=== PATIENT | male | born 1935 | race Caucasian/White ===

== ENCOUNTER → 2018-12-16 08:21 | Outpatient (CLI) | payer OTHER, SELFPAY | PROVIDERS: PCP Family Medicine; Visit Provider Urology | DX: N20.0 Calculus of kidney (principal) | CPT/HCPCS: 36415; 99001 ==

== ENCOUNTER → 2018-12-27 08:19 | Outpatient (CLI) | payer OTHER, SELFPAY ==
[2018-12-27 10:03] LABS: Prostate Specific Antigen < 0.064 ng/mL (0.10-4.00)
== END ==
PROVIDERS: PCP Family Medicine; Visit Provider Urology
DX: Z85.46 Personal history of malignant neoplasm of prostate (principal)
CPT/HCPCS: 36415; 84153

== ENCOUNTER 2019-04-26 21:40 | Observation (INO) | payer OTHER, SELFPAY ==
[2019-04-26 21:40] VITALS: BP 160/71; PULSE 63; RESP 20; TEMP 37.1; O2SAT 96; BMI 33.9
--- NOTE | 2019-04-26 21:43 | ED_ITS ---
HPI - General Adult General Chief complaint: Allergic Reaction Stated complaint: Allergic Reaction Time Seen by Provider: 04/26/19 21:42 Source: patient and EMS Mode of arrival: EMS Limitations: no limitations History of Present Illness HPI narrative: Patient is an 83-year-old male brought in by EMS for concerns of allergic reaction. Patient states that approximately 1 hour prior to arrival here in the emergency department he was eating clam chowder. He states that he has had this dish in the past. Afterwards started on the problems breathing and swallowing felt like his tongue was swelling. He called 911. EMS gave the patient 50 mg of Benadryl and epinephrine. Upon arrival patient states the symptoms were somewhat improving. 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 20 mg PO DAILY 04/26/19 04/26/19 (omeprazole)] Allergies Allergy/AdvReac Type Severity Reaction Status Date / Time INGREDIENT: NKA - NO KNOWN Allergy Unknown Uncoded 01/29/18 12:07 ALLERGIES Review of Systems Constitutional Denies fever(s) and Denies headache(s) ENT Ears, Nose, Mouth, and Throat: Denies headache(s), Reports lip swelling, Denies neck pain, Reports sore throat, Reports throat swelling and Reports tongue swelling Cardiovascular Denies chest pain and Denies dyspnea Respiratory Denies cough, Denies dyspnea and Reports wheezing Gastrointestinal Gastrointestinal: Denies abdominal pain, Denies nausea and Denies vomiting Genitourinary Denies dysuria Musculoskeletal Denies myalgias, Denies arthralgias and Denies neck pain Integumentary/Breasts Denies lesions, Denies new lesions and Denies rash Neurologic Denies behavioral changes and Denies headache(s) Psychiatric Denies behavioral changes Hematologic/Lymphatic Denies easy bleeding and Denies easy bruising Allergic/Immunologic Denies urticaria, Reports lip swelling, Reports throat swelling, Reports tongue swelling and Reports wheezing [facility] Medical History Gastroesophageal reflux disease (Acute) Social History household members: spouse Smoking Status: Current every day smoker alcohol intake: current Social History household members: spouse Smoking Status: Current every day smoker alcohol intake: current Exam Initial Vital Signs Initial Vital Signs: Vital Signs Temperature 98.7 F 04/26/19 21:40 Pulse Rate 63 04/26/19 21:40 Respiratory Rate 20 04/26/19 21:40 Blood Pressure 160/71 H 04/26/19 21:40 Pulse Oximetry 96 04/26/19 21:40 Const General: cooperative, comfortable, well developed, well groomed and No acute distress Orientation: alert, awake and oriented x3 HENMT Head: normal to inspection and normocephalic Ears: hearing grossly normal bilaterally Nose: external nose normal Mouth: No lip normal (Left lower lip swelling), tongue normal, No oropharynx normal (Swelling of the uvula and posterior oropharynx), moist mucous membranes, No muffled voice and No abnormal TMJ Throat: uvula midline and uvular edema Resp Effort & Inspection: normal respiratory effort Auscultation: clear to auscultation bilaterally Cardio Rate: regular rate Rhythm: regular rhythm Pulses: radial pulses present GI Inspection: non-distended Palpation: soft, No firm and No tender Skin Lesions: no lesions Rashes: no rashes Neuro General: alert, awake and oriented x3 Cognition: normal cognition Speech: speech normal Motor: muscle tone normal throughout Sensory Exam: no sensory deficits noted Extrem General: normal to inspection and capillary refill normal Psych Appearance: grossly normal and well kempt Scores GCS Amaury coma scale eye opening: Spontaneous Pierson coma scale verbal response: Orientated Amaury coma scale motor response: Obey commands Pierson coma scale total score: 15 Course Orders Ordered: ED Orders 04/26/19 21:20 Basic Metabolic Panel Stat Complete Blood Count AUTO DIFF Stat 04/26/19 22:39 Consult to Physician Routine Sodium Chloride (Normal Saline 0.9%) 1,000 mls @ 150 mls/hr IV CONT SB Last Admin: 04/27/19 00:46 Dose: 150 mls/hr Infusion: 04/27/19 00:35 Dose: 150 mls/hr Admin: 04/26/19 21:46 Dose: 150 mls/hr Methylprednisolone (Solu-Medrol 125 Mg Vial) 125 mg IV NOW ONE Stop: 04/27/19 05:01 Ondansetron HCl (Zofran) 4 mg IV Q4HR PRN PRN Reason: Nausea And Vomiting Discontinued Medications Famotidine (Pepcid) 20 mg in 50 mls @ 200 mls/hr IV NOW ONE Stop: 04/26/19 21:57 Last Infusion: 04/26/19 22:02 Dose: 0 mls/hr Admin: 04/26/19 21:47 Dose: 200 mls/hr Influenza Virus Vaccine (Flu Vaccine) 0.5 ml IM .ONCE ONE Stop: 04/27/19 00:53 Methylprednisolone (Solu-Medrol 125 Mg Vial) 125 mg IV NOW ONE Stop: 04/26/19 21:44 Last Admin: 04/26/19 21:47 Dose: 125 mg Vital Signs - 8 hr 04/26/19 21:40 04/26/19 21:47 04/26/19 22:30 Temperature 98.7 F Pulse Rate 63 70 72 Respiratory Rate 20 Blood Pressure 160/71 H Blood Pressure [Right Arm] 160/71 H 151/63 H Pulse Oximetry 96 97 96 04/26/19 23:31 04/27/19 00:30 Temperature 98.0 F Pulse Rate 67 65 Respiratory Rate 15 19 Blood Pressure 147/77 H Blood Pressure [Right Arm] 136/55 L Pulse Oximetry 95 98 Medical Decision Making Lab Data Lab results reviewed: Yes I reviewed the patient's lab results. Result diagrams: 04/26/19 21:20 04/26/19 21:20 Lab Results 04/26/19 04/26/19 Range/Units 21:20 21:20 WBC 9.9 (4.5-11.0) X10^3/uL RBC 4.78 (4.5-5.9) X10^6/uL Hgb 14.3 (13.5-17.5) g/dL Hct 42.5 (41-53) % MCV 88.9 (80-100) fL MCH 29.8 (26-34) PG MCHC 33.6 (30-36) % RDW 13.8 (11.6-14.8) % Plt Count 206 (150-400) X10^3/uL Neut % (Auto) Not Reportable Lymph % (Auto) Not Reportable [place] % (Auto) Not Reportable Eos % (Auto) Not Reportable Baso % (Auto) Not Reportable Lymph # (Auto) Not Reportable [place] # (Auto) Not Reportable Baso # (Auto) Not Reportable Total Counted 100 Seg Neutrophils % 57.0 (38-70) % Lymphocytes % (Manual) 28.0 (25-45) % Atypical Lymphs % 6.0 H ( - 0) % Monocytes % (Manual) 4.0 (2-11) % Eosinophils % (Manual) 4.0 (2-4) % Basophils % (Manual) 1.0 (0-1) % Neutrophils # (Manual) 5643 (1093-9924) /uL RBC Morphology Normal morphology Sodium 142 (137-145) mmol/L Potassium 3.7 (3.4-5.1) mmol/L Chloride 107 (98-107) mmol/L Carbon Dioxide 27 (22-32) mmol/L BUN 36 H (9-20) mg/dL Creatinine 1.30 H (0.66-1.25) mg/dL Estimated GFR 53.0 L (>60) mL/min BUN/Creatinine Ratio 27.7 H (6-22) Glucose 123 H (80-110) mg/dL Calcium 8.8 (8.4-10.2) mg/dL MDM Narrative Medical decision making narrative: Patient received Benadryl and epinephrine prior to arrival here in the emergency department. I gave him Pepcid and Solu- Medrol. During his stay here in the emergency department patient states that his symptoms were improving however he was not back to normal. He did have swelling of the edema posterior oropharynx however was maintaining his airway any secretions. Never had any symptoms like this in the past. No rashes. No vomiting. After observing here in the emergency department for a period of time his symptoms seem to not be improving all that much however again were not worsening. I discussed the case with Dr. Mccord who is on-call for the patient's primary provider who agreed to admit the patient for airway watch and continued evaluation. A repeat dose of Solu-Medrol was ordered. I discussed the admission with the patient who expressed understanding and agreement. Discharge Plan Departure Patient Disposition: Admitted as Observation Clinical Impression: Anaphylaxis Qualifiers: Encounter type: initial encounter Qualified Code(s): T78.2XXA - Anaphylactic shock, unspecified, initial encounter Discharge Date/Time: 04/27/19 00:30 Interventions: ED Discharge Assessment Last Done: 04/27/19 00:35 Admit Date/Time: 04/26/19 22:57 Admit Provider: Samm Mccord
[2019-04-26] MEDS: SODIUM CHLORIDE 0.9% 1,000 ML 150 ML IV (21:46)
[2019-04-26 21:47] VITALS: BP 160/71; PULSE 70; O2SAT 97
[2019-04-26] MEDS: methylPREDNISolone 125 MG/2 ML VIAL IV (21:47)
[2019-04-26] MEDS: FAMOTIDINE 20 MG/50 ML PIGGYBACK 200 MG IV (21:47)
[2019-04-26 21:53] LABS: Hematocrit 42.5 % (41-53); Hemoglobin 14.3 g/dL (13.5-17.5); Mean Corpuscular HGB Conc 33.6 % (30-36); Mean Corpuscular Hemoglobin 29.8 PG (26-34); Mean Corpuscular Volume 88.9 fL (80-100); Platelet Count 206 X10^3/uL (150-400); Red Blood Cell Count 4.78 X10^6/uL (4.5-5.9); Red Cell Distribution Width 13.8 % (11.6-14.8); White Blood Cell Count 9.9 X10^3/uL (4.5-11.0)
[2019-04-26 21:54] LABS: Add Manual Diff / Slide Review YES
[2019-04-26 22:00] LABS: BUN Creatinine Ratio 27.7 (6-22); Blood Urea Nitrogen 36 mg/dL (9-20); Calcium 8.8 mg/dL (8.4-10.2); Carbon Dioxide 27 mmol/L (22-32); Chloride 107 mmol/L (98-107); Glucose 123 mg/dL (80-110); HEMOLYSIS < 15 (0-50); Potassium 3.7 mmol/L (3.4-5.1); Sodium 142 mmol/L (137-145)
[2019-04-26 22:30] VITALS: BP 151/63; PULSE 72; O2SAT 96
[2019-04-26 23:17] VITALS: BMI 33.9
[2019-04-26 23:29] LABS: Neutrophils Absolute Manual 5643 /uL (3000-5900); Total Cells Counted 100
[2019-04-26 23:30] LABS: RBC Morphology Normal Morphology
[2019-04-26 23:31] VITALS: BP 136/55; PULSE 67; RESP 15; O2SAT 95
--- NOTE | 2019-04-26 23:38 | PC.NURSE ---
I attempted to call report, I was told that the nurse isn't available.
[2019-04-27 00:30] VITALS: BP 147/77; PULSE 65; RESP 19; TEMP 36.7; O2SAT 98
[2019-04-27] MEDS: SODIUM CHLORIDE 0.9% 1,000 ML 150 ML IV ×2 (00:46→06:32)
[2019-04-27 05:18] VITALS: BP 149/71; PULSE 68; RESP 19; TEMP 36.5; O2SAT 96
[2019-04-27] MEDS: methylPREDNISolone 125 MG/2 ML VIAL IV (06:28)
--- NOTE | 2019-04-27 06:40 | PC.NURSE ---
Pt admitted for suspected allergic reaction. His left facial cheek looks slightly swollen. Tongue is not swollen. States it does feel a little weird. Independent in the room. Vitals stable, continuous pulse ox on throughout the night with no issues. Clear Liquid diet. Tele NSR No complaints of pain
[2019-04-27 07:30] VITALS: BP 148/81; PULSE 75; RESP 16; TEMP 36.4; O2SAT 99
--- NOTE | 2019-04-27 09:12 | PC.NURSE ---
Day shift: Per Dr Mccord Pt to d/c. not able to put orders in until approx [address] Pt on regular diet for lunch.
--- NOTE | 2019-04-27 09:33 | PC.NURSE ---
Day shift: Pt did not get flu shot. Flu season shots over on the 19 of April. Pt ok with that and said he will get one this coming season.
--- NOTE | 2019-04-27 10:07 | PC.NURSE ---
Day shift: Per VTO ok for Pt to have regular diet for lunch.
[2019-04-27 10:15] VITALS: O2SAT 98
[2019-04-27 11:25] VITALS: BP 148/72; PULSE 68; RESP 16; TEMP 36.6; O2SAT 98
--- NOTE | 2019-04-27 12:59 | PM.HP.1 ---
History of Present Illness Date Patient Seen: 04/27/19 Time Patient Seen: 08:21 Chief complaint: Allergic Reaction Narrative: Patient is 83-year-old gentleman who was admitted during the night with acute allergic reaction josue that is almost like angioedema. Patient had eaten shellfish Rubi couple of hours before his presentation then developed a sense of swelling on the left side of his face and throat with some tingling and a sense of difficulty swallowing. No wheezing fevers chills rash chest pain palpitations dizziness or edema. Was seen in the emergency room and felt to have mostly cleared following some Benadryl and a dose of IV steroids. However there was enough concern persistence of symptoms they felt that it would be best to watch him through the night make sure he did not progressively redevelop difficulty swallowing or breathing or increased facial swelling. Patient's social history is that he lives with his in the community is active recent vacations without complication Head patient's habits no smoking occasional alcohol but not in excess Patient History Medical History Gastroesophageal reflux disease (Acute) Social History household members: spouse Smoking Status: Current every day smoker alcohol intake: current Family & Social History Social History: household members spouse Prior Living Arrangements House Safety & Behavioral: Feels Safe in Current Yes Environment Been Physically Hurt or No Threatened By a Person Suicidal Ideation Description None Suicide Plan Description No Plan Tobacco & Substance use: Tobacco type cigars Smoking Status Current every day smoker alcohol intake current alcohol intake frequency a few times a month Substance Use Type does not use Meds Home Medications Medication Instructions Recorded Confirmed Type losartan 10 mg PO DAILY 04/26/19 04/26/19 History omeprazole magnesium [Acid Photograph Tinter 20 mg PO DAILY 04/26/19 04/26/19 History (omeprazole)] Allergies Allergy/AdvReac Type Severity Reaction Status Date / Time INGREDIENT: NKA - NO KNOWN Allergy Unknown Uncoded 01/29/18 12:07 ALLERGIES Review of Systems Review of Systems Patient alert oriented speaking clearly No problems with vision No significant swelling in neck or her face although sense of some fullness and dullness in the left side of his mouth and throat with some tingling No shortness of breath cough wheezing No palpitations or racing pulse is art is bases dizziness or chest pain Abdomen without any changes no nausea vomiting diarrhea No skin rashes hives or itching No urinary changes or colon changes Neuro intact and symmetrical except for slight sense of numbness tingling in left face and bit of a sense of having to really focus to be able to swallow. Exam Vital Signs (past 8 hours): - 04/27/19 05:18 04/27/19 07:30 04/27/19 11:25 Temperature 97.7 F 97.6 F 98 F Pulse Rate 68 75 68 Respiratory Rate 19 16 16 Blood Pressure 149/71 H 148/81 H 148/72 H Pulse Oximetry 96 99 98 Oxygen Delivery Method Room Air Oxygen Flow Rate 0 Narrative Exam Narrative: PERRLA EOMs intact Patient alert speaking very clearly no difficulty breathing no palpitations no concerns of persistence of his symptoms. Lungs clear to auscultation percussion Cardiovascular shows regular rate and rhythm without murmur S3 no significant edema Abdomen nontender no hepatosplenomegaly mass rebound or guarding Skin without any rashes no urticaria redness itching or edema Neuro intact symmetrical to fine touch motor cognitive speech are clear Objective Labs Result Diagrams: 04/26/19 21:20 04/26/19 21:20 Labs: Laboratory Results - last 24 hr 04/26/19 04/26/19 21:20 21:20 WBC 9.9 RBC 4.78 Hgb 14.3 Hct 42.5 MCV 88.9 MCH 29.8 MCHC 33.6 RDW 13.8 Plt Count 206 Neut % (Auto) Not Reportable Lymph % (Auto) Not Reportable [place] % (Auto) Not Reportable Eos % (Auto) Not Reportable Baso % (Auto) Not Reportable Lymph # (Auto) Not Reportable [place] # (Auto) Not Reportable Baso # (Auto) Not Reportable Total Counted 100 Seg Neutrophils % 57.0 Lymphocytes % (Manual) 28.0 Atypical Lymphs % 6.0 H Monocytes % (Manual) 4.0 Eosinophils % (Manual) 4.0 Basophils % (Manual) 1.0 Neutrophils # (Manual) 5643 RBC Morphology Normal morphology Sodium 142 Potassium 3.7 Chloride 107 Carbon Dioxide 27 BUN 36 H Creatinine 1.30 H Estimated GFR 53.0 L BUN/Creatinine Ratio 27.7 H Glucose 123 H Calcium 8.8 Assessment & Plan Assessment & Plan narrative: Assessment 1. Patient has history of what sounds like an acute allergic reaction almost angioedema like response. He had eaten and shellfish based foods just before that but has eaten nose often in the past also over the last few days had had a fairly regular dose over 2-3 days of indomethacin secondary to 1 of his very rare gout flares. It is not impossible that that might have been a triggering factor. Was not aware of any significant reflux issues. Have encouraged him to avoid the seafood stool that he had and also to avoid indomethacin. Could try different anti-inflammatory if he felt an impending gout. Assessment 2. Esophageal reflux. Patient did not seem to have an aggravation of that during this admission or symptoms of that significantly prior to this admission. Will have him continue to use his regular omeprazole and I have reviewed the reflux measures to try to help with that. His assessment 3. Gout. Speculating about what might have triggered this patient's allergic reaction to things that he was doing that are extremely routine just before this started was using the indomethacin and also seafood chowder that they were eating. Suggested he voided both of those lots of fluid and hydration. Have reviewed and will want to continue to review with his regular physician the triggers for gout IA protein dehydration certain dietary issues. Stressed the importance of hydration particularly in warmer weather on. Will have patient follow up with regular provider which I think will be Dr. dewayne Domingo to review both his swelling as above as well as managing his long-term but very occasional episodes of gout. This is affectively his discharge summary as well as his admission history and physical was observed over night and has had resolution of his symptoms and this will serve as both his admission note and his discharge now.
--- NOTE | 2019-04-27 13:18 | PC.NURSE ---
Day shift: Pt left unit with this functional tester typewriters at approx 1310. He ambulated to his spouses car. Paperwork signed and he has all personal belongings. He has no new MD meds. All questions answered.
--- NOTE | 2019-04-27 13:28 | CM.DANOTE ---
Discharge Planning/Care Management DCP: assessment: Case received this morning and discussed in Team Rounds. EMR reviewed. Pt is an 83 year old male who admitted late last night to care of [facility]. Dr. Mccord was set to see pt today. PCP: Dr. Dheeraj Flor/ shai retired from the clinic: pt is expected to see the new partner Dr. Domingo at his next visit. Payer: [facility] Pt was admitted for concerns over a shellfish allergic reaction and kept overnight to make sure his symptoms did not worsen. Dr. Mccord came over during clinic lunch time and did ok pt for a d/c to home. Went now to room to check in with pt. RN reports that he had just left for home with his driving him and no concerns re his d/c home today were noted. Advanced directive, confirm from FAMILY Start: 04/27/19 00:53 Freq: Q24H Status: Discharge Protocol: Document 04/27/19 08:08 YAD (Rec: 04/27/19 08:11 YAD [id number]) Advance Directive, confirm on record Time 08:08 Person contacted patient. Stated on file in [facility] Copy received No CM Discharge Assessment Start: 04/27/19 13:27 Freq: Status: Active Protocol: Document 04/27/19 13:27 ITV (Rec: 04/27/19 13:27 [email or web address] [id number]) Discharge Planning Assessment Advance Directives? Yes History Provided By Patient Medical Record Prior Living Arrangements House Household Members spouse Is patient alert and oriented? Yes Review Status In Process
== END 2019-04-27 13:19 | disposition home or self-care (01) ==
LOC: ED 21:42 → AC 22:58
PROVIDERS: Admitting Provider Family Medicine; Emergency Provider Emergency Medicine; PCP Family Medicine; Visit Provider Family Medicine
DX: T78.1XXA Other adverse food reactions, not elsewhere classified, initial encounter (principal); F17.210 Nicotine dependence, cigarettes, uncomplicated; K21.9 Gastro-esophageal reflux disease without esophagitis; M10.9 Gout, unspecified
CPT/HCPCS: 36591; 80048; 85025; 94762; 96361; 96374; 96375; 96376; 99283; 99284; G0378; J2930

== ENCOUNTER 2020-01-22 06:43 | Inpatient (IN) | payer OTHER, SELFPAY ==
[2020-01-22] VITALS (7 sets, daily range): BP systolic 127–150; BP diastolic 69–82; PULSE 73–92; RESP 15–21; TEMP 36.7–37.4; O2SAT 93–98; BMI 30.8; BMI 30.4
--- NOTE | 2020-01-22 06:46 | DI.RAD.S_ITS ---
PROCEDURE: XR CHEST 1V INDICATIONS: pneumonia TECHNIQUE: One view of the chest was acquired. COMPARISON: None. FINDINGS: Surgical changes and devices: None. Lungs and pleura: Subtle, focal opacities noted in the midlungs bilaterally and patchy opacities noted in the left lung base. No pleural effusions or pneumothorax. Mediastinum: Mediastinal contours appear normal. Heart size is normal. Bones and chest wall: No suspicious bony lesions. Overlying soft tissues appear unremarkable. IMPRESSION: Subtle bilateral midlung focal opacities and patchy opacity left lung base concerning for multilobar pneumonia. Dictated by: Criselda Chow MD, PhD on 01/22/2020 at 8:50 Approved by: Criselda Chow MD, PhD on 01/22/2020 at 8:52
--- NOTE | 2020-01-22 06:52 | ED.SOB ---
HPI - SOB/Dyspnea <Hans Castano DO - Last Filed: 01/22/20 23:30> General Chief Complaint: Shortness of Breath/Dyspnea Stated Complaint: SOB/COUGH Time Seen by Provider: 01/22/20 06:44 Source: patient and EMS Mode of arrival: EMS Limitations: no limitations History of Present Illness HPI Narrative: 84-year-old male former smoker with noncontributory medical history and known positive COVID-19 swab presents with worsening shortness of breath over the past day or 2. He has had upper respiratory illness for approximately 2 weeks but has become profoundly short of breath with subjective fever, sore throat, diarrhea and the occasionally productive cough over the past few days. He denies any recent travel or exposure to persons known to be positive for COVID-19 but after having concerning symptoms he was seen and evaluated in the outpatient clinic and had a swab which has come back positive. On arrival EMS found him to be in the 80s, he rapidly improved with oxygen by [place]. PCP is Dr. Jose L BENNETT Complaint: shortness of breath and cough Onset (ago): day(s) Severity: moderate Consistency/Duration: constant Relieving factors: nothing Exacerbating factors: exertion Treatment prior to arrival: oxygen Related Data Home oxygen amount: none Home Medications Medication Instructions Recorded Confirmed omeprazole magnesium [[employer]id [employer] 20 mg PO DAILY 04/26/19 01/22/20 (omeprazole)] atorvastatin 20 mg PO BEDTIME 01/22/20 01/22/20 losartan-hydrochlorothiazide 1 tab PO DAILY 01/22/20 01/22/20 Allergies Allergy/AdvReac Type Severity Reaction Status Date / Time No Known Allergies Allergy Verified 01/22/20 07:08 Review of Systems <Hans Castano DO - Last Filed: 01/22/20 23:30> Constitutional Constitutional: Reports body ache(s), Reports chills, Reports fatigue, Reports fever(s), Denies frequent falls, Denies lethargy and Denies weakness Eyes Eyes: Denies change in vision, Denies eye discharge, Denies irritation and Denies loss of vision ENT Ears, Nose, Mouth, and Throat: Denies change in voice, Denies dizziness, Denies neck pain, Denies sore throat and Denies throat swelling Cardiovascular Cardiovascular: Denies chest pain, Denies irregular heart rhythm, Denies lightheadedness, Denies palpitations, Reports dyspnea, Reports dyspnea on exertion and Denies orthopnea Respiratory Respiratory: Reports cough, Reports dyspnea, Reports dyspnea on exertion and Reports wheezing Gastrointestinal Gastrointestinal: Denies abdominal pain, Denies change in bowel habits, Reports diarrhea, Denies nausea and Denies vomiting Genitourinary Genitourinary: Denies hematuria, Denies flank pain, Denies urinary incontinence and Denies urinary urgency Musculoskeletal Musculoskeletal: Denies back pain, Denies muscle weakness, Denies neck pain, Denies numbness and Denies tingling Integumentary/Breasts Skin/Breast: Denies pruritus, Denies erythema, Denies rash and Denies wounds Neurologic Neurologic: Denies behavioral changes, Denies confusion, Denies dizziness, Denies frequent falls, Denies loss of vision, Denies numbness, Denies tingling and Denies weakness Psychiatric Psychiatric: Denies anxiety, Denies behavioral changes, Denies confusion, Denies depression, Denies homicidal ideation and Denies suicidal ideation Endocrine Endocrine: Reports fatigue, Denies flushing and Denies palpitations Hematologic/Lymphatic Hematologic/Lymphatic: Denies easy bruising Allergic/Immunologic Allergic/Immunologic: Denies urticaria, Denies throat swelling and Reports wheezing Patient History <Hans Castano DO - Last Filed: 01/22/20 23:30> Medical History (Updated 01/22/20 @ 11:57 by William Hu MD) Gastroesophageal reflux disease (Acute) Hyperlipidemia (Acute) Hypertension (Acute) Social History household members: spouse Smoking Status: Current every day smoker alcohol intake: current Smoking Status: Current every day smoker alcohol intake frequency: a few times a month Substance Use Type: does not use Exam <Hans Castano DO - Last Filed: 01/22/20 23:30> Narrative Exam Narrative: GENERAL: [84] year old patient appears stated age. Well-nourished, well-developed patient, obviously ill, increased work of breathing and tachypnea HEAD: Atraumatic. Normocephalic. EYES: Pupils equal round and reactive. Extraocular motions intact. No scleral icterus. No injection or drainage. ENT: Dry mucous membranes Nose without bleeding, purulent drainage. Throat without erythema, tonsillar hypertrophy or exudate. Airway patent. NECK: Trachea midline. Non tender CARDIOVASCULAR: Regular rate and rhythm without murmurs, gallops, or rubs. RESPIRATORY: Decreased breath sounds bilaterally with crackles in both bases GASTROINTESTINAL: Abdomen soft, non-tender, nondistended. EXTREMITIES: No edema or joint tenderness. BACK: Nontender without deformity or crepitance. No flank tenderness. NEURO: AOx3. SKIN: No rash or erythema of visible areas Initial Vital Signs Initial Vital Signs: Vital Signs Temperature 98.9 F 01/22/20 06:35 Pulse Rate 92 H 01/22/20 06:35 Respiratory Rate 15 01/22/20 06:35 Blood Pressure 127/71 01/22/20 06:35 Pulse Oximetry 98 01/22/20 06:35 <Samm Luis DO - Last Filed: 01/22/20 09:00> Initial Vital Signs Initial Vital Signs: Vital Signs Temperature 98.9 F 01/22/20 06:35 Pulse Rate 92 H 01/22/20 06:35 Respiratory Rate 15 01/22/20 06:35 Blood Pressure 127/71 01/22/20 06:35 Pulse Oximetry 98 01/22/20 06:35 Course <Hans Castano, DO - Last Filed: 01/22/20 23:30> Orders Ordered: Acetaminophen (Tylenol) 650 mg PO Q6HR PRN PRN Reason: Fever/Mild Pain (1-3) Al Hydrox/Mg Hydrox/Simethicone (Maalox Plus) 30 ml PO Q6HR PRN PRN Reason: Dyspepsia Atorvastatin Calcium (Lipitor) 20 mg PO BEDTIME [facility] Last Admin: 01/22/20 20:54 Dose: 20 mg Documented by: EVA Enoxaparin Sodium (Lovenox) 40 mg SUBCUT DAILY [facility] Hydrochlorothiazide (Hydrochlorothiazide) 25 mg PO DAILY [facility] Hydroxychloroquine Sulfate (Plaquenil) 400 mg PO BIDWM [facility] Stop: 01/23/20 08:01 Last Admin: 01/22/20 17:13 Dose: 400 mg Documented by: EVA Hydroxychloroquine Sulfate (Plaquenil) 200 mg PO BIDWM [facility] Stop: 01/27/20 08:01 Sodium Chloride (Normal Saline 0.9%) 1,000 mls @ 80 mls/hr IV CONT [facility] Last Infusion: 01/22/20 10:32 Dose: 80 mls/hr Documented by: Infusion: 01/22/20 10:08 Dose: 0 mls/hr Documented by: Admin: 01/22/20 07:11 Dose: 80 mls/hr Documented by: MAEVEFARSharif Losartan Potassium (Cozaar) 100 mg PO DAILY SB Magnesium Hydroxide (Milk Of Magnesia) 30 ml PO DAILY PRN PRN Reason: Constipation Discontinued Medications Enoxaparin Sodium (Lovenox) 30 mg SUBCUT DAILY [facility] Vital Signs Vital signs: Vital Signs - 8 hr 01/22/20 06:35 01/22/20 08:54 Temperature 98.9 F Pulse Rate 92 H 79 Respiratory Rate 15 21 Blood Pressure 127/71 Blood Pressure [Left Arm] 150/74 H Pulse Oximetry 98 97 <Samm Luis DO - Last Filed: 01/22/20 09:00> Orders Ordered: Acetaminophen (Tylenol) 650 mg PO Q6HR PRN PRN Reason: Fever/Mild Pain (1-3) Al Hydrox/Mg Hydrox/Simethicone (Maalox Plus) 30 ml PO Q6HR PRN PRN Reason: Dyspepsia Atorvastatin Calcium (Lipitor) 20 mg PO BEDTIME [facility] Last Admin: 01/22/20 20:54 Dose: 20 mg Documented by: EVA Enoxaparin Sodium (Lovenox) 40 mg SUBCUT DAILY [facility] Hydrochlorothiazide (Hydrochlorothiazide) 25 mg PO DAILY [facility] Hydroxychloroquine Sulfate (Plaquenil) 400 mg PO BIDWM [facility] Stop: 01/23/20 08:01 Last Admin: 01/22/20 17:13 Dose: 400 mg Documented by: EVA Hydroxychloroquine Sulfate (Plaquenil) 200 mg PO BIDWM [facility] Stop: 01/27/20 08:01 Sodium Chloride (Normal Saline 0.9%) 1,000 mls @ 80 mls/hr IV CONT [facility] Last Infusion: 01/22/20 10:32 Dose: 80 mls/hr Documented by: Infusion: 01/22/20 10:08 Dose: 0 mls/hr Documented by: Admin: 01/22/20 07:11 Dose: 80 mls/hr Documented by: MAEVEFARL Losartan Potassium (Cozaar) 100 mg PO DAILY SB Magnesium Hydroxide (Milk Of Magnesia) 30 ml PO DAILY PRN PRN Reason: Constipation Discontinued Medications Enoxaparin Sodium (Lovenox) 30 mg SUBCUT DAILY SB Vital Signs Vital signs: Vital Signs - 8 hr 01/22/20 06:35 01/22/20 08:54 Temperature 98.9 F Pulse Rate 92 H 79 Respiratory Rate 15 21 Blood Pressure 127/71 Blood Pressure [Left Arm] 150/74 H Pulse Oximetry 98 97 MDM - SOB/Dyspnea <Hans Castano DO - Last Filed: 01/22/20 23:30> Lab Data Result diagrams: 01/22/20 06:40 01/22/20 06:40 Labs: Lab Results 01/22/20 01/22/20 01/22/20 Range/Units 06:40 06:40 06:40 WBC 7.2 (4.5-11.0) X10^3/uL RBC 4.87 (4.5-5.9) X10^6/uL Hgb 14.1 (13.5-17.5) g/dL Hct 41.8 (41-53) % MCV 85.8 (80-100) fL MCH 29.0 (26-34) PG MCHC 33.8 (30-36) % RDW 14.0 (11.6-14.8) % Plt Count 265 (150-400) X10^3/uL Neut % (Auto) 63.8 (50-75) % Lymph % (Auto) 32.0 (25-40) % Glasscock % (Auto) 3.9 (3-14) % Eos % (Auto) 0.1 L (2-4) % Baso % (Auto) 0.2 (0-2) % Neut # (Auto) 4600 (3428-0699) /uL Lymph # (Auto) 2300 (7553-3921) /uL Glasscock # (Auto) 300 (0-900) /uL Eos # (Auto) 0 (0-450) /uL Baso # (Auto) 0 (0-100) /uL Sodium 136 L (137-145) mmol/L Potassium 3.9 (3.4-5.1) mmol/L Chloride 99 (98-107) mmol/L Carbon Dioxide 27 (22-32) mmol/L BUN 40 H (9-20) mg/dL Creatinine 1.49 H (0.66-1.25) mg/dL Estimated GFR 45.2 L (>60) mL/min BUN/Creatinine Ratio 26.8 H (6-22) Glucose 135 H (80-110) mg/dL Lactate (0.7-2.1) mmol/L Calcium 8.7 (8.4-10.2) mg/dL Ferritin 573 H (18-464) ng/mL Total Bilirubin 1.5 H (0.2-1.3) mg/dL AST 50 (17-59) IU/L ALT 42 (<50) IU/L Alkaline Phosphatase 75 (38-126) U/L Lactate Dehydrogenase (313-618) U/L Troponin I (0.01-0.034) ng/mL C-Reactive Protein (<1.0) mg/dL NT-Pro-B Natriuret Pep 190 (<450) pg/mL Total Protein 7.5 (6.3-8.2) g/dL Albumin 4.0 (3.5-5.0) g/dL Globulin 3.5 (1.7-4.1) g/dL Albumin/Globulin Ratio 1.1 (1.0-2.8) Procalcitonin 0.06 (<0.5) ng/mL 01/22/20 01/22/20 01/22/20 Range/Units 06:40 06:40 06:40 WBC (4.5-11.0) X10^3/uL RBC (4.5-5.9) X10^6/uL Hgb (13.5-17.5) g/dL Hct (41-53) % MCV (80-100) fL MCH (26-34) PG MCHC (30-36) % RDW (11.6-14.8) % Plt Count (150-400) X10^3/uL Neut % (Auto) (50-75) % Lymph % (Auto) (25-40) % Glasscock % (Auto) (3-14) % Eos % (Auto) (2-4) % Baso % (Auto) (0-2) % Neut # (Auto) (8358-1464) /uL Lymph # (Auto) (2233-0203) /uL Glasscock # (Auto) (0-900) /uL Eos # (Auto) (0-450) /uL Baso # (Auto) (0-100) /uL Sodium (137-145) mmol/L Potassium (3.4-5.1) mmol/L Chloride (98-107) mmol/L Carbon Dioxide (22-32) mmol/L BUN (9-20) mg/dL Creatinine (0.66-1.25) mg/dL Estimated GFR (>60) mL/min BUN/Creatinine Ratio (6-22) Glucose (80-110) mg/dL Lactate 1.4 (0.7-2.1) mmol/L Calcium (8.4-10.2) mg/dL Ferritin (18-464) ng/mL Total Bilirubin (0.2-1.3) mg/dL AST (17-59) IU/L ALT (<50) IU/L Alkaline Phosphatase (38-126) U/L Lactate Dehydrogenase 1203 H (313-618) U/L Troponin I (0.01-0.034) ng/mL C-Reactive Protein 8.8 H (<1.0) mg/dL NT-Pro-B Natriuret Pep (<450) pg/mL Total Protein (6.3-8.2) g/dL Albumin (3.5-5.0) g/dL Globulin (1.7-4.1) g/dL Albumin/Globulin Ratio (1.0-2.8) Procalcitonin (<0.5) ng/mL 01/22/20 Range/Units 06:40 WBC (4.5-11.0) X10^3/uL RBC (4.5-5.9) X10^6/uL Hgb (13.5-17.5) g/dL Hct (41-53) % MCV (80-100) fL MCH (26-34) PG MCHC (30-36) % RDW (11.6-14.8) % Plt Count (150-400) X10^3/uL Neut % (Auto) (50-75) % Lymph % (Auto) (25-40) % Glasscock % (Auto) (3-14) % Eos % (Auto) (2-4) % Baso % (Auto) (0-2) % Neut # (Auto) (3863-4756) /uL Lymph # (Auto) (1801-2238) /uL Glasscock # (Auto) (0-900) /uL Eos # (Auto) (0-450) /uL Baso # (Auto) (0-100) /uL Sodium (137-145) mmol/L Potassium (3.4-5.1) mmol/L Chloride (98-107) mmol/L Carbon Dioxide (22-32) mmol/L BUN (9-20) mg/dL Creatinine (0.66-1.25) mg/dL Estimated GFR (>60) mL/min BUN/Creatinine Ratio (6-22) Glucose (80-110) mg/dL Lactate (0.7-2.1) mmol/L Calcium (8.4-10.2) mg/dL Ferritin (18-464) ng/mL Total Bilirubin (0.2-1.3) mg/dL AST (17-59) IU/L ALT (<50) IU/L Alkaline Phosphatase (38-126) U/L Lactate Dehydrogenase (313-618) U/L Troponin I < 0.012 (0.01-0.034) ng/mL C-Reactive Protein (<1.0) mg/dL NT-Pro-B Natriuret Pep (<450) pg/mL Total Protein (6.3-8.2) g/dL Albumin (3.5-5.0) g/dL Globulin (1.7-4.1) g/dL Albumin/Globulin Ratio (1.0-2.8) Procalcitonin (<0.5) ng/mL <Samm Luis DO - Last Filed: 01/22/20 09:00> Lab Data Labs: Lab Results 01/22/20 01/22/20 01/22/20 Range/Units 06:40 06:40 06:40 WBC 7.2 (4.5-11.0) X10^3/uL RBC 4.87 (4.5-5.9) X10^6/uL Hgb 14.1 (13.5-17.5) g/dL Hct 41.8 (41-53) % MCV 85.8 (80-100) fL MCH 29.0 (26-34) PG MCHC 33.8 (30-36) % RDW 14.0 (11.6-14.8) % Plt Count 265 (150-400) X10^3/uL Neut % (Auto) 63.8 (50-75) % Lymph % (Auto) 32.0 (25-40) % Glasscock % (Auto) 3.9 (3-14) % Eos % (Auto) 0.1 L (2-4) % Baso % (Auto) 0.2 (0-2) % Neut # (Auto) 4600 (0359-3189) /uL Lymph # (Auto) 2300 (7712-5537) /uL Glasscock # (Auto) 300 (0-900) /uL Eos # (Auto) 0 (0-450) /uL Baso # (Auto) 0 (0-100) /uL Sodium 136 L (137-145) mmol/L Potassium 3.9 (3.4-5.1) mmol/L Chloride 99 (98-107) mmol/L Carbon Dioxide 27 (22-32) mmol/L BUN 40 H (9-20) mg/dL Creatinine 1.49 H (0.66-1.25) mg/dL Estimated GFR 45.2 L (>60) mL/min BUN/Creatinine Ratio 26.8 H (6-22) Glucose 135 H (80-110) mg/dL Lactate (0.7-2.1) mmol/L Calcium 8.7 (8.4-10.2) mg/dL Ferritin 573 H (18-464) ng/mL Total Bilirubin 1.5 H (0.2-1.3) mg/dL AST 50 (17-59) IU/L ALT 42 (<50) IU/L Alkaline Phosphatase 75 (38-126) U/L Lactate Dehydrogenase (313-618) U/L Troponin I (0.01-0.034) ng/mL C-Reactive Protein (<1.0) mg/dL NT-Pro-B Natriuret Pep 190 (<450) pg/mL Total Protein 7.5 (6.3-8.2) g/dL Albumin 4.0 (3.5-5.0) g/dL Globulin 3.5 (1.7-4.1) g/dL Albumin/Globulin Ratio 1.1 (1.0-2.8) Procalcitonin 0.06 (<0.5) ng/mL 04/01/0701/22/20 01/22/20 Range/Units 06:40 06:40 06:40 WBC (4.5-11.0) X10^3/uL RBC (4.5-5.9) X10^6/uL Hgb (13.5-17.5) g/dL Hct (41-53) % MCV (80-100) fL MCH (26-34) PG MCHC (30-36) % RDW (11.6-14.8) % Plt Count (150-400) X10^3/uL Neut % (Auto) (50-75) % Lymph % (Auto) (25-40) % Glasscock % (Auto) (3-14) % Eos % (Auto) (2-4) % Baso % (Auto) (0-2) % Neut # (Auto) (3612-5838) /uL Lymph # (Auto) (2925-5462) /uL Glasscock # (Auto) (0-900) /uL Eos # (Auto) (0-450) /uL Baso # (Auto) (0-100) /uL Sodium (137-145) mmol/L Potassium (3.4-5.1) mmol/L Chloride (98-107) mmol/L Carbon Dioxide (22-32) mmol/L BUN (9-20) mg/dL Creatinine (0.66-1.25) mg/dL Estimated GFR (>60) mL/min BUN/Creatinine Ratio (6-22) Glucose (80-110) mg/dL Lactate 1.4 (0.7-2.1) mmol/L Calcium (8.4-10.2) mg/dL Ferritin (18-464) ng/mL Total Bilirubin (0.2-1.3) mg/dL AST (17-59) IU/L ALT (<50) IU/L Alkaline Phosphatase (38-126) U/L Lactate Dehydrogenase 1203 H (313-618) U/L Troponin I (0.01-0.034) ng/mL C-Reactive Protein 8.8 H (<1.0) mg/dL NT-Pro-B Natriuret Pep (<450) pg/mL Total Protein (6.3-8.2) g/dL Albumin (3.5-5.0) g/dL Globulin (1.7-4.1) g/dL Albumin/Globulin Ratio (1.0-2.8) Procalcitonin (<0.5) ng/mL 01/22/20 Range/Units 06:40 WBC (4.5-11.0) X10^3/uL RBC (4.5-5.9) X10^6/uL Hgb (13.5-17.5) g/dL Hct (41-53) % MCV (80-100) fL MCH (26-34) PG MCHC (30-36) % RDW (11.6-14.8) % Plt Count (150-400) X10^3/uL Neut % (Auto) (50-75) % Lymph % (Auto) (25-40) % Glasscock % (Auto) (3-14) % Eos % (Auto) (2-4) % Baso % (Auto) (0-2) % Neut # (Auto) (1234-8217) /uL Lymph # (Auto) (1875-5809) /uL Glasscock # (Auto) (0-900) /uL Eos # (Auto) (0-450) /uL Baso # (Auto) (0-100) /uL Sodium (137-145) mmol/L Potassium (3.4-5.1) mmol/L Chloride (98-107) mmol/L Carbon Dioxide (22-32) mmol/L BUN (9-20) mg/dL Creatinine (0.66-1.25) mg/dL Estimated GFR (>60) mL/min BUN/Creatinine Ratio (6-22) Glucose (80-110) mg/dL Lactate (0.7-2.1) mmol/L Calcium (8.4-10.2) mg/dL Ferritin (18-464) ng/mL Total Bilirubin (0.2-1.3) mg/dL AST (17-59) IU/L ALT (<50) IU/L Alkaline Phosphatase (38-126) U/L Lactate Dehydrogenase (313-618) U/L Troponin I < 0.012 (0.01-0.034) ng/mL C-Reactive Protein (<1.0) mg/dL NT-Pro-B Natriuret Pep (<450) pg/mL Total Protein (6.3-8.2) g/dL Albumin (3.5-5.0) g/dL Globulin (1.7-4.1) g/dL Albumin/Globulin Ratio (1.0-2.8) Procalcitonin (<0.5) ng/mL Imaging Data CT scan - chest: Radiologist's Impression: [address] [address] [address] Scan Report Signed Patient: Willem Alfred#: [id number] : [id number]:[id number] Age/Sex: 84 / MDate of Service: 01/22/20 Loc: ED Accession Number: [id number] Procedure: CT chest wo con Ordering Provider: Hans Castano D.O. PROCEDURE: CT CHEST WO CON INDICATIONS: SOB< hypoxia, fever, cough TECHNIQUE: Noncontrast 5 mm thick sections acquired from the pulmonary apices to the posterior costophrenic angles. 1 mm lung window, 5 mm thick coronal and sagittal and 7 mm axial MIP reformats were then acquired. For radiation dose reduction, the following was used: automated exposure control, adjustment of mA and/or kV according to patient size. COMPARISON: None. FINDINGS: Image quality: Excellent. Lungs and pleura: Extensive groundglass opacities are seen scattered in lateral and posterior periphery of bilateral lung robertson involving both upper and lower lobes suggestive of atypical pneumonia. No pleural effusions or pneumothorax. Central and peripheral airways are patent and normal in caliber. Mediastinum: Heart size is enlarged. No pericardial effusion. Mildly enlarged mediastinal and bilateral hilar lymph nodes are seen measures up to 1.1 cm in short axis diameter in the precarinal space and subcarinal space. Atherosclerotic calcifications are seen. Thoracic aorta and central pulmonary arteries are normal in size. Esophagus is normal in caliber. There is a small hiatal hernia. Bones and chest wall: No suspicious bony lesions. No vertebral body compression fractures. No axillary or supraclavicular adenopathy by size criteria. Thyroid gland show no gross abnormality.. Abdomen: Visualized upper abdominal solid organs and bowel loops appear normal in the absence of contrast. Tiny calcified stone in dependent portion of gallbladder lumen near the fundus is seen. No gallbladder wall thickening or pericholecystic fluid. IMPRESSION: 1. Extensive groundglass opacities scattered in lateral and posterior aspects of bilateral upper and lower lobes suggestive of extensive bilateral infiltrates possibly from atypical pneumonia. No pleural effusion or pneumothorax. Airway is patent. 2. Mildly enlarged mediastinal or hilar lymph nodes. Mild cardiomegaly. 3. Cholelithiasis, no CT evidence of acute cholecystitis. Dictated by: Zach Carney M.D. on 01/22/2020 at 8:30 Approved by: Zach Carney M.D. on 01/22/2020 at 8:39 Chest x-ray: Radiologist's Impression: [address] [address] XRay Report Signed Patient: Willem Alfred DMR#: [id number] : [id number]:[id number] Age/Sex: 84 / MDate of Service: 01/22/20 Loc: ED Accession Number: [id number] Procedure: XR chest 1V Ordering Provider: Hans Castano D.O. PROCEDURE: XR CHEST 1V INDICATIONS: pneumonia TECHNIQUE: One view of the chest was acquired. COMPARISON: None. FINDINGS: Surgical changes and devices: None. Lungs and pleura: Subtle, focal opacities noted in the midlungs bilaterally and patchy opacities noted in the left lung base. No pleural effusions or pneumothorax. Mediastinum: Mediastinal contours appear normal. Heart size is normal. Bones and chest wall: No suspicious bony lesions. Overlying soft tissues appear unremarkable. IMPRESSION: Subtle bilateral midlung focal opacities and patchy opacity left lung base concerning for multilobar pneumonia. Dictated by: Criselda Chow MD, PhD on 01/22/2020 at 8:50 Approved by: Criselda Chow MD, PhD on 01/22/2020 at 8:52 [facility] Narrative Medical decision making narrative: Dr luis: Received turned over from Dr Castano who initially evaluated the patient and ordered labs and CT scans. Patient requiring oxygen by nasal cannula in order to maintain oxygen saturations. Patient most likely has COVID. He is not christopher intubation. Discussed the case with Dr. Hu will admit for respiratory support. Discharge Plan Departure Patient Disposition: Admitted As Inpatient Clinical Impression: Pneumonia, viral, COVID-19 virus infection Respiratory failure, acute Qualifiers: Respiratory failure complication: hypoxia Qualified Code(s): J96.01 - Acute respiratory failure with hypoxia Discharge Date/Time: 01/22/20 10:10 Referrals: Maureen Domingo MD [Primary Care Provider] - Admit Date/Time: 01/22/20 08:59 Admit Provider: William Hu
[2020-01-22 06:56] LABS: Add Manual Diff / Slide Review NO; Basophils Absolute Auto 0 /uL (0-100); Basophils Percent Auto 0.2 % (0-2); Eosinophils Absolute Auto 0 /uL (0-450); Eosinophils Percent Auto 0.1 % (2-4); Hematocrit 41.8 % (41-53); Hemoglobin 14.1 g/dL (13.5-17.5); Lymphocytes Absolute Auto 2300 /uL (1100-4500); Mean Corpuscular HGB Conc 33.8 % (30-36); Mean Corpuscular Volume 85.8 fL (80-100); Monocytes Absolute Auto 300 /uL (0-900); Monocytes Percent Auto 3.9 % (3-14); Neutrophils Absolute Auto 4600 /uL (1500-7000); Neutrophils Percent Auto 63.8 % (50-75); Platelet Count 265 X10^3/uL (150-400); Red Blood Cell Count 4.87 X10^6/uL (4.5-5.9); White Blood Cell Count 7.2 X10^3/uL (4.5-11.0)
[2020-01-22 07:07] LABS: Alanine Aminotransferase 42 IU/L (<50); Albumin Globulin Ratio 1.1 (1.0-2.8); Alkaline Phosphatase 75 U/L (38-126); Aspartate Aminotransferase 50 IU/L (17-59); BUN Creatinine Ratio 26.8 (6-22); Bilirubin Total 1.5 mg/dL (0.2-1.3); Blood Urea Nitrogen 40 mg/dL (9-20); Calcium 8.7 mg/dL (8.4-10.2); Carbon Dioxide 27 mmol/L (22-32); Chloride 99 mmol/L (98-107); Estimated Glomerular Filt Rate 45.2 mL/min (>60); Globulin 3.5 g/dL (1.7-4.1); Glucose 135 mg/dL (80-110); HEMOLYSIS < 15 (0-50); Potassium 3.9 mmol/L (3.4-5.1); Sodium 136 mmol/L (137-145); Total Protein 7.5 g/dL (6.3-8.2)
[2020-01-22 07:08] LABS: Lactate (Lactic Acid) 1.4 mmol/L (0.7-2.1)
[2020-01-22] MEDS: SODIUM CHLORIDE 0.9% 1,000 ML 80 ML IV (07:11)
[2020-01-22 07:17] LABS: NT-proBNP (BNP-Adult 18+) 190 pg/mL (<450)
[2020-01-22 07:23] LABS: Procalcitonin 0.06 ng/mL (<0.5)
[2020-01-22 07:39] LABS: Lactate Dehydrogenase 1203 U/L (313-618)
[2020-01-22 07:42] LABS: Ferritin 573 ng/mL (18-464)
--- NOTE | 2020-01-22 08:20 | DI.CT.S_ITS ---
PROCEDURE: CT CHEST WO CON INDICATIONS: SOB< hypoxia, fever, cough TECHNIQUE: Noncontrast 5 mm thick sections acquired from the pulmonary apices to the posterior costophrenic angles. 1 mm lung window, 5 mm thick coronal and sagittal and 7 mm axial MIP reformats were then acquired. For radiation dose reduction, the following was used: automated exposure control, adjustment of mA and/or kV according to patient size. COMPARISON: None. FINDINGS: Image quality: Excellent. Lungs and pleura: Extensive groundglass opacities are seen scattered in lateral and posterior periphery of bilateral lung robertson involving both upper and lower lobes suggestive of atypical pneumonia. No pleural effusions or pneumothorax. Central and peripheral airways are patent and normal in caliber. Mediastinum: Heart size is enlarged. No pericardial effusion. Mildly enlarged mediastinal and bilateral hilar lymph nodes are seen measures up to 1.1 cm in short axis diameter in the precarinal space and subcarinal space. Atherosclerotic calcifications are seen. Thoracic aorta and central pulmonary arteries are normal in size. Esophagus is normal in caliber. There is a small hiatal hernia. Bones and chest wall: No suspicious bony lesions. No vertebral body compression fractures. No axillary or supraclavicular adenopathy by size criteria. Thyroid gland show no gross abnormality.. Abdomen: Visualized upper abdominal solid organs and bowel loops appear normal in the absence of contrast. Tiny calcified stone in dependent portion of gallbladder lumen near the fundus is seen. No gallbladder wall thickening or pericholecystic fluid. IMPRESSION: 1. Extensive groundglass opacities scattered in lateral and posterior aspects of bilateral upper and lower lobes suggestive of extensive bilateral infiltrates possibly from atypical pneumonia. No pleural effusion or pneumothorax. Airway is patent. 2. Mildly enlarged mediastinal or hilar lymph nodes. Mild cardiomegaly. 3. Cholelithiasis, no CT evidence of acute cholecystitis. Dictated by: Zach Carney M.D. on 01/22/2020 at 8:30 Approved by: Zach Carney M.D. on 01/22/2020 at 8:39
[2020-01-22 10:25] LABS: C-Reactive Protein Quant 8.8 mg/dL (<1.0)
--- NOTE | 2020-01-22 11:07 | PC.NURSE ---
PT ADMITTED TO ROOM 230 WITH INCREASING RESP DISTRESS REQUIRING SUPPLEMENTAL OXYGEN TO MAINTAIN SPO2 GREATER THAN 92%- TRANSFERRED FROM ED ON 2 LITERS NC AND NOW INCREASED TO 3L - REPORTS FEELING VERY WEAK AND EXHAUSTED X 2-3 WEEKS AT HOME- DID TEST POSITIVE FOR COVID-19 PRIOR TO HOSPITALIZATION-LUNGS DIMINISHED BUT COARSE BILAT, ADMISSION ASSESSMENT COMPLETED AT THIS TIME
--- NOTE | 2020-01-22 11:51 | PM.HP.1 ---
History of Present Illness History of Present Illness Date Patient Seen: 01/22/20 Time Patient Seen: 11:30 Chief complaint: SOB/COUGH Narrative: Patient is an 84-year-old male with history of hypertension, hyperlipidemia presented to the emergency department with complaints of weakness and shortness of breath. He developed respiratory illness about 2 weeks ago and has been doing telemedicine with his PCP. On January 19, which is 2 days ago, he had testing which showed positive for COVID 19. He has not slept in the past week due to difficulty breathing, weakness and anxiety. He finally came in this morning for ongoing symptoms which have not been improving. He had sats in the ER in the mid to upper 80s on room air. Chest x-ray and CT showed bilateral diffuse ground-glass opacities consistent with COVID 19 pneumonia. Patient states he had fever only on the 1st day of his respiratory illness. He has also had loss of taste and smell. He states his cough is mild and nonproductive. He has had loss of appetite and generalized weakness. He has also had mild diarrhea. His spouse also tested positive for COVID 19 and has been managing at home. Patient History Medical History (Updated 01/22/20 @ 11:57 by William Hu MD) Gastroesophageal reflux disease (Acute) Hyperlipidemia (Acute) Hypertension (Acute) Family & Social History Social History: household members spouse Prior Living Arrangements House Safety & Behavioral: Feels Safe in Current Yes Environment Been Physically Hurt or No Threatened By a Person Suicidal Ideation Description None Suicide Plan Description No Plan Tobacco & Substance use: Tobacco type cigars Smoking Status Current every day smoker alcohol intake current alcohol intake frequency a few times a month Substance Use Type does not use Meds Home Medications and Allergies Home Medications Medication Instructions Recorded Confirmed Type losartan 10 mg PO DAILY 04/26/19 01/22/20 History omeprazole magnesium [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 20 mg PO DAILY 04/26/19 01/22/20 History (omeprazole)] benzonatate 100 mg capsule 100 mg PO BEDTIME #20 cap 06/09/19 01/22/20 Rx Allergies Allergy/AdvReac Type Severity Reaction Status Date / Time No Known Allergies Allergy Verified 01/22/20 07:08 Review of Systems Review of Systems ROS: Yes All systems reviewed with the patient and are negative except as otherwise documented Exam Vital Signs (past 8 hours): - 01/22/20 06:35 01/22/20 08:54 01/22/20 09:43 Temperature 98.9 F Pulse Rate 92 H 79 78 Respiratory Rate 15 21 18 Blood Pressure 127/71 145/78 H Blood Pressure [Left Arm] 150/74 H Pulse Oximetry 98 97 94 Oxygen Delivery Method Nasal Cannula Oxygen Flow Rate 3 Narrative Exam Narrative: GENERAL: Alert weak appearing male currently breathing comfortably on 2 L nasal cannula HEAD: Atraumatic. Normocephalic. EYES: Pupils equal, round and reactive. Extraocular motions intact. No scleral icterus. No injection or drainage. NECK: Trachea midline. No lymphadenopathy. CARDIOVASCULAR: Regular rate and rhythm, possible systolic murmur, gallops, or rubs. RESPIRATORY: Breathing nonlabored at rest, speaking in full sentences, there is diffuse coarse crackles throughout lung robertson bilaterally GASTROINTESTINAL: Abdomen nondistended, soft, non-tender. No hepato-splenomegaly, or palpable masses. EXTREMITIES: No edema. NEUROLOGICAL: Alert, well oriented, speech is intact, nonfocal SKIN: warm, dry, no rash Objective Labs Result Diagrams: 01/22/20 06:40 01/22/20 06:40 Labs: Laboratory Results - last 24 hr 01/22/20 01/22/20 01/22/20 06:40 06:40 06:40 WBC 7.2 RBC 4.87 Hgb 14.1 Hct 41.8 MCV 85.8 MCH 29.0 MCHC 33.8 RDW 14.0 Plt Count 265 Neut % (Auto) 63.8 Lymph % (Auto) 32.0 [place] % (Auto) 3.9 Eos % (Auto) 0.1 L Baso % (Auto) 0.2 Neut # (Auto) 4600 Lymph # (Auto) 2300 [place] # (Auto) 300 Eos # (Auto) 0 Baso # (Auto) 0 Sodium 136 L Potassium 3.9 Chloride 99 Carbon Dioxide 27 BUN 40 H Creatinine 1.49 H Estimated GFR 45.2 L BUN/Creatinine Ratio 26.8 H Glucose 135 H Lactate Calcium 8.7 Ferritin 573 H Total Bilirubin 1.5 H AST 50 ALT 42 Alkaline Phosphatase 75 Lactate Dehydrogenase C-Reactive Protein NT-Pro-B Natriuret Pep 190 Total Protein 7.5 Albumin 4.0 Globulin 3.5 Albumin/Globulin Ratio 1.1 Procalcitonin 0.06 01/22/20 01/22/20 01/22/20 06:40 06:40 06:40 WBC RBC Hgb Hct MCV MCH MCHC RDW Plt Count Neut % (Auto) Lymph % (Auto) [place] % (Auto) Eos % (Auto) Baso % (Auto) Neut # (Auto) Lymph # (Auto) [place] # (Auto) Eos # (Auto) Baso # (Auto) Sodium Potassium Chloride Carbon Dioxide BUN Creatinine Estimated GFR BUN/Creatinine Ratio Glucose Lactate 1.4 Calcium Ferritin Total Bilirubin AST ALT Alkaline Phosphatase Lactate Dehydrogenase 1203 H C-Reactive Protein 8.8 H NT-Pro-B Natriuret Pep Total Protein Albumin Globulin Albumin/Globulin Ratio Procalcitonin Assessment & Plan Assessment & Plan narrative: 1. COVID 19 pneumonia, present on admission, active -patient presents with 2 week respiratory illness, positive outpatient COVID 19 test on 01/19, and now in acute respiratory failure -ferritin, LDH, CRP and CT with evidence of diffuse lung opacities consistent with COVID 19 -normal procalcitonin -patient high risk for clinical deterioration based on age, comorbidity of hypertension, and hypoxia -patient consents to taking hydroxychloroquine, dosed 400 mg b.i.d. x1 day, then 200 mg b.i.d. x 4 days -monitor QT intervals on telemetry and avoid any other QT prolonging medications -check troponin 2. Acute hypoxic respiratory failure, present on admission, active -patient with room air O2 sat in mid to upper 80s -support O2 nasal cannula, may need high-flow nasal cannula or mechanical ventilator if respiratory status worsens -ABG if respiratory status worsens 3. Acute kidney injury, present on admission, active -admit BUN 40, creatinine 1.49, EGFR 45 -likely pre renal -encourage p.o. fluids, avoid IV hydration due to potential worsening of respiratory failure -recheck BMP in a.m. 4. Hypertension, present on admission, chronic, stable -continue routine home medication 5. Hyperlipidemia, present on admission, chronic -continue statin DVT prophylaxis: Lovenox renal dose Code status: Full code
[2020-01-22 12:27] LABS: Troponin I < 0.012 ng/mL (0.01-0.034)
--- NOTE | 2020-01-22 16:54 | PC.NURSE ---
Addendum entered by Ariadna Alexandra R.N. 01/22/20 21:11: 2100- Patient is resting comfortably. While getting vitals I turned the oxygen off to see if patient could tolerate room air. In less than one minute patient had desaturated to 89%. Patient placed back on 02 at 2 liters cannula. Patient denies feeling SOB. Saturation on 2 liter 02 95%. Patient has a low grade temp 99.4 declines tylenol at this time. Original Note: 1650- Spoke with patients after verifying code word. states she has also tested positive for Covid-19. 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 advised that she should not be coming to the hospital or going anywhere as she is shedding virus and even though she asymptomatic she can infect others. verbalized understanding that she needed to isolate. Will monitor.
[2020-01-22] MEDS: HYDROXYCHLOROQUINE 200 MG TABLET 400 MG PO (17:13)
[2020-01-22] MEDS: ATORVASTATIN 20 MG TABLET PO (20:54)
[2020-01-23] VITALS (7 sets, daily range): BP systolic 115–154; BP diastolic 66–80; PULSE 73–78; RESP 16–24; TEMP 36.3–36.8; O2SAT 91–96
[2020-01-23 05:16] LABS: BUN Creatinine Ratio 28.2 (6-22); Blood Urea Nitrogen 35 mg/dL (9-20); Calcium 8.2 mg/dL (8.4-10.2); Carbon Dioxide 29 mmol/L (22-32); Chloride 101 mmol/L (98-107); Estimated Glomerular Filt Rate 55.8 mL/min (>60); Glucose 121 mg/dL (80-110); HEMOLYSIS < 15 (0-50); Potassium 4.6 mmol/L (3.4-5.1); Sodium 135 mmol/L (137-145)
--- NOTE | 2020-01-23 09:02 | P.PN_ITS ---
Subjective Subjective Date Patient Seen: 01/23/20 Interval history: Patient is 84-year-old male admitted with acute respiratory failure due to COVID-19 pneumonia. He states he slept well last night and feels less short of breath. He was able to walk to the bathroom without getting out of breath. He has not had fever since day 1 of illness. He is currently on 2 L nasal cannula with O2 sat in the low 90s. Exam Vital Signs (past 8 hours): - 01/23/20 04:08 Temperature 98.2 F Pulse Rate 73 Respiratory Rate 24 Blood Pressure 154/74 H Pulse Oximetry 92 Oxygen Delivery Method Nasal Cannula Oxygen Flow Rate 2 Narrative Exam Narrative: General: Alert and comfortable appearing male Lungs: Much diminished bilateral crackles compared to previous exam, no wheeze Heart: Regular rhythm Extremities: No edema Objective Labs Result Diagrams: 01/22/20 06:40 01/23/20 04:48 Labs: Laboratory Results - last 24 hr 01/22/20 01/22/20 01/23/20 06:40 06:40 04:48 Sodium 135 L Potassium 4.6 Chloride 101 Carbon Dioxide 29 BUN 35 H Creatinine 1.24 Estimated GFR 55.8 L BUN/Creatinine Ratio 28.2 H Glucose 121 H Calcium 8.2 L Troponin I < 0.012 C-Reactive Protein 8.8 H Assessment & Plan Assessment & Plan narrative: 1. COVID 19 pneumonia, present on admission, active -improving clinical course with stable O2 sats on 2 L nasal cannula -patient presents with 2 week respiratory illness, positive outpatient COVID 19 test on 01/19, and now in acute respiratory failure -ferritin, LDH, CRP and CT with evidence of diffuse lung opacities consistent with COVID 19 -normal procalcitonin -patient high risk for clinical deterioration based on age, comorbidity of hypertension, and hypoxia -patient consents to taking hydroxychloroquine, dosed 400 mg b.i.d. x1 day, then 200 mg b.i.d. x 4 days -monitor QT intervals on telemetry and avoid any other QT prolonging medications 2. Acute hypoxic respiratory failure, present on admission, active -patient with room air O2 sat in mid to upper 80s on admission -support O2 nasal cannula, may need high-flow nasal cannula or mechanical ventil ator if respiratory status worsens 3. Acute kidney injury, present on admission, active -improving with last BUN 35, last creatinine 1.24 -admit BUN 40, creatinine 1.49, EGFR 45 -likely pre renal -encourage p.o. fluids, avoid IV hydration due to potential worsening of respiratory failure 4. Hypertension, present on admission, chronic, stable -continue routine home medication 5. Hyperlipidemia, present on admission, chronic -continue statin DVT prophylaxis: Lovenox renal dose Code status: Full code
[2020-01-23] MEDS: LOSARTAN 50 MG TABLET 100 MG PO (09:09)
[2020-01-23] MEDS: ENOXAPARIN 40 MG/0.4 ML SYRINGE SUBCUT (09:09)
[2020-01-23] MEDS: HYDROXYCHLOROQUINE 200 MG TABLET 400 MG PO (09:09)
[2020-01-23] MEDS: hydroCHLOROthiazide 25 MG TABLET PO (09:09)
[2020-01-23] MEDS: SODIUM CHLORIDE 0.9% 1,000 ML 80 ML IV ×2 (09:11→20:41)
[2020-01-23] MEDS: PANTOPRAZOLE 20 MG TABLET PO (09:12)
--- NOTE | 2020-01-23 11:45 | PC.NURSE ---
Addendum entered by Shen Botello R.N. 01/23/20 11:48: Pt transferred from rm 230 to 220 at 1145. Pt states he will notify his family of the room change. Original Note: Pt reports feeling a lot better than yesterday. Still requiring 2L NC. SPO2 ranges 92-96% at rest. Lung robertson overrall diminished with posterior LLL crackles auscultated. SR on tele. Denies chest pain, dyspnea, shortness of breath at rest. He is motivated to get better and asking questions about what he can do to improve his oxygenation. Provided IS and instructed to pulmonary hygiene. Pt demonstrates understanding. He is using the call light and making his needs known appropriately.
--- NOTE | 2020-01-23 13:48 | CM.IDA ---
Initial DCP Assessment Note: Pt is an 84 yo male, resident of [place]. Pt admitted w/ COVID-19+ pneumonia PCP: Maureen Domingo Payer: [employer] Reviewed chart. Pt currently on IV abx for COVID-19 related pneumonia and resp failure. 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 Placed call to pt's spouse Mojgan P# [phone], home [phone] cell. Mojgan is currently self quarantined since she is COVID-19+ as well. Mojgan explains she and pt are completely indp and active, still driving. They have a lot of support from the local [place] and their congregation community. Spouse is confident that she will be able to take pt home when he is medically cleared and anticipates no needs from CLINICAL SERVICES ASSISTANT team. Mojgan requests an update from pt's RN when able. Will relay. P: [place] home w/ spouse via pov is expected, r/o need for HH closer to [place] QIANA Okeefe Discharge Planning/Care Management CM Discharge Assessment Start: 01/23/20 13:41 Freq: Status: Active Protocol: Document 01/23/20 13:43 ESEQUIEL (Rec: 01/23/20 13:48 ESEQUIEL [id number]) Discharge Planning Assessment Assigned Psychology Technician QIANA Rankin DPOA/Assigned Designee Name Mojgan Alfred, spouse Contact Information [phone] [phone] cell Advance Directives? Yes Advance Directives on File No History Provided By Significant Other,Medical Record Prior Living Arrangements House Household Members spouse Type of transporation used prior to Drives own vehicle admit Independent with ADL's Yes Is patient alert and oriented? Yes Barriers to Discharge No Discharge Plan Home Transportation Arrangement Spouse Referrals Initiated None needed Review Status In Process
--- NOTE | 2020-01-23 14:58 | PC.NURSE ---
Patient is comfortable after his move to room 220. He voided and this has been recorded. Patient will be getting some humidified oxygen as his nose is dry. Voiding in urinal and comfortable at this point, he is also using his I.S.
[2020-01-23] MEDS: HYDROXYCHLOROQUINE 200 MG TABLET PO (16:49)
[2020-01-23] MEDS: ATORVASTATIN 20 MG TABLET PO (20:41)
[2020-01-24] VITALS (9 sets, daily range): BP systolic 110–143; BP diastolic 52–75; PULSE 72–90; RESP 16–20; TEMP 36.4–37.3; O2SAT 84–97
[2020-01-24] MEDS: LORazepam 1 MG TABLET PO ×2 (04:40→18:22)
--- NOTE | 2020-01-24 04:59 | PC.NURSE ---
Pt reports being very anxious. TO Jovon FREY give ativan 1mg PO
[2020-01-24] MEDS: PANTOPRAZOLE 20 MG TABLET PO (06:28)
--- NOTE | 2020-01-24 10:30 | PM.PN.1 ---
Subjective Subjective Date Patient Seen: 01/24/20 Interval history: Patient is 84-year-old male admitted with acute respiratory failure due to COVID-19 pneumonia. Patient has been on 2 L NC. He developed labored breathing with O2 sat down to 84% on room air this morning just getting up to use the urinal. Exam Vital Signs (past 8 hours): - 01/24/20 04:48 01/24/20 07:48 01/24/20 07:50 Temperature 97.8 F Pulse Rate 72 Respiratory Rate 16 Blood Pressure 141/73 H Pulse Oximetry 97 84 L 91 01/24/20 08:00 Temperature 97.6 F Pulse Rate 88 Respiratory Rate 18 Blood Pressure 135/64 Pulse Oximetry 94 Oxygen Delivery Method Nasal Cannula Oxygen Flow Rate 2 Narrative Exam Narrative: General: Alert and comfortable appearing male Lungs: Crackles in bilateral mid to lower lungs Heart: Regular rhythm Extremities: No edema Objective Labs Result Diagrams: 01/22/20 06:40 01/23/20 04:48 Labs: Laboratory Results - last 24 hr 01/23/20 06:05 Nasal Screen MRSA (PCR) Negative for mrsa Assessment & Plan Assessment & Plan narrative: 1. COVID 19 pneumonia, present on admission, active -patient is stable but with significant desaturation into mid to low 80s on room air with minimal activity -patient presents with 2 week respiratory illness, positive outpatient COVID 19 test on 01/19, and now in acute respiratory failure -ferritin, LDH, CRP and CT with evidence of diffuse lung opacities consistent with COVID 19 -normal procalcitonin -patient high risk for clinical deterioration based on age, comorbidity of hypertension, and hypoxia -patient consents to taking hydroxychloroquine, dosed 400 mg b.i.d. x1 day, then 200 mg b.i.d. x 4 days -monitor QT intervals on telemetry and avoid any other QT prolonging medications 2. Acute hypoxic respiratory failure, present on admission, active -support with O2 nasal cannula, early intubation if patient has respiratory status worsening 3. Acute kidney injury, present on admission, active -improving with last BUN 35, last creatinine 1.24 -admit BUN 40, creatinine 1.49, EGFR 45 -likely pre renal -encourage p.o. fluids, avoid IV hydration due to potential worsening of respiratory failure 4. Hypertension, present on admission, chronic, stable -continue routine home medication 5. Hyperlipidemia, present on admission, chronic -continue statin DVT prophylaxis: Lovenox renal dose Code status: Full code
[2020-01-24] MEDS: HYDROXYCHLOROQUINE 200 MG TABLET PO ×2 (10:43→16:55)
[2020-01-24] MEDS: LOSARTAN 50 MG TABLET 100 MG PO (10:44)
[2020-01-24] MEDS: hydroCHLOROthiazide 25 MG TABLET PO (10:44)
[2020-01-24] MEDS: ENOXAPARIN 40 MG/0.4 ML SYRINGE SUBCUT (10:44)
--- NOTE | 2020-01-24 14:03 | PC.NURSE ---
Patient resting on the edge of the bed, A/Ox3, droplet precautions maintained. Patient on O2, 2L 90%. C/O SOB with activity and becomes visibly SOB with exertion. RR is in the 20's, shallow. Left lower posterior lobe, noted crackles. Patient is on tele, ambulates independently to the restroom. Voiding without problems, has had a BM this morning. C/O slight dizziness when he first sits up but otherwise denies persistent dizziness, lightheadedness, numbness or tingling in the extremities. Spoke with patient about fall risks. Denies pain at this time. Patient given his personal robe, refilled water and ensured call light was in reach. Checking in on patient hourly, keeping door closed and ensuring his call light is in reach. Updated , on patients current status. Will continue to monitor.
[2020-01-24] MEDS: ATORVASTATIN 20 MG TABLET PO (21:50)
[2020-01-25] VITALS (8 sets, daily range): BP systolic 107–149; BP diastolic 51–80; PULSE 78–88; RESP 17–22; TEMP 36.9–37.2; O2SAT 91–96
[2020-01-25] MEDS: PANTOPRAZOLE 20 MG TABLET PO (05:58)
[2020-01-25] MEDS: ENOXAPARIN 40 MG/0.4 ML SYRINGE SUBCUT (08:18)
[2020-01-25] MEDS: hydroCHLOROthiazide 25 MG TABLET PO (08:18)
[2020-01-25] MEDS: LOSARTAN 50 MG TABLET 100 MG PO (08:18)
[2020-01-25] MEDS: HYDROXYCHLOROQUINE 200 MG TABLET PO ×2 (08:18→16:58)
[2020-01-25] MEDS: SODIUM CHLORIDE 0.9% FLUSH 10 ML IV ×2 (08:19→20:39)
--- NOTE | 2020-01-25 09:45 | PC.NURSE ---
Patient alert, oriented, denies pain. LS diminished in posterior bases, intermittent cough per patient. Sats on 3L 92-94% at rest. On RA sats 84-88%. Patient showered, gait steady.
--- NOTE | 2020-01-25 15:30 | PM.PN.1 ---
Subjective Subjective Date Patient Seen: 01/25/20 Interval history: The patient is an 84-year-old male who was admitted to the hospital with acute respiratory failure secondary to Covid-19 Pneumonia Patient still requires 2 L of oxygen. When his oxygen was removed his O2 sat dropped to 80%. He complains of being very fatigued with no energy. Other than that he has no specific complaints. Patient is anxious to discharge home. Exam Vital Signs (past 8 hours): - 01/25/20 07:32 01/25/20 09:04 01/25/20 11:00 Temperature 98.8 F Pulse Rate 80 Respiratory Rate 17 Blood Pressure 110/55 L Pulse Oximetry 94 94 96 01/25/20 12:50 Temperature Pulse Rate Respiratory Rate Blood Pressure Pulse Oximetry 94 Oxygen Delivery Method Nasal Cannula Oxygen Flow Rate 2 Narrative Exam Narrative: Pleasant elderly male lying in bed in no obvious distress Lungs: Decreased breath sounds but otherwise clear Cardiac exam: Regular rate and rhythm normal S1-S2 Abdomen: Soft nontender nondistended without hepatosplenomegaly Extremities: No edema Neuro exam: Patient is awake alert and oriented, answers questions appropriately. Has no confusion or delusions. Objective Labs Result Diagrams: 01/22/20 06:40 01/23/20 04:48 Assessment & Plan Assessment & Plan narrative: Assessment & Plan narrative: 1. COVID 19 pneumonia, present on admission, active -patient is stable but with significant desaturation into mid to low 80s on room air with minimal activity -patient presents with 2 week respiratory illness, positive outpatient COVID 19 test on 01/19, and now in acute respiratory failure -ferritin, LDH, CRP and CT with evidence of diffuse lung opacities consistent with COVID 19 -normal procalcitonin -patient high risk for clinical deterioration based on age, comorbidity of hypertension, and hypoxia -patient consents to taking hydroxychloroquine, dosed 400 mg b.i.d. x1 day, then 200 mg b.i.d. x 4 days -monitor QT intervals on telemetry and avoid any other QT prolonging medications -will continue taper oxygen as the patient tolerates 2. Acute hypoxic respiratory failure, present on admission, active -support with O2 nasal cannula, early intubation if patient has respiratory status worsening -continue 2 L of oxygen and wean as tolerated 3. Acute kidney injury, present on admission, active -improving with last BUN 35, last creatinine 1.24 -admit BUN 40, creatinine 1.49, EGFR 45 -likely pre renal -encourage p.o. fluids, avoid IV hydration due to potential worsening of respiratory failure -will repeat labs in the morning 4. Hypertension, present on admission, chronic, stable -continue routine home medication 5. Hyperlipidemia, present on admission, chronic -continue statin DVT prophylaxis: Lovenox renal dose Code status: Full code
[2020-01-25] MEDS: LORazepam 1 MG TABLET PO (22:19)
[2020-01-25] MEDS: ATORVASTATIN 20 MG TABLET PO (22:19)
[2020-01-26] VITALS (11 sets, daily range): BP systolic 94–130; BP diastolic 54–73; PULSE 70–81; RESP 17–20; TEMP 36.5–37.1; O2SAT 88–95
[2020-01-26] MEDS: PANTOPRAZOLE 20 MG TABLET PO (06:00)
[2020-01-26 07:12] LABS: BUN Creatinine Ratio 23.1 (6-22); Blood Urea Nitrogen 28 mg/dL (9-20); Calcium 7.8 mg/dL (8.4-10.2); Carbon Dioxide 26 mmol/L (22-32); Chloride 101 mmol/L (98-107); Estimated Glomerular Filt Rate 57.4 mL/min (>60); Glucose 109 mg/dL (80-110); HEMOLYSIS < 15 (0-50); Potassium 3.3 mmol/L (3.4-5.1); Sodium 136 mmol/L (137-145)
[2020-01-26] MEDS: LOSARTAN 50 MG TABLET 100 MG PO (08:30)
[2020-01-26] MEDS: ENOXAPARIN 40 MG/0.4 ML SYRINGE SUBCUT (08:30)
[2020-01-26] MEDS: POTASSIUM CHLORIDE 20 MEQ TAB 40 MEQ PO (08:30)
[2020-01-26] MEDS: SODIUM CHLORIDE 0.9% FLUSH 10 ML IV ×2 (08:31→22:26)
[2020-01-26] MEDS: HYDROXYCHLOROQUINE 200 MG TABLET PO ×2 (08:31→17:03)
[2020-01-26] MEDS: hydroCHLOROthiazide 25 MG TABLET PO (08:31)
--- NOTE | 2020-01-26 11:16 | CM.DPC ---
DCP Cont: Per MD, pt still requiring 3L oxygen but has not needed bipap since he weaned off heated high flow oxygen and will need to be weaned to room air prior to d/c home with spouse. Per RN, pt has steady gait and no needs identified and spouse has been updated via phone. Plan: SW to follow closely for pt to be weaned to room air towards confirming pt remains safe for d/c home with supportive spouse when medically stable. QIANA Ruth
--- NOTE | 2020-01-26 17:35 | P.PN_ITS ---
Subjective Subjective Date Patient Seen: 01/26/20 Interval history: Patient is an 84-year-old male who was admitted to the hospital for acute respiratory failure secondary to coded pneumonia. Overall the patient reports continuing to have some cough although nonproductive. He remains hypoxic. He was able to be weaned down to 2 L of oxygen. When he was taken off the oxygen his O2 sat dropped to 88%. The patient reports feeling quite fatigued. Otherwise has no complaints. As requested the patient has spoke to his . She had multiple questions regarding his care once he retur ns home. She is home with COVID-19 but improving. The patient is anxious to discharge home once he can be off oxygen. Exam Vital Signs (past 8 hours): - 01/26/20 12:10 01/26/20 12:30 01/26/20 15:50 Temperature 98.3 F 98.3 F Pulse Rate 79 79 Respiratory Rate 20 20 Blood Pressure 94/73 110/62 Pulse Oximetry 92 88 L 91 Oxygen Delivery Method Nasal Cannula Oxygen Flow Rate 2 Narrative Exam Narrative: Pleasant elderly male in no obvious distress Lungs: Decreased breath sounds but clear to auscultation Cardiac exam: Regular rate and rhythm normal S1-S2 Abdomen: Soft nontender nondistended Extremities: No edema Objective Labs Result Diagrams: 01/22/20 06:40 01/26/20 06:50 Labs: Laboratory Results - last 24 hr 01/26/20 06:50 Sodium 136 L Potassium 3.3 L D Chloride 101 Carbon Dioxide 26 BUN 28 H Creatinine 1.21 Estimated GFR 57.4 L BUN/Creatinine Ratio 23.1 H Glucose 109 Calcium 7.8 L Assessment & Plan Assessment & Plan narrative: Assessment & Plan narrative: 1. COVID 19 pneumonia, present on admission, active -patient is stable but with significant desaturation into mid to low 80s on room air with minimal activity -patient presents with 2 week respiratory illness, positive outpatient COVID 19 test on 01/19, and now in acute respiratory failure -ferritin, LDH, CRP and CT with evidence of diffuse lung opacities consistent with COVID 19 -normal procalcitonin -patient high risk for clinical deterioration based on age, comorbidity of hypertension, and hypoxia -patient consents to taking hydroxychloroquine, dosed 400 mg b.i.d. x1 day, then 200 mg b.i.d. x 4 days -monitor QT intervals on telemetry and avoid any other QT prolonging medications -will continue taper oxygen as the patient tolerates -patient remains hypoxic. However his hypoxemia is improving. Anticipate he will be able to discharge home if his room air and exercise O2 sat is 90% or above. 2. Acute hypoxic respiratory failure, present on admission, active -support with O2 nasal cannula, early intubation if patient has respiratory status worsening -continue 2 L of oxygen and wean as tolerated -will continue oxygen taper. Anticipate discharge home once oxygenation is above 90% on room air 3. Acute kidney injury, present on admission, active -improving with last BUN 35, last creatinine 1.24 -admit BUN 40, creatinine 1.49, EGFR 45 -likely pre renal -encourage p.o. fluids, avoid IV hydration due to potential worsening of respiratory failure -will repeat labs in the morning -potassium somewhat low. Will replace -kidney function gradually improved 4. Hypertension, present on admission, chronic, stable -continue routine home medication 5. Hyperlipidemia, present on admission, chronic -continue statin DVT prophylaxis: Lovenox renal dose Code status: Full code
[2020-01-26] MEDS: LORazepam 1 MG TABLET PO (21:10)
[2020-01-26] MEDS: ATORVASTATIN 20 MG TABLET PO (22:26)
[2020-01-27 04:20] VITALS: BP 110/62; PULSE 72; RESP 16; TEMP 36.8; O2SAT 93
[2020-01-27] MEDS: PANTOPRAZOLE 20 MG TABLET PO (07:05)
[2020-01-27] MEDS: HYDROXYCHLOROQUINE 200 MG TABLET PO (07:06)
[2020-01-27 07:41] VITALS: O2SAT 93
[2020-01-27 08:25] VITALS: BP 120/73; PULSE 73; RESP 16; TEMP 36.7; O2SAT 94
[2020-01-27] MEDS: SODIUM CHLORIDE 0.9% FLUSH 10 ML IV (09:51)
[2020-01-27] MEDS: ENOXAPARIN 40 MG/0.4 ML SYRINGE SUBCUT (09:51)
[2020-01-27] MEDS: LOSARTAN 50 MG TABLET 100 MG PO (09:51)
[2020-01-27 12:20] VITALS: BP 106/60; PULSE 80; RESP 16; TEMP 36.8; O2SAT 95
--- NOTE | 2020-01-27 13:30 | P.PN_ITS ---
Subjective Subjective Date Patient Seen: 01/27/20 Time Patient Seen: 13:31 Interval history: Patient is an 84-year-old male who was admitted to the hospital for acute respiratory failure secondary to COVID-19 associated pneumonia. Overall the patient reports continuing to have some cough although nonproductive. He remains hypoxic. He was able to be weaned down to 1 L of oxygen. The patient reports feeling quite fatigued and has dyspnea on exertion when getting up to the bathroom. Otherwise he has no complaints. Exam Vital Signs (past 8 hours): - 01/27/20 07:41 01/27/20 08:25 01/27/20 12:20 Temperature 98.1 F 98.3 F Pulse Rate 73 80 Respiratory Rate 16 16 Blood Pressure 120/73 106/60 Pulse Oximetry 93 94 95 Oxygen Delivery Method Nasal Cannula Oxygen Flow Rate 1.5 Narrative Exam Narrative: GENERAL APPEARANCE: Well developed, well nourished, in no acute distress. Lying flat in hospital bed on 1 L supplemental oxygen. SKIN: Inspection of the skin reveals no rashes, ulcerations or petechiae. HEENT: Normocephalic atraumatic, extraocular muscles are intact, oropharynx is clear and mucous membranes are moist, neck is supple without adenopathy NECK: Supple and symmetric. There was no thyroid enlargement, and no tenderness, or masses were felt. CHEST: Normal AP diameter and normal contour without any kyphoscoliosis. LUNGS: Auscultation of the lungs revealed diminished breath sounds at the bilateral lung bases, no wheezes rhonchi rales. CARDIOVASCULAR: There was a regular rate and rhythm without any murmurs, gallops, rubs. Peripheral pulses were 2+ and symmetric. ABDOMEN: Soft and nontender with normal bowel sounds. No ascites was noted. MUSCULOSKELETAL: There was no tenderness or effusions noted. Muscle strength and tone were normal. EXTREMITIES: No cyanosis, clubbing or edema. NEUROLOGIC: Alert and oriented. Normal affect. Gait was normal. Diffusely weak but grossly 5/5 strength bilaterally. No focal deficits. Objective Labs Result Diagrams: 01/22/20 06:40 01/26/20 06:50 Assessment & Plan Assessment & Plan narrative: Willem Aflred is an 84-year-old male with a past medical history of hypertension, and hyperlipidemia who was admitted with acute hypoxic respiratory failure secondary to COVID-19. He is still requiring supplemental oxygen but slowly improving. 1. COVID 19 pneumonia, present on admission, active -patient is stable but with significant desaturation into mid to low 80s on room air with minimal activity -patient presents with 2 week respiratory illness, positive outpatient COVID 19 test on 01/19, and now in acute respiratory failure -ferritin, LDH, CRP and CT with evidence of diffuse lung opacities consistent with COVID 19 -normal procalcitonin -patient high risk for clinical deterioration based on age, comorbidity of hypertension, and hypoxia -patient ccompleted treatment with hydroxychloroquine for possible therapeutic benefit. -monitor QT intervals on telemetry and avoid any other QT prolonging medications -will continue taper oxygen as the patient tolerates -patient remains hypoxic. However his hypoxemia is improving. Anticipate he will be able to discharge home if his room air and exercise O2 sat is 90% or above. 2. Acute hypoxic respiratory failure, present on admission, active -support with O2 nasal cannula, early intubation if patient has respiratory status worsening -continue 2 L of oxygen and wean as tolerated -will continue oxygen taper. Anticipate discharge home once oxygenation is a adolfo 90% on room air 3. Acute kidney injury, present on admission, resolved -admit BUN 40, creatinine 1.49, EGFR 45 -likely pre renal -encouraged p.o. fluids, avoided IV hydration due to potential worsening of respiratory failure 4. Hypertension, present on admission, chronic, stable -continue routine home medication 5. Hyperlipidemia, present on admission, chronic -continue statin DVT prophylaxis: Lovenox renal dose Code status: Full code Dispo: pending respiratory status improvement as noted above. At this time he may be able to discharge in the next 24-48 hours.
--- NOTE | 2020-01-27 17:15 | PC.NURSE ---
1700- Went into patient room to do physical assessment. Patient was up independently to the bathroom. Patient was short of breath and states he otherwise feels ok. Patient saturation on 1 liter nasal cannula after activity was 84%. Patient 02 increased to 2 liters for about 10 minutes and saturation improved to 92%. 02 turned back to 1 liter just before leaving the room.
[2020-01-27 17:57] VITALS: BP 94/71; PULSE 75; RESP 18; TEMP 37.2; O2SAT 93
[2020-01-27] MEDS: ATORVASTATIN 20 MG TABLET PO (20:42)
[2020-01-27 20:59] VITALS: BP 109/55; PULSE 77; RESP 16; TEMP 36.9; O2SAT 96
[2020-01-28 02:15] VITALS: BP 100/61; PULSE 70; RESP 16; TEMP 36.8; O2SAT 94
--- NOTE | 2020-01-28 02:53 | PC.NURSE ---
Addendum entered by Viktoria Justice R.N. 01/28/20 07:08: 0530- decreased O2 to RA per Chris, Pt SpO2 maintained at 89%, put pt back on 0.5 L nc, pt maintaining 90-92%. Original Note: 0020- pt awake, A/O, 94% 1L nc, denies SOB, LS clear and diminished. LFA IV SL. Denies pain. BT + denies nausea. Telemetry reading @ 0000 NSR-69, PP+. Using urinal indep with 150mL clear yellow urine. Pt report I feel fine. Temp 98.3, BP 100/61. No needs or concerns at this time. Call light in reach.
[2020-01-28 05:45] VITALS: BP 126/65; PULSE 73; RESP 16; TEMP 36.7; O2SAT 95
[2020-01-28] MEDS: PANTOPRAZOLE 20 MG TABLET PO (05:51)
--- NOTE | 2020-01-28 07:32 | PM.PN.1 ---
Subjective Subjective Date Patient Seen: 01/28/20 Time Patient Seen: 07:32 Interval history: Patient is an 84-year-old male who was admitted to the hospital for acute respiratory failure secondary to COVID-19 associated pneumonia. Overall the patient reports continuing to have some cough although nonproductive. He remains hypoxic. He was able to be weaned down to 1 L of oxygen. The patient reports feeling quite fatigued and has dyspnea on exertion when getting up to the bathroom. Otherwise he has no complaints. Exam Vital Signs (past 8 hours): - 01/28/20 02:15 01/28/20 05:45 Temperature 98.3 F 98.0 F Pulse Rate 70 73 Respiratory Rate 16 16 Blood Pressure 100/61 126/65 Pulse Oximetry 94 95 Oxygen Delivery Method Nasal Cannula Oxygen Flow Rate 1 Narrative Exam Narrative: GENERAL APPEARANCE: Well developed, well nourished, in no acute distress. Lying flat in hospital bed on 1 L supplemental oxygen. SKIN: Inspection of the skin reveals no rashes, ulcerations or petechiae. HEENT: Normocephalic atraumatic, extraocular muscles are intact, oropharynx is clear and mucous membranes are moist, neck is supple without adenopathy NECK: Supple and symmetric. There was no thyroid enlargement, and no tenderness, or masses were felt. CHEST: Normal AP diameter and normal contour without any kyphoscoliosis. LUNGS: Auscultation of the lungs revealed diminished breath sounds at the bilateral lung bases, no wheezes rhonchi rales. CARDIOVASCULAR: There was a regular rate and rhythm without any murmurs, gallops, rubs. Peripheral pulses were 2+ and symmetric. ABDOMEN: Soft and nontender with normal bowel sounds. No ascites was noted. MUSCULOSKELETAL: There was no tenderness or effusions noted. Muscle strength and tone were normal. EXTREMITIES: No cyanosis, clubbing or edema. NEUROLOGIC: Alert and oriented. Normal affect. Gait was normal. Diffusely weak but grossly 5/5 strength bilaterally. No focal deficits. Objective Labs Result Diagrams: 01/22/20 06:40 01/26/20 06:50 Assessment & Plan Assessment & Plan narrative: Willem Alfred is an 84-year-old male with a past medical history of hypertension, and hyperlipidemia who was admitted with acute hypoxic respiratory failure secondary to COVID-19. He is still requiring supplemental oxygen but slowly improving. 1. COVID 19 pneumonia, present on admission, active -patient is stable but with significant desaturation into mid to low 80s on room air with minimal activity -patient presents with 2 week respiratory illness, positive outpatient COVID 19 test on 01/19, and now in acute respiratory failure -ferritin, LDH, CRP and CT with evidence of diffuse lung opacities consistent with COVID 19 -normal procalcitonin -patient high risk for clinical deterioration based on age, comorbidity of hypertension, and hypoxia -patient ccompleted treatment with hydroxychloroquine for possible therapeutic benefit. -monitor QT intervals on telemetry and avoid any other QT prolonging medications -will continue taper oxygen as the patient tolerates -patient remains hypoxic. However his hypoxemia is improving. Anticipate he will be able to discharge home if his room air and exercise O2 sat is 90% or above. 2. Acute hypoxic respiratory failure, present on admission, active -support with O2 nasal cannula, early intubation if patient has respiratory status worsening -continue 2 L of oxygen and wean as tolerated -will continue oxygen taper. Anticipate discharge home once oxygenation is above 90% on room air 3. Acute kidney injury, present on admission, resolved -admit BUN 40, creatinine 1.49, EGFR 45 -likely pre renal -encouraged p.o. fluids, avoided IV hydration due to potential worsening of respiratory failure 4. Hypertension, present on admission, chronic, stable -continue routine home medication 5. Hyperlipidemia, present on admission, chronic -continue statin DVT prophylaxis: Lovenox renal dose Code status: Full code Dispo: pending respiratory status improvement as noted above. At this time he may be able to discharge in the next 24-48 hours.
[2020-01-28 07:44] VITALS: PULSE 79; O2SAT 93
[2020-01-28 07:45] VITALS: BP 112/75; PULSE 76; RESP 18; TEMP 36.8; O2SAT 93
[2020-01-28] MEDS: SODIUM CHLORIDE 0.9% FLUSH 10 ML IV (08:20)
[2020-01-28] MEDS: LOSARTAN 50 MG TABLET 100 MG PO (08:21)
[2020-01-28] MEDS: ACETAMINOPHEN 325 MG TABLET 650 MG PO (08:21)
[2020-01-28] MEDS: ENOXAPARIN 40 MG/0.4 ML SYRINGE SUBCUT (08:21)
--- NOTE | 2020-01-28 11:50 | P.DS_ITS ---
History of Present Illness History of Present Illness Date Patient Seen: 01/28/20 Time Patient Seen: 11:50 Chief complaint: SOB/COUGH Narrative: As per Dr. Jerome: Patient is an 84-year-old male with history of hypertension, hyperlipidemia presented to the emergency department with complaints of weakness and shortness of breath. He developed respiratory illness about 2 weeks ago and has been doing telemedicine with his PCP. On January 19, which is 2 days ago, he had testing which showed positive for COVID 19. He has not slept in the past week due to difficulty breathing, weakness and anxiety. He finally came in this morning for ongoing symptoms which have not been improving. He had sats in the ER in the mid to upper 80s on room air. Chest x-ray and CT showed bilateral diffuse ground-glass opacities consistent with COVID 19 pneumonia. Patient states he had fever only on the 1st day of his respiratory illness. He has also had loss of taste and smell. He states his cough is mild and nonproductive. He has had loss of appetite and generalized weakness. He has also had mild diarrhea. His spouse also tested positive for COVID 19 and has been managing at home. Discharge Providers Provider Date of admission: 01/22/20 08:59 Discharge Date: 01/28/20 Primary care physician: Maureen Domingo MD Discharge provider: Evans England DO Summary Hospital Course Discharge Diagnosis: Please see hospital course by problem list below. Hospital Course: Willem Alfred is an 84-year-old male with a past medical history of hypertension, and hyperlipidemia who was admitted with acute hypoxic respiratory failure secondary to COVID-19, he was given hydroxychloroquine for possible benefit. He slowly improved and upon discharge he was no longer requiring supplemental oxygen. 1. COVID 19 pneumonia, present on admission, active -patient presented with 2 week respiratory illness, positive outpatient COVID 19 test on 01/19. Hospitalized for respiratory failure requiring supplemental oxygen, up to 4 L on admission. He slowly improved and did not require more than nasal cannula. On the day of discharge he was saturating in the mid 90s on room air, and did not desaturate with ambulation in his room. He was feeling much improved and was stable for discharge home. -patient ccompleted treatment with hydroxychloroquine for possible therapeutic benefit. 2. Acute hypoxic respiratory failure, present on admission, resolved -patient only required supplemental oxygen, as much as 4 L on admission. This slowly improved during the course of his hospitalization. Upon discharge he was no longer requiring supplemental oxygen at rest or with ambulation trial in his room. 3. Acute kidney injury, present on admission, resolved -admit BUN 40, creatinine 1.49, EGFR 45. Improved to 1.2 upon last lab values checked. -likely pre renal, but slight RADHA has been documented from COVID infections among hospitalized patients. -encouraged p.o. fluids, avoided IV hydration due to potential worsening of respiratory failure 4. Hypertension, present on admission, chronic, stable -continue routine home medication upon discharge, he is normotensive at discharge. 5. Hyperlipidemia, present on admission, chronic -continue statin Patient was encouraged to follow up with his PCP over telephone initially until his symptoms improve. He is discharged on contact and droplet precautions. His is already COVID + and he does not live with anyone else. Status at Discharge Cognitive/behavioral status at discharge: oriented Functional status at discharge: independent ambulation Overall status at discharge: patient is back to baseline Time Spent with Patient Time spent: Greater than 30 minutes Exam Vital Signs (past 8 hours): - 01/28/20 05:45 01/28/20 07:44 01/28/20 07:45 Temperature 98.0 F 98.3 F Pulse Rate 73 79 76 Respiratory Rate 16 18 Blood Pressure 126/65 112/75 Pulse Oximetry 95 93 93 Oxygen Delivery Method Nasal Cannula Oxygen Flow Rate 1 Narrative Exam Narrative: GENERAL APPEARANCE: Well developed, well nourished, in no acute distress. SKIN: Inspection of the skin reveals no rashes, ulcerations or petechiae. HEENT: Normocephalic atraumatic, extraocular muscles are intact, oropharynx is clear and mucous membranes are moist, neck is supple without adenopathy NECK: Supple and symmetric. There was no thyroid enlargement, and no tenderness, or masses were felt. CHEST: Normal AP diameter and normal contour without any kyphoscoliosis. LUNGS: Mild bibasilar crackles, good air movement, no wheezing. CARDIOVASCULAR: There was a regular rate and rhythm without any murmurs, gallops, rubs. Peripheral pulses were 2+ and symmetric. ABDOMEN: Soft and nontender with normal bowel sounds. No ascites was noted. MUSCULOSKELETAL: There was no tenderness or effusions noted. Muscle strength and tone were normal. EXTREMITIES: No cyanosis, clubbing or edema. NEUROLOGIC: Alert and oriented x 3. Normal affect. Gait was normal. Strength is +5/5 in the Upper Extremities and Lower Extremities Bilaterally. Sensation to touch was normal. Objective Labs Result Diagrams: 01/22/20 06:40 01/26/20 06:50 Discharge Plan Discharge Plan Patient Disposition: Home Discharge comment: You were admitted to the hospital with low oxygen due to the novel caronavirus, you improved with supportive care. You received hydr oxychloroquine. You should remain on isolation at home and continue to follow up via phone or possibly televisits with your primary care provider. Discharge orders & Medications Prescriptions: Continued omeprazole magnesium [Acid Test Department Helper (omeprazole)] 20 mg Capsule,Delayed Release(Dr/Ec) 20 mg PO DAILY RF: 0 atorvastatin 20 mg Tablet 20 mg PO BEDTIME RF: 0 losartan-hydrochlorothiazide 100-25 mg Tablet 1 tab PO DAILY RF: 0 Follow up/Referrals: Maureen Domingo MD [Primary Care Provider] - Discharge Health Status Health Concerns: COVID-19 Pneumonia and respiratory failure Diet/Activity/Treatments Diet: Diet as Tolerated Activity: As tolerated. Oxygen: None Visit Report/Discharge Packet Instructions: Pneumonia-Adult, DI for Pneumonia -- Adult, How to Prevent Falls Discharge Data Primary Care Provider: Maureen Domingo
--- NOTE | 2020-01-28 12:31 | PC.NURSE ---
Day shift: Pt to d/c home and remain in isolation. Paperwork signed and all questions answered. Also printed info on CoVid19 from [employer] and sent that with Pt today. No new MD meds. Pt has all personal belongings. He had a shower today. Awaiting his spouse to call when she arrives. We will take Pt to car with full PPE. Pt will aslo have a mask and gown on. Left unit at approx 1250.
--- NOTE | 2020-01-28 12:55 | PC.NURSE ---
Day shift: Pt off unit and going home at approx 1300. Taken to car by STEVEN Carter. FILM CRITIC is dressed in PPE per protocol and Pt has mask on and is covered with blanket. Going to car via WC.
== END 2020-01-28 13:05 | disposition home or self-care (01) | DRG 177 ==
LOC: ED 07:05 → ICU 09:14 → AC 01-23 12:52 → ICU 01-24 11:36 → AC 01-24 11:36
PROVIDERS: Emergency Medicine; Internal Medicine; Admitting Provider Internal Medicine; Emergency Provider Emergency Medicine; PCP Student in an Organized Health Care Education/Training Program; Referring Provider Emergency Medicine; Visit Provider Internal Medicine
DX: U07.1 COVID-19 (principal); J12.89 Other viral pneumonia; J96.01 Acute respiratory failure with hypoxia; N17.9 Acute kidney failure, unspecified; I10 Essential (primary) hypertension; E78.5 Hyperlipidemia, unspecified; F17.290 Nicotine dependence, other tobacco product, uncomplicated; K21.9 Gastro-esophageal reflux disease without esophagitis
CPT/HCPCS: 36415; 71045; 71250; 80048; 80053; 82728; 83605; 83615; 83880; 84145; 84484; 85025; 86140; 87797; 94760; 96360; 96361; 99285; J1650

== ENCOUNTER 2021-12-28 20:09 | Emergency (ER) | payer OTHER, SELFPAY ==
[2020-01-22 15:04] VITALS: BMI 30.4
[2021-12-28] VITALS (8 sets, daily range): BP systolic 137–192; BP diastolic 62–93; PULSE 65–80; RESP 18–25; TEMP 36.4; O2SAT 98–99; BMI 32.4
--- NOTE | 2021-12-28 20:40 | ED_ITS ---
HPI - Allergic Reaction General Chief complaint: Allergic Reaction Stated complaint: possible allergc reaction to medication Time Seen by Provider: 12/28/21 20:11 Source: patient Mode of arrival: Ambulatory History of Present Illness HPI narrative: 86M daily smoker with history of hyperlipidemia, GERD and hypertension presents with his in the chief complaint of various symptoms concerning for an allergic reaction. He had been in his normal state of health and consumed a glass of wine, which is atypical for him and relatively soon thereafter started developing mild swelling of his face, increased saliva production and the sensa tion that something was tickling in the back of his throat. He denies any trouble swallowing or breathing. He had no rash denies GI symptoms such as nausea, vomiting or diarrhea. He denies any exposure to the medications, lotions, soaps or any other obvious triggers. Related Data Home Medications Medication Instructions Recorded Confirmed omeprazole magnesium 20 mg 20 mg PO DAILY 04/26/19 01/22/20 capsule,delayed release (Acid Knitting Machine Operator (omeprazole)) atorvastatin 20 mg tablet 20 mg PO BEDTIME 01/22/20 01/22/20 losartan 100 1 tab PO DAILY 01/22/20 01/22/20 mg-hydrochlorothiazide 25 mg tablet Previous Rx's Medication Instructions Recorded prednisone 10 mg tablet See Rx Instructions .ROUTE 12/28/21 .COMPLEX #30 tab Allergies Allergy/AdvReac Type Severity Reaction Status Date / Time No Known Allergies Allergy Verified 01/22/20 07:08 Review of Systems Review of Systems Narrative: GENERAL: Denies chills, fatigue, malaise, fever, sweats. HEENT: Denies sinus pain, ear pain, sore throat, difficulty swallowing, dizziness. RESPIRATORY: Denies dyspnea, cough, wheezing, hemoptysis, sputum. CARDIOVASCULAR: Denies chest pain, palpitations, orthopnea, edema, GASTROINTESTINAL: Denies nausea, vomiting, abdominal pain, diarrhea, constipation, melena. : Denies dysuria, frequency, incontinence, hematuria, urinary retention. MUSCULOSKELETAL: denies weakness, joint pain, or bony pain SKIN: Denies rash, skin lesions, or other NEUROLOGIC: Denies weakness, headache, numbness, change in speech, confusion, seizures, incoordination. PSYCHIATRIC: No concerning psychosocial issues. 12 point review of systems is negative except for those stated above Patient History Medical History Gastroesophageal reflux disease Hyperlipidemia Hypertension Social History household members: spouse Smoking Status: Current every day smoker alcohol intake: current Smoking Status: Current every day smoker tobacco type: cigars alcohol intake frequency: a few times a month Substance Use Type: does not use Exam Narrative Exam Narrative: GENERAL: [86 year old patient appears stated age. Well-developed patient, in mild distress. HEAD: Atraumatic. Normocephalic. EYES: Pupils equal round and reactive. Extraocular motions intact. No scleral icterus. No injection or drainage. ENT: Very minimal facial swelling, no lip or tongue involvement. He does have a minimally edematous uvula, airway is patent and patient controlling secretions without difficulty. Nose without bleeding, purulent drainage. Throat without erythema, tonsillar hypertrophy or exudate. Airway patent. NECK: Trachea midline. Non tender CARDIOVASCULAR: Regular rate and rhythm without murmurs, gallops, or rubs. RESPIRATORY: Clear to auscultation. Breath sounds equal bilaterally. No wheezes, rales, or rhonchi. GASTROINTESTINAL: Abdomen soft, non-tender, nondistended. EXTREMITIES: No edema or joint tenderness. BACK: Nontender without deformity or crepitance. No flank tenderness. NEURO: AOx3. SKIN: No rash or erythema of visible areas Initial Vital Signs Initial Vital Signs: Vital Signs Pulse Rate 74 12/28/21 20:19 Respiratory Rate 21 12/28/21 20:19 Blood Pressure 192/93 H 12/28/21 20:19 Pulse Oximetry 99 12/28/21 20:19 Course Orders Ordered: Discontinued Medications Diphenhydramine HCl (Diphenhydramine 50 Mg/Ml Vial) 25 mg IV NOW ONE Stop: 12/28/21 20:41 Last Admin: 12/28/21 20:47 Dose: 25 mg Documented by: LUCIAN Famotidine (Famotidine 20 Mg/2 Ml Vial) 20 mg IV NOW SB Last Admin: 12/28/21 20:48 Dose: 20 mg Documented by: LUCIAN Methylprednisolone (Methylprednisolone 125 Mg/2 Ml Vial) 125 mg IV NOW ONE Stop: 12/28/21 20:41 Last Admin: 12/28/21 20:48 Dose: 125 mg Documented by: ATAYLOR Vital Signs Vital signs: Vital Signs - 8 hr 12/28/21 21:00 12/28/21 21:01 12/28/21 21:30 Pulse Rate 69 70 67 Respiratory Rate 18 18 19 Blood Pressure 155/66 H 137/62 Pulse Oximetry 99 99 99 12/28/21 22:00 12/28/21 22:01 Pulse Rate 65 65 Respiratory Rate 23 25 H Blood Pressure 157/72 H Pulse Oximetry 99 99 MDM - Allergic Reaction MDM Narrative Medical decision making narrative: 86-year-old male presents with very minimal facial swelling and increased secr etions. He has near complete resolution of symptoms with above-stated therapies. There is no indication for epinephrine her ongoing therapy as he does not have any signs of anaphylaxis. He is observed for some time and has no difficulty swallowing, controlling secretions or respiratory distress. He is given extensive return precautions and questions have been answered to his apparent satisfaction Discharge Plan Departure Patient Disposition: Home Clinical Impression: Allergic reaction, Uvulitis Instructions: DI for Anaphylaxis Activity Restrictions/Additional Instructions: *You have been diagnosed with [allergic reaction with inflamed uvula (uvulitis). As we discussed your history and physical exam as well as response to medications is reassuring. It is unclear if your reaction was due to the medications or wine, but thankfully treatment is the same. *What to do: *Please continue to take your regular medications as directed. [x ] New medication prescriptions sent to your pharmacy: [[facility]] [x ] in addition to the prescription please also consider taking a combination of [id number] antihistamines which will help dry your secretions and treat the reaction. Histamine type 1 blockers include Benadryl, Zyrtec, Anneliese and traditional allergy medications. Also, consider taking a histamine type 2 milena such as Pepcid along with this for the next few days. *Please follow up with your primary care provider in 2-3 days, call for an ap pointment. Let them know you were seen in the Emergency Department and that we ask that you be seen in follow up. We will electronically transmit a record of today's note if your PCP is in our system *Return to Emergency Department if you should have any new, worsening or concerning symptoms, such as [fever greater than 101 F, shaking chills, worsening pain, persistent vomiting or other bothersome symptoms] Prescriptions: New prednisone 10 mg tablet See Rx Instructions .ROUTE .COMPLEX Qty: 30 0RF Rx Instructions: Day 1,2,3: 40mg PO Daily Day 4,5,6: 30mg PO Daily Day 7,8,9: 20mg PO Daily Day 10,11,12: 10mg PO Daily #30 No Action omeprazole magnesium [Acid Knitting Machine Operator (omeprazole)] 20 mg Capsule,Delayed Release(Dr/Ec) 20 mg PO DAILY 0RF atorvastatin 20 mg Tablet 20 mg PO BEDTIME 0RF losartan-hydrochlorothiazide 100-25 mg Tablet 1 tab PO DAILY 0RF Referrals: Maureen Domingo MD [Primary Care Provider] -
[2021-12-28] MEDS: diphenhydrAMINE 50 MG/ML VIAL 25 MG IV (20:47)
[2021-12-28] MEDS: methylPREDNISolone 125 MG/2 ML VIAL IV (20:48)
[2021-12-28] MEDS: FAMOTIDINE 20 MG/2 ML VIAL IV (20:48)
== END 2021-12-28 22:21 | disposition home or self-care (01) ==
PROVIDERS: Emergency Provider Emergency Medicine; PCP Student in an Organized Health Care Education/Training Program
DX: T78.40XA Allergy, unspecified, initial encounter (principal); K12.2 Cellulitis and abscess of mouth; F17.290 Nicotine dependence, other tobacco product, uncomplicated; X58.XXXA Exposure to other specified factors, initial encounter
CPT/HCPCS: 36415; 96374; 96375; 99284; J1200; J2930

== ENCOUNTER 2022-02-22 11:15 | Outpatient (RCR) | payer OTHER, SELFPAY ==
[2020-01-22 15:04] VITALS: BMI 30.4
--- NOTE | 2022-01-30 09:43 | PT.OIE ---
Current Diagnoses Pain in right shoulder (01/29/22) Stiffness of right shoulder, not elsewhere classified (01/29/22) Other injury of muscle(s) and tendon(s) of the rotator cuff of right shoulder, subsequent encounter (01/29/22) Past Medical History (Last Reviewed 12/29/21 @ 04:56 by Hans Castano DO) Gastroesophageal reflux disease Hyperlipidemia Hypertension Visit Care Team Role Provider Type Maureen Domingo MD Attending Provider Physician Family Provider Primary Care Provider Referring Provider Specialty: [facility] Practice Address: [address] [place] [address], [facility] Email: [email or web address] Physical Therapy Initial Evaluation PT-OP-A Visit Information Start: 01/29/22 17:48 Freq: Status: Active Protocol: Document 01/29/22 15:15 DCW (Rec: 01/29/22 17:58 DCW [id number]) Out-Patient Physical Therapy Visit Information Visit Information Visit Type Initial Evaluation Visit Start Time 15:15 Visit Stop Time 16:00 Total Visit Minutes 45 Visit Number 1 Number of IV THERAPY NURSE Visits 0 Evaluation Information Evaluation Date 01/29/22 PT-OP-B Current Condition Start: 01/29/22 17:48 Freq: Status: Active Protocol: Document 01/29/22 15:15 DCW (Rec: 01/29/22 17:58 DCW [id number]) Current Condition History of Current Condition Onset Date Beginning of November Current Complaints Loss of mobility and strength in right shoulder History of Current Condition Pt is an 86 year old male presenting with skilled therapy with a 2.5 month history of loss of strength and mobility of right shoulder . Pt notes that he fell backward into a very solid plant stand, and has had shoulder problems ever since. Pt notes it took him two or three days to get into the Doctor's office, together they decided it probably wasn' t fractured, and then he kind of waited around until finally getting into PT when it didn't improve as much as he expected. Notes he is unable to sleep on his right side, struggles to lift even a coffee cup with his right arm . Any over-head activity is impossible. Admits he feels like his strength is at 20-30 % of my normal. PT-OP-C Subjective Start: 01/29/22 17:48 Freq: Status: Active Protocol: Document 01/29/22 15:15 DCW (Rec: 01/29/22 17:58 DCW [id number]) OP-PT Subjective Patient Comments Patient Comments It doesn't really hurt, per se. I guess if I try to lift it overhead, it kind of hurts, but really it's more than it just won't go up. It's like I' ve lost all the strength in it . Patient Questionnaires Quick Dash- Upper Extremity Quick Dash UE Score 31.82% PT-OP-E Functional Tests Start: 01/29/22 17:48 Freq: Status: Active Protocol: Document 01/29/22 15:15 DCW (Rec: 01/29/22 18:04 DCW [id number]) Functional Tests Apley's Scratch Test Action 2- Left T3 Action 2- Right T1 Action 3- Left T8 Action 3- Right T10 PT-OP-F Manual Assessment Start: 01/29/22 17:48 Freq: Status: Active Protocol: Document 01/29/22 15:15 DCW (Rec: 01/29/22 18:04 DCW [id number]) Manual Assessments Soft Tissue Assessment Soft Tissue Mobility Assessment Significant lack of muscle mass in right infraspinatus fossa with mass of potentially balled-up muscle along medial border of scapula PT-OP-K Range of Motion Start: 01/29/22 17:48 Freq: Status: Active Protocol: Document 01/29/22 15:15 DCW (Rec: 01/29/22 18:04 DCW [id number]) Shoulder Goniometric Range of Motion Shoulder Right Active Shoulder ROM WFL No Testing Position Sitting Flexion 38 Abduction 160 External Rotation at 0 degrees Abduction 10 PT-OP-L Special Tests Start: 01/29/22 17:48 Freq: Status: Active Protocol: Document 01/29/22 15:15 DCW (Rec: 01/29/22 18:04 DCW [id number]) Special Tests Shoulder Special Tests Yergason's Biceps Test Results Negative Speed's Biceps Test Results Negative Passive ER Rotator Cuff Test Results Negative Lift-Off Rotator Cuff Test Results Negative Zavaleta Nimesh Impingement Test Results Negative Empty Can Test Results Positive for weakness R Drop Arm Rotator Cuff Test Results Positive R Belly Press Test Results Negative PT-OP-M Strength Start: 01/29/22 17:48 Freq: Status: Active Protocol: Document 01/29/22 15:15 DCW (Rec: 01/29/22 18:04 DCW [id number]) Shoulder Strength Shoulder Manual Muscle Testing Left Flexion 4+ Good+ Abduction (C5) 4+ Good+ External Rotation 4+ Good+ Internal Rotation 4+ Good+ Right Flexion 3- Fair- Abduction (C5) 4- Good- External Rotation 2 Poor Internal Rotation 4- Good- PT-OP-T Assessment and Plan Start: 01/29/22 17:48 Freq: Status: Active Protocol: Document 01/29/22 15:15 DCW (Rec: 01/30/22 09:43 DCW [id number]) Physical Therapy Assessment Rehab Potential Rehabilitation Potential Fair Evaluation Complexity Number of Personal Factors/Comorbidities 1-2 Number of Body Systems Impaired 1-2 Clinical Presentation at Evaluation Evolving Impairments Impairments Functional Activities, Functional Mobility,Pain,ROM, Soft Tissue Mobility,Strength, Tone Goals Two Impairment Pt unable to lift a coffee cup in his right hand without pain Long-Term Goal (LTG) Pt to tolerate lifting at least 10 pounds from waist to shoulder level without difficulty to improve ability to participate in home chores LTG Duration 03/31/22 One Impairment Pt does not have an appropriate home exercise program Short Term Goal (STG) Pt to be independent and compliant with an appropriate HEP STG Duration 02/28/22 Assessment Summary Assessment Pt presents with signs and symptoms consistent with possible rotator cuff injury, likely with infraspinatus involvement. Pt shows a significant loss of muscle mass on right intraspinatus fossa, combined with a large balled-up mass of tissue at medial boarder, which may be a sign of a significant muscle tear. Pt shows severe weakness with both flexion and external rotation, unable to lift limb against gravity. Pt may benefit from skilled therapy working to ensure pt continues to move through available ROM and limit risk of adhesive capsulitis and work to strengthen and improve mobility. Physical Therapy Plan Frequency and Duration Frequency of Treatment 2x/Week Duration of Treatment Two months Plan of Care Start Date 01/30/22 Plan of Care End Date 04/01/22 Therapeutic Interventions Therapeutic Interventions Aquatic Therapy,Home Exercise Program,Joint Mobilizations, Manual Therapy,Patient/ Caregiver Education,Self-Care/ Home Management,Soft Tissue Mobilization,Therapeutic Activities,Therapeutic Exercises Modalities Cold Pack/Ice Massage,Electric Stimulation,Hot Packs, Ultrasound Other Referrals/Consults Referrals/Consults Recommended Pt may greatly benefit from further advanced imaging Next Visit Focus/Plan Next Note Type Treatment Note Next Visit Plan Strengthening, mobility, ROM
--- NOTE | 2022-01-30 09:44 | PT.OPPOC ---
Physical, Occupational & Speech Therapy At [facility] Current Diagnoses Pain in right shoulder (01/29/22) Stiffness of right shoulder, not elsewhere classified (01/29/22) Other injury of muscle(s) and tendon(s) of the rotator cuff of right shoulder, subsequent encounter (01/29/22) Visit Care Team Role Provider Type Maureen Domingo MD Attending Provider Physician Family Provider Primary Care Provider Referring Provider Specialty: Family Practice Address: [address] [place] [address] [place], [facility] Email: Plan Of Care PT-OP-T Assessment and Plan Start: 01/29/22 17:48 Freq: Status: Active Protocol: Document 01/29/22 15:15 DCW (Rec: 01/30/22 09:43 DCW [id number]) Physical Therapy Assessment Rehab Potential Rehabilitation Potential Fair Evaluation Complexity Number of Personal Factors/Comorbidities 1-2 Number of Body Systems Impaired 1-2 Clinical Presentation at Evaluation Evolving Impairments Impairments Functional Activities, Functional Mobility,Pain,ROM, Soft Tissue Mobility,Strength, Tone Goals Two Impairment Pt unable to lift a coffee cup in his right hand without pain Fci Goal (LTG) Pt to tolerate lifting at least 10 pounds from waist to shoulder level without difficulty to improve ability to participate in home chores LTG Duration 03/31/22 One Impairment Pt does not have an appropriate home exercise program Short Term Goal (STG) Pt to be independent and compliant with an appropriate HEP STG Duration 02/28/22 Assessment Summary Assessment Pt presents with signs and symptoms consistent with possible rotator cuff injury, likely with infraspinatus involvement. Pt shows a significant loss of muscle mass on right intraspinatus fossa, combined with a large balled-up mass of tissue at medial boarder, which may be a sign of a significant muscle tear. Pt shows severe weakness with both flexion and external rotation, unable to lift limb against gravity. Pt may benefit from skilled therapy working to ensure pt continues to move through available ROM and limit risk of adhesive capsulitis and work to strengthen and improve mobility. Physical Therapy Plan Frequency and Duration Frequency of Treatment 2x/Week Duration of Treatment Two months Plan of Care Start Date 01/30/22 Plan of Care End Date 04/01/22 Therapeutic Interventions Therapeutic Interventions Aquatic Therapy,Home Exercise Program,Joint Mobilizations, Manual Therapy,Patient/ Caregiver Education,Self-Care/ Home Management,Soft Tissue Mobilization,Therapeutic Activities,Therapeutic Exercises Modalities Cold Pack/Ice Massage,Electric Stimulation,Hot Packs, Ultrasound Other Referrals/Consults Referrals/Consults Recommended Pt may greatly benefit from further advanced imaging Next Visit Focus/Plan Next Note Type Treatment Note Next Visit Plan Strengthening, mobility, ROM Plan of Care Dates Plan of Care Start Date 01/30/22 Plan of Care End Date 04/01/22 Electronically Signed by: Vel Giang, PT 01/30/22 0944 Please Sign and Return: I have reviewed this Plan of Care and certify that the skilled therapy services above are required to meet the patient?s needs. Physician Signature Date Printed Name and Credentials Clinical Instructor Signature Printed Name and Credentials
--- NOTE | 2022-02-01 15:15 | PT.OTN ---
Current Diagnoses Pain in right shoulder (02/01/22) Stiffness of right shoulder, not elsewhere classified (02/01/22) Other injury of muscle(s) and tendon(s) of the rotator cuff of right shoulder, subsequent encounter (02/01/22) Physical Therapy Treatment Note PT-OP-A Visit Information Start: 01/29/22 17:48 Freq: Status: Active Protocol: Document 02/01/22 14:30 DCW (Rec: 02/01/22 15:15 DCW [id number]) Out-Patient Physical Therapy Visit Information Visit Information Visit Type Treatment Note Visit Start Time 14:30 Visit Stop Time 15:15 Total Visit Minutes 45 Visit Number 2 Number of RADIOLOGICAL EQUIPMENT SPECIALIST Visits 0 Evaluation Information Evaluation Date 01/29/22 PT-OP-B Current Condition Start: 01/29/22 17:48 Freq: Status: Active Protocol: Document 01/29/22 15:15 DCW (Rec: 01/29/22 17:58 DCW [id number]) Current Condition History of Current Condition Onset Date Beginning of November Current Complaints Loss of mobility and strength in right shoulder History of Current Condition Pt is an 86 year old male presenting with skilled therapy with a 2.5 month history of loss of strength and mobility of right shoulder . Pt notes that he fell backward into a very solid plant stand, and has had shoulder problems ever since. Pt notes it took him two or three days to get into the Doctor's office, together they decided it probably wasn' t fractured, and then he kind of waited around until finally getting into PT when it didn't improve as much as he expected. Notes he is unable to sleep on his right side, struggles to lift even a coffee cup with his right arm . Any over-head activity is impossible. Admits he feels like his strength is at 20-30 % of my normal. PT-OP-C Subjective Start: 01/29/22 17:48 Freq: Status: Active Protocol: Document 02/01/22 14:30 DCW (Rec: 02/01/22 15:15 DCW [id number]) OP-PT Subjective Patient Comments Patient Comments No changes reported in shoulder, pt feels motivated to get his arms moving better. PT-OP-E Functional Tests Start: 01/29/22 17:48 Freq: Status: Active Protocol: Document 01/29/22 15:15 DCW (Rec: 01/29/22 18:04 DCW [id number]) Functional Tests Apley's Scratch Test Action 2- Left T3 Action 2- Right T1 Action 3- Left T8 Action 3- Right T10 PT-OP-F Manual Assessment Start: 01/29/22 17:48 Freq: Status: Active Protocol: Document 01/29/22 15:15 DCW (Rec: 01/29/22 18:04 DCW [id number]) Manual Assessments Soft Tissue Assessment Soft Tissue Mobility Assessment Significant lack of muscle mass in right infraspinatus fossa with mass of potentially balled-up muscle along medial border of scapula PT-OP-K Range of Motion Start: 01/29/22 17:48 Freq: Status: Active Protocol: Document 01/29/22 15:15 DCW (Rec: 01/29/22 18:04 DCW [id number]) Shoulder Goniometric Range of Motion Shoulder Right Active Shoulder ROM WFL No Testing Position Sitting Flexion 38 Abduction 160 External Rotation at 0 degrees Abduction 10 PT-OP-L Special Tests Start: 01/29/22 17:48 Freq: Status: Active Protocol: Document 01/29/22 15:15 DCW (Rec: 01/29/22 18:04 DCW [id number]) Special Tests Shoulder Special Tests Yergason's Biceps Test Results Negative Speed's Biceps Test Results Negative Passive ER Rotator Cuff Test Results Negative Lift-Off Rotator Cuff Test Results Negative Zavaleta Nimesh Impingement Test Results Negative Empty Can Test Results Positive for weakness R Drop Arm Rotator Cuff Test Results Positive R Belly Press Test Results Negative PT-OP-M Strength Start: 01/29/22 17:48 Freq: Status: Active Protocol: Document 01/29/22 15:15 DCW (Rec: 01/29/22 18:04 DCW [id number]) Shoulder Strength Shoulder Manual Muscle Testing Left Flexion 4+ Good+ Abduction (C5) 4+ Good+ External Rotation 4+ Good+ Internal Rotation 4+ Good+ Right Flexion 3- Fair- Abduction (C5) 4- Good- External Rotation 2 Poor Internal Rotation 4- Good- PT-OP-Q Treatments Start: 01/29/22 17:48 Freq: Status: Active Protocol: Document 02/01/22 14:30 DCW (Rec: 02/01/22 15:15 DCW [id number]) Cardio Equipment Upper Body Ergometer (UBE) Duration (Minutes) 4 RPM 60 Seat Position 11 Height 2.5 Therapeutic Exercises Supine Exercises 3 Supine Exercise Name AAROM PVC Shoulder ER 2 Supine Exercise Name AAROM PVC Shoulder Flexion Side bilateral 1 Supine Exercise Name Serratus punch Side bilateral Comments Attempted, unable to lift R arm Sidelying Exercises 1 Sidelying Exercise Name SL Shoulder ER Side right Sitting Exercises 1 Sitting Exercise Name GH Flexion - pulleys Comments pain-free ROM Standing Exercises 5 Standing Exercise Name Shoulder ER Side bilateral Resistance Lv 2 4 Standing Exercise Name Shoulder Add Side bilateral Resistance Lv 2 3 Standing Exercise Name Shoulder Ext Side bilateral Resistance Lv 2 2 Standing Exercise Name Passive ER stretch 1 Standing Exercise Name Wall ball circles Side right Manual Therapy Treatment Soft Tissue Mobilization 1 Body Location R Subscap Mobilization Type Strumming,Sustained Pressure Intensity/Depth Moderate Body Position Supine Other Other Manual Treatments PROM - Therapist-driven stretching PT-OP-T Assessment and Plan Start: 01/29/22 17:48 Freq: Status: Active Protocol: Document 02/01/22 14:30 DCW (Rec: 02/01/22 15:15 DCW [id number]) Physical Therapy Assessment Impairments Impairments Functional Activities, Functional Mobility,Pain,ROM, Soft Tissue Mobility,Strength, Tone Goals Two Impairment Pt unable to lift a coffee cup in his right hand without pain Shelter Goal (LTG) Pt to tolerate lifting at least 10 pounds from waist to shoulder level without difficulty to improve ability to participate in home chores LTG Duration 03/31/22 One Impairment Pt does not have an appropriate home exercise program Short Term Goal (STG) Pt to be independent and compliant with an appropriate HEP STG Duration 02/28/22 Assessment Summary Assessment Pt tolerated treatment very well today, happy with the progress in ROM he made throughout the session, looking forward to start his HEP exercises. Physical Therapy Plan Frequency and Duration Frequency of Treatment 2x/Week Duration of Treatment Two months Plan of Care Start Date 01/30/22 Plan of Care End Date 04/01/22 Therapeutic Interventions Therapeutic Interventions Aquatic Therapy,Home Exercise Program,Joint Mobilizations, Manual Therapy,Patient/ Caregiver Education,Self-Care/ Home Management,Soft Tissue Mobilization,Therapeutic Activities,Therapeutic Exercises Modalities Cold Pack/Ice Massage,Electric Stimulation,Hot Packs, Ultrasound Other Referrals/Consults Referrals/Consults Recommended Pt may greatly benefit from further advanced imaging Next Visit Focus/Plan Next Note Type Treatment Note Next Visit Plan Strengthening, mobility, ROM
--- NOTE | 2022-02-06 10:28 | PT.OTN ---
Current Diagnoses Pain in right shoulder (02/06/22) Stiffness of right shoulder, not elsewhere classified (02/06/22) Other injury of muscle(s) and tendon(s) of the rotator cuff of right shoulder, subsequent encounter (02/06/22) Physical Therapy Treatment Note PT-OP-A Visit Information Start: 01/29/22 17:48 Freq: Status: Active Protocol: Document 02/06/22 09:41 SP (Rec: 02/06/22 10:47 SP [id number]) Out-Patient Physical Therapy Visit Information Visit Information Visit Type Treatment Note Visit Start Time 09:41 Visit Stop Time 10:28 Total Visit Minutes 47 Visit Number 3 Number of APARTMENT RENTAL AGENT Visits 1 Evaluation Information Evaluation Date 01/29/22 PT-OP-B Current Condition Start: 01/29/22 17:48 Freq: Status: Active Protocol: Document 01/29/22 15:15 DCW (Rec: 01/29/22 17:58 DCW [id number]) Current Condition History of Current Condition Onset Date Beginning of November Current Complaints Loss of mobility and strength in right shoulder History of Current Condition Pt is an 86 year old male presenting with skilled therapy with a 2.5 month history of loss of strength and mobility of right shoulder . Pt notes that he fell backward into a very solid plant stand, and has had shoulder problems ever since. Pt notes it took him two or three days to get into the Doctor's office, together they decided it probably wasn' t fractured, and then he kind of waited around until finally getting into PT when it didn't improve as much as he expected. Notes he is unable to sleep on his right side, struggles to lift even a coffee cup with his right arm . Any over-head activity is impossible. Admits he feels like his strength is at 20-30 % of my normal. PT-OP-C Subjective Start: 01/29/22 17:48 Freq: Status: Active Protocol: Document 02/06/22 09:41 SP (Rec: 02/06/22 10:47 SP [id number]) OP-PT Subjective Patient Comments Patient Comments Pt reported one of the exercises notices his R shld pops so want to check doing correctly. PT-OP-E Functional Tests Start: 01/29/22 17:48 Freq: Status: Active Protocol: Document 01/29/22 15:15 DCW (Rec: 01/29/22 18:04 DCW [id number]) Functional Tests Apley's Scratch Test Action 2- Left T3 Action 2- Right T1 Action 3- Left T8 Action 3- Right T10 PT-OP-F Manual Assessment Start: 01/29/22 17:48 Freq: Status: Active Protocol: Document 01/29/22 15:15 DCW (Rec: 01/29/22 18:04 DCW [id number]) Manual Assessments Soft Tissue Assessment Soft Tissue Mobility Assessment Significant lack of muscle mass in right infraspinatus fossa with mass of potentially balled-up muscle along medial border of scapula PT-OP-K Range of Motion Start: 01/29/22 17:48 Freq: Status: Active Protocol: Document 01/29/22 15:15 DCW (Rec: 01/29/22 18:04 DCW [id number]) Shoulder Goniometric Range of Motion Shoulder Right Active Shoulder ROM WFL No Testing Position Sitting Flexion 38 Abduction 160 External Rotation at 0 degrees Abduction 10 PT-OP-L Special Tests Start: 01/29/22 17:48 Freq: Status: Active Protocol: Document 01/29/22 15:15 DCW (Rec: 01/29/22 18:04 DCW [id number]) Special Tests Shoulder Special Tests Yergason's Biceps Test Results Negative Speed's Biceps Test Results Negative Passive ER Rotator Cuff Test Results Negative Lift-Off Rotator Cuff Test Results Negative Zavaleta Nimesh Impingement Test Results Negative Empty Can Test Results Positive for weakness R Drop Arm Rotator Cuff Test Results Positive R Belly Press Test Results Negative PT-OP-M Strength Start: 01/29/22 17:48 Freq: Status: Active Protocol: Document 01/29/22 15:15 DCW (Rec: 01/29/22 18:04 DCW [id number]) Shoulder Strength Shoulder Manual Muscle Testing Left Flexion 4+ Good+ Abduction (C5) 4+ Good+ External Rotation 4+ Good+ Internal Rotation 4+ Good+ Right Flexion 3- Fair- Abduction (C5) 4- Good- External Rotation 2 Poor Internal Rotation 4- Good- PT-OP-Q Treatments Start: 01/29/22 17:48 Freq: Status: Active Protocol: Document 02/06/22 09:41 SP (Rec: 02/06/22 10:47 SP [id number]) Cardio Equipment Upper Body Ergometer (UBE) Duration (Minutes) 6 RPM 60 Seat Position 11 Height 2.5, 348 cycles Other cued no UT recruitment flexion : 1 min f/b Therapeutic Exercises Supine Exercises 3 Supine Exercise Name AAROM PVC Shoulder ER- HEp reviewed Side right Equipment Used dowel, towel under arm, maintain elbow at side Reps/Minutes 2x10 Comments cued slow pacing, approx 42 deg able complete 2 Supine Exercise Name AAROM PVC Shoulder Flexion-HEp reviewed Side bilateral Equipment Used dowel Reps/Minutes 2X10 Comments cued slow, get brief pain approx 90deg, able complete 148 deg 1 Supine Exercise Name Serratus punch- HEp reviewed Side bilateral Equipment Used dowel, (target 1 over chest, elbows extended) Reps/Minutes 2x10 Comments cued scap protraction/ eccentric return start pos glide Sidelying Exercises 1 Sidelying Exercise Name SL Shoulder ER Side right Comments unable complete AROM, alot UT elevation- hold Standing Exercises 5 Standing Exercise Name Shoulder ER unable> eccentric IR better (Added toHEP) Side bilateral Resistance Lv 2 Reps/Minutes x10 eccentric ER Comments better ER AAROM and control. 4 Standing Exercise Name Shoulder Add-HEp reviewed Side bilateral Resistance Lv 2 Reps/Minutes 2x3 reps Comments cued scap stab retract/ depress, head back neutral CS 3 Standing Exercise Name Shoulder Ext-HEp reviewed Side bilateral Resistance Lv 2 Reps/Minutes x10 Comments cued scap stab retract/ depress, head back neutral CS 2 Standing Exercise Name Passive ER stretch- HEp reviewed Side right Equipment Used dowel (CHELSEA vásquez RUE), towel under arm Reps/Minutes x5 hold 2 sec Comments cued shld retract/ depress, elbow side 1 Standing Exercise Name Wall ball circles> ABC- added to HEP Side right Reps/Minutes cued no UT recruitment- improved up to letter G Comments cued scap stab retract/ depress, head back neutral CS Manual Therapy Treatment Soft Tissue Mobilization 1 Body Location R Subscap Mobilization Type Strumming,Sustained Pressure Intensity/Depth Moderate Body Position Supine Joint Mobilizations GH jt Joint L shld Direction posterior Grade II Body Position Hooklying PT-OP-R Modalities Start: 02/06/22 11:34 Freq: Status: Active Protocol: Document 02/06/22 09:41 SP (Rec: 02/06/22 11:38 SP [id number]) Hot Pack/Cold Pack Treatment MHP Location R shld Patient Position Sitting Treatment Duration (minutes) 10 Patient Tolerance Good Comments this feels alot better than cold pack, will continue use at home if needed. PT-OP-T Assessment and Plan Start: 01/29/22 17:48 Freq: Status: Active Protocol: Document 02/06/22 09:41 SP (Rec: 02/06/22 10:47 SP [id number]) Physical Therapy Assessment Goals Two Impairment Pt unable to lift a coffee cup in his right hand without pain Retirement Goal (LTG) Pt to tolerate lifting at least 10 pounds from waist to shoulder level without difficulty to improve ability to participate in home chores LTG Duration 03/31/22 One Impairment Pt does not have an appropriate home exercise program Short Term Goal (STG) Pt to be independent and compliant with an appropriate HEP STG Duration 02/28/22 Assessment Summary Assessment Tx focused on HEP review, cues for no UT recruitment, scap depression w/ retraction awarenes neutral throughout. Provided hand outs for self recall and form. Updated resisted R Shld ER to eccentric ER due to not having strength at this time. Pt Physical Therapy Plan Frequency and Duration Frequency of Treatment 2x/Week Duration of Treatment Two months Plan of Care Start Date 01/30/22 Plan of Care End Date 04/01/22 Therapeutic Interventions Therapeutic Interventions Aquatic Therapy,Home Exercise Program,Joint Mobilizations, Manual Therapy,Patient/ Caregiver Education,Self-Care/ Home Management,Soft Tissue Mobilization,Therapeutic Activities,Therapeutic Exercises Modalities Cold Pack/Ice Massage,Electric Stimulation,Hot Packs, Ultrasound Other Referrals/Consults Referrals/Consults Recommended Pt may greatly benefit from further advanced imaging Next Visit Focus/Plan Next Note Type Treatment Note Next Visit Plan Continue to review HEP and form. POC: Strengthening, mobility, ROM
--- NOTE | 2022-02-08 11:24 | PT.OTN ---
Addendum entered and electronically signed by Samaria Gardner, HEBERT 02/08/22 11:31: Also added self STMs ball on wall posterior scap, UT and Lev scap using theracane MWM. Found helpful massage but states might just have find massager they have and have her help him, she likes to get involved and help. Original Note: Current Diagnoses Pain in right shoulder (02/08/22) Stiffness of right shoulder, not elsewhere classified (02/08/22) Other injury of muscle(s) and tendon(s) of the rotator cuff of right shoulder, subsequent encounter (02/08/22) Physical Therapy Treatment Note PT-OP-A Visit Information Start: 01/29/22 17:48 Freq: Status: Active Protocol: Document 02/08/22 10:34 SP (Rec: 02/08/22 11:30 SP [id number]) Out-Patient Physical Therapy Visit Information Visit Information Visit Type Treatment Note Visit Start Time 10:34 Visit Stop Time 11:24 Total Visit Minutes 50 Visit Number 4 Number of SALES AND MARKETING AGENT Visits 2 Evaluation Information Evaluation Date 01/29/22 PT-OP-B Current Condition Start: 01/29/22 17:48 Freq: Status: Active Protocol: Document 01/29/22 15:15 DCW (Rec: 01/29/22 17:58 DCW [id number]) Current Condition History of Current Condition Onset Date Beginning of November Current Complaints Loss of mobility and strength in right shoulder History of Current Condition Pt is an 86 year old male presenting with skilled therapy with a 2.5 month history of loss of strength and mobility of right shoulder . Pt notes that he fell backward into a very solid plant stand, and has had shoulder problems ever since. Pt notes it took him two or three days to get into the Doctor's office, together they decided it probably wasn' t fractured, and then he kind of waited around until finally getting into PT when it didn't improve as much as he expected. Notes he is unable to sleep on his right side, struggles to lift even a coffee cup with his right arm . Any over-head activity is impossible. Admits he feels like his strength is at 20-30 % of my normal. PT-OP-C Subjective Start: 01/29/22 17:48 Freq: Status: Active Protocol: Document 02/08/22 10:34 SP (Rec: 02/08/22 11:30 SP [id number]) OP-PT Subjective Patient Comments Patient Comments Pt reported able to move R arm out to side better than could before. Still can't sleep on R shld more than 10 min before hurts. PT-OP-E Functional Tests Start: 01/29/22 17:48 Freq: Status: Active Protocol: Document 01/29/22 15:15 DCW (Rec: 01/29/22 18:04 DCW [id number]) Functional Tests Apley's Scratch Test Action 2- Left T3 Action 2- Right T1 Action 3- Left T8 Action 3- Right T10 PT-OP-F Manual Assessment Start: 01/29/22 17:48 Freq: Status: Active Protocol: Document 01/29/22 15:15 DCW (Rec: 01/29/22 18:04 DCW [id number]) Manual Assessments Soft Tissue Assessment Soft Tissue Mobility Assessment Significant lack of muscle mass in right infraspinatus fossa with mass of potentially balled-up muscle along medial border of scapula PT-OP-K Range of Motion Start: 01/29/22 17:48 Freq: Status: Active Protocol: Document 02/08/22 10:34 SP (Rec: 02/08/22 11:30 SP [id number]) Shoulder Goniometric Range of Motion Shoulder Right Active Shoulder ROM WFL No Testing Position Sitting Flexion 135 Abduction 165 External Rotation at 0 degrees Abduction 30 Comments improved: FF 97deg ABD 5 deg ER 20 deg PT-OP-L Special Tests Start: 01/29/22 17:48 Freq: Status: Active Protocol: Document 01/29/22 15:15 DCW (Rec: 01/29/22 18:04 DCW [id number]) Special Tests Shoulder Special Tests Yergason's Biceps Test Results Negative Speed's Biceps Test Results Negative Passive ER Rotator Cuff Test Results Negative Lift-Off Rotator Cuff Test Results Negative Zavaleta Nimesh Impingement Test Results Negative Empty Can Test Results Positive for weakness R Drop Arm Rotator Cuff Test Results Positive R Belly Press Test Results Negative PT-OP-M Strength Start: 01/29/22 17:48 Freq: Status: Active Protocol: Document 01/29/22 15:15 DCW (Rec: 01/29/22 18:04 DCW [id number]) Shoulder Strength Shoulder Manual Muscle Testing Left Flexion 4+ Good+ Abduction (C5) 4+ Good+ External Rotation 4+ Good+ Internal Rotation 4+ Good+ Right Flexion 3- Fair- Abduction (C5) 4- Good- External Rotation 2 Poor Internal Rotation 4- Good- PT-OP-Q Treatments Start: 01/29/22 17:48 Freq: Status: Active Protocol: Document 02/08/22 10:34 SP (Rec: 02/08/22 11:30 SP [id number]) Cardio Equipment Upper Body Ergometer (UBE) Duration (Minutes) 6 RPM 60 Seat Position 11 Height 2.5, ? today cycles Other cued no UT recruitment flexion : 1 min f/b Therapeutic Exercises Sitting Exercises 1 Sitting Exercise Name GH Flexion, ABD, scaption - pulleys Reps/Minutes x10 each Comments pain-free ROM, cued slow pacing, no UT recruit/ LT fac control Standing Exercises wall walk Standing Exercise Name FF, ABD- gave HOs Side right Reps/Minutes x5, 3 sec hold Comments cued no UT stretch, aware no shld elevation, stop along way shld depress UT, Lev scap stretch Standing Exercise Name added to HEP- gave HOs Side right Equipment Used opposite UE over pressure if want more stretch Reps/Minutes 30 x2 Comments good form no UT recruitment 5 Standing Exercise Name Shoulder ER unable> eccentric IR better (Added toHEP) Side bilateral Resistance Lv 2> #3 Equipment Used back on wall for posture Reps/Minutes x20 eccentric ER Comments better ER AAROM and control, cued trunk still 2 Standing Exercise Name Passive ER stretch- HEp reviewed Side right Equipment Used dowel (LUE help RUE), towel under arm Reps/Minutes x5 hold 2 sec Comments cued shld retract/ depress, elbow side 1 Standing Exercise Name Wall ball circles> ABC- added to HEP Side right Equipment Used A- Z Reps/Minutes cued no UT recruitment- improved up to letter Z today Comments cued scap stab retract/ depress, better head back neutral CS Manual Therapy Treatment Soft Tissue Mobilization 1 Body Location R UT , lev scap, LT, Teres, distal lat Mobilization Type Strumming,Sustained Pressure Intensity/Depth Moderate Body Position Standing Comments during wall walk ABD Self-Care/Home Management Treatment Education Patient Education Body Mechanics,Joint Protection,Pain Management, Posture Other Education Next tx add: ed on R side add sleeping use pillows between B knees, front between BUE, another under head w/ towel roll bottom pillow case for neck alignment and small folded towel/ small flat pillow under ribcage to allow trunk support and less pressure on R shld comfort, but also pillow under R arm laying on L side. PT-OP-R Modalities Start: 02/06/22 11:34 Freq: Status: Active Protocol: Document 02/06/22 09:41 SP (Rec: 02/06/22 11:38 SP [id number]) Hot Pack/Cold Pack Treatment MHP Location R shld Patient Position Sitting Treatment Duration (minutes) 10 Patient Tolerance Good Comments this feels alot better than cold pack, will continue use at home if needed. PT-OP-T Assessment and Plan Start: 01/29/22 17:48 Freq: Status: Active Protocol: Document 02/08/22 10:34 SP (Rec: 02/08/22 11:30 SP [id number]) Physical Therapy Assessment Goals Two Impairment Pt unable to lift a coffee cup in his right hand without pain Long-Term Goal (LTG) Pt to tolerate lifting at least 10 pounds from waist to shoulder level without difficulty to improve ability to participate in home chores LTG Duration 03/31/22 One Impairment Pt does not have an appropriate home exercise program Short Term Goal (STG) Pt to be independent and compliant with an appropriate HEP STG Duration 02/28/22 Assessment Summary Assessment Pt improved decrease R UT/ Lev Scap recruitment throughout ther ex neptali, eccentric ER, added wall walking vs neptali for home due to gaining AROM, see measurements. Pt states almost no pain R shld end tx, tired but still limited ER on R. Physical Therapy Plan Frequency and Duration Frequency of Treatment 2x/Week Duration of Treatment Two months Plan of Care Start Date 01/30/22 Plan of Care End Date 04/01/22 Therapeutic Interventions Therapeutic Interventions Aquatic Therapy,Home Exercise Program,Joint Mobilizations, Manual Therapy,Patient/ Caregiver Education,Self-Care/ Home Management,Soft Tissue Mobilization,Therapeutic Activities,Therapeutic Exercises Modalities Cold Pack/Ice Massage,Electric Stimulation,Hot Packs, Ultrasound Other Referrals/Consults Referrals/Consults Recommended Pt may greatly benefit from further advanced imaging? Next Visit Focus/Plan Next Note Type Treatment Note Next Visit Plan Review: wall walk (take pic personal phone for postural alignment self awareness), stand ER dowel at wall, continue TB HEP. POC: Strengthening, mobility, needed A- AAROM ER*> FF, ABD.
--- NOTE | 2022-02-13 11:17 | PT.OTN ---
Current Diagnoses Pain in right shoulder (02/13/22) Stiffness of right shoulder, not elsewhere classified (02/13/22) Other injury of muscle(s) and tendon(s) of the rotator cuff of right shoulder, subsequent encounter (02/13/22) Physical Therapy Treatment Note PT-OP-A Visit Information Start: 01/29/22 17:48 Freq: Status: Active Protocol: Document 02/13/22 10:34 DCW (Rec: 02/13/22 11:17 DCW [id number]) Out-Patient Physical Therapy Visit Information Visit Information Visit Type Treatment Note Visit Start Time 10:34 Visit Stop Time 11:15 Total Visit Minutes 41 Visit Number 5 Number of DIGITAL ASSOCIATE MEDIA DIRECTOR Visits 0 Evaluation Information Evaluation Date 01/29/22 PT-OP-B Current Condition Start: 01/29/22 17:48 Freq: Status: Active Protocol: Document 01/29/22 15:15 DCW (Rec: 01/29/22 17:58 DCW [id number]) Current Condition History of Current Condition Onset Date Beginning of November Current Complaints Loss of mobility and strength in right shoulder History of Current Condition Pt is an 86 year old male presenting with skilled therapy with a 2.5 month history of loss of strength and mobility of right shoulder . Pt notes that he fell backward into a very solid plant stand, and has had shoulder problems ever since. Pt notes it took him two or three days to get into the Doctor's office, together they decided it probably wasn' t fractured, and then he kind of waited around until finally getting into PT when it didn't improve as much as he expected. Notes he is unable to sleep on his right side, struggles to lift even a coffee cup with his right arm . Any over-head activity is impossible. Admits he feels like his strength is at 20-30 % of my normal. PT-OP-C Subjective Start: 01/29/22 17:48 Freq: Status: Active Protocol: Document 02/13/22 10:34 DCW (Rec: 02/13/22 11:17 DCW [id number]) OP-PT Subjective Patient Comments Patient Comments It's working, I'm getting better. I'm not as good as I could be. PT-OP-E Functional Tests Start: 01/29/22 17:48 Freq: Status: Active Protocol: Document 01/29/22 15:15 DCW (Rec: 01/29/22 18:04 DCW [id number]) Functional Tests Apley's Scratch Test Action 2- Left T3 Action 2- Right T1 Action 3- Left T8 Action 3- Right T10 PT-OP-F Manual Assessment Start: 01/29/22 17:48 Freq: Status: Active Protocol: Document 01/29/22 15:15 DCW (Rec: 01/29/22 18:04 DCW [id number]) Manual Assessments Soft Tissue Assessment Soft Tissue Mobility Assessment Significant lack of muscle mass in right infraspinatus fossa with mass of potentially balled-up muscle along medial border of scapula PT-OP-K Range of Motion Start: 01/29/22 17:48 Freq: Status: Active Protocol: Document 02/08/22 10:34 SP (Rec: 02/08/22 11:30 SP [id number]) Shoulder Goniometric Range of Motion Shoulder Right Active Shoulder ROM WFL No Testing Position Sitting Flexion 135 Abduction 165 External Rotation at 0 degrees Abduction 30 Comments improved: FF 97deg ABD 5 deg ER 20 deg PT-OP-L Special Tests Start: 01/29/22 17:48 Freq: Status: Active Protocol: Document 01/29/22 15:15 DCW (Rec: 01/29/22 18:04 DCW [id number]) Special Tests Shoulder Special Tests Yergason's Biceps Test Results Negative Speed's Biceps Test Results Negative Passive ER Rotator Cuff Test Results Negative Lift-Off Rotator Cuff Test Results Negative Zavaleta Nimesh Impingement Test Results Negative Empty Can Test Results Positive for weakness R Drop Arm Rotator Cuff Test Results Positive R Belly Press Test Results Negative PT-OP-M Strength Start: 01/29/22 17:48 Freq: Status: Active Protocol: Document 01/29/22 15:15 DCW (Rec: 01/29/22 18:04 DCW [id number]) Shoulder Strength Shoulder Manual Muscle Testing Left Flexion 4+ Good+ Abduction (C5) 4+ Good+ External Rotation 4+ Good+ Internal Rotation 4+ Good+ Right Flexion 3- Fair- Abduction (C5) 4- Good- External Rotation 2 Poor Internal Rotation 4- Good- PT-OP-Q Treatments Start: 01/29/22 17:48 Freq: Status: Active Protocol: Document 02/13/22 10:34 DCW (Rec: 02/13/22 11:17 DC [id number]) Cardio Equipment Upper Body Ergometer (UBE) Duration (Minutes) 6 RPM 60 Seat Position 11 Height 2.5 Other cued no UT recruitment flexion : 1 min f/b Therapeutic Exercises Supine Exercises 4 Supine Exercise Name PNF - D1/D2 flexion Sidelying Exercises 1 Sidelying Exercise Name SL Shoulder ER Side right Comments unable complete AROM, alot UT elevation- hold Sitting Exercises 1 Sitting Exercise Name GH Flexion, ABD, scaption - pulleys Reps/Minutes x10 each Comments pain-free ROM, cued slow pacing, no UT recruit/ LT fac control Other Exercises 1 Other Exercise Name UE Resisted side-stepping Resistance Yellow Manual Therapy Treatment Soft Tissue Mobilization 1 Body Location R UT , lev scap, LT, Teres, distal lat Mobilization Type Strumming,Sustained Pressure Intensity/Depth Moderate Body Position Standing Comments during wall walk ABD Joint Mobilizations GH jt Joint L shld Direction posterior Grade II Body Position Hooklying PT-OP-R Modalities Start: 02/06/22 11:34 Freq: Status: Active Protocol: Document 02/06/22 09:41 SP (Rec: 02/06/22 11:38 SP [id number]) Hot Pack/Cold Pack Treatment MHP Location R shld Patient Position Sitting Treatment Duration (minutes) 10 Patient Tolerance Good Comments this feels alot better than cold pack, will continue use at home if needed. PT-OP-T Assessment and Plan Start: 01/29/22 17:48 Freq: Status: Active Protocol: Document 02/13/22 10:34 DCW (Rec: 02/13/22 11:17 DCW [id number]) Physical Therapy Assessment Goals Two Impairment Pt unable to lift a coffee cup in his right hand without pain Workers' Compensation Mediator Goal (LTG) Pt to tolerate lifting at least 10 pounds from waist to shoulder level without difficulty to improve ability to participate in home chores LTG Duration 03/31/22 One Impairment Pt does not have an appropriate home exercise program Short Term Goal (STG) Pt to be independent and compliant with an appropriate HEP STG Duration 02/28/22 Assessment Summary Assessment Pt making some progress overall, still very limited with anything involving external rotation. Pt unsure about continuing, feels he will keep getting better using HEP, discussed importance of making progress, limiting plateau, pt agreeable to a few more weeks, and then hopefully getting an MRI. Physical Therapy Plan Frequency and Duration Frequency of Treatment 2x/Week Duration of Treatment Two months Plan of Care Start Date 01/30/22 Plan of Care End Date 04/01/22 Therapeutic Interventions Therapeutic Interventions Aquatic Therapy,Home Exercise Program,Joint Mobilizations, Manual Therapy,Patient/ Caregiver Education,Self-Care/ Home Management,Soft Tissue Mobilization,Therapeutic Activities,Therapeutic Exercises Modalities Cold Pack/Ice Massage,Electric Stimulation,Hot Packs, Ultrasound Other Referrals/Consults Referrals/Consults Recommended Pt may greatly benefit from further advanced imaging? Next Visit Focus/Plan Next Note Type Treatment Note Next Visit Plan Review: wall walk (take pic personal phone for postural alignment self awareness), stand ER dowel at wall, continue TB HEP. POC: Strengthening, mobility, needed A- AAROM ER*> FF, ABD.
--- NOTE | 2022-02-15 11:15 | PT.OTN ---
Addendum entered and electronically signed by Samaria Gardner, HEBERT 02/15/22 11:39: Pt will need PN 10th soon, sees PT at 8th visit and 11th visit. Original Note: Current Diagnoses Pain in right shoulder (02/15/22) Stiffness of right shoulder, not elsewhere classified (02/15/22) Other injury of muscle(s) and tendon(s) of the rotator cuff of right shoulder, subsequent encounter (02/15/22) Physical Therapy Treatment Note PT-OP-A Visit Information Start: 01/29/22 17:48 Freq: Status: Active Protocol: Document 02/15/22 10:32 SP (Rec: 02/15/22 11:38 SP [id number]) Out-Patient Physical Therapy Visit Information Visit Information Visit Type Treatment Note Visit Start Time 10:32 Visit Stop Time 11:15 Total Visit Minutes 43 Visit Number 6 Number of WHARF TENDER HELPER Visits 1 Evaluation Information Evaluation Date 01/29/22 PT-OP-B Current Condition Start: 01/29/22 17:48 Freq: Status: Active Protocol: Document 01/29/22 15:15 DCW (Rec: 01/29/22 17:58 DCW [id number]) Current Condition History of Current Condition Onset Date Beginning of November Current Complaints Loss of mobility and strength in right shoulder History of Current Condition Pt is an 86 year old male presenting with skilled therapy with a 2.5 month history of loss of strength and mobility of right shoulder . Pt notes that he fell backward into a very solid plant stand, and has had shoulder problems ever since. Pt notes it took him two or three days to get into the Doctor's office, together they decided it probably wasn' t fractured, and then he kind of waited around until finally getting into PT when it didn't improve as much as he expected. Notes he is unable to sleep on his right side, struggles to lift even a coffee cup with his right arm . Any over-head activity is impossible. Admits he feels like his strength is at 20-30 % of my normal. PT-OP-C Subjective Start: 01/29/22 17:48 Freq: Status: Active Protocol: Document 02/15/22 10:32 SP (Rec: 02/15/22 11:38 SP [id number]) OP-PT Subjective Patient Comments Patient Comments Pt stated only has 1 more appt scheduled, needs more not back to baseline to be oown yet. Has Dr rainey next week. PT-OP-E Functional Tests Start: 01/29/22 17:48 Freq: Status: Active Protocol: Document 01/29/22 15:15 DCW (Rec: 01/29/22 18:04 DCW [id number]) Functional Tests Apley's Scratch Test Action 2- Left T3 Action 2- Right T1 Action 3- Left T8 Action 3- Right T10 PT-OP-F Manual Assessment Start: 01/29/22 17:48 Freq: Status: Active Protocol: Document 01/29/22 15:15 DCW (Rec: 01/29/22 18:04 DCW [id number]) Manual Assessments Soft Tissue Assessment Soft Tissue Mobility Assessment Significant lack of muscle mass in right infraspinatus fossa with mass of potentially balled-up muscle along medial border of scapula PT-OP-K Range of Motion Start: 01/29/22 17:48 Freq: Status: Active Protocol: Document 02/08/22 10:34 SP (Rec: 02/08/22 11:30 SP [id number]) Shoulder Goniometric Range of Motion Shoulder Right Active Shoulder ROM WFL No Testing Position Sitting Flexion 135 Abduction 165 External Rotation at 0 degrees Abduction 30 Comments improved: FF 97deg ABD 5 deg ER 20 deg PT-OP-L Special Tests Start: 01/29/22 17:48 Freq: Status: Active Protocol: Document 01/29/22 15:15 DCW (Rec: 01/29/22 18:04 DCW [id number]) Special Tests Shoulder Special Tests Yergason's Biceps Test Results Negative Speed's Biceps Test Results Negative Passive ER Rotator Cuff Test Results Negative Lift-Off Rotator Cuff Test Results Negative Zavaleta Nimesh Impingement Test Results Negative Empty Can Test Results Positive for weakness R Drop Arm Rotator Cuff Test Results Positive R Belly Press Test Results Negative PT-OP-M Strength Start: 01/29/22 17:48 Freq: Status: Active Protocol: Document 01/29/22 15:15 DCW (Rec: 01/29/22 18:04 DCW [id number]) Shoulder Strength Shoulder Manual Muscle Testing Left Flexion 4+ Good+ Abduction (C5) 4+ Good+ External Rotation 4+ Good+ Internal Rotation 4+ Good+ Right Flexion 3- Fair- Abduction (C5) 4- Good- External Rotation 2 Poor Internal Rotation 4- Good- PT-OP-Q Treatments Start: 01/29/22 17:48 Freq: Status: Active Protocol: Document 02/15/22 10:32 SP (Rec: 02/15/22 11:38 SP [id number]) Cardio Equipment Upper Body Ergometer (UBE) Duration (Minutes) 6 RPM 60 Seat Position 11 Height 2.5 Other cued no UT recruitment flexion : 1 min f/b Therapeutic Exercises Supine Exercises 5 Supine Exercise Name added to HEP- ABD Side right Resistance AAROM L help R Equipment Used ruller Reps/Minutes 2x5 reps Comments better from with cues R arm back toward table, OH assist low to no pain ROM 4 Supine Exercise Name PNF - D1/D2 flexion Resistance AAROM Reps/Minutes x5 Comments Manual AAROM ed,no UT recruit and scap mob. 3 Supine Exercise Name AAROM PVC Shoulder ER- HEp reviewed Side right Equipment Used dowel, towel under arm, maintain elbow at side Reps/Minutes x10 Comments cued slow pacing, approx 42 deg able complete 2 Supine Exercise Name AAROM Shoulder Flexion-HEp reviewed Side bilateral Equipment Used ruler Reps/Minutes 2X10 Comments cued slow, get brief pain approx 90deg, able complete measure next- better! 1 Supine Exercise Name Serratus punch- HEp reviewed Side bilateral Resistance press then FF OH- better scap ROM allowance Equipment Used ruler, (target 1 over chest, elbows extended) Reps/Minutes x10 Comments cued scap protraction/ eccentric return start pos at 90 FF Prone Exercises Is Ts Prone Exercise Name in PT Side right Reps/Minutes 2x3 reps Comments cued no UT, slow movement, LT recruit scap retraction Prone Exercise Name then head lift added: in PT Side bilateral Reps/Minutes x5 3 sec hold Comments cued no UT, chin tuck- improved LT recruitment Sidelying Exercises open book Sidelying Exercise Name inPT only Side right Reps/Minutes x4 hold for now Comments challenged Min- Mod A HABD Standing Exercises wall walk Standing Exercise Name FF, scaption Side right Resistance Min support UE, and contact/ verbal cues scap depression awareness Equipment Used wall Reps/Minutes x5, 3 sec hold Comments alot manual cues for ABD fac, dec upper trap recruit UT, Lev scap stretch Standing Exercise Name Discussed not performed HEP reviewed Side right Equipment Used opposite UE over pressure if want more stretch Reps/Minutes 30 x2 Comments ed gave decrease neck tension/ aware no recruit UT PT-OP-R Modalities Start: 02/06/22 11:34 Freq: Status: Active Protocol: Document 02/06/22 09:41 SP (Rec: 02/06/22 11:38 SP [id number]) Hot Pack/Cold Pack Treatment MHP Location R shld Patient Position Sitting Treatment Duration (minutes) 10 Patient Tolerance Good Comments this feels alot better than cold pack, will continue use at home if needed. PT-OP-T Assessment and Plan Start: 01/29/22 17:48 Freq: Status: Active Protocol: Document 02/15/22 10:32 SP (Rec: 02/15/22 11:38 SP [id number]) Physical Therapy Assessment Goals Two Impairment Pt unable to lift a coffee cup in his right hand without pain Certified Forklift Operator Goal (LTG) Pt to tolerate lifting at least 10 pounds from waist to shoulder level without difficulty to improve ability to participate in home chores LTG Duration 03/31/22 One Impairment Pt does not have an appropriate home exercise program Short Term Goal (STG) Pt to be independent and compliant with an appropriate HEP STG Duration 02/28/22 Assessment Summary Assessment Pt made gains in FF, ABD AAROM this tx supine and ABD post PNF, education use of traveling nurse ruler comparison, perform serratus punch first improved OH ROM less UT recruitment. Hold wall walk ABD and replace with dowel supine. Measure ROM next tx supine. Physical Therapy Plan Frequency and Duration Frequency of Treatment 2x/Week Duration of Treatment Two months Plan of Care Start Date 01/30/22 Plan of Care End Date 04/01/22 Therapeutic Interventions Therapeutic Interventions Aquatic Therapy,Home Exercise Program,Joint Mobilizations, Manual Therapy,Patient/ Caregiver Education,Self-Care/ Home Management,Soft Tissue Mobilization,Therapeutic Activities,Therapeutic Exercises Modalities Cold Pack/Ice Massage,Electric Stimulation,Hot Packs, Ultrasound Other Referrals/Consults Referrals/Consults Recommended Pt may greatly benefit from further advanced imaging? Next Visit Focus/Plan Next Note Type Treatment Note Next Visit Plan Review: measure ROM, AAROM w/ dowel supine, stretching. Continue appts for progress ROM for functional mobility. POC: Strengthening, mobility, needed A- AAROM ER*> FF, ABD.
--- NOTE | 2022-02-19 14:30 | PT.OTN ---
Current Diagnoses Pain in right shoulder (02/19/22) Stiffness of right shoulder, not elsewhere classified (02/19/22) Other injury of muscle(s) and tendon(s) of the rotator cuff of right shoulder, subsequent encounter (02/19/22) Physical Therapy Treatment Note PT-OP-A Visit Information Start: 01/29/22 17:48 Freq: Status: Active Protocol: Document 02/19/22 13:47 SP (Rec: 02/19/22 14:31 SP [id number]) Out-Patient Physical Therapy Visit Information Visit Information Visit Type Treatment Note Visit Start Time 13:47 Visit Stop Time 14:30 Total Visit Minutes 42 Visit Number 7 Number of DATA WAREHOUSE CONSULTANT Visits 2 Evaluation Information Evaluation Date 01/29/22 PT-OP-B Current Condition Start: 01/29/22 17:48 Freq: Status: Active Protocol: Document 01/29/22 15:15 DCW (Rec: 01/29/22 17:58 DCW [id number]) Current Condition History of Current Condition Onset Date Beginning of November Current Complaints Loss of mobility and strength in right shoulder History of Current Condition Pt is an 86 year old male presenting with skilled therapy with a 2.5 month history of loss of strength and mobility of right shoulder . Pt notes that he fell backward into a very solid plant stand, and has had shoulder problems ever since. Pt notes it took him two or three days to get into the Doctor's office, together they decided it probably wasn' t fractured, and then he kind of waited around until finally getting into PT when it didn't improve as much as he expected. Notes he is unable to sleep on his right side, struggles to lift even a coffee cup with his right arm . Any over-head activity is impossible. Admits he feels like his strength is at 20-30 % of my normal. PT-OP-C Subjective Start: 01/29/22 17:48 Freq: Status: Active Protocol: Document 02/19/22 13:47 SP (Rec: 02/19/22 14:31 SP [id number]) OP-PT Subjective Patient Comments Patient Comments Pt stated doesn't have the strength to reach over head yet. PT-OP-E Functional Tests Start: 01/29/22 17:48 Freq: Status: Active Protocol: Document 01/29/22 15:15 DCW (Rec: 01/29/22 18:04 DCW [id number]) Functional Tests Apley's Scratch Test Action 2- Left T3 Action 2- Right T1 Action 3- Left T8 Action 3- Right T10 PT-OP-F Manual Assessment Start: 01/29/22 17:48 Freq: Status: Active Protocol: Document 01/29/22 15:15 DCW (Rec: 01/29/22 18:04 DCW [id number]) Manual Assessments Soft Tissue Assessment Soft Tissue Mobility Assessment Significant lack of muscle mass in right infraspinatus fossa with mass of potentially balled-up muscle along medial border of scapula PT-OP-K Range of Motion Start: 01/29/22 17:48 Freq: Status: Active Protocol: Document 02/08/22 10:34 SP (Rec: 02/08/22 11:30 SP [id number]) Shoulder Goniometric Range of Motion Shoulder Right Active Shoulder ROM WFL No Testing Position Sitting Flexion 135 Abduction 165 External Rotation at 0 degrees Abduction 30 Comments improved: FF 97deg ABD 5 deg ER 20 deg PT-OP-L Special Tests Start: 01/29/22 17:48 Freq: Status: Active Protocol: Document 01/29/22 15:15 DCW (Rec: 01/29/22 18:04 DCW [id number]) Special Tests Shoulder Special Tests Yergason's Biceps Test Results Negative Speed's Biceps Test Results Negative Passive ER Rotator Cuff Test Results Negative Lift-Off Rotator Cuff Test Results Negative Zavaleta Nimesh Impingement Test Results Negative Empty Can Test Results Positive for weakness R Drop Arm Rotator Cuff Test Results Positive R Belly Press Test Results Negative PT-OP-M Strength Start: 01/29/22 17:48 Freq: Status: Active Protocol: Document 01/29/22 15:15 DCW (Rec: 01/29/22 18:04 DCW [id number]) Shoulder Strength Shoulder Manual Muscle Testing Left Flexion 4+ Good+ Abduction (C5) 4+ Good+ External Rotation 4+ Good+ Internal Rotation 4+ Good+ Right Flexion 3- Fair- Abduction (C5) 4- Good- External Rotation 2 Poor Internal Rotation 4- Good- PT-OP-Q Treatments Start: 01/29/22 17:48 Freq: Status: Active Protocol: Document 02/19/22 13:47 SP (Rec: 02/19/22 14:31 SP [id number]) Cardio Equipment Upper Body Ergometer (UBE) Duration (Minutes) 6 RPM 60 Seat Position 11 Height 2.5 Other occ no UT recruit Therapeutic Exercises Supine Exercises 5 Supine Exercise Name ABD Side right Resistance AAROM L help R w/ ruler, then AROM 135-150 deg Equipment Used ruller Reps/Minutes 2x5 reps Comments better from with cues R arm back toward table, manual cue inferior glide 3 Supine Exercise Name AAROM PVC Shoulder ER- HEp reviewed Side right Equipment Used dowel, towel under arm, maintain elbow at side Reps/Minutes x10 Comments cued slow pacing, approx 42 deg able complete 2 Supine Exercise Name AAROM Shoulder Flexion-HEp reviewed Side bilateral Resistance 145- 150 deg end feel able do Equipment Used ruler w/ 2# arm wt added then AROM Reps/Minutes 2X10 Comments cued slow, little pain initially, then pain goes away 1 Supine Exercise Name Serratus punch- HEp reviewed Side bilateral Resistance press then FF OH- better scap ROM allowance Equipment Used ruler, (target 1 over chest, elbows extended) Reps/Minutes x10 Comments cued scap protraction/ eccentric return start pos at 90 FF Prone Exercises Is Ts Prone Exercise Name in PT Side right Reps/Minutes x5 reps each Comments cued no UT, slow movement, LT recruit Sitting Exercises 1 Sitting Exercise Name GH Flexion, ABD, scaption - pulleys Equipment Used putting glasses on/off Reps/Minutes x5 Comments pain-free ROM, cued slow pacing, no UT recruit/ LT fac control Standing Exercises 5 Standing Exercise Name Shoulder ER unable> eccentric IR better (reviewed HEP) Side bilateral Resistance Lv 2> #3 Reps/Minutes x20 eccentric ER Comments better ER AAROM and control, cued trunk still 4 Standing Exercise Name Shoulder Add-HEp reviewed Side bilateral Resistance Lv 2 Reps/Minutes 2x3 reps Comments cued scap stab retract/ depress, head back neutral CS 3 Standing Exercise Name Shoulder Ext-HEp reviewed Side bilateral Resistance Lv 2 Reps/Minutes x10 Comments cued scap stab retract/ depress, head back neutral CS PT-OP-R Modalities Start: 02/06/22 11:34 Freq: Status: Active Protocol: Document 02/06/22 09:41 SP (Rec: 02/06/22 11:38 SP [id number]) Hot Pack/Cold Pack Treatment MHP Location R shld Patient Position Sitting Treatment Duration (minutes) 10 Patient Tolerance Good Comments this feels alot better than cold pack, will continue use at home if needed. PT-OP-T Assessment and Plan Start: 01/29/22 17:48 Freq: Status: Active Protocol: Document 02/19/22 13:47 SP (Rec: 02/19/22 14:31 SP [id number]) Physical Therapy Assessment Goals Two Impairment Pt unable to lift a coffee cup in his right hand without pain Alf Goal (LTG) Pt to tolerate lifting at least 10 pounds from waist to shoulder level without difficulty to improve ability to participate in home chores LTG Duration 03/31/22 One Impairment Pt does not have an appropriate home exercise program Short Term Goal (STG) Pt to be independent and compliant with an appropriate HEP STG Duration 02/28/22 Assessment Summary Assessment Pt improved decrease UT recruitment with HEP review standing, supine and ableto progress AROM RUE OH and seated don/doff glasses with cuing slower pacing for proper form. Physical Therapy Plan Frequency and Duration Frequency of Treatment 2x/Week Duration of Treatment Two months Plan of Care Start Date 01/30/22 Plan of Care End Date 04/01/22 Therapeutic Interventions Therapeutic Interventions Aquatic Therapy,Home Exercise Program,Joint Mobilizations, Manual Therapy,Patient/ Caregiver Education,Self-Care/ Home Management,Soft Tissue Mobilization,Therapeutic Activities,Therapeutic Exercises Modalities Cold Pack/Ice Massage,Electric Stimulation,Hot Packs, Ultrasound Other Referrals/Consults Referrals/Consults Recommended Pt may greatly benefit from further advanced imaging? Next Visit Focus/Plan Next Note Type Treatment Note Next Visit Plan Review: measure ROM, AAROM w/ dowel supine, stretching. Continue appts for progress ROM for functional mobility. POC: Strengthening, mobility, needed A- AAROM ER*> FF, ABD.
--- NOTE | 2022-02-22 12:00 | PT.OTN ---
Current Diagnoses Pain in right shoulder (02/22/22) Stiffness of right shoulder, not elsewhere classified (02/22/22) Other injury of muscle(s) and tendon(s) of the rotator cuff of right shoulder, subsequent encounter (02/22/22) Physical Therapy Treatment Note PT-OP-A Visit Information Start: 01/29/22 17:48 Freq: Status: Active Protocol: Document 02/22/22 11:20 DCW (Rec: 02/22/22 12:00 DCW [id number]) Out-Patient Physical Therapy Visit Information Visit Information Visit Type Treatment Note Visit Start Time 11:20 Visit Stop Time 12:00 Total Visit Minutes 40 Visit Number 8 Number of ARTIFICIAL INTELLIGENCE SPECIALIST Visits 0 Evaluation Information Evaluation Date 01/29/22 PT-OP-B Current Condition Start: 01/29/22 17:48 Freq: Status: Active Protocol: Document 01/29/22 15:15 DCW (Rec: 01/29/22 17:58 DCW [id number]) Current Condition History of Current Condition Onset Date Beginning of November Current Complaints Loss of mobility and strength in right shoulder History of Current Condition Pt is an 86 year old male presenting with skilled therapy with a 2.5 month history of loss of strength and mobility of right shoulder . Pt notes that he fell backward into a very solid plant stand, and has had shoulder problems ever since. Pt notes it took him two or three days to get into the Doctor's office, together they decided it probably wasn' t fractured, and then he kind of waited around until finally getting into PT when it didn't improve as much as he expected. Notes he is unable to sleep on his right side, struggles to lift even a coffee cup with his right arm . Any over-head activity is impossible. Admits he feels like his strength is at 20-30 % of my normal. PT-OP-C Subjective Start: 01/29/22 17:48 Freq: Status: Active Protocol: Document 02/22/22 11:20 DCW (Rec: 02/22/22 12:00 DCW [id number]) OP-PT Subjective Patient Comments Patient Comments It's getting better, notes his PCP put in a request for an MRI. PT-OP-E Functional Tests Start: 01/29/22 17:48 Freq: Status: Active Protocol: Document 01/29/22 15:15 DCW (Rec: 01/29/22 18:04 DCW [id number]) Functional Tests Apley's Scratch Test Action 2- Left T3 Action 2- Right T1 Action 3- Left T8 Action 3- Right T10 PT-OP-F Manual Assessment Start: 01/29/22 17:48 Freq: Status: Active Protocol: Document 01/29/22 15:15 DCW (Rec: 01/29/22 18:04 DCW [id number]) Manual Assessments Soft Tissue Assessment Soft Tissue Mobility Assessment Significant lack of muscle mass in right infraspinatus fossa with mass of potentially balled-up muscle along medial border of scapula PT-OP-K Range of Motion Start: 01/29/22 17:48 Freq: Status: Active Protocol: Document 02/08/22 10:34 SP (Rec: 02/08/22 11:30 SP [id number]) Shoulder Goniometric Range of Motion Shoulder Right Active Shoulder ROM WFL No Testing Position Sitting Flexion 135 Abduction 165 External Rotation at 0 degrees Abduction 30 Comments improved: FF 97deg ABD 5 deg ER 20 deg PT-OP-L Special Tests Start: 01/29/22 17:48 Freq: Status: Active Protocol: Document 01/29/22 15:15 DCW (Rec: 01/29/22 18:04 DCW [id number]) Special Tests Shoulder Special Tests Yergason's Biceps Test Results Negative Speed's Biceps Test Results Negative Passive ER Rotator Cuff Test Results Negative Lift-Off Rotator Cuff Test Results Negative Zavaleta Nimesh Impingement Test Results Negative Empty Can Test Results Positive for weakness R Drop Arm Rotator Cuff Test Results Positive R Belly Press Test Results Negative PT-OP-M Strength Start: 01/29/22 17:48 Freq: Status: Active Protocol: Document 01/29/22 15:15 DCW (Rec: 01/29/22 18:04 DCW [id number]) Shoulder Strength Shoulder Manual Muscle Testing Left Flexion 4+ Good+ Abduction (C5) 4+ Good+ External Rotation 4+ Good+ Internal Rotation 4+ Good+ Right Flexion 3- Fair- Abduction (C5) 4- Good- External Rotation 2 Poor Internal Rotation 4- Good- PT-OP-Q Treatments Start: 01/29/22 17:48 Freq: Status: Active Protocol: Document 02/22/22 11:20 DCW (Rec: 02/22/22 12:00 DCW [id number]) Cardio Equipment Upper Body Ergometer (UBE) Duration (Minutes) 6 RPM 60 Seat Position 11 Height 2.5 Other occ no UT recruit Therapeutic Exercises Prone Exercises ER Prone Exercise Name Prone ER in 90/90 Side right Reps/Minutes x5 Is Ts Prone Exercise Name in PT Side right Reps/Minutes x10 reps each Comments cued no UT, slow movement, LT recruit Standing Exercises Shoulder Abduction Standing Exercise Name Abduction Side bilateral Resistance Lv 1 Shoulder Flexion Standing Exercise Name Flexion Side bilateral Resistance Lv 1 Manual Therapy Treatment Soft Tissue Mobilization 1 Body Location R UT , lev scap, LT, Teres, distal lat Mobilization Type Strumming,Sustained Pressure Intensity/Depth Moderate Body Position Standing Comments during wall walk ABD Joint Mobilizations GH jt Joint L shld Direction posterior Grade II Body Position Hooklying PT-OP-R Modalities Start: 02/06/22 11:34 Freq: Status: Active Protocol: Document 02/06/22 09:41 SP (Rec: 02/06/22 11:38 SP [id number]) Hot Pack/Cold Pack Treatment MHP Location R shld Patient Position Sitting Treatment Duration (minutes) 10 Patient Tolerance Good Comments this feels alot better than cold pack, will continue use at home if needed. PT-OP-T Assessment and Plan Start: 01/29/22 17:48 Freq: Status: Active Protocol: Document 02/22/22 11:20 DCW (Rec: 02/22/22 12:00 DCW [id number]) Physical Therapy Assessment Goals Two Impairment Pt unable to lift a coffee cup in his right hand without pain Flatbed Driver Goal (LTG) Pt to tolerate lifting at least 10 pounds from waist to shoulder level without difficulty to improve ability to participate in home chores LTG Duration 03/31/22 One Impairment Pt does not have an appropriate home exercise program Short Term Goal (STG) Pt to be independent and compliant with an appropriate HEP STG Duration 02/28/22 Assessment Summary Assessment Pt continues to need some reminders to limit UT compensation. Building up some increased strength, improving AROM. Physical Therapy Plan Frequency and Duration Frequency of Treatment 2x/Week Duration of Treatment Two months Plan of Care Start Date 01/30/22 Plan of Care End Date 04/01/22 Therapeutic Interventions Therapeutic Interventions Aquatic Therapy,Home Exercise Program,Joint Mobilizations, Manual Therapy,Patient/ Caregiver Education,Self-Care/ Home Management,Soft Tissue Mobilization,Therapeutic Activities,Therapeutic Exercises Modalities Cold Pack/Ice Massage,Electric Stimulation,Hot Packs, Ultrasound Other Referrals/Consults Referrals/Consults Recommended Pt may greatly benefit from further advanced imaging? Next Visit Focus/Plan Next Note Type Treatment Note Next Visit Plan Review: measure ROM, AAROM w/ dowel supine, stretching. Continue appts for progress ROM for functional mobility. POC: Strengthening, mobility, needed A- AAROM ER*> FF, ABD.
--- NOTE | 2022-03-02 12:20 | PT-OP ANOTE ---
Pt cancelled today's and remaining appts, saw ortho recommended stop PT. FINANCE INSURANCE MANAGER left message on pt's voicemail to call back to speak/leave message for PT Ulices with further details to allow complete proper Discharge Summary.
--- NOTE | 2022-03-07 09:39 | PT.OPDS ---
Current Diagnoses Pain in right shoulder (02/22/22) Stiffness of right shoulder, not elsewhere classified (02/22/22) Other injury of muscle(s) and tendon(s) of the rotator cuff of right shoulder, subsequent encounter (02/22/22) Visit Care Team Role Provider Type Maureen Domingo MD Attending Provider Physician Family Provider Primary Care Provider Referring Provider Specialty: Family Practice Address: [address] [place] [address], [facility] [place], [place], [facility] Email: [email or web address] Visit Number Visit Number 8 Discharge Summary PT-OP-B Current Condition Start: 01/29/22 17:48 Freq: Status: Active Protocol: Document 01/29/22 15:15 DCW (Rec: 01/29/22 17:58 DCW [id number]) Current Condition History of Current Condition Onset Date Beginning of November Current Complaints Loss of mobility and strength in right shoulder History of Current Condition Pt is an 86 year old male presenting with skilled therapy with a 2.5 month history of loss of strength and mobility of right shoulder . Pt notes that he fell backward into a very solid plant stand, and has had shoulder problems ever since. Pt notes it took him two or three days to get into the Doctor's office, together they decided it probably wasn' t fractured, and then he kind of waited around until finally getting into PT when it didn't improve as much as he expected. Notes he is unable to sleep on his right side, struggles to lift even a coffee cup with his right arm . Any over-head activity is impossible. Admits he feels like his strength is at 20-30 % of my normal. PT-OP-C Subjective Start: 01/29/22 17:48 Freq: Status: Active Protocol: Document 02/22/22 11:20 DCW (Rec: 02/22/22 12:00 DCW [id number]) OP-PT Subjective Patient Comments Patient Comments It's getting better, notes his PCP put in a request for an MRI. PT-OP-E Functional Tests Start: 01/29/22 17:48 Freq: Status: Active Protocol: Document 01/29/22 15:15 DCW (Rec: 01/29/22 18:04 DCW [id number]) Functional Tests Apley's Scratch Test Action 2- Left T3 Action 2- Right T1 Action 3- Left T8 Action 3- Right T10 PT-OP-F Manual Assessment Start: 01/29/22 17:48 Freq: Status: Active Protocol: Document 01/29/22 15:15 DCW (Rec: 01/29/22 18:04 DCW [id number]) Manual Assessments Soft Tissue Assessment Soft Tissue Mobility Assessment Significant lack of muscle mass in right infraspinatus fossa with mass of potentially balled-up muscle along medial border of scapula PT-OP-K Range of Motion Start: 01/29/22 17:48 Freq: Status: Active Protocol: Document 02/08/22 10:34 SP (Rec: 02/08/22 11:30 SP [id number]) Shoulder Goniometric Range of Motion Shoulder Right Active Shoulder ROM WFL No Testing Position Sitting Flexion 135 Abduction 165 External Rotation at 0 degrees Abduction 30 Comments improved: FF 97deg ABD 5 deg ER 20 deg PT-OP-L Special Tests Start: 01/29/22 17:48 Freq: Status: Active Protocol: Document 01/29/22 15:15 DCW (Rec: 01/29/22 18:04 DCW [id number]) Special Tests Shoulder Special Tests Yergason's Biceps Test Results Negative Speed's Biceps Test Results Negative Passive ER Rotator Cuff Test Results Negative Lift-Off Rotator Cuff Test Results Negative Zavaleta Nimesh Impingement Test Results Negative Empty Can Test Results Positive for weakness R Drop Arm Rotator Cuff Test Results Positive R Belly Press Test Results Negative PT-OP-M Strength Start: 01/29/22 17:48 Freq: Status: Active Protocol: Document 01/29/22 15:15 DCW (Rec: 01/29/22 18:04 DCW [id number]) Shoulder Strength Shoulder Manual Muscle Testing Left Flexion 4+ Good+ Abduction (C5) 4+ Good+ External Rotation 4+ Good+ Internal Rotation 4+ Good+ Right Flexion 3- Fair- Abduction (C5) 4- Good- External Rotation 2 Poor Internal Rotation 4- Good- PT-OP-T Assessment and Plan Start: 01/29/22 17:48 Freq: Status: Active Protocol: Document 03/07/22 09:37 DCW (Rec: 03/07/22 09:39 DCW [id number]) Physical Therapy Assessment Assessment Summary Assessment Pt underwent an MRI on 02/24/22, was found to have full- thickness rupture of supraspinatus and infraspinatus, ortho recommended ending skilled PT intervention at this time. Physical Therapy Plan Discharge Physical Therapy Discharge Reasons Change in Medical Status Next Visit Focus/Plan Next Note Type Discharge Summary
== END 2022-03-09 09:47 ==
LOC: PHYS 11:15
PROVIDERS: Family Provider Student in an Organized Health Care Education/Training Program; PCP Student in an Organized Health Care Education/Training Program; Referring Provider Student in an Organized Health Care Education/Training Program; Visit Provider Student in an Organized Health Care Education/Training Program
DX: M25.511 Pain in right shoulder (principal); S46.091D Other injury of muscle(s) and tendon(s) of the rotator cuff of right shoulder, subsequent encounter; M25.611 Stiffness of right shoulder, not elsewhere classified
CPT/HCPCS: 97110; 97140; 97161

== ENCOUNTER → 2022-02-24 15:05 | Outpatient (CLI) | payer OTHER, SELFPAY ==
[2020-01-22 15:04] VITALS: BMI 30.4
--- NOTE | 2022-02-24 15:09 | DI.MRI.S_ITS ---
PROCEDURE: MR SHOULDER RT WO CON INDICATIONS: FISTULA RT SHOULDER TECHNIQUE: Noncontrast oblique coronal T2 fast spin echo with fat saturation, oblique sagittal T1 spin echo and T2 fast spin echo with fat saturation, axial T1 spin echo and T2 fast spin echo with fat saturation through the shoulder. COMPARISON: None. FINDINGS: Image quality: Excellent. Rotator cuff: There is full-thickness rupture of distal supraspinatus and infraspinatus at their insertion on the humeral head with up to 4.3 cm medial retraction of torn tendon fibers to the level of glenoid. Tendinosis and low-grade partial-thickness tear involving superior fibers of distal subscapularis is seen. Sagittal images demonstrate mild to moderate supraspinatus and infraspinatus muscle atrophy. Bones and bursae: No bone marrow contusions or fractures. Moderate acromioclavicular joint and glenohumeral joint osteoarthritic changes are seen. There is moderate to large joint effusion and subacromial subdeltoid bursal fluid. No gross loose bodies. Capsule and soft tissues: Subtle signal abnormality involving superior anterior labrum at 12 to 1 o'clock position is seen concerning for subtle superior anterior labral tear. The long head of the biceps tendinosis and low-grade intrasubstance partial-thickness tear is noted. The rotator interval appears normal, without fibrosis. The coracohumeral ligament is normal in thickness. IMPRESSION: 1. Full-thickness rupture of distal supraspinatus and infraspinatus at their insertion on the humeral head with up to 4.3 cm medial retraction of torn tendon fibers to the level of glenoid. Tendinosis and low-grade partial-thickness tear involving superior fibers of distal subscapularis. Mild to moderate supraspinatus and infraspinatus muscle atrophy. 2. Moderate acromioclavicular joint and glenohumeral joint osteoarthritis. Moderate to large joint effusion and subacromial subdeltoid bursal fluid. 3. Finding may represent subtle superior anterior labral tear at 12 to 1 o'clock position. 4. Tendinosis and low to moderate grade intrasubstance partial-thickness tear involving proximal intra-articular portion of long head of biceps. 5. No gross fistula connection is seen in right shoulder soft tissue. Dictated by: Zach Carney M.D. on 02/26/2022 at 8:36 Approved by: aZch Carney M.D. on 02/26/2022 at 8:44
== END ==
PROVIDERS: Family Provider Student in an Organized Health Care Education/Training Program; PCP Student in an Organized Health Care Education/Training Program; Referring Provider Student in an Organized Health Care Education/Training Program; Visit Provider Student in an Organized Health Care Education/Training Program
DX: M75.121 Complete rotator cuff tear or rupture of right shoulder, not specified as traumatic (principal); M19.011 Primary osteoarthritis, right shoulder; M25.511 Pain in right shoulder; G89.29 Other chronic pain
CPT/HCPCS: 73221

== ENCOUNTER 2022-05-24 11:15 | Outpatient (RCR) | payer OTHER, SELFPAY ==
[2020-01-22 15:04] VITALS: BMI 30.4
--- NOTE | 2022-04-25 17:21 | PT.OIE ---
Current Diagnoses Pain in right shoulder (04/25/22) Stiffness of right shoulder, not elsewhere classified (04/25/22) Incomplete rotator cuff tear or rupture of right shoulder, not specified as traumatic (04/25/22) Past Medical History (Last Reviewed 12/29/21 @ 04:56 by Hans Castano DO) Gastroesophageal reflux disease Hyperlipidemia Hypertension Visit Care Team Role Provider Type Maureen Domingo MD Family Provider Physician Primary Care Provider Specialty: Family Practice Address: [address] [place] [address], [facility] [place], [address] Email: [email or web address] Ronny Holman MD Attending Provider Physician Referring Provider Specialty: Orthopedics Orthopedic Surgery Address: [address] [place] [address], [address] Email: [email or web address] Physical Therapy Initial Evaluation PT-OP-A Visit Information Start: 04/25/22 16:48 Freq: Status: Active Protocol: Document 04/25/22 15:15 DCW (Rec: 04/25/22 17:20 DCW [id number]) Out-Patient Physical Therapy Visit Information Visit Information Visit Type Initial Evaluation Visit Start Time 15:15 Visit Stop Time 16:00 Total Visit Minutes 45 Visit Number 1 Number of REHEAT FURNACE OPERATOR Visits 0 Evaluation Information Evaluation Date 04/25/22 PT-OP-B Current Condition Start: 04/25/22 16:48 Freq: Status: Active Protocol: Document 04/25/22 15:15 DCW (Rec: 04/25/22 17:20 DC [id number]) Current Condition History of Current Condition Onset Date Six months Current Complaints Right shoulder pain and loss of mobility, weakness History of Current Condition Pt is an 86 year old male with a six month history of right shoulder pain, weakness, and loss of mobility. Pt was previously seen at this clinic for ~1 month in January and February of this year, felt he was improving, but then underwent an MRI, which showed a full- thickness tear of his distal infraspinatus and supraspinatus with associated muscle atrophy. At the time, Ortho recommended stopping PT. Pt feels that since stopping PT two months ago, he has declined functionally, and would like to re-start therapy . Original injury was caused when he fell backward into a plant stand. 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 Prior Treatments and Tests R shoulder MRI: IMPRESSION: 1 . Full-thickness rupture of distal supraspinatus and infraspinatus at their insertion on the humeral head with up to 4.3 cm medial retraction of torn tendon fibers to the level of glenoid . Tendinosis and low-grade partial-thickness tear involving superior fibers of distal subscapularis. Mild to moderate supraspinatus and infraspinatus muscle atrophy. 2. Moderate acromioclavicular joint and glenohumeral joint osteoarthritis. Moderate to large joint effusion and subacromial subdeltoid bursal fluid. 3. Finding may represent subtle superior anterior labral tear at 12 to 1 o'clock position. 4. Tendinosis and low to moderate grade intrasubstance partial- thickness tear involving proximal intra-articular portion of long head of biceps . 5. No gross fistula connection is seen in right shoulder soft tissue. per Zach Carney M.D. on 02/26/2022 Treatment Goals Patient/Caregiver Goals Improve shoulder mobility and strength PT-OP-C Subjective Start: 04/25/22 16:48 Freq: Status: Active Protocol: Document 04/25/22 15:15 DCW (Rec: 04/25/22 17:20 DCW [id number]) OP-PT Subjective Patient Comments Patient Comments I really regret taking this time off after my MRI. I think we were making good progress. Patient Questionnaires Quick Dash- Upper Extremity Quick Dash UE Score 15.91% Quick Dash UE Impairment 1 to 19% Impaired (Score 1-19) PT-OP-E Functional Tests Start: 04/25/22 16:48 Freq: Status: Active Protocol: Document 04/25/22 15:15 DCW (Rec: 04/25/22 17:20 DCW [id number]) Functional Tests Gianfrancoey's Scratch Test Action 1- Left Posterior opposite shoulder Action 1- Right Anterior opposite shoulder Action 2- Left T3 Action 2- Right T1 Action 3- Left T7 Action 3- Right T10 PT-OP-F Manual Assessment Start: 04/25/22 16:48 Freq: Status: Active Protocol: Document 04/25/22 15:15 DCW (Rec: 04/25/22 17:20 DCW [id number]) Manual Assessments Soft Tissue Assessment Soft Tissue Mobility Assessment Moderate-severe muscle atrophy along R infraspinatus and supraspinatus fossa PT-OP-J Posture/Palpation/Skin Start: 04/25/22 17:20 Freq: Status: Active Protocol: Document 04/25/22 15:15 DCW (Rec: 04/25/22 17:21 DCW [id number]) Posture Evaluation Position Sitting Evaluation View Posterior Shoulder Posture (R) Forward,(R) Elevated PT-OP-K Range of Motion Start: 04/25/22 16:48 Freq: Status: Active Protocol: Document 04/25/22 15:15 DCW (Rec: 04/25/22 17:20 DCW [id number]) Shoulder Goniometric Range of Motion Shoulder Right Active Testing Position Sitting Flexion 140 Abduction 160 External Rotation at 0 degrees Abduction 5 Internal Rotation Behind Back (text) T10 Comments PROM ER = 35 PT-OP-L Special Tests Start: 04/25/22 16:48 Freq: Status: Active Protocol: Document 04/25/22 15:15 DCW (Rec: 04/25/22 17:20 DCW [id number]) Special Tests Shoulder Special Tests Yergason's Biceps Test Results Negative Speed's Biceps Test Results Negative Passive ER Rotator Cuff Test Results Negative Lift-Off Rotator Cuff Test Results Negative Zavaleta Nimesh Impingement Test Results Negative Empty Can Test Results Positive for weakness R Drop Arm Rotator Cuff Test Results Positive R Belly Press Test Results Negative PT-OP-M Strength Start: 04/25/22 16:48 Freq: Status: Active Protocol: Document 04/25/22 15:15 DCW (Rec: 04/25/22 17:20 DCW [id number]) Shoulder Strength Shoulder Manual Muscle Testing Right Flexion 4 Good Abduction (C5) 4- Good- External Rotation 2+ Poor+ Internal Rotation 4+ Good+ Left Flexion 5 Normal Abduction (C5) 5 Normal External Rotation 4+ Good+ Internal Rotation 4+ Good+ PT-OP-T Assessment and Plan Start: 04/25/22 16:48 Freq: Status: Active Protocol: Document 04/25/22 15:15 DCW (Rec: 04/25/22 17:20 DCW [id number]) Physical Therapy Assessment Rehab Potential Rehabilitation Potential Good Evaluation Complexity Number of Personal Factors/Comorbidities 1-2 Number of Body Systems Impaired 1-2 Clinical Presentation at Evaluation Stable Impairments Impairments Activity Tolerance,Functional Activities,Functional Mobility ,Pain,Posture,ROM,Soft Tissue Mobility,Strength,Tone Goals Three Impairment Pt reports shoulder pain lying on his right side Fdc Goal (LTG) Pt to return to his usual sleeping position of right side-lying to decrease sleep disturbances LTG Duration 06/26/22 Two Impairment R shoulder ER AROM limited to 5? Fdc Goal (LTG) Pt to show increased infraspinatus function by increasing R ER AROM to >20? in order to improve ability to don jacket. LTG Duration 06/26/22 One Impairment Pt does not have an appropriate home exercise program Short Term Goal (STG) Pt to be independent and compliant with an appropriate HEP STG Duration 05/26/22 Assessment Summary Assessment Pt presents with signs and symptoms consistent with diagnosed right shoulder injury. Most limited with external rotation, and showing continued signs of infraspinatus and supraspinatus atrophy. Pt responded fairly well to prior PT sessions earlier this year , and is interested in continuing with his previous exercises and POC. Does still have similar compensatory movements with increased activation of upper trap and overuse of biceps, but previously responded well to verbal cues and instruction. Pt should benefit from mobility and strengthening, particularity deltoid and periscapular musculature. Physical Therapy Plan Frequency and Duration Frequency of Treatment 2x/Week Duration of Treatment Two months Plan of Care Start Date 04/25/22 Plan of Care End Date 06/26/22 Therapeutic Interventions Therapeutic Interventions Aquatic Therapy,Gait Training, Home Exercise Program,Joint Mobilizations,Manual Therapy, Patient/Caregiver Education, Self-Care/Home Management,Soft Tissue Mobilization,Taping, Therapeutic Activities, Therapeutic Exercises Modalities Cold Pack/Ice Massage,Electric Stimulation,Hot Packs, Ultrasound Next Visit Focus/Plan Next Note Type Treatment Note Next Visit Plan Strengthening, functional mobility training, ER A/AROM
--- NOTE | 2022-04-25 17:23 | PT.OPPOC ---
Physical, Occupational & Speech Therapy At [facility] Current Diagnoses Pain in right shoulder (04/25/22) Stiffness of right shoulder, not elsewhere classified (04/25/22) Incomplete rotator cuff tear or rupture of right shoulder, not specified as traumatic (04/25/22) Visit Care Team Role Provider Type Maureen Domingo MD Family Provider Physician Primary Care Provider Specialty: [facility] Address: [address] [place] [address], [facility] [place], [address] Email: [email or web address] Ronny Holman MD Attending Provider Physician Referring Provider Specialty: Orthopedics Orthopedic Surgery Address: [address] [place] [address], [id number] Email: [email or web address] Plan Of Care PT-OP-T Assessment and Plan Start: 04/25/22 16:48 Freq: Status: Active Protocol: Document 04/25/22 15:15 DCW (Rec: 04/25/22 17:20 DCW [id number]) Physical Therapy Assessment Rehab Potential Rehabilitation Potential Good Evaluation Complexity Number of Personal Factors/Comorbidities 1-2 Number of Body Systems Impaired 1-2 Clinical Presentation at Evaluation Stable Impairments Impairments Activity Tolerance,Functional Activities,Functional Mobility ,Pain,Posture,ROM,Soft Tissue Mobility,Strength,Tone Goals Three Impairment Pt reports shoulder pain lying on his right side Flexographic Press Helper Goal (LTG) Pt to return to his usual sleeping position of right side-lying to decrease sleep disturbances LTG Duration 06/26/22 Two Impairment R shoulder ER AROM limited to 5? Half-Way Goal (LTG) Pt to show increased infraspinatus function by increasing R ER AROM to >20? in order to improve ability to don jacket. LTG Duration 06/26/22 One Impairment Pt does not have an appropriate home exercise program Short Term Goal (STG) Pt to be independent and compliant with an appropriate HEP STG Duration 05/26/22 Assessment Summary Assessment Pt presents with signs and symptoms consistent with diagnosed right shoulder injury. Most limited with external rotation, and showing continued signs of infraspinatus and supraspinatus atrophy. Pt responded fairly well to prior PT sessions earlier this year , and is interested in continuing with his previous exercises and POC. Does still have similar compensatory movements with increased activation of upper trap and overuse of biceps, but previously responded well to verbal cues and instruction. Pt should benefit from mobility and strengthening, particularly deltoid and periscapular musculature. Physical Therapy Plan Frequency and Duration Frequency of Treatment 2x/Week Duration of Treatment Two months Plan of Care Start Date 04/25/22 Plan of Care End Date 06/26/22 Therapeutic Interventions Therapeutic Interventions Aquatic Therapy,Gait Training, Home Exercise Program,Joint Mobilizations,Manual Therapy, Patient/Caregiver Education, Self-Care/Home Management,Soft Tissue Mobilization,Taping, Therapeutic Activities, Therapeutic Exercises Modalities Cold Pack/Ice Massage,Electric Stimulation,Hot Packs, Ultrasound Next Visit Focus/Plan Next Note Type Treatment Note Next Visit Plan Strengthening, functional mobility training, ER A/AROM Plan of Care Dates Plan of Care Start Date 04/25/22 Plan of Care End Date 06/26/22 Electronically Signed by: Vel Giang, PT 04/25/22 2914 If you are in agreement with this Plan of Care, please return a signed and dated copy. I have reviewed this Plan of Care and certify that the skilled therapy services above are required to meet the patient?s needs. Physician Signature Date Printed Name and Credentials Clinical Instructor Signature Printed Name and Credentials
--- NOTE | 2022-05-01 11:58 | PT.OTN ---
Current Diagnoses Pain in right shoulder (05/01/22) Stiffness of right shoulder, not elsewhere classified (05/01/22) Incomplete rotator cuff tear or rupture of right shoulder, not specified as traumatic (05/01/22) Physical Therapy Treatment Note PT-OP-A Visit Information Start: 04/25/22 16:48 Freq: Status: Active Protocol: Document 05/01/22 11:15 DCW (Rec: 05/01/22 11:58 DCW [id number]) Out-Patient Physical Therapy Visit Information Visit Information Visit Type Treatment Note Visit Start Time 11:15 Visit Stop Time 12:00 Total Visit Minutes 45 Visit Number 2 Number of BEAD PREPARER Visits 0 Evaluation Information Evaluation Date 04/25/22 PT-OP-B Current Condition Start: 04/25/22 16:48 Freq: Status: Active Protocol: Document 04/25/22 15:15 DCW (Rec: 04/25/22 17:20 DCW [id number]) Current Condition History of Current Condition Onset Date Six months Current Complaints Right shoulder pain and loss of mobility, weakness History of Current Condition Pt is an 86 year old male with a six month history of right shoulder pain, weakness, and loss of mobility. Pt was previously seen at this clinic for ~1 month in January and February of this year, felt he was improving, but then underwent an MRI, which showed a full- thickness tear of his distal infraspinatus and supraspinatus with associated muscle atrophy. At the time, Ortho recommended stopping PT. Pt feels that since stopping PT two months ago, he has declined functionally, and would like to re-start therapy . Original injury was caused when he fell backward into a plant stand. Overhead arm movements have improved since starting therapy, he was able to help painting his anabapt[employer] last month, but he still has difficulty with external rotation or sleeping on his right side. Prior Treatments and Tests R shoulder MRI: IMPRESSION: 1 . Full-thickness rupture of distal supraspinatus and infraspinatus at their insertion on the humeral head with up to 4.3 cm medial retraction of torn tendon fibers to the level of glenoid . Tendinosis and low-grade partial-thickness tear involving superior fibers of distal subscapularis. Mild to moderate supraspinatus and infraspinatus muscle atrophy. 2. Moderate acromioclavicular joint and glenohumeral joint osteoarthritis. Moderate to large joint effusion and subacromial subdeltoid bursal fluid. 3. Finding may represent subtle superior anterior labral tear at 12 to 1 o'clock position. 4. Tendinosis and low to moderate grade intrasubstance partial- thickness tear involving proximal intra-articular portion of long head of biceps . 5. No gross fistula connection is seen in right shoulder soft tissue. per Zach Carney M.D. on 02/26/2022 Treatment Goals Patient/Caregiver Goals Improve shoulder mobility and strength PT-OP-C Subjective Start: 04/25/22 16:48 Freq: Status: Active Protocol: Document 05/01/22 11:15 DCW (Rec: 05/01/22 11:58 DCW [id number]) OP-PT Subjective Patient Comments Patient Comments It's doing okay, it's certainly not 100%. PT-OP-E Functional Tests Start: 04/25/22 16:48 Freq: Status: Active Protocol: Document 04/25/22 15:15 DCW (Rec: 04/25/22 17:20 DCW [id number]) Functional Tests Apley's Scratch Test Action 1- Left Posterior opposite shoulder Action 1- Right Anterior opposite shoulder Action 2- Left T3 Action 2- Right T1 Action 3- Left T7 Action 3- Right T10 PT-OP-F Manual Assessment Start: 04/25/22 16:48 Freq: Status: Active Protocol: Document 04/25/22 15:15 DCW (Rec: 04/25/22 17:20 DCW [id number]) Manual Assessments Soft Tissue Assessment Soft Tissue Mobility Assessment Moderate-severe muscle atrophy along R infraspinatus and supraspinatus fossa PT-OP-J Posture/Palpation/Skin Start: 04/25/22 17:20 Freq: Status: Active Protocol: Document 04/25/22 15:15 DCW (Rec: 04/25/22 17:21 DCW [id number]) Posture Evaluation Position Sitting Evaluation View Posterior Shoulder Posture (R) Forward,(R) Elevated PT-OP-K Range of Motion Start: 04/25/22 16:48 Freq: Status: Active Protocol: Document 04/25/22 15:15 DCW (Rec: 04/25/22 17:20 DCW [id number]) Shoulder Goniometric Range of Motion Shoulder Right Active Testing Position Sitting Flexion 140 Abduction 160 External Rotation at 0 degrees Abduction 5 Internal Rotation Behind Back (text) T10 Comments PROM ER = 35 PT-OP-L Special Tests Start: 04/25/22 16:48 Freq: Status: Active Protocol: Document 04/25/22 15:15 DCW (Rec: 04/25/22 17:20 DCW [id number]) Special Tests Shoulder Special Tests Yergason's Biceps Test Results Negative Speed's Biceps Test Results Negative Passive ER Rotator Cuff Test Results Negative Lift-Off Rotator Cuff Test Results Negative Zavaleta Nimesh Impingement Test Results Negative Empty Can Test Results Positive for weakness R Drop Arm Rotator Cuff Test Results Positive R Belly Press Test Results Negative PT-OP-M Strength Start: 04/25/22 16:48 Freq: Status: Active Protocol: Document 04/25/22 15:15 DCW (Rec: 04/25/22 17:20 DCW [id number]) Shoulder Strength Shoulder Manual Muscle Testing Right Flexion 4 Good Abduction (C5) 4- Good- External Rotation 2+ Poor+ Internal Rotation 4+ Good+ Left Flexion 5 Normal Abduction (C5) 5 Normal External Rotation 4+ Good+ Internal Rotation 4+ Good+ PT-OP-Q Treatments Start: 04/25/22 16:48 Freq: Status: Active Protocol: Document 05/01/22 11:15 DCW (Rec: 05/01/22 11:58 DCW [id number]) Cardio Equipment Upper Body Ergometer (UBE) Duration (Minutes) 5 RPM 60 Seat Position 11 Height 2 Therapeutic Exercises Supine Exercises Serratus Punch Supine Exercise Name Serratus punch Side bilateral External Rotation Supine Exercise Name AAROM Shoulder ER Side bilateral Equipment Used PVC Flexion Supine Exercise Name AAROM Shoulder Flexion Side bilateral Equipment Used PVC Abduction Supine Exercise Name AAROM Shoulder Abduction Side right Equipment Used PVC Sitting Exercises Levator Stretch Sitting Exercise Name Levator Stretch Side bilateral Reps/Minutes 30 hold x2 Comments Lateral flexion, flexion, rotation UT Stretch Sitting Exercise Name Seated UT stretch Side bilateral Reps/Minutes 30 hold x2 Standing Exercises Wall Walk Abd Standing Exercise Name Wall walk in abduction Side right Wall Walk Flex Standing Exercise Name Wall walk in flexion, end- range lift-off Side right ABCs Standing Exercise Name ABCs /c weighted ball on wall Comments 90? Flex Internal Rotation Standing Exercise Name Shoulder IR Side bilateral Resistance Lv 2 Scap Retraction Standing Exercise Name Scapular Retraction Side bilateral Resistance Lv 2 Adduction Standing Exercise Name Shoulder Adduction Side bilateral Resistance Lv 2 PT-OP-T Assessment and Plan Start: 04/25/22 16:48 Freq: Status: Active Protocol: Document 05/01/22 11:15 DCW (Rec: 05/01/22 11:58 DCW [id number]) Physical Therapy Assessment Impairments Impairments Activity Tolerance,Functional Activities,Functional Mobility ,Pain,Posture,ROM,Soft Tissue Mobility,Strength,Tone Goals Three Impairment Pt reports shoulder pain lying on his right side Inspecting Engineer Goal (LTG) Pt to return to his usual sleeping position of right side-lying to decrease sleep disturbances LTG Duration 06/26/22 Two Impairment R shoulder ER AROM limited to 5? Senior Living Goal (LTG) Pt to show increased infraspinatus function by increasing R ER AROM to >20? in order to improve ability to don jacket. LTG Duration 06/26/22 One Impairment Pt does not have an appropriate home exercise program Short Term Goal (STG) Pt to be independent and compliant with an appropriate HEP STG Duration 05/26/22 Assessment Summary Assessment Mainly reviewed pt's former HEP, pt required verbal and tactile cues with all motions, will likely require repeated reviews to ensure correct technique. Physical Therapy Plan Frequency and Duration Frequency of Treatment 2x/Week Duration of Treatment Two months Plan of Care Start Date 04/25/22 Plan of Care End Date 06/26/22 Therapeutic Interventions Therapeutic Interventions Aquatic Therapy,Gait Training, Home Exercise Program,Joint Mobilizations,Manual Therapy, Patient/Caregiver Education, Self-Care/Home Management,Soft Tissue Mobilization,Taping, Therapeutic Activities, Therapeutic Exercises Modalities Cold Pack/Ice Massage,Electric Stimulation,Hot Packs, Ultrasound Next Visit Focus/Plan Next Note Type Treatment Note Next Visit Plan Strengthening, functional mobility training, ER A/AROM
--- NOTE | 2022-05-04 09:46 | PT.OTN ---
Current Diagnoses Pain in right shoulder (05/04/22) Stiffness of right shoulder, not elsewhere classified (05/04/22) Incomplete rotator cuff tear or rupture of right shoulder, not specified as traumatic (05/04/22) Physical Therapy Treatment Note PT-OP-A Visit Information Start: 04/25/22 16:48 Freq: Status: Active Protocol: Document 05/04/22 09:00 DCW (Rec: 05/04/22 09:46 DCW [id number]) Out-Patient Physical Therapy Visit Information Visit Information Visit Type Treatment Note Visit Start Time 09:00 Visit Stop Time 09:45 Total Visit Minutes 45 Visit Number 3 Number of WEATHERIZATION COORDINATOR Visits 0 Evaluation Information Evaluation Date 04/25/22 PT-OP-B Current Condition Start: 04/25/22 16:48 Freq: Status: Active Protocol: Document 04/25/22 15:15 DCW (Rec: 04/25/22 17:20 DCW [id number]) Current Condition History of Current Condition Onset Date Six months Current Complaints Right shoulder pain and loss of mobility, weakness History of Current Condition Pt is an 86 year old male with a six month history of right shoulder pain, weakness, and loss of mobility. Pt was previously seen at this clinic for ~1 month in January and February of this year, felt he was improving, but then underwent an MRI, which showed a full- thickness tear of his distal infraspinatus and supraspinatus with associated muscle atrophy. At the time, Ortho recommended stopping PT. Pt feels that since stopping PT two months ago, he has declined functionally, and would like to re-start therapy . Original injury was caused when he fell backward into a plant stand. 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 Prior Treatments and Tests R shoulder MRI: IMPRESSION: 1 . Full-thickness rupture of distal supraspinatus and infraspinatus at their insertion on the humeral head with up to 4.3 cm medial retraction of torn tendon fibers to the level of glenoid . Tendinosis and low-grade partial-thickness tear involving superior fibers of distal subscapularis. Mild to moderate supraspinatus and infraspinatus muscle atrophy. 2. Moderate acromioclavicular joint and glenohumeral joint osteoarthritis. Moderate to large joint effusion and subacromial subdeltoid bursal fluid. 3. Finding may represent subtle superior anterior labral tear at 12 to 1 o'clock position. 4. Tendinosis and low to moderate grade intrasubstance partial- thickness tear involving proximal intra-articular portion of long head of biceps . 5. No gross fistula connection is seen in right shoulder soft tissue. per Zach Carney M.D. on 02/26/2022 Treatment Goals Patient/Caregiver Goals Improve shoulder mobility and strength PT-OP-C Subjective Start: 04/25/22 16:48 Freq: Status: Active Protocol: Document 05/04/22 09:00 DCW (Rec: 05/04/22 09:46 DCW [id number]) OP-PT Subjective Patient Comments Patient Comments Pt notes he is feeling pretty good. PT-OP-E Functional Tests Start: 04/25/22 16:48 Freq: Status: Active Protocol: Document 04/25/22 15:15 DCW (Rec: 04/25/22 17:20 DCW [id number]) Functional Tests Apley's Scratch Test Action 1- Left Posterior opposite shoulder Action 1- Right Anterior opposite shoulder Action 2- Left T3 Action 2- Right T1 Action 3- Left T7 Action 3- Right T10 PT-OP-F Manual Assessment Start: 04/25/22 16:48 Freq: Status: Active Protocol: Document 04/25/22 15:15 DCW (Rec: 04/25/22 17:20 DCW [id number]) Manual Assessments Soft Tissue Assessment Soft Tissue Mobility Assessment Moderate-severe muscle atrophy along R infraspinatus and supraspinatus fossa PT-OP-J Posture/Palpation/Skin Start: 04/25/22 17:20 Freq: Status: Active Protocol: Document 04/25/22 15:15 DCW (Rec: 04/25/22 17:21 DCW [id number]) Posture Evaluation Position Sitting Evaluation View Posterior Shoulder Posture (R) Forward,(R) Elevated PT-OP-K Range of Motion Start: 04/25/22 16:48 Freq: Status: Active Protocol: Document 04/25/22 15:15 DCW (Rec: 04/25/22 17:20 DCW [id number]) Shoulder Goniometric Range of Motion Shoulder Right Active Testing Position Sitting Flexion 140 Abduction 160 External Rotation at 0 degrees Abduction 5 Internal Rotation Behind Back (text) T10 Comments PROM ER = 35 PT-OP-L Special Tests Start: 04/25/22 16:48 Freq: Status: Active Protocol: Document 04/25/22 15:15 DCW (Rec: 04/25/22 17:20 DCW [id number]) Special Tests Shoulder Special Tests Yergason's Biceps Test Results Negative Speed's Biceps Test Results Negative Passive ER Rotator Cuff Test Results Negative Lift-Off Rotator Cuff Test Results Negative Zavaleta Nimesh Impingement Test Results Negative Empty Can Test Results Positive for weakness R Drop Arm Rotator Cuff Test Results Positive R Belly Press Test Results Negative PT-OP-M Strength Start: 04/25/22 16:48 Freq: Status: Active Protocol: Document 04/25/22 15:15 DCW (Rec: 04/25/22 17:20 DCW [id number]) Shoulder Strength Shoulder Manual Muscle Testing Right Flexion 4 Good Abduction (C5) 4- Good- External Rotation 2+ Poor+ Internal Rotation 4+ Good+ Left Flexion 5 Normal Abduction (C5) 5 Normal External Rotation 4+ Good+ Internal Rotation 4+ Good+ PT-OP-Q Treatments Start: 04/25/22 16:48 Freq: Status: Active Protocol: Document 05/04/22 09:00 DCW (Rec: 05/04/22 09:46 DCW [id number]) Cardio Equipment Upper Body Ergometer (UBE) Duration (Minutes) 5 RPM 60 Seat Position 13 Height 3 Therapeutic Exercises Prone Exercises External Rotation Prone Exercise Name Prone ER Side bilateral Rows Prone Exercise Name Prone rows Side bilateral Extension Prone Exercise Name Prone extension Side bilateral Horizontal Abd Prone Exercise Name Prone horizontal abduction Side bilateral Standing Exercises PNF Standing Exercise Name UE PNF D1/D2 Flexion Side right Comments unable to do without weight Abduction Standing Exercise Name Shoulder Abduction Side bilateral Resistance 2# Flexion Standing Exercise Name Shoulder Flexion Side bilateral Resistance 2# Other Exercises Resisted Side-stepping Other Exercise Name Resisted UE side-stepping Resistance Yellow Equipment Used T-band loop Manual Therapy Treatment Soft Tissue Mobilization Upper Trap Body Location R Upper Trap Mobilization Type Sustained Pressure,Trigger Point Release Intensity/Depth Moderate Parascapular Body Location R Infraspinatus, Supraspinatus Mobilization Type Sustained Pressure,Trigger Point Release Intensity/Depth Moderate PT-OP-T Assessment and Plan Start: 04/25/22 16:48 Freq: Status: Active Protocol: Document 05/04/22 09:00 DC (Rec: 05/04/22 09:46 DCW [id number]) Physical Therapy Assessment Impairments Impairments Activity Tolerance,Functional Activities,Functional Mobility ,Pain,Posture,ROM,Soft Tissue Mobility,Strength,Tone Goals Three Impairment Pt reports shoulder pain lying on his right side Usp Goal (LTG) Pt to return to his usual sleeping position of right side-lying to decrease sleep disturbances LTG Duration 06/26/22 Two Impairment R shoulder ER AROM limited to 5? Trust Manager Goal (LTG) Pt to show increased infraspinatus function by increasing R ER AROM to >20? in order to improve ability to don jacket. LTG Duration 06/26/22 One Impairment Pt does not have an appropriate home exercise program Short Term Goal (STG) Pt to be independent and compliant with an appropriate HEP STG Duration 05/26/22 Assessment Summary Assessment Pt tolerated treatment well today, struggles with ER, requires reminders to not push himself too far. Physical Therapy Plan Frequency and Duration Frequency of Treatment 2x/Week Duration of Treatment Two months Plan of Care Start Date 04/25/22 Plan of Care End Date 06/26/22 Therapeutic Interventions Therapeutic Interventions Aquatic Therapy,Gait Training, Home Exercise Program,Joint Mobilizations,Manual Therapy, Patient/Caregiver Education, Self-Care/Home Management,Soft Tissue Mobilization,Taping, Therapeutic Activities, Therapeutic Exercises Modalities Cold Pack/Ice Massage,Electric Stimulation,Hot Packs, Ultrasound Next Visit Focus/Plan Next Note Type Treatment Note Next Visit Plan Strengthening, functional mobility training, ER A/AROM
--- NOTE | 2022-05-08 15:59 | PT.OTN ---
Current Diagnoses Pain in right shoulder (05/08/22) Stiffness of right shoulder, not elsewhere classified (05/08/22) Incomplete rotator cuff tear or rupture of right shoulder, not specified as traumatic (05/08/22) Physical Therapy Treatment Note PT-OP-A Visit Information Start: 04/25/22 16:48 Freq: Status: Active Protocol: Document 05/08/22 15:15 DCW (Rec: 05/08/22 15:59 DCW [id number]) Out-Patient Physical Therapy Visit Information Visit Information Visit Type Treatment Note Visit Start Time 15:15 Visit Stop Time 16:00 Total Visit Minutes 45 Visit Number 4 Number of RN CALL CENTER Visits 0 Evaluation Information Evaluation Date 04/25/22 PT-OP-B Current Condition Start: 04/25/22 16:48 Freq: Status: Active Protocol: Document 04/25/22 15:15 DCW (Rec: 04/25/22 17:20 DCW [id number]) Current Condition History of Current Condition Onset Date Six months Current Complaints Right shoulder pain and loss of mobility, weakness History of Current Condition Pt is an 86 year old male with a six month history of right shoulder pain, weakness, and loss of mobility. Pt was previously seen at this clinic for ~1 month in January and February of this year, felt he was improving, but then underwent an MRI, which showed a full- thickness tear of his distal infraspinatus and supraspinatus with associated muscle atrophy. At the time, Ortho recommended stopping PT. Pt feels that since stopping PT two months ago, he has declined functionally, and would like to re-start therapy . Original injury was caused when he fell backward into a plant stand. Overhead arm movements have improved since starting therapy, he was able to help painting his voodoo last month, but he still has difficulty with external rotation or sleeping on his right side. Prior Treatments and Tests R shoulder MRI: IMPRESSION: 1 . Full-thickness rupture of distal supraspinatus and infraspinatus at their insertion on the humeral head with up to 4.3 cm medial retraction of torn tendon fibers to the level of glenoid . Tendinosis and low-grade partial-thickness tear involving superior fibers of distal subscapularis. Mild to moderate supraspinatus and infraspinatus muscle atrophy. 2. Moderate acromioclavicular joint and glenohumeral joint osteoarthritis. Moderate to large joint effusion and subacromial subdeltoid bursal fluid. 3. Finding may represent subtle superior anterior labral tear at 12 to 1 o'clock position. 4. Tendinosis and low to moderate grade intrasubstance partial- thickness tear involving proximal intra-articular portion of long head of biceps . 5. No gross fistula connection is seen in right shoulder soft tissue. per Zach Carney M.D. on 02/26/2022 Treatment Goals Patient/Caregiver Goals Improve shoulder mobility and strength PT-OP-C Subjective Start: 04/25/22 16:48 Freq: Status: Active Protocol: Document 05/08/22 15:15 DCW (Rec: 05/08/22 15:59 DCW [id number]) OP-PT Subjective Patient Comments Patient Comments I did my exercises yesterday in the morning, and then went out and did some work. I don't know if it was the work or the exercise, but man did my shoulder start hurting. But it went away, so I'm not too worried. PT-OP-E Functional Tests Start: 04/25/22 16:48 Freq: Status: Active Protocol: Document 04/25/22 15:15 DCW (Rec: 04/25/22 17:20 DCW [id number]) Functional Tests Apley's Scratch Test Action 1- Left Posterior opposite shoulder Action 1- Right Anterior opposite shoulder Action 2- Left T3 Action 2- Right T1 Action 3- Left T7 Action 3- Right T10 PT-OP-F Manual Assessment Start: 04/25/22 16:48 Freq: Status: Active Protocol: Document 04/25/22 15:15 DCW (Rec: 04/25/22 17:20 DCW [id number]) Manual Assessments Soft Tissue Assessment Soft Tissue Mobility Assessment Moderate-severe muscle atrophy along R infraspinatus and supraspinatus fossa PT-OP-J Posture/Palpation/Skin Start: 04/25/22 17:20 Freq: Status: Active Protocol: Document 04/25/22 15:15 DCW (Rec: 04/25/22 17:21 DCW [id number]) Posture Evaluation Position Sitting Evaluation View Posterior Shoulder Posture (R) Forward,(R) Elevated PT-OP-K Range of Motion Start: 04/25/22 16:48 Freq: Status: Active Protocol: Document 04/25/22 15:15 DCW (Rec: 04/25/22 17:20 DCW [id number]) Shoulder Goniometric Range of Motion Shoulder Right Active Testing Position Sitting Flexion 140 Abduction 160 External Rotation at 0 degrees Abduction 5 Internal Rotation Behind Back (text) T10 Comments PROM ER = 35 PT-OP-L Special Tests Start: 04/25/22 16:48 Freq: Status: Active Protocol: Document 04/25/22 15:15 DCW (Rec: 04/25/22 17:20 DCW [id number]) Special Tests Shoulder Special Tests Yergason's Biceps Test Results Negative Speed's Biceps Test Results Negative Passive ER Rotator Cuff Test Results Negative Lift-Off Rotator Cuff Test Results Negative Zavaleta Nimesh Impingement Test Results Negative Empty Can Test Results Positive for weakness R Drop Arm Rotator Cuff Test Results Positive R Belly Press Test Results Negative PT-OP-M Strength Start: 04/25/22 16:48 Freq: Status: Active Protocol: Document 04/25/22 15:15 DCW (Rec: 04/25/22 17:20 DCW [id number]) Shoulder Strength Shoulder Manual Muscle Testing Right Flexion 4 Good Abduction (C5) 4- Good- External Rotation 2+ Poor+ Internal Rotation 4+ Good+ Left Flexion 5 Normal Abduction (C5) 5 Normal External Rotation 4+ Good+ Internal Rotation 4+ Good+ PT-OP-Q Treatments Start: 04/25/22 16:48 Freq: Status: Active Protocol: Document 05/08/22 15:15 DCW (Rec: 05/08/22 15:59 DCW [id number]) Cardio Equipment Upper Body Ergometer (UBE) Duration (Minutes) 5 RPM 60 Seat Position 13 Height 3 Therapeutic Exercises Standing Exercises PNF Standing Exercise Name UE PNF D1/D2 Flexion Side right Comments Performed Supine Abduction Standing Exercise Name Shoulder Abduction Side bilateral Resistance 2# Flexion Standing Exercise Name Shoulder Flexion Side bilateral Resistance 2#->PVC Manual Therapy Treatment Soft Tissue Mobilization Upper Trap Body Location R Upper Trap Mobilization Type Sustained Pressure,Trigger Point Release Intensity/Depth Moderate Parascapular Body Location R Infraspinatus, Supraspinatus Mobilization Type Sustained Pressure,Trigger Point Release Intensity/Depth Moderate PT-OP-T Assessment and Plan Start: 04/25/22 16:48 Freq: Status: Active Protocol: Document 05/08/22 15:15 DCW (Rec: 05/08/22 15:59 DCW [id number]) Physical Therapy Assessment Impairments Impairments Activity Tolerance,Functional Activities,Functional Mobility ,Pain,Posture,ROM,Soft Tissue Mobility,Strength,Tone Goals Three Impairment Pt reports shoulder pain lying on his right side Director Religious Education Goal (LTG) Pt to return to his usual sleeping position of right side-lying to decrease sleep disturbances LTG Duration 06/26/22 Two Impairment R shoulder ER AROM limited to 5? Group Home Goal (LTG) Pt to show increased infraspinatus function by increasing R ER AROM to >20? in order to improve ability to don jacket. LTG Duration 06/26/22 One Impairment Pt does not have an appropriate home exercise program Short Term Goal (STG) Pt to be independent and compliant with an appropriate HEP STG Duration 05/26/22 Assessment Summary Assessment Pt doing very well with improving mobility and ROM, much better pain control. Continue with increasing AAROM and AROM, shoulder girdle strengthening. Physical Therapy Plan Frequency and Duration Frequency of Treatment 2x/Week Duration of Treatment Two months Plan of Care Start Date 04/25/22 Plan of Care End Date 06/26/22 Therapeutic Interventions Therapeutic Interventions Aquatic Therapy,Gait Training, Home Exercise Program,Joint Mobilizations,Manual Therapy, Patient/Caregiver Education, Self-Care/Home Management,Soft Tissue Mobilization,Taping, Therapeutic Activities, Therapeutic Exercises Modalities Cold Pack/Ice Massage,Electric Stimulation,Hot Packs, Ultrasound Next Visit Focus/Plan Next Note Type Treatment Note Next Visit Plan Strengthening, functional mobility training, ER A/AROM
--- NOTE | 2022-05-15 10:35 | PT.OTN ---
Current Diagnoses Pain in right shoulder (05/15/22) Stiffness of right shoulder, not elsewhere classified (05/15/22) Incomplete rotator cuff tear or rupture of right shoulder, not specified as traumatic (05/15/22) Physical Therapy Treatment Note PT-OP-A Visit Information Start: 04/25/22 16:48 Freq: Status: Active Protocol: Document 05/15/22 09:47 SP (Rec: 05/15/22 10:36 SP [id number]) Out-Patient Physical Therapy Visit Information Visit Information Visit Type Treatment Note Visit Note SPTA Rossy assisted pt and COASTAL TUG MATE Samaria with manual while being supervised throughout. Visit Start Time 09:47 Visit Stop Time 10:35 Total Visit Minutes 48 Visit Number 5 Number of COASTAL TUG MATE Visits 1 Evaluation Information Evaluation Date 04/25/22 PT-OP-B Current Condition Start: 04/25/22 16:48 Freq: Status: Active Protocol: Document 04/25/22 15:15 DCW (Rec: 04/25/22 17:20 DCW [id number]) Current Condition History of Current Condition Onset Date Six months Current Complaints Right shoulder pain and loss of mobility, weakness History of Current Condition Pt is an 86 year old male with a six month history of right shoulder pain, weakness, and loss of mobility. Pt was previously seen at this clinic for ~1 month in January and February of this year, felt he was improving, but then underwent an MRI, which showed a full- thickness tear of his distal infraspinatus and supraspinatus with associated muscle atrophy. At the time, Ortho recommended stopping PT. Pt feels that since stopping PT two months ago, he has declined functionally, and would like to re-start therapy . Original injury was caused when he fell backward into a plant stand. Overhead arm movements have improved since starting therapy, he was able to help painting his moravian last month, but he still has difficulty with external rotation or sleeping on his right side. Prior Treatments and Tests R shoulder MRI: IMPRESSION: 1 . Full-thickness rupture of distal supraspinatus and infraspinatus at their insertion on the humeral head with up to 4.3 cm medial retraction of torn tendon fibers to the level of glenoid . Tendinosis and low-grade partial-thickness tear involving superior fibers of distal subscapularis. Mild to moderate supraspinatus and infraspinatus muscle atrophy. 2. Moderate acromioclavicular joint and glenohumeral joint osteoarthritis. Moderate to large joint effusion and subacromial subdeltoid bursal fluid. 3. Finding may represent subtle superior anterior labral tear at 12 to 1 o'clock position. 4. Tendinosis and low to moderate grade intrasubstance partial- thickness tear involving proximal intra-articular portion of long head of biceps . 5. No gross fistula connection is seen in right shoulder soft tissue. per Zach Carney M.D. on 02/26/2022 Treatment Goals Patient/Caregiver Goals Improve shoulder mobility and strength PT-OP-C Subjective Start: 04/25/22 16:48 Freq: Status: Active Protocol: Document 05/15/22 09:47 SP (Rec: 05/15/22 10:36 SP [id number]) OP-PT Subjective Patient Comments Patient Comments I feel still need to gain strength, had hard time holding R arm out front trying to fasten small nut/bolt on sail boat and got tiring hold arm up for need time. PT-OP-E Functional Tests Start: 04/25/22 16:48 Freq: Status: Active Protocol: Document 04/25/22 15:15 DCW (Rec: 04/25/22 17:20 DCW [id number]) Functional Tests Apley's Scratch Test Action 1- Left Posterior opposite shoulder Action 1- Right Anterior opposite shoulder Action 2- Left T3 Action 2- Right T1 Action 3- Left T7 Action 3- Right T10 PT-OP-F Manual Assessment Start: 04/25/22 16:48 Freq: Status: Active Protocol: Document 04/25/22 15:15 DCW (Rec: 04/25/22 17:20 DCW [id number]) Manual Assessments Soft Tissue Assessment Soft Tissue Mobility Assessment Moderate-severe muscle atrophy along R infraspinatus and supraspinatus fossa PT-OP-J Posture/Palpation/Skin Start: 04/25/22 17:20 Freq: Status: Active Protocol: Document 04/25/22 15:15 DCW (Rec: 04/25/22 17:21 DCW [id number]) Posture Evaluation Position Sitting Evaluation View Posterior Shoulder Posture (R) Forward,(R) Elevated PT-OP-K Range of Motion Start: 04/25/22 16:48 Freq: Status: Active Protocol: Document 05/15/22 09:47 SP (Rec: 05/15/22 10:36 SP [id number]) Shoulder Goniometric Range of Motion Shoulder Right Active Testing Position Sitting Flexion 133 Abduction 162 External Rotation at 0 degrees Abduction 33 Internal Rotation Behind Back (text) L1 05/15/22 (decrease ROM from T10) Comments 05/15/22 R shld AROM : Decreased by 7 deg Gained 2 deg ABD AROM gained 28 deg. PT-OP-L Special Tests Start: 04/25/22 16:48 Freq: Status: Active Protocol: Document 04/25/22 15:15 DCW (Rec: 04/25/22 17:20 DCW [id number]) Special Tests Shoulder Special Tests Yergason's Biceps Test Results Negative Speed's Biceps Test Results Negative Passive ER Rotator Cuff Test Results Negative Lift-Off Rotator Cuff Test Results Negative Zavaleta Nimesh Impingement Test Results Negative Empty Can Test Results Positive for weakness R Drop Arm Rotator Cuff Test Results Positive R Belly Press Test Results Negative PT-OP-M Strength Start: 04/25/22 16:48 Freq: Status: Active Protocol: Document 04/25/22 15:15 DCW (Rec: 04/25/22 17:20 DCW [id number]) Shoulder Strength Shoulder Manual Muscle Testing Right Flexion 4 Good Abduction (C5) 4- Good- External Rotation 2+ Poor+ Internal Rotation 4+ Good+ Left Flexion 5 Normal Abduction (C5) 5 Normal External Rotation 4+ Good+ Internal Rotation 4+ Good+ PT-OP-Q Treatments Start: 04/25/22 16:48 Freq: Status: Active Protocol: Document 05/15/22 09:47 SP (Rec: 05/15/22 10:36 SP [id number]) Cardio Equipment Upper Body Ergometer (UBE) Duration (Minutes) 6 RPM 60 Seat Position 13 Height 3 Therapeutic Exercises Sidelying Exercises ER Side right Resistance AROM Equipment Used towel roll under arm Reps/Minutes 2x15 Comments cued 90 elbow to isolate ROM, limit little passed neutrlal Standing Exercises Abduction Standing Exercise Name Shoulder Abduction Side right Resistance 2#>AROM-1#>AROM Equipment Used Wall target reach to Comments cued no UT and IR recruitment Flexion Standing Exercise Name Shoulder Flexion Side bilateral Resistance 2#>AROM-1#>AROM Equipment Used Wall target reach to Comments cued no UT and IR recruitment Internal Rotation Standing Exercise Name Shoulder IR concentric, eccentric ER Side bilateral Resistance Lv 2 Reps/Minutes 2x10, pause stretch ER 3 sec Comments cued stationary trunk, maintain 90 deg elbow, allow ecc ER stretch AAROM Manual Therapy Treatment Joint Mobilizations PNF Joint R UE Direction retraction/ depression Grade II Body Position Sidelying Comments manual, good feedback response PT-OP-T Assessment and Plan Start: 04/25/22 16:48 Freq: Status: Active Protocol: Document 05/15/22 09:47 SP (Rec: 05/15/22 10:36 SP [id number]) Physical Therapy Assessment Goals Three Impairment Pt reports shoulder pain lying on his right side Brass Molder Goal (LTG) Pt to return to his usual sleeping position of right side-lying to decrease sleep disturbances 05/15/22: progressing can sleep on R shld now and once in while can make through much of night. LTG Duration 06/26/22 progressing Two Impairment R shoulder ER AROM limited to 5? Halfway Goal (LTG) Pt to show increased infraspinatus function by increasing R ER AROM to >20? in order to improve ability to don jacket. 05/15/22: LTG Duration 06/26/22 One Impairment Pt does not have an appropriate home exercise program Short Term Goal (STG) Pt to be independent and compliant with an appropriate HEP STG Duration 05/26/22 Progress Towards Goals Progress Towards Goals Progressing Toward Goals Progress Comments 05/15/22 R shld AROM : Decreased by 7 deg Gained 2 deg ABD AROM gained 28 deg. Assessment Summary Assessment Pt improved in understanding mechanics of scapular mobility and not utilizing UT recruitment. Cued for less UT during FF and ABD, unableto add wt today with improved motion. Initiated standing eccentric R shld ER against resistance with good feedback AAROM with less to no compenstations. Physical Therapy Plan Frequency and Duration Frequency of Treatment 2x/Week Duration of Treatment Two months Plan of Care Start Date 04/25/22 Plan of Care End Date 06/26/22 Therapeutic Interventions Therapeutic Interventions Aquatic Therapy,Gait Training, Home Exercise Program,Joint Mobilizations,Manual Therapy, Patient/Caregiver Education, Self-Care/Home Management,Soft Tissue Mobilization,Taping, Therapeutic Activities, Therapeutic Exercises Modalities Cold Pack/Ice Massage,Electric Stimulation,Hot Packs, Ultrasound Next Visit Focus/Plan Next Note Type Treatment Note Next Visit Plan Recheck shld ER eccentric and initiate flexion next tx. POC: Strengthening, functional mobility training, ER A/AROM
--- NOTE | 2022-05-18 16:00 | PT.OTN ---
Current Diagnoses Pain in right shoulder (05/18/22) Stiffness of right shoulder, not elsewhere classified (05/18/22) Incomplete rotator cuff tear or rupture of right shoulder, not specified as traumatic (05/18/22) Physical Therapy Treatment Note PT-OP-A Visit Information Start: 04/25/22 16:48 Freq: Status: Active Protocol: Document 05/18/22 16:00 [facility] (Rec: 05/22/22 06:07 [facility] [id number]) Out-Patient Physical Therapy Visit Information Visit Information Visit Type Treatment Note Visit Start Time 15:20 Visit Stop Time 16:05 Total Visit Minutes 45 Visit Number 6 Number of INK BLENDER Visits 2 PT-OP-B Current Condition Start: 04/25/22 16:48 Freq: Status: Active Protocol: Document 04/25/22 15:15 DCW (Rec: 04/25/22 17:20 DCW [id number]) Current Condition History of Current Condition Onset Date Six months Current Complaints Right shoulder pain and loss of mobility, weakness History of Current Condition Pt is an 86 year old male with a six month history of right shoulder pain, weakness, and loss of mobility. Pt was previously seen at this clinic for ~1 month in January and February of this year, felt he was improving, but then underwent an MRI, which showed a full- thickness tear of his distal infraspinatus and supraspinatus with associated muscle atrophy. At the time, Ortho recommended stopping PT. Pt feels that since stopping PT two months ago, he has declined functionally, and would like to re-start therapy . Original injury was caused when he fell backward into a plant stand. Overhead arm movements have improved since starting therapy, he was able to help painting his druze last month, but he still has difficulty with external rotation or sleeping on his right side. Prior Treatments and Tests R shoulder MRI: IMPRESSION: 1 . Full-thickness rupture of distal supraspinatus and infraspinatus at their insertion on the humeral head with up to 4.3 cm medial retraction of torn tendon fibers to the level of glenoid . Tendinosis and low-grade partial-thickness tear involving superior fibers of distal subscapularis. Mild to moderate supraspinatus and infraspinatus muscle atrophy. 2. Moderate acromioclavicular joint and glenohumeral joint osteoarthritis. Moderate to large joint effusion and subacromial subdeltoid bursal fluid. 3. Finding may represent subtle superior anterior labral tear at 12 to 1 o'clock position. 4. Tendinosis and low to moderate grade intrasubstance partial- thickness tear involving proximal intra-articular portion of long head of biceps . 5. No gross fistula connection is seen in right shoulder soft tissue. per Zach Carney M.D. on 02/26/2022 Treatment Goals Patient/Caregiver Goals Improve shoulder mobility and strength PT-OP-C Subjective Start: 04/25/22 16:48 Freq: Status: Active Protocol: Document 05/18/22 16:00 [facility] (Rec: 05/22/22 06:07 [facility] [id number]) OP-PT Subjective Patient Comments Patient Comments My right shoulder is sore. I went camping and overdid it reaching up a lot. I haven't been doing my exercises because it was sore. PT-OP-E Functional Tests Start: 04/25/22 16:48 Freq: Status: Active Protocol: Document 04/25/22 15:15 DCW (Rec: 04/25/22 17:20 DCW [id number]) Functional Tests Apley's Scratch Test Action 1- Left Posterior opposite shoulder Action 1- Right Anterior opposite shoulder Action 2- Left T3 Action 2- Right T1 Action 3- Left T7 Action 3- Right T10 PT-OP-F Manual Assessment Start: 04/25/22 16:48 Freq: Status: Active Protocol: Document 04/25/22 15:15 DCW (Rec: 04/25/22 17:20 DCW [id number]) Manual Assessments Soft Tissue Assessment Soft Tissue Mobility Assessment Moderate-severe muscle atrophy along R infraspinatus and supraspinatus fossa PT-OP-J Posture/Palpation/Skin Start: 04/25/22 17:20 Freq: Status: Active Protocol: Document 04/25/22 15:15 DCW (Rec: 04/25/22 17:21 DCW [id number]) Posture Evaluation Position Sitting Evaluation View Posterior Shoulder Posture (R) Forward,(R) Elevated PT-OP-K Range of Motion Start: 04/25/22 16:48 Freq: Status: Active Protocol: Document 05/15/22 09:47 SP (Rec: 05/15/22 10:36 SP [id number]) Shoulder Goniometric Range of Motion Shoulder Right Active Testing Position Sitting Flexion 133 Abduction 162 External Rotation at 0 degrees Abduction 33 Internal Rotation Behind Back (text) L1 05/15/22 (decrease ROM from T10) Comments 05/15/22 R shld AROM : Decreased by 7 deg Gained 2 deg ABD AROM gained 28 deg. PT-OP-L Special Tests Start: 04/25/22 16:48 Freq: Status: Active Protocol: Document 04/25/22 15:15 DCW (Rec: 04/25/22 17:20 DCW [id number]) Special Tests Shoulder Special Tests Yergason's Biceps Test Results Negative Speed's Biceps Test Results Negative Passive ER Rotator Cuff Test Results Negative Lift-Off Rotator Cuff Test Results Negative Zavaleta Nimesh Impingement Test Results Negative Empty Can Test Results Positive for weakness R Drop Arm Rotator Cuff Test Results Positive R Belly Press Test Results Negative PT-OP-M Strength Start: 04/25/22 16:48 Freq: Status: Active Protocol: Document 04/25/22 15:15 DCW (Rec: 04/25/22 17:20 DCW [id number]) Shoulder Strength Shoulder Manual Muscle Testing Right Flexion 4 Good Abduction (C5) 4- Good- External Rotation 2+ Poor+ Internal Rotation 4+ Good+ Left Flexion 5 Normal Abduction (C5) 5 Normal External Rotation 4+ Good+ Internal Rotation 4+ Good+ PT-OP-Q Treatments Start: 04/25/22 16:48 Freq: Status: Active Protocol: Document 05/18/22 16:00 [facility] (Rec: 05/22/22 06:07 [facility] [id number]) Cardio Equipment Upper Body Ergometer (UBE) Duration (Minutes) 6 RPM 60 Seat Position 13 Height 3 Other verbal/tactile cues for relaxing UT. shoulder rolls/ scap retraction first Therapeutic Exercises Supine Exercises Scap retraction Reps/Minutes 10 x 3-5SH Comments added to HEP Lower thoracic Reps/Minutes 10 x 3-5 SH Comments added to HEP Serratus Punch Supine Exercise Name Serratus punch Side bilateral Comments verbal/tactile cues for relaxing UT Sitting Exercises Scap retraction Comments to reduce UT activation w/UBE Shoulder rolls Sitting Exercise Name fwd/bwd Reps/Minutes 1 min Comments to reduce UT activation w/UBE Standing Exercises PNF Standing Exercise Name UE PNF D1/D2 Flexion Side right Comments Performed Supine Abduction Standing Exercise Name Shoulder Abduction Side right Resistance 2#>AROM-1#>AROM Equipment Used Wall target reach to Comments cued no UT Flexion Standing Exercise Name Shoulder Flexion Side bilateral Resistance 2#>AROM-1#>AROM Equipment Used Wall target reach to Comments cued no UT Scap Retraction Standing Exercise Name Scapular Retraction Side bilateral Resistance Lv 2 Comments verb/tactile cues for no UT Manual Therapy Treatment Soft Tissue Mobilization Upper Trap Body Location R Upper Trap Mobilization Type Rolling,Sustained Pressure, Trigger Point Release Intensity/Depth Moderate Parascapular Body Location R Infraspinatus, Supraspinatus Mobilization Type Sustained Pressure,Trigger Point Release Intensity/Depth Moderate Self-Care/Home Management Treatment Education Patient Education Home Exercise Program,Posture Other Education Discussed shoulder anatomy, overuse of upper trapezius muscles, and strengthening shoulder retractors/depressors to improve posture with overhead reaching. Supine Lower thoracic push down and Supine scap retraction added to HEP - HO given. PT-OP-T Assessment and Plan Start: 04/25/22 16:48 Freq: Status: Active Protocol: Document 05/18/22 16:00 [facility] (Rec: 05/22/22 06:07 [facility] [id number]) Physical Therapy Assessment Goals Three Impairment Pt reports shoulder pain lying on his right side Prime Minister Goal (LTG) Pt to return to his usual sleeping position of right side-lying to decrease sleep disturbances 05/15/22: progressing can sleep on R shld now and once in while can make through much of night. LTG Duration 06/26/22 progressing Two Impairment R shoulder ER AROM limited to 5? Skilled Nursing Goal (LTG) Pt to show increased infraspinatus function by increasing R ER AROM to >20? in order to improve ability to don jacket. 05/15/22: LTG Duration 06/26/22 One Impairment Pt does not have an appropriate home exercise program Short Term Goal (STG) Pt to be independent and compliant with an appropriate HEP STG Duration 05/26/22 Assessment Summary Assessment Willem presents today w/ sore R shoulder and overuse of Upper trapezius recruitment bilaterally w/ increased UT tone R>L. Treatment focus today on posture, reduced UT recruitment and improved scapular retraction and depression for improved posture and reduced pain w/ overhead reaching. Pt demonstrates improved posture and self-awareness of UT overactivation w/ repetition of exercises by end of session . Supine Lower thoracic push down and Supine scap retraction added to HEP - HO given. Physical Therapy Plan Next Visit Focus/Plan Next Note Type Treatment Note Next Visit Plan As tolerated recheck shld ER eccentric and initiate flexion next tx. POC: Strengthening, functional mobility training, ER A/AROM
--- NOTE | 2022-05-22 11:16 | PT.OTN ---
Current Diagnoses Pain in right shoulder (05/22/22) Stiffness of right shoulder, not elsewhere classified (05/22/22) Incomplete rotator cuff tear or rupture of right shoulder, not specified as traumatic (05/22/22) Physical Therapy Treatment Note PT-OP-A Visit Information Start: 04/25/22 16:48 Freq: Status: Active Protocol: Document 05/22/22 10:30 [facility] (Rec: 05/22/22 11:16 DC[facility] [id number]) Out-Patient Physical Therapy Visit Information Visit Information Visit Type Treatment Note Visit Start Time 10:30 Visit Stop Time 11:15 Total Visit Minutes 45 Visit Number 7 Number of SALVAGE WORKER Visits 0 Evaluation Information Evaluation Date 04/25/22 PT-OP-B Current Condition Start: 04/25/22 16:48 Freq: Status: Active Protocol: Document 04/25/22 15:15 [facility] (Rec: 04/25/22 17:20 DCW [id number]) Current Condition History of Current Condition Onset Date Six months Current Complaints Right shoulder pain and loss of mobility, weakness History of Current Condition Pt is an 86 year old male with a six month history of right shoulder pain, weakness, and loss of mobility. Pt was previously seen at this clinic for ~1 month in January and February of this year, felt he was improving, but then underwent an MRI, which showed a full- thickness tear of his distal infraspinatus and supraspinatus with associated muscle atrophy. At the time, Ortho recommended stopping PT. Pt feels that since stopping PT two months ago, he has declined functionally, and would like to re-start therapy . Original injury was caused when he fell backward into a plant stand. Overhead arm movements have improved since starting therapy, he was able to help painting his orthodoxy last month, but he still has difficulty with external rotation or sleeping on his right side. Prior Treatments and Tests R shoulder MRI: IMPRESSION: 1 . Full-thickness rupture of distal supraspinatus and infraspinatus at their insertion on the humeral head with up to 4.3 cm medial retraction of torn tendon fibers to the level of glenoid . Tendinosis and low-grade partial-thickness tear involving superior fibers of distal subscapularis. Mild to moderate supraspinatus and infraspinatus muscle atrophy. 2. Moderate acromioclavicular joint and glenohumeral joint osteoarthritis. Moderate to large joint effusion and subacromial subdeltoid bursal fluid. 3. Finding may represent subtle superior anterior labral tear at 12 to 1 o'clock position. 4. Tendinosis and low to moderate grade intrasubstance partial- thickness tear involving proximal intra-articular portion of long head of biceps . 5. No gross fistula connection is seen in right shoulder soft tissue. per Zach Carney M.D. on 02/26/2022 Treatment Goals Patient/Caregiver Goals Improve shoulder mobility and strength PT-OP-C Subjective Start: 04/25/22 16:48 Freq: Status: Active Protocol: Document 05/22/22 10:30 [facility] (Rec: 05/22/22 11:16 DCW [id number]) OP-PT Subjective Patient Comments Patient Comments Other than overworking it by doing things I probably shouldn't have been doing, it' s doing pretty well. PT-OP-E Functional Tests Start: 04/25/22 16:48 Freq: Status: Active Protocol: Document 04/25/22 15:15 DCW (Rec: 04/25/22 17:20 DCW [id number]) Functional Tests Apley's Scratch Test Action 1- Left Posterior opposite shoulder Action 1- Right Anterior opposite shoulder Action 2- Left T3 Action 2- Right T1 Action 3- Left T7 Action 3- Right T10 PT-OP-F Manual Assessment Start: 04/25/22 16:48 Freq: Status: Active Protocol: Document 04/25/22 15:15 DCW (Rec: 04/25/22 17:20 DCW [id number]) Manual Assessments Soft Tissue Assessment Soft Tissue Mobility Assessment Moderate-severe muscle atrophy along R infraspinatus and supraspinatus fossa PT-OP-J Posture/Palpation/Skin Start: 04/25/22 17:20 Freq: Status: Active Protocol: Document 04/25/22 15:15 [facility] (Rec: 04/25/22 17:21 DCW [id number]) Posture Evaluation Position Sitting Evaluation View Posterior Shoulder Posture (R) Forward,(R) Elevated PT-OP-K Range of Motion Start: 04/25/22 16:48 Freq: Status: Active Protocol: Document 05/15/22 09:47 SP (Rec: 05/15/22 10:36 SP [id number]) Shoulder Goniometric Range of Motion Shoulder Right Active Testing Position Sitting Flexion 133 Abduction 162 External Rotation at 0 degrees Abduction 33 Internal Rotation Behind Back (text) L1 05/15/22 (decrease ROM from T10) Comments 05/15/22 R shld AROM : Decreased by 7 deg Gained 2 deg ABD AROM gained 28 deg. PT-OP-L Special Tests Start: 04/25/22 16:48 Freq: Status: Active Protocol: Document 04/25/22 15:15 [facility] (Rec: 04/25/22 17:20 DCW [id number]) Special Tests Shoulder Special Tests Yergason's Biceps Test Results Negative Speed's Biceps Test Results Negative Passive ER Rotator Cuff Test Results Negative Lift-Off Rotator Cuff Test Results Negative Zavaleta Nimesh Impingement Test Results Negative Empty Can Test Results Positive for weakness R Drop Arm Rotator Cuff Test Results Positive R Belly Press Test Results Negative PT-OP-M Strength Start: 04/25/22 16:48 Freq: Status: Active Protocol: Document 04/25/22 15:15 DCW (Rec: 04/25/22 17:20 DCW [id number]) Shoulder Strength Shoulder Manual Muscle Testing Right Flexion 4 Good Abduction (C5) 4- Good- External Rotation 2+ Poor+ Internal Rotation 4+ Good+ Left Flexion 5 Normal Abduction (C5) 5 Normal External Rotation 4+ Good+ Internal Rotation 4+ Good+ PT-OP-Q Treatments Start: 04/25/22 16:48 Freq: Status: Active Protocol: Document 05/22/22 10:30 DCW (Rec: 05/22/22 11:16 DCW [id number]) Cardio Equipment Upper Body Ergometer (UBE) Duration (Minutes) 6 RPM 60 Seat Position 13 Height 3 Therapeutic Exercises Sidelying Exercises ER Side right Resistance AROM Equipment Used towel roll under arm Reps/Minutes 2x15 Comments cued 90 elbow to isolate ROM, limit little passed neutrlal Standing Exercises Abduction Standing Exercise Name Shoulder Abduction Side right Resistance 1# AROM Equipment Used Wall target reach to Comments cued no UT Flexion Standing Exercise Name Shoulder Flexion Side bilateral Resistance 1# AROM Comments cued no UT, no lumbar extension Internal Rotation Standing Exercise Name Shoulder IR/ER Side bilateral Resistance Lv 2 Reps/Minutes 2x10 Comments cued stationary trunk, maintain 90 deg elbow, allow ecc ER stretch AAROM Scap Retraction Standing Exercise Name Scapular Retraction Side bilateral Resistance Lv 2 Comments verb/tactile cues for no UT Manual Therapy Treatment Soft Tissue Mobilization Upper Trap Body Location R Upper Trap Mobilization Type Rolling,Sustained Pressure, Trigger Point Release Intensity/Depth Moderate Parascapular Body Location R Infraspinatus, Supraspinatus Mobilization Type Sustained Pressure,Trigger Point Release Intensity/Depth Moderate Joint Mobilizations GH Joint R GH Direction Inferior Grade III Body Position Supine PT-OP-T Assessment and Plan Start: 04/25/22 16:48 Freq: Status: Active Protocol: Document 05/22/22 10:30 [facility] (Rec: 05/22/22 11:16 DCW [id number]) Physical Therapy Assessment Goals Three Impairment Pt reports shoulder pain lying on his right side Thread Winder Goal (LTG) Pt to return to his usual sleeping position of right side-lying to decrease sleep disturbances 05/15/22: progressing can sleep on R shld now and once in while can make through much of night. LTG Duration 06/26/22 progressing Two Impairment R shoulder ER AROM limited to 5? Alf Goal (LTG) Pt to show increased infraspinatus function by increasing R ER AROM to >20? in order to improve ability to don jacket. 05/15/22: LTG Duration 06/26/22 One Impairment Pt does not have an appropriate home exercise program Short Term Goal (STG) Pt to be independent and compliant with an appropriate HEP STG Duration 05/26/22 Assessment Summary Assessment Pt doing well today, very happy with current progress, sees good improvement with everything except active ER, which is still significantly limited. Physical Therapy Plan Frequency and Duration Frequency of Treatment 2x/Week Duration of Treatment Two months Plan of Care Start Date 04/25/22 Plan of Care End Date 06/26/22 Therapeutic Interventions Therapeutic Interventions Aquatic Therapy,Gait Training, Home Exercise Program,Joint Mobilizations,Manual Therapy, Patient/Caregiver Education, Self-Care/Home Management,Soft Tissue Mobilization,Taping, Therapeutic Activities, Therapeutic Exercises Modalities Cold Pack/Ice Massage,Electric Stimulation,Hot Packs, Ultrasound Next Visit Focus/Plan Next Note Type Treatment Note Next Visit Plan Recheck shld ER eccentric and initiate flexion next tx. POC: Strengthening, functional mobility training, ER A/AROM
--- NOTE | 2022-05-24 11:56 | PT.OTN ---
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 Pt was previously seen at this clinic for ~1 month in January and February of this year, felt he was improving, but then underwent an MRI, which showed a full- thickness tear of his distal infraspinatus and supraspinatus with associated muscle atrophy. At the time, Ortho recommended stopping PT. Pt feels that since stopping PT two months ago, he has declined functionally, and would like to re-start therapy . Original injury was caused when he fell backward into a plant stand. Overhead arm movements have improved since starting therapy, he was able to help painting his sabianism last month, but he still has difficulty with external rotation or sleeping on his right side. Prior Treatments and Tests R shoulder MRI: IMPRESSION: 1 . Full-thickness rupture of distal supraspinatus and infraspinatus at their insertion on the humeral head with up to 4.3 cm medial retraction of torn tendon fibers to the level of glenoid . Tendinosis and low-grade partial-thickness tear involving superior fibers of distal subscapularis. Mild to moderate supraspinatus and infraspinatus muscle atrophy. 2. Moderate acromioclavicular joint and glenohumeral joint osteoarthritis. Moderate to large joint effusion and subacromial subdeltoid bursal fluid. 3. Finding may represent subtle superior anterior labral tear at 12 to 1 o'clock position. 4. Tendinosis and low to moderate grade intrasubstance partial- thickness tear involving proximal intra-articular portion of long head of biceps . 5. No gross fistula connection is seen in right shoulder soft tissue. per Zach Carney M.D. on 02/26/2022 Treatment Goals Patient/Caregiver Goals Improve shoulder mobility and strength PT-OP-C Subjective Start: 04/25/22 16:48 Freq: Status: Active Protocol: Document 05/24/22 11:16 DCW (Rec: 05/24/22 11:56 DCW [id number]) OP-PT Subjective Patient Comments Patient Comments I'm doing well. I'd like to say I'm perfect, but I can't quite say that. PT-OP-E Functional Tests Start: 04/25/22 16:48 Freq: Status: Active Protocol: Document 04/25/22 15:15 DCW (Rec: 04/25/22 17:20 DCW [id number]) Functional Tests Apley's Scratch Test Action 1- Left Posterior opposite shoulder Action 1- Right Anterior opposite shoulder Action 2- Left T3 Action 2- Right T1 Action 3- Left T7 Action 3- Right T10 PT-OP-F Manual Assessment Start: 04/25/22 16:48 Freq: Status: Active Protocol: Document 04/25/22 15:15 DCW (Rec: 04/25/22 17:20 DCW [id number]) Manual Assessments Soft Tissue Assessment Soft Tissue Mobility Assessment Moderate-severe muscle atrophy along R infraspinatus and supraspinatus fossa PT-OP-J Posture/Palpation/Skin Start: 04/25/22 17:20 Freq: Status: Active Protocol: Document 04/25/22 15:15 DCW (Rec: 04/25/22 17:21 DCW [id number]) Posture Evaluation Position Sitting Evaluation View Posterior Shoulder Posture (R) Forward,(R) Elevated PT-OP-K Range of Motion Start: 04/25/22 16:48 Freq: Status: Active Protocol: Document 05/15/22 09:47 SP (Rec: 05/15/22 10:36 SP [id number]) Shoulder Goniometric Range of Motion Shoulder Right Active Testing Position Sitting Flexion 133 Abduction 162 External Rotation at 0 degrees Abduction 33 Internal Rotation Behind Back (text) L1 05/15/22 (decrease ROM from T10) Comments 05/15/22 R shld AROM : Decreased by 7 deg Gained 2 deg ABD AROM gained 28 deg. PT-OP-L Special Tests Start: 04/25/22 16:48 Freq: Status: Active Protocol: Document 04/25/22 15:15 DCW (Rec: 04/25/22 17:20 DCW [id number]) Special Tests Shoulder Special Tests Yergason's Biceps Test Results Negative Speed's Biceps Test Results Negative Passive ER Rotator Cuff Test Results Negative Lift-Off Rotator Cuff Test Results Negative Zavaleta Nimesh Impingement Test Results Negative Empty Can Test Results Positive for weakness R Drop Arm Rotator Cuff Test Results Positive R Belly Press Test Results Negative PT-OP-M Strength Start: 04/25/22 16:48 Freq: Status: Active Protocol: Document 04/25/22 15:15 DCW (Rec: 04/25/22 17:20 DCW [id number]) Shoulder Strength Shoulder Manual Muscle Testing Right Flexion 4 Good Abduction (C5) 4- Good- External Rotation 2+ Poor+ Internal Rotation 4+ Good+ Left Flexion 5 Normal Abduction (C5) 5 Normal External Rotation 4+ Good+ Internal Rotation 4+ Good+ PT-OP-Q Treatments Start: 04/25/22 16:48 Freq: Status: Active Protocol: Document 05/24/22 11:16 DCW (Rec: 05/24/22 11:56 DCW [id number]) Cardio Equipment Upper Body Ergometer (UBE) Duration (Minutes) 6 RPM 60 Seat Position 13 Height 3 Therapeutic Exercises Supine Exercises External Rotation Supine Exercise Name AAROM Shoulder ER Side bilateral Equipment Used PVC Flexion Supine Exercise Name AAROM Shoulder Flexion Side bilateral Equipment Used PVC Sidelying Exercises ER Side right Resistance AROM Equipment Used towel roll under arm Reps/Minutes 2x15 Comments cued 90 elbow to isolate ROM, limit little passed neutrlal Sitting Exercises Scap retraction Comments to reduce UT activation w/UBE Shoulder rolls Sitting Exercise Name fwd/bwd Reps/Minutes 1 min Comments to reduce UT activation w/UBE Standing Exercises PNF Standing Exercise Name UE PNF D1/D2 Flexion Side right Resistance 1# Abduction Standing Exercise Name Shoulder Abduction Side right Resistance 1# AROM Comments cued no UT Flexion Standing Exercise Name Shoulder Flexion Side bilateral Resistance 1# AROM Comments cued no UT, no lumbar extension Internal Rotation Standing Exercise Name Shoulder IR/ER Side bilateral Resistance Lv 3 Reps/Minutes 2x10 Comments cued stationary trunk, maintain 90 deg elbow, allow ecc ER stretch AAROM Scap Retraction Standing Exercise Name Scapular Retraction Side bilateral Resistance Lv 3 Comments verb/tactile cues for no UT Manual Therapy Treatment Soft Tissue Mobilization Upper Trap Body Location R Upper Trap Mobilization Type Rolling,Sustained Pressure, Trigger Point Release Intensity/Depth Moderate Parascapular Body Location R Infraspinatus, Supraspinatus Mobilization Type Sustained Pressure,Trigger Point Release Intensity/Depth Moderate Joint Mobilizations GH Joint R GH Direction Inferior Grade III Body Position Supine PT-OP-T Assessment and Plan Start: 04/25/22 16:48 Freq: Status: Active Protocol: Document 05/24/22 11:16 DCW (Rec: 05/24/22 11:56 DCW [id number]) Physical Therapy Assessment Goals Three Impairment Pt reports shoulder pain lying on his right side Chcf Goal (LTG) Pt to return to his usual sleeping position of right side-lying to decrease sleep disturbances 05/15/22: progressing can sleep on R shld now and once in while can make through much of night. LTG Duration 06/26/22 progressing Two Impairment R shoulder ER AROM limited to 5? Casting Molder Goal (LTG) Pt to show increased infraspinatus function by increasing R ER AROM to >20? in order to improve ability to don jacket. 05/15/22: LTG Duration 06/26/22 One Impairment Pt does not have an appropriate home exercise program Short Term Goal (STG) Pt to be independent and compliant with an appropriate HEP STG Duration 05/26/22 Assessment Summary Assessment Pt showing improvement with AROM vs resistance, ROM nearly WNL in standing with exception of external rotation . Much less compensatory UT activation today. Physical Therapy Plan Frequency and Duration Frequency of Treatment 2x/Week Duration of Treatment Two months Plan of Care Start Date 04/25/22 Plan of Care End Date 06/26/22 Therapeutic Interventions Therapeutic Interventions Aquatic Therapy,Gait Training, Home Exercise Program,Joint Mobilizations,Manual Therapy, Patient/Caregiver Education, Self-Care/Home Management,Soft Tissue Mobilization,Taping, Therapeutic Activities, Therapeutic Exercises Modalities Cold Pack/Ice Massage,Electric Stimulation,Hot Packs, Ultrasound Next Visit Focus/Plan Next Note Type Treatment Note Next Visit Plan Recheck shld ER eccentric and initiate flexion next tx. POC: Strengthening, functional mobility training, ER A/AROM
--- NOTE | 2022-10-23 14:18 | PT.OPDS ---
Current Diagnoses Pain in right shoulder (05/24/22) Stiffness of right shoulder, not elsewhere classified (05/24/22) Incomplete rotator cuff tear or rupture of right shoulder, not specified as traumatic (05/24/22) Visit Care Team Role Provider Type Maureen Domingo MD Family Provider Physician Primary Care Provider Specialty: Family Practice Address: [address] [place] [address], [facility] [place], [address] Email: [email or web address] Ronny Holman MD Attending Provider Physician Referring Provider Specialty: Orthopedics Orthopedic Surgery Address: [address] [place] [address], [id number] Email: [email or web address] Visit Number Visit Number 8 Discharge Summary PT-OP-B Current Condition Start: 04/25/22 16:48 Freq: Status: Active Protocol: Document 04/25/22 15:15 DCW (Rec: 04/25/22 17:20 DCW [id number]) Current Condition History of Current Condition Onset Date Six months Current Complaints Right shoulder pain and loss of mobility, weakness History of Current Condition Pt is an 86 year old male with a six month history of right shoulder pain, weakness, and loss of mobility. Pt was previously seen at this clinic for ~1 month in January and February of this year, felt he was improving, but then underwent an MRI, which showed a full- thickness tear of his distal infraspinatus and supraspinatus with associated muscle atrophy. At the time, Ortho recommended stopping PT. Pt feels that since stopping PT two months ago, he has declined functionally, and would like to re-start therapy . Original injury was caused when he fell backward into a plant stand. Overhead arm movements have improved since starting therapy, he was able to help painting his lutheran last month, but he still has difficulty with external rotation or sleeping on his right side. Prior Treatments and Tests R shoulder MRI: IMPRESSION: 1 . Full-thickness rupture of distal supraspinatus and infraspinatus at their insertion on the humeral head with up to 4.3 cm medial retraction of torn tendon fibers to the level of glenoid . Tendinosis and low-grade partial-thickness tear involving superior fibers of distal subscapularis. Mild to moderate supraspinatus and infraspinatus muscle atrophy. 2. Moderate acromioclavicular joint and glenohumeral joint osteoarthritis. Moderate to large joint effusion and subacromial subdeltoid bursal fluid. 3. Finding may represent subtle superior anterior labral tear at 12 to 1 o'clock position. 4. Tendinosis and low to moderate grade intrasubstance partial- thickness tear involving proximal intra-articular portion of long head of biceps . 5. No gross fistula connection is seen in right shoulder soft tissue. per Zach Carney M.D. on 02/26/2022 Treatment Goals Patient/Caregiver Goals Improve shoulder mobility and strength PT-OP-C Subjective Start: 04/25/22 16:48 Freq: Status: Active Protocol: Document 05/24/22 11:16 DCW (Rec: 05/24/22 11:56 DCW [id number]) OP-PT Subjective Patient Comments Patient Comments I'm doing well. I'd like to say I'm perfect, but I can't quite say that. PT-OP-E Functional Tests Start: 04/25/22 16:48 Freq: Status: Active Protocol: Document 04/25/22 15:15 DCW (Rec: 04/25/22 17:20 DCW [id number]) Functional Tests Apley's Scratch Test Action 1- Left Posterior opposite shoulder Action 1- Right Anterior opposite shoulder Action 2- Left T3 Action 2- Right T1 Action 3- Left T7 Action 3- Right T10 PT-OP-F Manual Assessment Start: 04/25/22 16:48 Freq: Status: Active Protocol: Document 04/25/22 15:15 DCW (Rec: 04/25/22 17:20 DCW [id number]) Manual Assessments Soft Tissue Assessment Soft Tissue Mobility Assessment Moderate-severe muscle atrophy along R infraspinatus and supraspinatus fossa PT-OP-J Posture/Palpation/Skin Start: 04/25/22 17:20 Freq: Status: Active Protocol: Document 04/25/22 15:15 DCW (Rec: 04/25/22 17:21 DCW [id number]) Posture Evaluation Position Sitting Evaluation View Posterior Shoulder Posture (R) Forward,(R) Elevated PT-OP-K Range of Motion Start: 04/25/22 16:48 Freq: Status: Active Protocol: Document 05/15/22 09:47 SP (Rec: 05/15/22 10:36 SP [id number]) Shoulder Goniometric Range of Motion Shoulder Right Active Testing Position Sitting Flexion 133 Abduction 162 External Rotation at 0 degrees Abduction 33 Internal Rotation Behind Back (text) L1 05/15/22 (decrease ROM from T10) Comments 05/15/22 R shld AROM : Decreased by 7 deg Gained 2 deg ABD AROM gained 28 deg. PT-OP-L Special Tests Start: 04/25/22 16:48 Freq: Status: Active Protocol: Document 04/25/22 15:15 DCW (Rec: 04/25/22 17:20 DCW [id number]) Special Tests Shoulder Special Tests Yergason's Biceps Test Results Negative Speed's Biceps Test Results Negative Passive ER Rotator Cuff Test Results Negative Lift-Off Rotator Cuff Test Results Negative Zavaleta Nimesh Impingement Test Results Negative Empty Can Test Results Positive for weakness R Drop Arm Rotator Cuff Test Results Positive R Belly Press Test Results Negative PT-OP-M Strength Start: 04/25/22 16:48 Freq: Status: Active Protocol: Document 04/25/22 15:15 DCW (Rec: 04/25/22 17:20 DCW [id number]) Shoulder Strength Shoulder Manual Muscle Testing Right Flexion 4 Good Abduction (C5) 4- Good- External Rotation 2+ Poor+ Internal Rotation 4+ Good+ Left Flexion 5 Normal Abduction (C5) 5 Normal External Rotation 4+ Good+ Internal Rotation 4+ Good+ PT-OP-T Assessment and Plan Start: 04/25/22 16:48 Freq: Status: Active Protocol: Document 10/23/22 14:17 DCW (Rec: 10/23/22 14:18 DCW [id number]) Physical Therapy Assessment Assessment Summary Assessment No further follow-up appointments scheduled following more recent appointment. Pt has now not been seen in more than four months, will be discharged from skilled therapy at this time. Physical Therapy Plan Discharge Physical Therapy Discharge Reasons No Longer Attending PT Next Visit Focus/Plan Next Note Type Discharge Summary
== END 2022-10-24 10:53 | disposition home or self-care (01) ==
LOC: PHYS 11:15
PROVIDERS: Family Provider Student in an Organized Health Care Education/Training Program; PCP Student in an Organized Health Care Education/Training Program; Referring Provider Orthopaedic Surgery; Visit Provider Orthopaedic Surgery
DX: M75.111 Incomplete rotator cuff tear or rupture of right shoulder, not specified as traumatic (principal); M25.611 Stiffness of right shoulder, not elsewhere classified; M25.511 Pain in right shoulder
CPT/HCPCS: 97110; 97140; 97161; 97530

== ENCOUNTER 2022-08-11 04:24 | Emergency (ER) | payer OTHER, SELFPAY ==
[2020-01-22 15:04] VITALS: BMI 30.4
[2022-08-11 04:38] VITALS: PULSE 68; RESP 18; TEMP 36.3; O2SAT 98; BMI 30.3
[2022-08-11] MEDS: FLUORESCEIN 1 MG STRIP EYE-LEFT (04:43)
[2022-08-11] MEDS: PROPARACAINE 0.5% OPHTH SOL 1 DROPS EYE-BOTH (04:44)
--- NOTE | 2022-08-11 04:48 | ED.GENADULT ---
HPI - General Adult General Chief complaint: Eye Problems Stated complaint: LT. EYE PAIN Time Seen by Provider: 08/11/22 04:32 Source: patient Mode of arrival: Ambulatory Limitations: no limitations History of Present Illness HPI narrative: Patient is an 86-year-old male. Here for evaluation of left eye discomfort. He states that he woke up several hours ago with an intense discomfort in his left eye. Has tried taking a shower and using warm and cool compresses and also trying to soak his eye without much improvement. He denies any specific trauma. He does wear corrective lenses but has never had any high issues in the past. Is not were contact lenses. No prior eye surgeries. He states that last evening before he went to bed he started have some irritation in his left eye. He thought he was just tired so he went to sleep. States that there is just a sharp pain in his left eye. No foreign body sensation. Even with his eye closed if he moves his eye around he has discomfort. Related Data Home Medications Medication Instructions Recorded Confirmed omeprazole magnesium 20 mg 20 mg PO DAILY 04/26/19 01/22/20 capsule,delayed release (Acid Fish Hat[employer]y Man (omeprazole)) atorvastatin 20 mg tablet 20 mg PO BEDTIME 01/22/20 01/22/20 losartan 100 1 tab PO DAILY 01/22/20 01/22/20 mg-hydrochlorothiazide 25 mg tablet Previous Rx's Medication Instructions Recorded prednisone 10 mg tablet See Rx Instructions .Route 12/28/21 .COMPLEX #30 tabs erythromycin 5 mg/gram (0.5 %) eye 0.5 inch EYE-LEFT TID 3 days #3.5 08/11/22 ointment grams Allergies Allergy/AdvReac Type Severity Reaction Status Date / Time No Known Allergies Allergy Verified 01/22/20 07:08 Review of Systems Constitutional Constitutional: Reports system reviewed and no additional complaints, except as documented Eyes Eyes: Reports system reviewed and no additional complaints, except as documented ENT Ears, Nose, Mouth, and Throat: Reports system reviewed and no additional complaints, except as documented Integumentary/Breasts Skin/Breast: Reports system reviewed and no additional complaints, except as documented Patient History Medical History Gastroesophageal reflux disease Hyperlipidemia Hypertension Social History household members: spouse Smoking Status: Current every day smoker alcohol intake: current Smoking Status: Current every day smoker tobacco type: cigars alcohol intake frequency: a few times a month Substance Use Type: does not use Exam Initial Vital Signs Initial Vital Signs: Vital Signs Temperature 97.4 F L 08/11/22 04:38 Pulse Rate 68 08/11/22 04:38 Respiratory Rate 18 08/11/22 04:38 Pulse Oximetry 98 08/11/22 04:38 Oxygen Delivery Method 08/11/22 04:38 Const General: cooperative and comfortable HENMT Head: normal to inspection and normocephalic Face and sinus: normal facial exam Eyes Other: Patient does have irritation to the left eye. No foreign body noted with eversion of the upper or lower eyelids. Pupils were equal round reactive. With fluorescein staining he has a large corneal abrasion on the lower half of his left eye. No signs of ulcerations. Interocular pressure right eye 20. Interocular pressure left eye 20. Skin General: no rashes or lesions noted Neuro General: patient alert, patient awake and moves all extremities Speech: speech normal Extrem General: normal to inspection and capillary refill normal Psych Appearance: grossly normal and well kempt Course Orders Ordered: Proparacaine HCl (Proparacaine 0.5% Ophth Sarah) 1 drops EYE-BOTH PRN PRN PRN Reason: Pain, Mild (1-3) Last Admin: 08/11/22 04:44 Dose: 1 drop Documented By: COLBY Discontinued Medications Erythromycin (Erythromycin Ophth 1 Gm Oint) 1 applic EYE-LEFT NOW ONE Stop: 08/11/22 04:49 Last Admin: 08/11/22 04:52 Dose: 1 applic Fluorescein Sodium (Fluorescein 1 Mg Strip) 1 mg EYE-LEFT NOW ONE Stop: 08/11/22 04:33 Last Admin: 08/11/22 04:43 Dose: 1 mg Documented By: COLBY Vital Signs Vital signs: Vital Signs - 8 hr 08/11/22 04:38 08/11/22 04:56 Temperature 97.4 F L Pulse Rate 68 Respiratory Rate 18 Blood Pressure 158/72 H Pulse Oximetry 98 Oxygen Delivery Method Room Air Medical Decision Making MDM Narrative Medical decision making narrative: No foreign body noted. Normal interocular pressures. Has a large corneal abrasion to his left eye which does fit his presentation. No skin changes around the eye. Was given antibiotic ointment. And a prescription for remainder of the course. He was given strict return precautions. He expressed understanding and agreement. Discharge Plan Departure Patient Disposition: Home Clinical Impression: Corneal abrasion Instructions: DI for Corneal Abrasion Activity Restrictions/Additional Instructions: Use the erythromycin ointment as directed. It was sent to [facility]. You can take Tylenol for any discomfort although your symptoms should improve within the next 24 hours. Return to the emergency department for any new or worsening symptoms. Prescriptions: New erythromycin 5 mg/gram (0.5 %) ointment 0.5 inch EYE-LEFT TID 3 Days Qty: 3.5 1RF No Action omeprazole magnesium [Acid Fish Hatchery Man (omeprazole)] 20 mg Capsule,Delayed Release(Dr/Ec) 20 mg PO DAILY atorvastatin 20 mg Tablet 20 mg PO BEDTIME losartan-hydrochlorothiazide 100-25 mg Tablet 1 tab PO DAILY prednisone 10 mg tablet See Rx Instructions .ROUTE .COMPLEX Qty: 30 0RF Rx Instructions: Day 1,2,3: 40mg PO Daily Day 4,5,6: 30mg PO Daily Day 7,8,9: 20mg PO Daily Day 10,11,12: 10mg PO Daily #30 Referrals: Waqas Inman MD [Primary Care Provider] -
[2022-08-11] MEDS: ERYTHROMYCIN OPHTH 1 GM OINT 1 APPLIC EYE-LEFT (04:52)
[2022-08-11 04:56] VITALS: BP 158/72
== END 2022-08-11 05:00 | disposition home or self-care (01) ==
PROVIDERS: Emergency Provider Emergency Medicine; Family Provider Student in an Organized Health Care Education/Training Program; PCP Family Medicine
DX: S05.02XA Injury of conjunctiva and corneal abrasion without foreign body, left eye, initial encounter (principal)
CPT/HCPCS: 99282

== ENCOUNTER → 2022-09-20 12:01 | Outpatient (CLI) | payer OTHER, SELFPAY ==
[2020-01-22 15:04] VITALS: BMI 30.4
--- NOTE | 2022-09-20 | DI.CT.S_ITS ---
PROCEDURE: CT ABDOMEN PELVIS W CON INDICATIONS: Unspecified abdominal pain TECHNIQUE: After the administration of oral and intravenous contrast, axial sections were acquired from the lung bases to the pubic symphysis. Coronal and sagittal reformats were performed. For radiation dose reduction, the following was used: automated exposure control, adjustment of mA and/or kV according to patient size. COMPARISON:None. FINDINGS: Image quality: Excellent. Lung bases: Unremarkable. Heart: No significant findings. ABDOMEN: Liver: Unremarkable. Gallbladder: Unremarkable. Biliary ducts: Unremarkable. Pancreas: Unremarkable. There are 2 regions Spleen: The spleen measures 18.0 cm in length. 2 regions of wedge-shaped hypodensities are present within the spleen, 1 within the upper pole and 1 at the lower pole of the spleen. Adrenal Glands: Unremarkable. Kidneys and Ureters: Unremarkable. Stomach and Bowel: Stomach, small bowel loops, and colon are unremarkable. The appendix is thin walled and gas filled. There are scattered sigmoid diverticula. No evidence for diverticulitis. Peritoneum: No abnormal intraperitoneal fluid. No free air. Ventral Wall: No hernia. Abdominal Nodes: No retroperitoneal or mesenteric adenopathy by size criteria. Vessels: Aorta and inferior vena cava are normal in size. There are scattered atheromatous calcifications throughout the aorta and iliac arteries bilaterally. PELVIS: Pelvic Organs: Unremarkable. Bladder: Unremarkable. Pelvic Nodes: No enlarged lymph nodes. Miscellaneous: There is a small fat containing left inguinal hernia. Bones: Unremarkable. IMPRESSION: 1. 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 This may be the etiology of the patient's pain. 2. No other acute intra-abdominal findings. Normal appendix. Diverticulosis. No acute diverticulitis. Dictated by: Alyssa Goode M.D. on 09/20/2022 at 15:57 Approved by: Alyssa Goode M.D. on 09/20/2022 at 16:06
== END ==
PROVIDERS: Family Provider Student in an Organized Health Care Education/Training Program; PCP Family Medicine; Referring Provider Family Medicine; Visit Provider Family Medicine
DX: K57.30 Diverticulosis of large intestine without perforation or abscess without bleeding (principal); R16.1 Splenomegaly, not elsewhere classified; K40.90 Unilateral inguinal hernia, without obstruction or gangrene, not specified as recurrent; R10.9 Unspecified abdominal pain
CPT/HCPCS: 74177; Q9967

== ENCOUNTER → 2022-09-29 10:58 | Outpatient (CLI) | payer OTHER, SELFPAY ==
[2020-01-22 15:04] VITALS: BMI 30.4
[2022-09-29 13:13] LABS: Influenza A - CEPHEID Flu A NEGATIVE (NEGATIVE); Influenza B - CEPHEID Flu B NEGATIVE (NEGATIVE); Respiratory Syncytial Virus POSITIVE (Negative)
[2022-09-29 13:14] LABS: COVID-19 CEPHEID 4-PLEX PCR Negative (Negative)
== END ==
PROVIDERS: Family Provider Student in an Organized Health Care Education/Training Program; PCP Family Medicine; Visit Provider Nurse Practitioner Family
DX: J06.9 Acute upper respiratory infection, unspecified (principal)
CPT/HCPCS: 0241U

== ENCOUNTER → 2022-09-29 11:25 | Outpatient (CLI) | payer OTHER, SELFPAY ==
[2020-01-22 15:04] VITALS: BMI 30.4
--- NOTE | 2022-09-29 11:26 | DI.RAD.S_ITS ---
PROCEDURE: XR CHEST 2V INDICATIONS: Cough TECHNIQUE: 2 views of the chest were acquired. COMPARISON: [facility], CR, XR CHEST 1V, 01/22/2020, 6:49. FINDINGS: Surgical changes and devices: None. Lungs and pleura: Lungs are clear. No pleural effusions or pneumothorax. Mediastinum: Mediastinal contours are normal. Heart size is normal. Bones and chest wall: No suspicious bony abnormalities. Soft tissues appear unremarkable. IMPRESSION: No acute process. Dictated by: Manjit Preston M.D. on 09/29/2022 at 10:43 Approved by: Manjit Preston M.D. on 09/29/2022 at 10:44
== END ==
PROVIDERS: Family Provider Student in an Organized Health Care Education/Training Program; PCP Family Medicine; Referring Provider Nurse Practitioner Family; Visit Provider Nurse Practitioner Family
DX: J06.9 Acute upper respiratory infection, unspecified (principal); R05.9 Cough, unspecified
CPT/HCPCS: 0241U; 71046

== ENCOUNTER → 2022-10-10 11:04 | Outpatient (CLI) | payer OTHER, SELFPAY ==
[2020-01-22 15:04] VITALS: BMI 30.4
[2022-10-10 12:42] LABS: Influenza A - CEPHEID Flu A NEGATIVE (NEGATIVE); Influenza B - CEPHEID Flu B NEGATIVE (NEGATIVE); Respiratory Syncytial Virus POSITIVE (Negative)
[2022-10-10 12:45] LABS: COVID-19 CEPHEID 4-PLEX PCR Negative (Negative)
== END ==
PROVIDERS: Family Provider Student in an Organized Health Care Education/Training Program; PCP Family Medicine; Visit Provider Registered Nurse
DX: R05.9 Cough, unspecified (principal); Z20.822 Contact with and (suspected) exposure to COVID-19
CPT/HCPCS: 0241U

== ENCOUNTER → 2022-10-25 12:12 | Outpatient (ROUT) | payer OTHER, SELFPAY ==
[2020-01-22 15:04] VITALS: BMI 30.4
[2022-10-25 13:20] LABS: Influenza A - CEPHEID Flu A NEGATIVE (NEGATIVE); Influenza B - CEPHEID Flu B NEGATIVE (NEGATIVE); Respiratory Syncytial Virus Negative (Negative)
[2022-10-25 13:52] LABS: COVID-19 CEPHEID 4-PLEX PCR Negative (Negative)
== END ==
PROVIDERS: Family Provider Student in an Organized Health Care Education/Training Program; PCP Family Medicine; Visit Provider Family Medicine
DX: R06.02 Shortness of breath (principal); R11.10 Vomiting, unspecified
CPT/HCPCS: 0241U

== ENCOUNTER 2022-10-30 07:09 | Emergency (ER) | payer OTHER, SELFPAY ==
[2020-01-22 15:04] VITALS: BMI 30.4
[2022-10-30 08:07] VITALS: PULSE 86; RESP 28; O2SAT 98
[2022-10-30 08:12] VITALS: BP 111/59; PULSE 85; RESP 16; TEMP 36.3; O2SAT 97; BMI 26.6
--- NOTE | 2022-10-30 08:16 | DI.RAD.S_ITS ---
PROCEDURE: XR CHEST 1V INDICATIONS: chest pain TECHNIQUE: One view of the chest was acquired. COMPARISON: [facility], CR, XR CHEST 2V, 09/29/2022, 11:25. [facility], CR, XR CHEST 1V, 01/22/2020, 6:49. FINDINGS: Surgical changes and devices: None. Lungs and pleura: Lung volumes are low. No dense consolidation or pleural effusion. Mediastinum: Heart size is at the upper limit of normal. Aortic calcifications. Bones and chest wall: No suspicious bony lesions. Overlying soft tissues appear unremarkable. IMPRESSION: No acute radiographic abnormality Dictated by: Darell Barrientos M.D. on 10/30/2022 at 9:29 Approved by: Darell Barrientos M.D. on 10/30/2022 at 9:30
--- NOTE | 2022-10-30 08:28 | DI.US.S_ITS ---
PROCEDURE: US ABDOMEN LIMITED COMPARISON: None. INDICATIONS: RUQ PAIN FINDINGS: Liver measures 16 cm. Cholelithiasis. No sonographic Shaw sign. A small stone is seen at the gallbladder neck region. CBD measures 4 mm. IMPRESSION: No sonographic Shaw sign to suggest acute cholecystitis, however there is cholelithiasis including a non mobile gallbladder neck stone. Dictated by: Darell Barrientos M.D. on 10/30/2022 at 9:30 Approved by: Darell Barrientos M.D. on 10/30/2022 at 9:32
--- NOTE | 2022-10-30 08:28 | ED_ITS ---
HPI - Weakness General Chief complaint: Weakness Stated complaint: feel terrible, slight fever Time Seen by Provider: 10/30/22 08:17 History of Present Illness HPI Narrative: 87-year-old male presenting with generalized malaise, decreased appetite, generalized weakness, and fatigue that has been ongoing for the last several weeks. Patient reports developing symptoms following Thanksgiving, approximately 8 weeks prior to presentation. Patient has been evaluated in outpatient setting multiple times, to date, evaluation notable for reassuring CT abdomen/pelvis, reassuring endoscopy/colonoscopy, reassuring laboratory analysis on multiple checks. Related Data Home Medications Medication Instructions Recorded Confirmed omeprazole magnesium 20 mg 20 mg PO DAILY 04/26/19 10/10/22 capsule,delayed release (Acid Pen And Pencil Repairer (omeprazole)) atorvastatin 20 mg tablet 20 mg PO BEDTIME 01/22/20 10/10/22 losartan 100 1 tab PO DAILY 01/22/20 10/10/22 mg-hydrochlorothiazide 25 mg tablet Previous Rx's Medication Instructions Recorded prednisone 10 mg tablet See Rx Instructions .Route 12/28/21 .COMPLEX #30 tabs erythromycin 5 mg/gram (0.5 %) eye 0.5 inch EYE-LEFT TID 3 days #3.5 08/11/22 ointment grams Allergies Allergy/AdvReac Type Severity Reaction Status Date / Time No Known Allergies Allergy Verified 10/10/22 10:50 ibuprofen AdvReac Mild Verified 10/10/22 10:50 Review of Systems Review of Systems Narrative: Constitutional, Eyes, ENT, Pulmonary, Cardiovascular, Gastrointestinal, Renal, Endocrine, Genitourinary, Musculoskeletal, Neurologic, Skin, and Psychiatric systems were reviewed and negative unless indicated in the HPI above. Patient History Medical History Gastroesophageal reflux disease Hyperlipidemia Hypertension Social History household members: spouse Smoking Status: Current every day smoker alcohol intake: current Smoking Status: Current every day smoker tobacco type: cigars alcohol intake frequency: a few times a month Substance Use Type: does not use Exam Narrative Exam Narrative: Vitals reviewed. Nursing note reviewed Constitutional: interactive HENT: Moist mucous membranes EYES: No scleral icterus NECK: no masses CV: Well perfused peripherally, no cyanosis present PULM: Unlabored respirations, symmetric chest rise ABD: Non-distended MS: No gross deformities, no asymmetric edema noted SKIN: Warm and dry. PSYCH: Appropriate affect NEURO: Follows simple commands, moves extremities, interactive with exam Initial Vital Signs Initial Vital Signs: Vital Signs Pulse Rate 86 10/30/22 08:07 Respiratory Rate 28 H 10/30/22 08:07 Pulse Oximetry 98 10/30/22 08:07 Course Orders Ordered: ED Orders 10/30/22 08:15 Complete Blood Count AUTO DIFF Stat Comprehensive Metabolic Panel Stat Lipase Stat Magnesium Stat Partial Thromboplastin Time Stat Prothrombin Time INR Stat Troponin & CK Cardiac Panel Stat 10/30/22 08:16 XR chest 1V Stat Respiratory Panel (Film Array) Stat EKG-12 Lead Stat 10/30/22 08:28 US abdomen limited Stat CBC Auto Diff [Complete Blood Count AUTO DIFF] Stat CMP [Comprehensive Metabolic Panel] Stat Free T4, Direct Thyroxine Stat Lipase Stat TSH [Thyroid Stimulating Hormone] Stat UA Complete [Urinalysis and Microscopic] Stat Vital Signs Vital signs: Vital Signs - 8 hr 10/30/22 08:12 Temperature 97.3 F L Pulse Rate 85 Respiratory Rate 16 Blood Pressure 111/59 L Pulse Oximetry 97 Oxygen Delivery Method Room Air MDM - Weakness Lab Data Result diagrams: 10/30/22 08:15 10/30/22 08:15 Labs: Lab Results 10/30/22 10/30/22 10/30/22 Range/Units 08:15 08:15 08:15 WBC 4.9 (4.5-11.0) X10^3/uL RBC 3.42 L (4.5-5.9) X10^6/uL Hgb 8.2 L (13.5-17.5) g/dL Hct 25.6 L (41-53) % MCV 74.8 L (80-100) fL MCH 24.0 L (26-34) PG MCHC 32.1 (30-36) % RDW 16.1 H (11.6-14.8) % Plt Count 154 (150-400) X10^3/uL Neut % (Auto) 69.7 (50-75) % Lymph % (Auto) 18.8 L (25-40) % Duval % (Auto) 10.7 (3-14) % Eos % (Auto) 0.4 L (2-4) % Baso % (Auto) 0.4 (0-2) % Neut # (Auto) 3400 (4626-3400) /uL Lymph # (Auto) 900 L (1637-9242) /uL Duval # (Auto) 500 (0-900) /uL Eos # (Auto) 0 (0-450) /uL Baso # (Auto) 0 (0-100) /uL PT 14.6 H (10.1-12.7) SECONDS INR 1.3 (0.9-1.3) APTT 24 L (26-36) SECONDS Sodium 138 (137-145) mmol/L Potassium 4.1 (3.4-5.1) mmol/L Chloride 107 (98-107) mmol/L Carbon Dioxide 21 L (22-32) mmol/L BUN 35 H (9-20) mg/dL Creatinine 1.27 H (0.66-1.25) mg/dL Estimated GFR 55 L (>60) mL/min BUN/Creatinine Ratio 27.6 H (6-22) Glucose 117 H (80-110) mg/dL Calcium 8.2 L (8.4-10.2) mg/dL Magnesium 1.4 L (1.6-2.3) mg/dL Total Bilirubin 1.1 (0.2-1.3) mg/dL AST 33 (17-59) IU/L ALT 35 (<50) IU/L Alkaline Phosphatase 89 (38-126) U/L Total Creatine Kinase < 20 L (55-170) U/L CK-MB (CK-2) TNP CK-MB (CK-2) Rel Index TNP Troponin I < 0.012 (0.01-0.034) ng/mL Total Protein 7.8 (6.3-8.2) g/dL Albumin 3.3 L (3.5-5.0) g/dL Globulin 4.5 H (1.7-4.1) g/dL Albumin/Globulin Ratio 0.7 L (1.0-2.8) Lipase 40 (23-300) U/L TSH (0.47-4.68) uIU/mL Free T4 (0.78-2.19) ng/dL Chlamy pneumoniae PCR (Not Detect) Adenovirus (PCR) (Not Detect) B. pertussis DNA (PCR) (Not Detecte) B.parapertussis DNA PCR (Not Detecte) Coronavirus OC43 (PCR) (Not Detect) Coronavirus HKU1 (PCR) (Not Detect) Coronavirus 229E (PCR) (Not Detect) SARS-CoV-2 (PCR) (Not Detecte) Coronavirus NL63 (PCR) (Not Detect) Human Metapneumovir PCR (Not Detect) Influenza Type A (PCR) (Not Detect) Influenza Type B (PCR) (Not Detect) M. pneumoniae (PCR) (Not Detect) Parainfluenza 1 (PCR) (Not Detect) Parainfluenza 2 (PCR) (Not Detect) Parainfluenza 3 (PCR) (Not Detect) Parainfluenza 4 (PCR) (Not Detect) RSV (PCR) (Not Detect) Entero/Rhino (PCR) (Not Detect) 10/30/22 10/30/22 Range/Units 08:15 08:16 WBC (4.5-11.0) X10^3/uL RBC (4.5-5.9) X10^6/uL Hgb (13.5-17.5) g/dL Hct (41-53) % MCV (80-100) fL MCH (26-34) PG MCHC (30-36) % RDW (11.6-14.8) % Plt Count (150-400) X10^3/uL Neut % (Auto) (50-75) % Lymph % (Auto) (25-40) % Duval % (Auto) (3-14) % Eos % (Auto) (2-4) % Baso % (Auto) (0-2) % Neut # (Auto) (9959-0342) /uL Lymph # (Auto) (7470-0016) /uL Duval # (Auto) (0-900) /uL Eos # (Auto) (0-450) /uL Baso # (Auto) (0-100) /uL PT (10.1-12.7) SECONDS INR (0.9-1.3) APTT (26-36) SECONDS Sodium (137-145) mmol/L Potassium (3.4-5.1) mmol/L Chloride (98-107) mmol/L Carbon Dioxide (22-32) mmol/L BUN (9-20) mg/dL Creatinine (0.66-1.25) mg/dL Estimated GFR (>60) mL/min BUN/Creatinine Ratio (6-22) Glucose (80-110) mg/dL Calcium (8.4-10.2) mg/dL Magnesium (1.6-2.3) mg/dL Total Bilirubin (0.2-1.3) mg/dL AST (17-59) IU/L ALT (<50) IU/L Alkaline Phosphatase (38-126) U/L Total Creatine Kinase (55-170) U/L CK-MB (CK-2) CK-MB (CK-2) Rel Index Troponin I (0.01-0.034) ng/mL Total Protein (6.3-8.2) g/dL Albumin (3.5-5.0) g/dL Globulin (1.7-4.1) g/dL Albumin/Globulin Ratio (1.0-2.8) Lipase (23-300) U/L TSH 0.851 (0.47-4.68) uIU/mL Free T4 1.44 (0.78-2.19) ng/dL Chlamy pneumoniae PCR Not detected (Not Detect) Adenovirus (PCR) Not detected (Not Detect) B. pertussis DNA (PCR) Not detected (Not Detecte) B.parapertussis DNA PCR Not detected (Not Detecte) Coronavirus OC43 (PCR) Not detected (Not Detect) Coronavirus HKU1 (PCR) Not detected (Not Detect) Coronavirus 229E (PCR) Not detected (Not Detect) SARS-CoV-2 (PCR) Not detected (Not Detecte) Coronavirus NL63 (PCR) Not detected (Not Detect) Human Metapneumovir PCR Not detected (Not Detect) Influenza Type A (PCR) Not detected (Not Detect) Influenza Type B (PCR) Not detected (Not Detect) M. pneumoniae (PCR) Not detected (Not Detect) Parainfluenza 1 (PCR) Not detected (Not Detect) Parainfluenza 2 (PCR) Not detected (Not Detect) Parainfluenza 3 (PCR) Not detected (Not Detect) Parainfluenza 4 (PCR) Not detected (Not Detect) RSV (PCR) Not detected (Not Detect) Entero/Rhino (PCR) Not detected (Not Detect) MDM Narrative Medical decision making narrative: 87-year-old male presenting with approximately 8 weeks of worsening fatigue, generalized malaise, weakness, nonspecific mild intermittent abdominal pain. Vital signs on presentation notable for no significant abnormalities. Physical exam notable for well-appearing 87-year-old male who is in no acute distress, reassuring cardiopulmonary exam, benign abdomen. Initial concern for infectious etiology including viral syndrome, focal bacterial infection, occult sepsis, electrolyte derangement, RADHA, symptomatic anemia, malignancy, medication effect. Screening labs obtained on presentation and notable for anemia at 06/14, this appears to be more significant the patient's report of Michael and mild edema in the recent past. Creatinine is minimally elevated, troponin is not detectable. Given patient without prior right upper quadrant ultrasound evaluation, this is performed in the emergency due to nonspecific symptoms, this is notable for cholelithiasis without evidence of cholecystitis alternative pathology. Discussed findings with patient and family member at bedside. Patient has no gross or occult blood rectal exam. Discussed that patient should restart iron supplementation and follow up closely outpatient setting. Patient does continue to tolerate oral intake and ambulation without difficulty, no evidence of active significant bleeding, suspect chronic anemia that has been gradually worsening. Discussed plan for discharge and outpatient follow-up with both primary care Gastroenterology. Patient comfortable plan for weekly lab draws and outpatient follow-up, strict return precautions were provided, patient was instructed to follow up in the emergency department if any new or worsening symptoms. Discharge Plan Departure Patient Disposition: Home Clinical Impression: Anemia Instructions: Anemia Activity Restrictions/Additional Instructions: Please follow up in outpatient setting with your primary care provider and with gastroenterology as discussed. You will require further evaluation to identify the cause of your anemia. As discussed, please begin taking your iron supplementation as you did previously. Please follow up in outpatient setting for weekly blood draws to assess for trend of your anemia. Prescriptions: No Action omeprazole magnesium [Acid Pen And Pencil Repairer (omeprazole)] 20 mg Capsule,Delayed Release(Dr/Ec) 20 mg PO DAILY erythromycin 5 mg/gram (0.5 %) ointment 0.5 inch EYE-LEFT TID 3 Days Qty: 3.5 1RF atorvastatin 20 mg Tablet 20 mg PO BEDTIME losartan-hydrochlorothiazide 100-25 mg Tablet 1 tab PO DAILY prednisone 10 mg tablet See Rx Instructions .ROUTE .COMPLEX Qty: 30 0RF Rx Instructions: Day 1,2,3: 40mg PO Daily Day 4,5,6: 30mg PO Daily Day 7,8,9: 20mg PO Daily Day 10,11,12: 10mg PO Daily #30 Referrals: Waqas Inman MD [Primary Care Provider] - Stand Alone Forms: Patient Portal/API
[2022-10-30 08:30] VITALS: PULSE 84; RESP 20; O2SAT 98
[2022-10-30 08:30] LABS: Add Manual Diff / Slide Review NO; Basophils Absolute Auto 0 /uL (0-100); Basophils Percent Auto 0.4 % (0-2); Eosinophils Absolute Auto 0 /uL (0-450); Eosinophils Percent Auto 0.4 % (2-4); Hematocrit 25.6 % (41-53); Hemoglobin 8.2 g/dL (13.5-17.5); Lymphocytes Absolute Auto 900 /uL (1100-4500); Lymphocytes Percent Auto 18.8 % (25-40); Mean Corpuscular HGB Conc 32.1 % (30-36); Mean Corpuscular Volume 74.8 fL (80-100); Monocytes Absolute Auto 500 /uL (0-900); Monocytes Percent Auto 10.7 % (3-14); Neutrophils Absolute Auto 3400 /uL (1500-7000); Neutrophils Percent Auto 69.7 % (50-75); Platelet Count 154 X10^3/uL (150-400); Red Blood Cell Count 3.42 X10^6/uL (4.5-5.9); Red Cell Distribution Width 16.1 % (11.6-14.8); White Blood Cell Count 4.9 X10^3/uL (4.5-11.0)
[2022-10-30 08:31] LABS: INR 1.3 (0.9-1.3); Prothrombin Time 14.6 SECONDS (10.1-12.7)
[2022-10-30 08:34] LABS: PTT Partial Thromboplastin Tim 24 SECONDS (26-36)
[2022-10-30 08:37] LABS: Alanine Aminotransferase 35 IU/L (<50); Albumin 3.3 g/dL (3.5-5.0); Albumin Globulin Ratio 0.7 (1.0-2.8); Alkaline Phosphatase 89 U/L (38-126); Aspartate Aminotransferase 33 IU/L (17-59); BUN Creatinine Ratio 27.6 (6-22); Bilirubin Total 1.1 mg/dL (0.2-1.3); Blood Urea Nitrogen 35 mg/dL (9-20); Calcium 8.2 mg/dL (8.4-10.2); Carbon Dioxide 21 mmol/L (22-32); Chloride 107 mmol/L (98-107); Creatine Kinase < 20 U/L (55-170); Estimated Glomerular Filt Rate 55 mL/min (>60); Globulin 4.5 g/dL (1.7-4.1); Glucose 117 mg/dL (80-110); HEMOLYSIS < 15 (0-50); Lipase 40 U/L (23-300); Magnesium 1.4 mg/dL (1.6-2.3); Potassium 4.1 mmol/L (3.4-5.1); Sodium 138 mmol/L (137-145); Total Protein 7.8 g/dL (6.3-8.2)
[2022-10-30 08:48] LABS: Troponin I < 0.012 ng/mL (0.01-0.034)
[2022-10-30 09:00] VITALS: PULSE 88; RESP 23; O2SAT 98
[2022-10-30 09:25] LABS: Free T4, Direct Thyroxine 1.44 ng/dL (0.78-2.19)
[2022-10-30 09:30] VITALS: PULSE 84; RESP 27; O2SAT 96
[2022-10-30 09:39] LABS: Thyroid Stimulating Hormone 0.851 uIU/mL (0.47-4.68)
[2022-10-30 10:00] VITALS: PULSE 82; RESP 25; O2SAT 97
[2022-10-30 10:02] LABS: Adenovirus Not Detected (Not Detect); B. parapertussis Not Detected (Not Detecte); Bordetella pertussis Not Detected (Not Detecte); Chlamydophila pneumoniae Not Detected (Not Detect); Coronavirus 229E Not Detected (Not Detect); Coronavirus HKU1 Not Detected (Not Detect); Coronavirus NL 63 Not Detected (Not Detect); Coronavirus OC43 Not Detected (Not Detect); Human Metapneumovirus Not Detected (Not Detect); Human Rhinovirus/Enterovirus Not Detected (Not Detect); Influenza A Not Detected (Not Detect); Influenza B Not Detected (Not Detect); Mycoplasma pneumoniae Not Detected (Not Detect); Parainfluenza Virus 1 Not Detected (Not Detect); Parainfluenza Virus 2 Not Detected (Not Detect); Parainfluenza Virus 3 Not Detected (Not Detect); Parainfluenza Virus 4 Not Detected (Not Detect); Respiratory Syncytial Virus Not Detected (Not Detect); SARS- CoV-2 Not Detected (Not Detecte)
== END 2022-10-30 10:18 | disposition home or self-care (01) ==
PROVIDERS: Emergency Provider Emergency Medicine; Family Provider Student in an Organized Health Care Education/Training Program; PCP Family Medicine
DX: D64.9 Anemia, unspecified (principal); R10.9 Unspecified abdominal pain; R07.9 Chest pain, unspecified; Z20.822 Contact with and (suspected) exposure to COVID-19
CPT/HCPCS: 36415; 71045; 76705; 80053; 82550; 83690; 83735; 84439; 84443; 84484; 85025; 85610; 85730; 87633; 93005; 93010; 99283; 99284

== ENCOUNTER → 2022-11-21 11:15 | Outpatient (CLI) | payer OTHER, SELFPAY ==
[2020-01-22 15:04] VITALS: BMI 30.4
[2022-11-21 13:23] LABS: Clostridium Difficile Tox PCR Negative for C. diff (Negative)
== END ==
PROVIDERS: Family Provider Student in an Organized Health Care Education/Training Program; PCP Family Medicine; Referring Provider Internal Medicine Gastroenterology; Visit Provider Internal Medicine Gastroenterology
DX: R19.4 Change in bowel habit (principal); R68.81 Early satiety; R63.4 Abnormal weight loss; R10.9 Unspecified abdominal pain; D50.9 Iron deficiency anemia, unspecified
CPT/HCPCS: 87045; 87493; 87899

== ENCOUNTER 2022-11-26 07:38 | Emergency (ER) | payer OTHER, SELFPAY ==
[2020-01-22 15:04] VITALS: BMI 30.4
[2022-11-26] VITALS (45 sets, daily range): BP systolic 72–122; BP diastolic 41–60; PULSE 72–98; RESP 18–43; TEMP 36.2–36.7; O2SAT 87–100; BMI 26.6
--- NOTE | 2022-11-26 08:03 | DI.RAD.S_ITS ---
PROCEDURE: XR CHEST 1V INDICATIONS: SOB TECHNIQUE: One view of the chest was acquired. COMPARISON: [facility], CR, XR CHEST 1V, 10/30/2022, 8:24. FINDINGS: Surgical changes and devices: None. Lungs and pleura: Lungs are clear. No pleural effusions or pneumothorax. Mediastinum: Mediastinal contours appear normal. Heart size is normal. Bones and chest wall: No suspicious bony lesions. Overlying soft tissues appear unremarkable. IMPRESSION: No evidence acute pulmonary process. Dictated by: Justino Tucker M.D. on 11/26/2022 at 8:39 Approved by: Justino Tucker M.D. on 11/26/2022 at 8:40
--- NOTE | 2022-11-26 08:04 | ED.GENADULT ---
HPI - General Adult General Chief complaint: Weakness Stated complaint: weakness been ill for 3 months Time Seen by Provider: 11/26/22 07:53 Source: patient and family Mode of arrival: Ambulatory Limitations: no limitations History of Present Illness HPI narrative: Patient is an 87-year-old male who is here for evaluation of weakness and depression. He states he has been sick since the . Has been seen by his primary doctor and also a GI doctor since that time. He is also been here to the emergency department. His workup up to this point has been relatively unremarkable except for some anemia. Has not been anemic enough to have a blood transfusion. Is followed by GI for concerns of potentially a gallbladder issue however this workup is still ongoing. 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 had COVID a little over 1 year ago. Patient has little specific symptoms other than occasional chest pain and occasional abdominal pain and occasional shortness of breath. He states he is lost his appetite. Is not sleeping well. Related Data Home Medications Medication Instructions Recorded Confirmed omeprazole magnesium 20 mg 20 mg PO DAILY 04/26/19 10/10/22 capsule,delayed release (Acid Etl Informatic[employer] Developer (omeprazole)) atorvastatin 20 mg tablet 20 mg PO BEDTIME 01/22/20 10/10/22 losartan 100 1 tab PO DAILY 01/22/20 10/10/22 mg-hydrochlorothiazide 25 mg tablet Previous Rx's Medication Instructions Recorded prednisone 10 mg tablet See Rx Instructions .Route 12/28/21 .COMPLEX #30 tabs erythromycin 5 mg/gram (0.5 %) eye 0.5 inch EYE-LEFT TID 3 days #3.5 08/11/22 ointment grams Allergies Allergy/AdvReac Type Severity Reaction Status Date / Time No Known Allergies Allergy Verified 10/10/22 10:50 ibuprofen AdvReac Mild Verified 10/10/22 10:50 Review of Systems Review of Systems ROS Unobtainable: All systems reviewed & are unremarkable except as noted in HPI and below Patient History Medical History Gastroesophageal reflux disease Hyperlipidemia Hypertension Social History household members: spouse Smoking Status: Current every day smoker alcohol intake: current Smoking Status: Current every day smoker tobacco type: cigars alcohol intake frequency: a few times a month Substance Use Type: does not use Exam Initial Vital Signs Initial Vital Signs: Vital Signs Pulse Rate 97 H 11/26/22 07:49 Blood Pressure 113/56 L 11/26/22 07:49 Pulse Oximetry 98 11/26/22 07:49 Const General: cooperative, comfortable and No ill appearing HENMT Head: normal to inspection and normocephalic Resp Effort & Inspection: normal respiratory effort Auscultation: clear to auscultation bilaterally Cardio Rate: regular rate Rhythm: regular rhythm GI Inspection: normal to inspection Palpation: soft, No firm and No tender Skin General: no rashes or lesions noted Neuro General: patient alert, patient awake, patient oriented x3 and moves all extremities Speech: speech normal Gait: normal gait Extrem General: normal to inspection and No edema Psych Other: Flat affect Course Orders Ordered: ED Orders 11/26/22 07:53 Complete Blood Count AUTO DIFF Stat Comprehensive Metabolic Panel Stat Lipase Stat Thyroid Stimulating Hormone Stat Troponin & CK Cardiac Panel Stat 11/26/22 07:56 EKG-12 Lead Stat 11/26/22 08:03 XR chest 1V Stat Vital Signs Vital signs: Vital Signs - 8 hr 11/26/22 11:46 11/26/22 12:00 11/26/22 12:00 Temperature 98.1 F Pulse Rate 82 82 Pulse Rate [Orthostatic Lying] Pulse Rate [Orthostatic Sitting] Pulse Rate [Orthostatic Standing] Respiratory Rate 18 25 H Blood Pressure 104/55 L 112/57 L Blood Pressure [Orthostatic Lying] Blood Pressure [Orthostatic Sitting] Blood Pressure [Orthostatic Standing] Pulse Oximetry 99 11/26/22 12:15 11/26/22 12:17 11/26/22 12:17 Temperature Pulse Rate 81 80 Pulse Rate [Orthostatic Lying] Pulse Rate [Orthostatic Sitting] Pulse Rate [Orthostatic Standing] Respiratory Rate 22 23 Blood Pressure 105/56 L Blood Pressure [Orthostatic Lying] Blood Pressure [Orthostatic Sitting] Blood Pressure [Orthostatic Standing] Pulse Oximetry 97 98 11/26/22 12:59 11/26/22 12:30 11/26/22 12:30 Temperature 97.9 F Pulse Rate 83 80 Pulse Rate [Orthostatic Lying] Pulse Rate [Orthostatic Sitting] Pulse Rate [Orthostatic Standing] Respiratory Rate 18 24 Blood Pressure 104/52 L 107/59 L Blood Pressure [Orthostatic Lying] Blood Pressure [Orthostatic Sitting] Blood Pressure [Orthostatic Standing] Pulse Oximetry 98 11/26/22 12:45 11/26/22 12:45 11/26/22 13:00 Temperature Pulse Rate 80 98 H Pulse Rate [Orthostatic Lying] Pulse Rate [Orthostatic Sitting] Pulse Rate [Orthostatic Standing] Respiratory Rate 25 H 31 H Blood Pressure 119/56 L Blood Pressure [Orthostatic Lying] Blood Pressure [Orthostatic Sitting] Blood Pressure [Orthostatic Standing] Pulse Oximetry 95 11/26/22 13:01 11/26/22 13:01 11/26/22 13:15 Temperature Pulse Rate 88 84 Pulse Rate [Orthostatic Lying] Pulse Rate [Orthostatic Sitting] Pulse Rate [Orthostatic Standing] Respiratory Rate 27 H 28 H Blood Pressure 104/52 L Blood Pressure [Orthostatic Lying] Blood Pressure [Orthostatic Sitting] Blood Pressure [Orthostatic Standing] Pulse Oximetry 87 L 98 11/26/22 13:15 11/26/22 13:21 11/26/22 13:21 Temperature Pulse Rate 91 H Pulse Rate [Orthostatic Lying] Pulse Rate [Orthostatic Sitting] Pulse Rate [Orthostatic Standing] Respiratory Rate 26 H Blood Pressure 107/56 L 77/49 L Blood Pressure [Orthostatic Lying] Blood Pressure [Orthostatic Sitting] Blood Pressure [Orthostatic Standing] Pulse Oximetry 100 11/26/22 13:22 11/26/22 13:22 11/26/22 13:23 Temperature Pulse Rate 90 90 Pulse Rate [Orthostatic Lying] Pulse Rate [Orthostatic Sitting] Pulse Rate [Orthostatic Standing] Respiratory Rate 24 25 H Blood Pressure 84/47 L Blood Pressure [Orthostatic Lying] Blood Pressure [Orthostatic Sitting] Blood Pressure [Orthostatic Standing] Pulse Oximetry 100 99 11/26/22 13:23 11/26/22 13:56 11/26/22 14:16 Temperature Pulse Rate Pulse Rate [Orthostatic Lying] 81 Pulse Rate [Orthostatic Sitting] 85 Pulse Rate [Orthostatic Standing] 90 Respiratory Rate Blood Pressure 88/53 L 72/41 L Blood Pressure [Orthostatic Lying] 96/51 L Blood Pressure [Orthostatic Sitting] 91/54 L Blood Pressure [Orthostatic Standing] 87/52 L Pulse Oximetry 11/26/22 13:24 11/26/22 13:24 11/26/22 13:30 Temperature Pulse Rate 85 Pulse Rate [Orthostatic Lying] Pulse Rate [Orthostatic Sitting] Pulse Rate [Orthostatic Standing] Respiratory Rate 21 Blood Pressure 98/55 L 102/58 L Blood Pressure [Orthostatic Lying] Blood Pressure [Orthostatic Sitting] Blood Pressure [Orthostatic Standing] Pulse Oximetry 100 11/26/22 13:30 11/26/22 13:45 11/26/22 13:45 Temperature Pulse Rate 83 83 Pulse Rate [Orthostatic Lying] Pulse Rate [Orthostatic Sitting] Pulse Rate [Orthostatic Standing] Respiratory Rate 23 24 Blood Pressure 118/59 L Blood Pressure [Orthostatic Lying] Blood Pressure [Orthostatic Sitting] Blood Pressure [Orthostatic Standing] Pulse Oximetry 99 98 11/26/22 13:51 11/26/22 13:51 11/26/22 13:53 Temperature Pulse Rate 81 88 Pulse Rate [Orthostatic Lying] Pulse Rate [Orthostatic Sitting] Pulse Rate [Orthostatic Standing] Respiratory Rate 25 H 22 Blood Pressure 96/51 L Blood Pressure [Orthostatic Lying] Blood Pressure [Orthostatic Sitting] Blood Pressure [Orthostatic Standing] Pulse Oximetry 99 99 11/26/22 13:53 11/26/22 13:54 11/26/22 13:54 Temperature Pulse Rate 90 Pulse Rate [Orthostatic Lying] Pulse Rate [Orthostatic Sitting] Pulse Rate [Orthostatic Standing] Respiratory Rate 28 H Blood Pressure 91/54 L 87/52 L Blood Pressure [Orthostatic Lying] Blood Pressure [Orthostatic Sitting] Blood Pressure [Orthostatic Standing] Pulse Oximetry 99 11/26/22 14:00 11/26/22 14:12 11/26/22 14:12 Temperature Pulse Rate 81 81 Pulse Rate [Orthostatic Lying] Pulse Rate [Orthostatic Sitting] Pulse Rate [Orthostatic Standing] Respiratory Rate 43 H 27 H Blood Pressure 116/59 L Blood Pressure [Orthostatic Lying] Blood Pressure [Orthostatic Sitting] Blood Pressure [Orthostatic Standing] Pulse Oximetry 99 100 11/26/22 14:15 11/26/22 14:15 11/26/22 14:20 Temperature Pulse Rate 90 81 Pulse Rate [Orthostatic Lying] Pulse Rate [Orthostatic Sitting] Pulse Rate [Orthostatic Standing] Respiratory Rate 24 23 Blood Pressure 72/41 L Blood Pressure [Orthostatic Lying] Blood Pressure [Orthostatic Sitting] Blood Pressure [Orthostatic Standing] Pulse Oximetry 98 99 11/26/22 14:20 11/26/22 14:25 11/26/22 14:25 Temperature Pulse Rate 81 Pulse Rate [Orthostatic Lying] Pulse Rate [Orthostatic Sitting] Pulse Rate [Orthostatic Standing] Respiratory Rate 24 Blood Pressure 118/55 L 116/56 L Blood Pressure [Orthostatic Lying] Blood Pressure [Orthostatic Sitting] Blood Pressure [Orthostatic Standing] Pulse Oximetry 99 11/26/22 14:30 11/26/22 14:30 11/26/22 14:35 Temperature Pulse Rate 89 88 Pulse Rate [Orthostatic Lying] Pulse Rate [Orthostatic Sitting] Pulse Rate [Orthostatic Standing] Respiratory Rate Blood Pressure 118/58 L Blood Pressure [Orthostatic Lying] Blood Pressure [Orthostatic Sitting] Blood Pressure [Orthostatic Standing] Pulse Oximetry 100 99 11/26/22 14:35 11/26/22 14:36 11/26/22 14:36 Temperature Pulse Rate 90 Pulse Rate [Orthostatic Lying] Pulse Rate [Orthostatic Sitting] Pulse Rate [Orthostatic Standing] Respiratory Rate 20 Blood Pressure 116/59 L 97/51 L Blood Pressure [Orthostatic Lying] Blood Pressure [Orthostatic Sitting] Blood Pressure [Orthostatic Standing] Pulse Oximetry 99 11/26/22 14:40 11/26/22 14:40 11/26/22 14:45 Temperature Pulse Rate 83 Pulse Rate [Orthostatic Lying] Pulse Rate [Orthostatic Sitting] Pulse Rate [Orthostatic Standing] Respiratory Rate Blood Pressure 120/59 L 122/60 Blood Pressure [Orthostatic Lying] Blood Pressure [Orthostatic Sitting] Blood Pressure [Orthostatic Standing] Pulse Oximetry 100 11/26/22 14:45 Temperature Pulse Rate 81 Pulse Rate [Orthostatic Lying] Pulse Rate [Orthostatic Sitting] Pulse Rate [Orthostatic Standing] Respiratory Rate 23 Blood Pressure Blood Pressure [Orthostatic Lying] Blood Pressure [Orthostatic Sitting] Blood Pressure [Orthostatic Standing] Pulse Oximetry 100 Medical Decision Making Medical Records Medical records reviewed: Yes I reviewed the patient's medical records. Lab Data Lab results reviewed: Yes I reviewed the patient's lab results. 11/26/22 07:53 11/26/22 07:53 Labs: Lab Results 11/26/22 11/26/22 11/26/22 Range/Units 07:03 07:53 07:53 WBC 6.2 (4.5-11.0) X10^3/uL RBC 3.08 L (4.5-5.9) X10^6/uL Hgb 7.5 L (13.5-17.5) g/dL Hct 22.8 L (41-53) % MCV 73.9 L (80-100) fL MCH 24.3 L (26-34) PG MCHC 32.9 (30-36) % RDW 18.6 H (11.6-14.8) % Plt Count 106 L (150-400) X10^3/uL Neut % (Auto) Not Reportable Lymph % (Auto) Not Reportable [place] % (Auto) Not Reportable Eos % (Auto) Not Reportable Baso % (Auto) Not Reportable Lymph # (Auto) Not Reportable [place] # (Auto) Not Reportable Baso # (Auto) Not Reportable Total Counted 100 Seg Neutrophils % 61.0 (38-70) % Lymphocytes % (Manual) 29.0 (25-45) % Atypical Lymphs % 1.0 H ( - 0) % Monocytes % (Manual) 8.0 (2-11) % Eosinophils % (Manual) 1.0 L (2-4) % Neutrophils # (Manual) 3782 (0214-6487) /uL RBC Morphology See below Anisocytosis 2+ H Microcytosis 1+ H Sodium 133 L (137-145) mmol/L Potassium 4.0 (3.4-5.1) mmol/L Chloride 104 (98-107) mmol/L Carbon Dioxide 17 L (22-32) mmol/L BUN 45 H (9-20) mg/dL Creatinine 1.41 H (0.66-1.25) mg/dL Estimated GFR 49 L (>60) mL/min BUN/Creatinine Ratio 31.9 H (6-22) Glucose 123 H (80-110) mg/dL Calcium 7.8 L (8.4-10.2) mg/dL Total Bilirubin 1.2 (0.2-1.3) mg/dL AST 32 (17-59) IU/L ALT 31 (<50) IU/L Alkaline Phosphatase 66 (38-126) U/L Total Creatine Kinase < 20 L (55-170) U/L CK-MB (CK-2) TNP CK-MB (CK-2) Rel Index TNP Troponin I < 0.012 (0.01-0.034) ng/mL Total Protein 7.2 (6.3-8.2) g/dL Albumin 2.6 L (3.5-5.0) g/dL Globulin 4.6 H (1.7-4.1) g/dL Albumin/Globulin Ratio 0.6 L (1.0-2.8) Lipase 42 (23-300) U/L TSH (0.47-4.68) uIU/mL Blood Type O Positive Antibody Screen Negative Crossmatch See Detail 11/26/22 Range/Units 07:53 WBC (4.5-11.0) X10^3/uL RBC (4.5-5.9) X10^6/uL Hgb (13.5-17.5) g/dL Hct (41-53) % MCV (80-100) fL MCH (26-34) PG MCHC (30-36) % RDW (11.6-14.8) % Plt Count (150-400) X10^3/uL Neut % (Auto) Lymph % (Auto) [place] % (Auto) Eos % (Auto) Baso % (Auto) Lymph # (Auto) [place] # (Auto) Baso # (Auto) Total Counted Seg Neutrophils % (38-70) % Lymphocytes % (Manual) (25-45) % Atypical Lymphs % ( - 0) % Monocytes % (Manual) (2-11) % Eosinophils % (Manual) (2-4) % Neutrophils # (Manual) ([id number]) /uL RBC Morphology Anisocytosis Microcytosis Sodium (137-145) mmol/L Potassium (3.4-5.1) mmol/L Chloride (98-107) mmol/L Carbon Dioxide (22-32) mmol/L BUN (9-20) mg/dL Creatinine (0.66-1.25) mg/dL Estimated GFR (>60) mL/min BUN/Creatinine Ratio (6-22) Glucose (80-110) mg/dL Calcium (8.4-10.2) mg/dL Total Bilirubin (0.2-1.3) mg/dL AST (17-59) IU/L ALT (<50) IU/L Alkaline Phosphatase (38-126) U/L Total Creatine Kinase (55-170) U/L CK-MB (CK-2) CK-MB (CK-2) Rel Index Troponin I (0.01-0.034) ng/mL Total Protein (6.3-8.2) g/dL Albumin (3.5-5.0) g/dL Globulin (1.7-4.1) g/dL Albumin/Globulin Ratio (1.0-2.8) Lipase (23-300) U/L TSH 1.13 (0.47-4.68) uIU/mL Blood Type Antibody Screen Crossmatch Urine Dip Bedside Urine Glucose Negative Bedside Urine Bilirubin - Negative Bedside Urine Ketone - Negative Urine Specific [place] 1.020 Bedside Urine Occult Blood - Negative Bedside Urine pH 5.5 Bedside Urine Protein - Negative Bedside Urine Urobilinogen - Negative Bedside Urine Nitrite - Negative Bedside Urine Leukocytes - Negative Esterase Point of care testing: Urine Dip Bedside Urine Glucose Negative Bedside Urine Bilirubin - Negative Bedside Urine Ketone - Negative Urine Specific [place] 1.020 Bedside Urine Occult Blood - Negative Bedside Urine pH 5.5 Bedside Urine Protein - Negative Bedside Urine Urobilinogen - Negative Bedside Urine Nitrite - Negative Bedside Urine Leukocytes - Negative Esterase Imaging Data Chest x-ray: Radiologist's Impression: [address] [address] XRay Report Signed Patient: Willem Alfred MR#: [id number] : 1935 Acct:[id number] Age/Sex: 87 / M Date of Service: 11/26/22 Loc: ED Accession Number: [id number] ?? Procedure: XR chest 1V Ordering Provider: Samm Luis D.O. PROCEDURE:? XR CHEST 1V ? INDICATIONS:? SOB ? TECHNIQUE:? One view of the chest was acquired.? ? COMPARISON:? [facility], , XR CHEST 1V, 10/30/2022, 8:24. ? FINDINGS:? ? Surgical changes and devices:? None.? ? Lungs and pleura:? Lungs are clear.? No pleural effusions or pneumothorax.? ? Mediastinum:? Mediastinal contours appear normal.? Heart size is normal.? ? Bones and chest wall:? No suspicious bony lesions.? Overlying soft tissues appear unremarkable.? ? IMPRESSION:? No evidence acute pulmonary process. ? ? ? Dictated by: Justino Tucker M.D. on 11/26/2022 at 8:39 ? ? Approved by: Justino Tucker M.D. on 11/26/2022 at 8:40 ECG Data Attestation: I personally reviewed and interpreted this ECG as follows: Interpretation: Sinus rhythm Ventricular rate 91 Normal axis Normal QRS Normal QTC No ST T wave changes MDM Narrative Medical decision making narrative: Patient's workup in the emergency department today does show anemia. It is worse them when he was here a couple weeks ago. Had a discussion with him regarding this. We discussed the risks and benefits of a blood transfusion in the fact that this anemia may potentially be causing his weakness today. After this discussion he did expressed understanding of this and we decided on a transfusion. He was transfused 1 packed red blood cells. He reports that maybe he feels somewhat better afterwards. Unsure as to why he is anemic. He had a colonoscopy and endoscopy approximately 6 weeks ago and had polyps removed that he states were unremarkable. I do not have these pathology results for evaluation. He is not having any bloody stool. He is not vomiting any blood. Informed him that he may need to talk with his primary provider about a referral to see Hematology. We also discussed his depression. He states that it is more of a frustration over why he has been feeling so poorly over the past couple weeks that seemed to come on suddenly without a specific diagnosis. He does have follow-up coming with GI for further evaluation of potential gallbladder etiology however I have some question is whether or not this is the root cause of all of his presenting symptoms. We can hold on further workup for now. He was given return precautions. He expressed understanding and agreement with Discharge Plan Departure Patient Disposition: Home Clinical Impression: Anemia, Weakness Instructions: Anemia Activity Restrictions/Additional Instructions: I do recommend that you continue to take all of your medications as directed. Keep all of your scheduled medical appointments. Return to the emergency department for new symptoms. Prescriptions: No Action omeprazole magnesium [Acid Etl Informatic[employer] Developer (omeprazole)] 20 mg Capsule,Delayed Release(Dr/Ec) 20 mg PO DAILY erythromycin 5 mg/gram (0.5 %) ointment 0.5 inch EYE-LEFT TID 3 Days Qty: 3.5 1RF atorvastatin 20 mg Tablet 20 mg PO BEDTIME losartan-hydrochlorothiazide 100-25 mg Tablet 1 tab PO DAILY prednisone 10 mg tablet See Rx Instructions .ROUTE .COMPLEX Qty: 30 0RF Rx Instructions: Day 1,2,3: 40mg PO Daily Day 4,5,6: 30mg PO Daily Day 7,8,9: 20mg PO Daily Day 10,11,12: 10mg PO Daily #30 Referrals: Waqas Inman MD [Primary Care Provider] - Stand Alone Forms: Patient Portal/API
[2022-11-26 08:30] LABS: Hematocrit 22.8 % (41-53); Hemoglobin 7.5 g/dL (13.5-17.5); Mean Corpuscular HGB Conc 32.9 % (30-36); Mean Corpuscular Hemoglobin 24.3 PG (26-34); Mean Corpuscular Volume 73.9 fL (80-100); Platelet Count 106 X10^3/uL (150-400); Red Blood Cell Count 3.08 X10^6/uL (4.5-5.9); Red Cell Distribution Width 18.6 % (11.6-14.8); White Blood Cell Count 6.2 X10^3/uL (4.5-11.0)
[2022-11-26 08:31] LABS: Add Manual Diff / Slide Review YES
[2022-11-26 08:42] LABS: Alanine Aminotransferase 31 IU/L (<50); Albumin 2.6 g/dL (3.5-5.0); Albumin Globulin Ratio 0.6 (1.0-2.8); Alkaline Phosphatase 66 U/L (38-126); Aspartate Aminotransferase 32 IU/L (17-59); BUN Creatinine Ratio 31.9 (6-22); Bilirubin Total 1.2 mg/dL (0.2-1.3); Blood Urea Nitrogen 45 mg/dL (9-20); Calcium 7.8 mg/dL (8.4-10.2); Carbon Dioxide 17 mmol/L (22-32); Chloride 104 mmol/L (98-107); Creatine Kinase < 20 U/L (55-170); Estimated Glomerular Filt Rate 49 mL/min (>60); Globulin 4.6 g/dL (1.7-4.1); Glucose 123 mg/dL (80-110); Lipase 42 U/L (23-300); Sodium 133 mmol/L (137-145); Total Protein 7.2 g/dL (6.3-8.2)
[2022-11-26 08:55] LABS: HEMOLYSIS < 15 (0-50); Troponin I < 0.012 ng/mL (0.01-0.034)
[2022-11-26 09:04] LABS: Anisocytosis 2+; Microcytosis 1+; Neutrophils Absolute Manual 3782 /uL (3000-5900); Total Cells Counted 100
[2022-11-26 09:27] LABS: Thyroid Stimulating Hormone 1.13 uIU/mL (0.47-4.68)
== END 2022-11-26 14:54 | disposition home or self-care (01) ==
PROVIDERS: Emergency Provider Emergency Medicine; Family Provider Student in an Organized Health Care Education/Training Program; PCP Family Medicine
DX: D64.9 Anemia, unspecified (principal); R53.1 Weakness; R06.02 Shortness of breath
CPT/HCPCS: 36415; 36430; 51798; 71045; 80053; 81003; 82550; 83690; 84443; 84484; 85007; 85025; 86850; 86900; 86901; 93005; 93010; 99284; P9016

== ENCOUNTER → 2022-11-29 09:24 | Outpatient (CLI) | payer OTHER, SELFPAY ==
[2020-01-22 15:04] VITALS: BMI 30.4
[2022-11-29 09:53] LABS: Add Manual Diff / Slide Review NO; Basophils Absolute Auto 100 /uL (0-100); Eosinophils Absolute Auto 0 /uL (0-450); Eosinophils Percent Auto 0.7 % (2-4); Hemoglobin 7.8 g/dL (13.5-17.5); Lymphocytes Absolute Auto 1900 /uL (1100-4500); Lymphocytes Percent Auto 27.5 % (25-40); Mean Corpuscular HGB Conc 32.6 % (30-36); Mean Corpuscular Hemoglobin 24.9 PG (26-34); Mean Corpuscular Volume 76.3 fL (80-100); Monocytes Absolute Auto 1200 /uL (0-900); Monocytes Percent Auto 17.1 % (3-14); Neutrophils Absolute Auto 3700 /uL (1500-7000); Neutrophils Percent Auto 53.7 % (50-75); Platelet Count 99 X10^3/uL (150-400); Red Blood Cell Count 3.15 X10^6/uL (4.5-5.9); Red Cell Distribution Width 20.4 % (11.6-14.8); White Blood Cell Count 6.9 X10^3/uL (4.5-11.0)
[2022-11-29 10:05] LABS: Anisocytosis 1+
== END ==
PROVIDERS: Family Provider Student in an Organized Health Care Education/Training Program; PCP Family Medicine; Referring Provider Nurse Practitioner; Visit Provider Nurse Practitioner
DX: D50.9 Iron deficiency anemia, unspecified (principal)
CPT/HCPCS: 36415; 85025

== ENCOUNTER 2022-11-29 11:19 | Observation (INO) | payer OTHER, SELFPAY ==
[2020-01-22 15:04] VITALS: BMI 30.4
[2022-11-29] VITALS (81 sets, daily range): BP systolic 77–135; BP diastolic 47–71; PULSE 71–127; RESP 14–36; TEMP 36.6–37.4; O2SAT 94–100; BMI 27.0
[2022-11-29] MEDS: SODIUM CHLORIDE 0.9% 1,000 ML 1000 ML IV (11:37)
--- NOTE | 2022-11-29 11:37 | DI.CT.S_ITS ---
PROCEDURE: CT CHEST ABD PEL W CON INDICATIONS: Sepsis/hypotension TECHNIQUE: After the administration of intravenous contrast, 5 mm thick sections acquired from the lung apices to the symphysis. 5 mm coronal and sagittal reformats were performed, with additional 7 mm MIP reformats through the lungs. For radiation dose reduction, the following was used: automated exposure control, adjustment of mA and/or kV according to patient size. COMPARISON: , US, US ABDOMEN LIMITED, 10/30/2022, 8:38. , CT, CT ABDOMEN PELVIS W CON, 09/20/2022, 13:06. , CT, CT CHEST WO CON, 01/22/2020, 7:51. FINDINGS: Image quality: Excellent. CHEST: Lungs and pleura: No acute airspace opacities. No pleural effusions or pneumothorax. Central and peripheral airways appear patent and normal in caliber. Mediastinum: Heart size is normal. No pericardial effusion. Severe coronary artery calcifications. No mediastinal or hilar adenopathy by size criteria. [place] mediastinal lymph nodes are unchanged, likely inflammatory in nature. Thoracic aorta and central pulmonary arteries are normal in size. Esophagus is normal in caliber. No hiatal hernia. 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 Chest wall: No axillary or supraclavicular adenopathy by size criteria. Thyroid gland is unremarkable . ABDOMEN: Solid organs: Liver is normal in size and enhancement. Gallbladder again noted is gallstones in the gallbladder. No gallbladder wall thickening. The gallbladder is partially contracted. Biliary system is non dilated. Pancreas enhances normally. Splenomegaly is unchanged. The spleen measures approximately 18.0 cm in diameter. The low-density in the inferior tip of the spleen is decreased in size compared to the previous study, consistent with evolving splenic infarct. No new splenic infarct. No adrenal nodules. Kidneys demonstrate normal size and enhancement, without hydronephrosis. Peritoneum and bowel: Bowel loops demonstrate normal wall thickness and caliber. Diverticulosis without evidence of diverticulitis. No free fluid or air. Nodes and vessels: No retroperitoneal or mesenteric adenopathy by size criteria. A prominent portacaval lymph node is unchanged, nonspecific. Aorta and inferior vena cava are normal in size. Miscellaneous: No ventral hernias. PELVIS: Genitourinary: Bladder is decompressed. There is a urachal remanent. Miscellaneous: Small fat containing left inguinal hernia. No inguinal adenopathy. Bones: No suspicious bony lesions. No vertebral body compression fractures. IMPRESSION: 1. Splenomegaly, evolving splenic infarct. 2. No evidence of acute pulmonary process. 3. Severe coronary artery calcifications. 4. Cholelithiasis. 5. Diverticulosis. 6. No evidence of acute abdominal process. Dictated by: Justino Tucker M.D. on 11/29/2022 at 12:10 Approved by: Justino Tucker M.D. on 11/29/2022 at 12:21
--- NOTE | 2022-11-29 11:38 | ED_ITS ---
HPI - Weakness General Chief complaint: Weakness Stated complaint: sent by DR ahumada BP Time Seen by Provider: 11/29/22 11:30 Mode of arrival: Wheelchair History of Present Illness HPI Narrative: Patient brought here by primary care physician from the office for complaints of 40 lb weight loss in the past 3 months with night sweats, office exam showed splenomegaly and hepatomegaly. Patient was here 3 days ago and had blood transfusion for anemia. Patient complains of generalized weakness. Denies any pain. Colonoscopy within the last 2 months according the patient showed no red flags of colon cancer. Patient denies any family history of colon cancer leuke tomasz lymphoma. Related Data Home Medications Medication Instructions Recorded Confirmed omeprazole magnesium 20 mg 20 mg PO DAILY 04/26/19 12/08/22 capsule,delayed release (Acid Set Up Worker (omeprazole)) atorvastatin 20 mg tablet 20 mg PO DAILY 01/22/20 12/08/22 diphenhydramine 25 1 tab PO BEDTIME PRN Insomnia 11/29/22 12/08/22 mg-acetaminophen 500 mg tablet (Tylenol PM Extra Strength) acetaminophen 325 mg capsule 650 mg PO Q6HR PRN Pain (Scale 12/08/22 12/08/22 (Tylenol) Score 1-3) epinephrine 0.3 mg/0.3 mL 0.3 mg IM PRN PRN Allergic Reaction 12/08/22 12/08/22 injection, auto-injector (EpiPen 2-Casey) Previous Rx's Medication Instructions Recorded buspirone 7.5 mg tablet 7.5 mg PO BID #60 tabs 11/30/22 losartan 50 mg tablet 50 mg PO DAILY #30 tabs 12/07/22 Allergies Allergy/AdvReac Type Severity Reaction Status Date / Time ibuprofen AdvReac Mild Verified 11/29/22 11:40 Review of Systems Review of Systems Narrative: GENERAL: negative chills, positive fatigue, malaise, negative fever, positive weight loss and night sweats. HEENT: negative sinus pain, ear pain, sore throat RESPIRATORY: negative dyspnea, cough CARDIOVASCULAR: negative chest pain, palpitations GASTROINTESTINAL: negative nausea, vomiting, abdominal pain : negative dysuria, frequency, hematuria MUSCULOSKELETAL: negative muscle or bony pain SKIN: negative rash, skin lesions NEUROLOGIC: negative weakness, numbness ROS Unobtainable: All systems reviewed & are unremarkable except as noted in HPI and below Patient History Medical History Gastroesophageal reflux disease Hyperlipidemia Hypertension Thrombocytopenia Surgical History H/O prostatectomy H/O vasectomy Hx of tonsillectomy Family History Mother Heart attack Father Bone cancer Social History household members: spouse Smoking Status: Former smoker alcohol intake: former Smoking Status: Current every day smoker tobacco type: cigars alcohol intake frequency: a few times a month Substance Use Type: does not use Exam Narrative Exam Narrative: GENERAL: in no distress, not toxic not dyspneic HEAD: Normocephalic. EYES: Pupils equal round ENT: Mucous membranes moist. [place] conjunctiva NECK: Trachea midline. CARDIOVASCULAR: Regular rate and rhythm without murmurs RESPIRATORY: Clear to auscultation. Breath sounds equal bilaterally. No wheezes, rales, or rhonchi. GASTROINTESTINAL: Abdomen soft, non-tender, palpable spleen but nontender. Bowel sounds are present, no peritoneal signs EXTREMITIES: No gross deformities. BACK: No flank tenderness. NEURO: AOx4. SKIN: Warm and dry, no jaundice PSYCH: Not anxious, is cooperative Initial Vital Signs Initial Vital Signs: Vital Signs Pulse Rate 88 11/29/22 11:23 Pulse Oximetry 98 11/29/22 11:23 Course Orders Ordered: Discontinued Medications Acetaminophen (Acetaminophen 325 Mg Tablet) 325 mg PO BEDTIME PRN PRN Reason: Insomnia Last Admin: 11/29/22 21:47 Dose: 325 mg Documented By: KATHRINE Hydrocodone Bitart/Acetaminophen (Hydrocodone/Acet 5/325 Tablet) 1 tab PO Q4H PRN PRN Reason: Pain, Moderate (4-6) Atorvastatin Calcium (Atorvastatin 20 Mg Tablet) 20 mg PO DAILY [facility] Last Admin: 11/30/22 09:16 Dose: 20 mg Documented By: ANA LILIA Diphenhydramine HCl (Diphenhydramine 25 Mg Tablet) 25 mg PO BEDTIME PRN PRN Reason: Insomnia Last Admin: 11/29/22 21:47 Dose: 25 mg Documented By: KATHRINE Enoxaparin Sodium (Enoxaparin 40 Mg/0.4 Ml Syringe) 40 mg SUBCUT DAILY [facility] Last Admin: 11/30/22 09:17 Dose: 40 mg Documented By: ANA LILIA Furosemide (Furosemide 40 Mg/4 Ml Vial) 20 mg IV NOW ONE Stop: 11/29/22 15:23 Last Admin: 11/29/22 20:56 Dose: 20 mg Documented By: KATHRINE Sodium Chloride (Normal Saline 0.9%) 1,000 mls @ 1,000 mls/hr IV BOLUS ONE Stop: 11/29/22 12:34 Last Infusion: 11/29/22 14:15 Dose: 0 mls/hr Documented By: Infusion: 11/29/22 12:04 Dose: 0 mls/hr Documented By: Admin: 11/29/22 11:37 Dose: 1,000 mls/hr Documented By: GONZÁLEZ Naloxone HCl (Naloxone 0.4 Mg/Ml Vial) 0.2 mg IV Q2MIN PRN PRN Reason: Opiate Reversal Pantoprazole Sodium (Pantoprazole Dr 20 Mg Tablet) 20 mg PO 0600 [facility] Last Admin: 11/30/22 06:28 Dose: 20 mg Documented By: KATHRINE Sertraline HCl (Sertraline 50 Mg Tablet) 50 mg PO BEDTIME [facility] Last Admin: 11/29/22 20:56 Dose: 50 mg Documented By: KATHRINE Sodium Chloride (Sodium Chloride 0.9% Flush) 10 ml IV PRN PRN PRN Reason: Flush Sodium Chloride (Sodium Chloride 0.9% Flush) 10 ml IV BID [facility] Last Admin: 11/30/22 09:17 Dose: 10 ml Documented By: ANA LILIA Admin: 11/29/22 21:05 Dose: 10 ml Documented By: KATHRINE Vital Signs Vital signs: Vital Signs - 8 hr 11/29/22 11:24 11/29/22 11:23 11/29/22 11:24 Temperature 97.8 F Pulse Rate 83 88 87 Respiratory Rate 15 Blood Pressure 91/52 L Pulse Oximetry 98 98 99 Oxygen Delivery Method Room Air 11/29/22 11:24 11/29/22 11:30 11/29/22 11:30 Temperature Pulse Rate 85 Respiratory Rate 21 Blood Pressure 91/52 L 78/49 L Pulse Oximetry 95 Oxygen Delivery Method 11/29/22 11:35 11/29/22 11:36 11/29/22 11:36 Temperature Pulse Rate 82 83 Respiratory Rate 25 H 22 Blood Pressure 77/47 L Pulse Oximetry 98 97 Oxygen Delivery Method 11/29/22 11:40 11/29/22 11:40 11/29/22 11:45 Temperature Pulse Rate 82 Respiratory Rate 22 Blood Pressure 83/52 L 87/53 L Pulse Oximetry 97 Oxygen Delivery Method Room Air 11/29/22 11:45 11/29/22 11:54 11/29/22 11:55 Temperature Pulse Rate 79 76 Respiratory Rate 19 Blood Pressure 89/52 L Pulse Oximetry 98 98 Oxygen Delivery Method Room Air 11/29/22 11:55 11/29/22 12:00 11/29/22 12:00 Temperature Pulse Rate 75 75 Respiratory Rate 17 19 Blood Pressure 88/51 L Pulse Oximetry 98 98 Oxygen Delivery Method Room Air 11/29/22 12:04 11/29/22 12:04 11/29/22 12:05 Temperature Pulse Rate 76 Respiratory Rate 24 Blood Pressure 89/51 L 94/52 L Pulse Oximetry 96 Oxygen Delivery Method 11/29/22 12:05 11/29/22 12:10 11/29/22 12:10 Temperature Pulse Rate 76 75 Respiratory Rate 25 H 24 Blood Pressure 93/55 L Pulse Oximetry 95 99 Oxygen Delivery Method Room Air 11/29/22 12:15 11/29/22 12:15 11/29/22 12:20 Temperature Pulse Rate 76 Respiratory Rate 24 Blood Pressure 93/50 L 94/52 L Pulse Oximetry 97 Oxygen Delivery Method Room Air 11/29/22 12:20 11/29/22 12:25 11/29/22 12:25 Temperature Pulse Rate 75 75 Respiratory Rate 23 25 H Blood Pressure 94/55 L Pulse Oximetry 97 99 Oxygen Delivery Method Room Air 11/29/22 12:30 11/29/22 12:30 11/29/22 12:35 Temperature Pulse Rate 75 Respiratory Rate 26 H Blood Pressure 91/51 L 88/49 L Pulse Oximetry 99 Oxygen Delivery Method 11/29/22 12:35 11/29/22 12:40 11/29/22 12:40 Temperature Pulse Rate 75 74 Respiratory Rate 26 H 25 H Blood Pressure 89/50 L Pulse Oximetry 99 100 Oxygen Delivery Method 11/29/22 12:45 11/29/22 12:45 11/29/22 12:50 Temperature Pulse Rate 74 Respiratory Rate 25 H Blood Pressure 88/53 L 89/52 L Pulse Oximetry 100 Oxygen Delivery Method 11/29/22 12:50 11/29/22 12:55 11/29/22 12:55 Temperature Pulse Rate 74 76 Respiratory Rate 26 H 24 Blood Pressure 94/53 L Pulse Oximetry 100 100 Oxygen Delivery Method Room Air MDM - Weakness Lab Data 11/29/22 11:25 11/29/22 11:25 Labs: Lab Results 11/29/22 11/29/22 11/29/22 Range/Units 11:21 11:25 11:25 WBC 6.8 (4.5-11.0) X10^3/uL RBC 2.96 L (4.5-5.9) X10^6/uL Hgb 7.4 L (13.5-17.5) g/dL Hct 22.4 L (41-53) % MCV 75.7 L (80-100) fL MCH 24.9 L (26-34) PG MCHC 32.9 (30-36) % RDW 20.6 H (11.6-14.8) % Plt Count 100 L (150-400) X10^3/uL Neut % (Auto) 52.9 (50-75) % Lymph % (Auto) 28.4 (25-40) % [place] % (Auto) 17.4 H (3-14) % Eos % (Auto) 0.6 L (2-4) % Baso % (Auto) 0.7 (0-2) % Neut # (Auto) 3600 (4963-1922) /uL Lymph # (Auto) 1900 (8335-2499) /uL [place] # (Auto) 1200 H (0-900) /uL Eos # (Auto) 0 (0-450) /uL Baso # (Auto) 100 (0-100) /uL ESR (0-15) MM/HR PT 16.0 H (10.1-12.7) SECONDS INR 1.4 H (0.9-1.3) APTT 32 (26-36) SECONDS Sodium (137-145) mmol/L Potassium (3.4-5.1) mmol/L Chloride (98-107) mmol/L Carbon Dioxide (22-32) mmol/L BUN (9-20) mg/dL Creatinine (0.66-1.25) mg/dL Estimated GFR (>60) mL/min BUN/Creatinine Ratio (6-22) Glucose (80-110) mg/dL Lactate (0.7-2.1) mmol/L Calcium (8.4-10.2) mg/dL Total Bilirubin (0.2-1.3) mg/dL AST (17-59) IU/L ALT (<50) IU/L Alkaline Phosphatase (38-126) U/L Lactate Dehydrogenase (120-246) U/L Total Creatine Kinase (55-170) U/L CK-MB (CK-2) CK-MB (CK-2) Rel Index Troponin I (0.01-0.034) ng/mL C-Reactive Protein (<1.0) mg/dL NT-Pro-B Natriuret Pep (<450) pg/mL Total Protein (6.3-8.2) g/dL Albumin (3.5-5.0) g/dL Globulin (1.7-4.1) g/dL Albumin/Globulin Ratio (1.0-2.8) Uckb-0-Oddzvnjlosrly (0.6-2.4) mg/L 25-OH Vitamin D Total (30.0-100.0) ng/mL Procalcitonin (<0.5) ng/mL IgG (603-1613) mg/dL IgA (61-437) mg/dL IgM (15-143) mg/dL SARS-CoV-2 (PCR) Negative (Negative) Blood Type Antibody Screen Crossmatch 11/29/22 11/29/22 11/29/22 Range/Units 11:25 11:25 11:25 WBC (4.5-11.0) X10^3/uL RBC (4.5-5.9) X10^6/uL Hgb (13.5-17.5) g/dL Hct (41-53) % MCV (80-100) fL MCH (26-34) PG MCHC (30-36) % RDW (11.6-14.8) % Plt Count (150-400) X10^3/uL Neut % (Auto) (50-75) % Lymph % (Auto) (25-40) % [place] % (Auto) (3-14) % Eos % (Auto) (2-4) % Baso % (Auto) (0-2) % Neut # (Auto) (9970-8973) /uL Lymph # (Auto) (5034-1094) /uL [place] # (Auto) (0-900) /uL Eos # (Auto) (0-450) /uL Baso # (Auto) (0-100) /uL ESR (0-15) MM/HR PT (10.1-12.7) SECONDS INR (0.9-1.3) APTT (26-36) SECONDS Sodium 128 L (137-145) mmol/L Potassium 4.4 (3.4-5.1) mmol/L Chloride 100 (98-107) mmol/L Carbon Dioxide 15 L (22-32) mmol/L BUN 54 H (9-20) mg/dL Creatinine 1.90 H (0.66-1.25) mg/dL Estimated GFR 34 L (>60) mL/min BUN/Creatinine Ratio 28.4 H (6-22) Glucose 112 H (80-110) mg/dL Lactate (0.7-2.1) mmol/L Calcium 7.4 L (8.4-10.2) mg/dL Total Bilirubin 1.3 (0.2-1.3) mg/dL AST 30 (17-59) IU/L ALT 37 (<50) IU/L Alkaline Phosphatase 59 (38-126) U/L Lactate Dehydrogenase 196 (120-246) U/L Total Creatine Kinase < 20 L (55-170) U/L CK-MB (CK-2) TNP CK-MB (CK-2) Rel Index TNP Troponin I < 0.012 (0.01-0.034) ng/mL C-Reactive Protein (<1.0) mg/dL NT-Pro-B Natriuret Pep 1910 H (<450) pg/mL Total Protein 6.8 (6.3-8.2) g/dL Albumin 2.4 L (3.5-5.0) g/dL Globulin 4.4 H (1.7-4.1) g/dL Albumin/Globulin Ratio 0.5 L (1.0-2.8) Mitr-2-Ctqoiyrdommia (0.6-2.4) mg/L 25-OH Vitamin D Total (30.0-100.0) ng/mL Procalcitonin (<0.5) ng/mL IgG (603-1613) mg/dL IgA (61-437) mg/dL IgM (15-143) mg/dL SARS-CoV-2 (PCR) (Negative) Blood Type O Positive Antibody Screen Negative Crossmatch See Detail 11/29/22 11/29/22 11/29/22 Range/Units 11:25 11:25 11:25 WBC (4.5-11.0) X10^3/uL RBC (4.5-5.9) X10^6/uL Hgb (13.5-17.5) g/dL Hct (41-53) % MCV (80-100) fL MCH (26-34) PG MCHC (30-36) % RDW (11.6-14.8) % Plt Count (150-400) X10^3/uL Neut % (Auto) (50-75) % Lymph % (Auto) (25-40) % [place] % (Auto) (3-14) % Eos % (Auto) (2-4) % Baso % (Auto) (0-2) % Neut # (Auto) (5783-9917) /uL Lymph # (Auto) (0205-7939) /uL [place] # (Auto) (0-900) /uL Eos # (Auto) (0-450) /uL Baso # (Auto) (0-100) /uL ESR 64 H (0-15) MM/HR PT (10.1-12.7) SECONDS INR (0.9-1.3) APTT (26-36) SECONDS Sodium (137-145) mmol/L Potassium (3.4-5.1) mmol/L Chloride (98-107) mmol/L Carbon Dioxide (22-32) mmol/L BUN (9-20) mg/dL Creatinine (0.66-1.25) mg/dL Estimated GFR (>60) mL/min BUN/Creatinine Ratio (6-22) Glucose (80-110) mg/dL Lactate (0.7-2.1) mmol/L Calcium (8.4-10.2) mg/dL Total Bilirubin (0.2-1.3) mg/dL AST (17-59) IU/L ALT (<50) IU/L Alkaline Phosphatase (38-126) U/L Lactate Dehydrogenase (120-246) U/L Total Creatine Kinase (55-170) U/L CK-MB (CK-2) CK-MB (CK-2) Rel Index Troponin I (0.01-0.034) ng/mL C-Reactive Protein 6.3 H (<1.0) mg/dL NT-Pro-B Natriuret Pep (<450) pg/mL Total Protein (6.3-8.2) g/dL Albumin (3.5-5.0) g/dL Globulin (1.7-4.1) g/dL Albumin/Globulin Ratio (1.0-2.8) Lfrk-9-Uzrwnbihcqlff (0.6-2.4) mg/L 25-OH Vitamin D Total 18.6 L (30.0-100.0) ng/mL Procalcitonin (<0.5) ng/mL IgG (603-1613) mg/dL IgA (61-437) mg/dL IgM (15-143) mg/dL SARS-CoV-2 (PCR) (Negative) Blood Type Antibody Screen Crossmatch 11/29/22 11/29/22 11/29/22 Range/Units 11:28 11:28 11:43 WBC (4.5-11.0) X10^3/uL RBC (4.5-5.9) X10^6/uL Hgb (13.5-17.5) g/dL Hct (41-53) % MCV (80-100) fL MCH (26-34) PG MCHC (30-36) % RDW (11.6-14.8) % Plt Count (150-400) X10^3/uL Neut % (Auto) (50-75) % Lymph % (Auto) (25-40) % [place] % (Auto) (3-14) % Eos % (Auto) (2-4) % Baso % (Auto) (0-2) % Neut # (Auto) (9919-5785) /uL Lymph # (Auto) (1135-5357) /uL [place] # (Auto) (0-900) /uL Eos # (Auto) (0-450) /uL Baso # (Auto) (0-100) /uL ESR (0-15) MM/HR PT (10.1-12.7) SECONDS INR (0.9-1.3) APTT (26-36) SECONDS Sodium (137-145) mmol/L Potassium (3.4-5.1) mmol/L Chloride (98-107) mmol/L Carbon Dioxide (22-32) mmol/L BUN (9-20) mg/dL Creatinine (0.66-1.25) mg/dL Estimated GFR (>60) mL/min BUN/Creatinine Ratio (6-22) Glucose (80-110) mg/dL Lactate 1.4 (0.7-2.1) mmol/L Calcium (8.4-10.2) mg/dL Total Bilirubin (0.2-1.3) mg/dL AST (17-59) IU/L ALT (<50) IU/L Alkaline Phosphatase (38-126) U/L Lactate Dehydrogenase (120-246) U/L Total Creatine Kinase (55-170) U/L CK-MB (CK-2) CK-MB (CK-2) Rel Index Troponin I (0.01-0.034) ng/mL C-Reactive Protein (<1.0) mg/dL NT-Pro-B Natriuret Pep (<450) pg/mL Total Protein (6.3-8.2) g/dL Albumin (3.5-5.0) g/dL Globulin (1.7-4.1) g/dL Albumin/Globulin Ratio (1.0-2.8) Abzm-2-Kpeyfzlmbjovh 15.2 H (0.6-2.4) mg/L 25-OH Vitamin D Total (30.0-100.0) ng/mL Procalcitonin 0.53 H (<0.5) ng/mL IgG 2727 H (603-1613) mg/dL IgA 290 (61-437) mg/dL IgM 47 (15-143) mg/dL SARS-CoV-2 (PCR) (Negative) Blood Type Antibody Screen Crossmatch Imaging Data CT chest abdomen and pelvis: Radiologist Impression: [address] [address] [address] Scan Report Signed Patient: Willem Alfred MR#: [id number] : 1935 Acct:[id number] Age/Sex: 87 / M Date of Service: 11/29/22 Loc: ED Accession Number: [id number] ?? Procedure: CT chest abd pel w con Ordering Provider: Bruno Duenas MD PROCEDURE:? CT CHEST ABD PEL W CON ? INDICATIONS:? Sepsis/hypotension ? TECHNIQUE:? After the administration of intravenous contrast, 5 mm thick sections acquired from the lung apices to the symphysis.? 5 mm coronal and sagittal reformats were performed, with additional 7 mm MIP reformats through the lungs.? For radiation dose reduction, the following was used:? automated exposure control, adjustment of mA and/or kV according to patient size.? ? COMPARISON:? [facility], US, US ABDOMEN LIMITED, 10/30/2022, 8:38.? [facility], CT, CT ABDOMEN PELVIS W CON, 09/20/2022, 13:06.? [facility], CT, CT CHEST WO CON, 01/22/2020, 7:51. ? FINDINGS:? Image quality:? Excellent.? ? CHEST:? Lungs and pleura:? No acute airspace opacities.? No pleural effusions or pneumothorax.? Central and peripheral airways appear patent and normal in caliber.? ? Mediastinum:? Heart size is normal.? No pericardial effusion.? Severe coronary artery calcifications.? No mediastinal or hilar adenopathy by size criteria.? Shotty mediastinal lymph nodes are unchanged, likely inflammatory in nature.? Thoracic aorta and central pulmonary arteries are normal in size.? Esophagus is normal in caliber.? No hiatal hernia.? 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 ? Chest wall:? No axillary or supraclavicular adenopathy by size criteria.? Thyroid gland is unremarkable .? ? ? ABDOMEN:? Solid organs:? Liver is normal in size and enhancement.? Gallbladder again noted is gallstones in the gallbladder.? No gallbladder wall thickening.? The gallbladder is partially contracted.? Biliary system is non dilated.? Pancreas enhances normally.? Splenomegaly is unchanged.? The spleen measures approximately 18.0 cm in diam eter.? The low-density in the inferior tip of the spleen is decreased in size compared to the previous study, consistent with evolving splenic infarct.? No new splenic infarct.? No adrenal nodules.? Kidneys demonstrate normal size and enhancement, without hydronephrosis.? ? Peritoneum and bowel:? Bowel loops demonstrate normal wall thickness and caliber.? Diverticulosis without evidence of diverticulitis.? No free fluid or air.? ? Nodes and vessels:? No retroperitoneal or mesenteric adenopathy by size criteria.? A prominent portacaval lymph node is unchanged, nonspecific.? Aorta and inferior v pamela cava are normal in size.? ? Miscellaneous:? No ventral hernias.? ? ? PELVIS:? Genitourinary:? Bladder is decompressed.? There is a urachal remanent. ? Miscellaneous:? Small fat containing left inguinal hernia.? No inguinal adenopathy. ? Bones:? No suspicious bony lesions.? No vertebral body compression fractures.? ? IMPRESSION:? ? 1. Splenomegaly, evolving splenic infarct. ? 2. No evidence of acute pulmonary process. ? 3. Severe coronary artery calcifications. ? 4. Cholelithiasis. ? 5. Diverticulosis. ? 6. No evidence of acute abdominal process.? ? ? Dictated by: Justino Tucker M.D. on 11/29/2022 at 12:10 ? ? Approved by: Justino Tucker M.D. on 11/29/2022 at 12:21 ? MDM Narrative Medical decision making narrative: Patient brought here by primary care physician from the office for complaints of 40 lb weight loss in the past 3 months with night sweats, office exam showed splenomegaly and hepatomegaly. Patient was here 3 days ago and had blood transfusion for anemia. Patient complains of generalized weakness. Denies any pain. Colonoscopy within the last 2 months according the patient showed no red flags of colon cancer. Patient denies any family history of colon cancer leukemia lymphoma. MDM CC: Weight loss/fatigue Complicating co-morbidities: Anemia Data collected from: Patient and primary care provider Medical records reviewed: ER visit here 3 days ago for blood transfusion Differential considered: Includes but not limited to cancer/lymphoma/leukemia Exam documented above, pertinent findings include: Palpable spleen Lab Test results independently reviewed as above. Pertinent findings: White cell count 6.9 hemoglobin 7.8 platelets 99 Independently reviewed EKG as above, normal EKG normal sinus rhythm rate [address] elevation or depression Imaging studies independently reviewed: CT chest abdomen and pelvis, no acute process, there is evolving splenic infarct. Consultations: PCP/dr tauxe, 1:15 p.m. spoke with him again and will admit, desires for admission, desires blood transfusion for patient Treatments: Normal saline/blood transfusion Re-evaluations: Reviewed results with patient, agrees for admission for transfusion and observation. Reviewed laboratory studies and imaging with him. Discussion: Appropriate for admission for observation and blood transfusion. Spoke with patient and primary care physician and agrees for admission Diagnosis: Anemia/splenic infarct Critical Care Time Critical Care Time Attestation: Critical Care Time 35 minutes: Critical care time is separate from other billable procedures. This critical care time includes consultation with family and other consulting doctors, review of records, and interpretation of data from labs, EKGs, imaging, etc. Patient requiring blood transfusions Discharge Plan Departure Patient Disposition: Admitted as Observation Clinical Impression: Hypotension, Infarction of spleen Admit Date/Time: 11/29/22 13:15 Admit Provider: Waqas Inman
[2022-11-29 11:56] LABS: Add Manual Diff / Slide Review NO; Basophils Absolute Auto 100 /uL (0-100); Basophils Percent Auto 0.7 % (0-2); Eosinophils Absolute Auto 0 /uL (0-450); Eosinophils Percent Auto 0.6 % (2-4); Hematocrit 22.4 % (41-53); Hemoglobin 7.4 g/dL (13.5-17.5); Lymphocytes Absolute Auto 1900 /uL (1100-4500); Lymphocytes Percent Auto 28.4 % (25-40); Mean Corpuscular HGB Conc 32.9 % (30-36); Mean Corpuscular Hemoglobin 24.9 PG (26-34); Mean Corpuscular Volume 75.7 fL (80-100); Monocytes Absolute Auto 1200 /uL (0-900); Monocytes Percent Auto 17.4 % (3-14); Neutrophils Absolute Auto 3600 /uL (1500-7000); Neutrophils Percent Auto 52.9 % (50-75); Platelet Count 100 X10^3/uL (150-400); Red Blood Cell Count 2.96 X10^6/uL (4.5-5.9); Red Cell Distribution Width 20.6 % (11.6-14.8); White Blood Cell Count 6.8 X10^3/uL (4.5-11.0)
[2022-11-29 11:59] LABS: INR 1.4 (0.9-1.3)
[2022-11-29 12:01] LABS: PTT Partial Thromboplastin Tim 32 SECONDS (26-36)
[2022-11-29 12:03] LABS: Alanine Aminotransferase 37 IU/L (<50); Albumin 2.4 g/dL (3.5-5.0); Albumin Globulin Ratio 0.5 (1.0-2.8); Alkaline Phosphatase 59 U/L (38-126); Aspartate Aminotransferase 30 IU/L (17-59); BUN Creatinine Ratio 28.4 (6-22); Bilirubin Total 1.3 mg/dL (0.2-1.3); Blood Urea Nitrogen 54 mg/dL (9-20); Calcium 7.4 mg/dL (8.4-10.2); Carbon Dioxide 15 mmol/L (22-32); Chloride 100 mmol/L (98-107); Creatine Kinase < 20 U/L (55-170); Estimated Glomerular Filt Rate 34 mL/min (>60); Globulin 4.4 g/dL (1.7-4.1); Glucose 112 mg/dL (80-110); HEMOLYSIS < 15 (0-50); Potassium 4.4 mmol/L (3.4-5.1); Sodium 128 mmol/L (137-145); Total Protein 6.8 g/dL (6.3-8.2)
[2022-11-29 12:14] LABS: Lactate (Lactic Acid) 1.4 mmol/L (0.7-2.1)
[2022-11-29 12:15] LABS: NT-proBNP (BNP-Adult 18+) 1910 pg/mL (<450); Troponin I < 0.012 ng/mL (0.01-0.034)
[2022-11-29 12:32] LABS: COVID19 -Nasal RAPID Negative (Negative)
[2022-11-29 12:32] LABS: Procalcitonin 0.53 ng/mL (<0.5)
--- NOTE | 2022-11-29 13:48 | CM.IDA ---
Initial DCP Assessment Patient is 87 y/o male who presents to ED due to recommendation from PCP Dr. Inman. Patient presents with splenomelgaly, hepatomegaly and endorses weight loss and weakness in the last 3 months. Patient's PCP is Dr. Inman, patient has [facility] insurance. Patient has hx of Anemia, hypotension, infarction of spleen, hyperlipidemia, hypertension, & respiratory failure. Dr. Inman admits patient due to concern for Anemia, spleen infarction and Hypotension. Patient to receive blood transfusion and has scheduled ECHO at 1500. FRUIT VENDOR enters room to meet with patient. Patient presents as A/Ox4. Patient endorses that he has been low energy for the last 3 months, patient endorses he has lost 40 lbs in that time. Patient endorses weakness and aversions to food. Patient endorses it could be psychosomatic and endorses difficulty eating food with textures and greasy foods. Patient endorses he cooks breakfast in the morning. Patient endorses difficulty with stability when walking and states that he grabs counters and his is a support. Patient endorses he has a cane but does not use it. Patient resides at home with spouse in [place]. Patient endorses he has many friends nearby but family lives out of state. Patient endorses that his has been driving in the last three months but prior to that patient has been able to drive. Patient denies any DCP needs and endorses his preference is to d/c to home with spouse upon medical clearance. Plan: patient to admit to acute care for observation (pending ECHO and blood transfusion), DCP to f/u with any needs regarding POC, no needs at this time. Patient likely to d/c to home upon medical clearance with and outpatient f/u. KATHLEEN Michael Discharge Planning/Care Management CM Discharge Assessment Start: 11/29/22 13:43 Freq: Status: Active Protocol: Document 11/29/22 13:43 LN (Rec: 11/29/22 13:48 LN [id number]) Discharge Planning Assessment Assigned Journalists [employer] Other Writers KATHLEEN Martinez Advance Directives? Yes: POLST Advance Directives on File No History Provided By Patient,Medical Record Has Patient been admitted in last 30 No days? Prior Living Arrangements House Household Members spouse Type of transportation used prior to Relies on Others admit Comment Patient endorses his has been driving the last 3 months due to his weakness Independent with ADL's Yes Is patient alert and oriented? Yes Needs Assistance With Home Chores / Shopping DME Already Rented / Owned Cane Comment Patient denies DCP needs Discharge Plan Home Transportation Arrangement Spouse Referrals Initiated None needed Please Provide Date Initial DC 11/29/22 Assessment Was Performed
--- NOTE | 2022-11-29 14:01 | DI.ECHO.S_ITS ---
Interpretation Summary The study quality was technically difficult. The ejection fraction is estimated to be 55-60%. Diastolic function could not be accurately assessed due to unobtainable data. The right ventricle is normal in size and function. There is trace aortic regurgitation. Pulmonary artery pressures cannot be estimated because of the lack of a measurable TR jet velocity. Procedure: A two-dimensional transthoracic echocardiogram with color flow and Doppler was performed. The study quality was technically difficult. The patient was in sinus rhythm with heart rates between 72-91 bpm during the exam. Left Ventricle: The left ventricle is normal in size and wall thickness. The ejection fraction is estimated to be 55-60%. Regional wall motion abnormalities cannot be excluded due to limited visualization. Diastolic function could not be accurately assessed due to unobtainable data. Right Ventricle: The right ventricle is normal in size and function. Atria: The left atrial size is normal. Right atrial size is normal. There is no Doppler evidence for an interatrial shunt. Mitral Valve: The mitral valve leaflets appear borderline thickened, but open well. The mitral valve leaflets are slightly calcified. There is trace mitral regurgitation. Aortic Valve: The aortic valve is trileaflet. The aortic valve is moderately calcified. There is mildly reduced leaflet mobility. There is no hemodynamically significant valvular aortic stenosis. There is trace aortic regurgitation. Tricuspid Valve: The tricuspid valve is normal in structure and function. There is a trace or physiologic amount of tricuspid regurgitation. Pulmonary artery pressures cannot be estimated because of the lack of a measurable TR jet velocity. Pulmonic Valve: The pulmonic valve leaflets are thin and pliable; valve motion is normal. There is no pulmonic valvular regurgitation. Great Vessels: The ascending aorta is normal in size. MMode/2D Measurements & Calculations LVIDd: 3.8 cm LVOT diam: 2.0 cm LVIDs: 2.6 cm Ao root diam: 3.2 cm FS: 31.6 % asc Aorta Diam: 3.3 cm EPSS: 0.20 cm IVSd: 1.0 cm LVPWd: 0.80 cm LV govea. diameter/BSA (cm/m^2): 2.1 LV sys. diameter/BSA (cm/m^2): 1.4 LA dimension: 4.2 cm RA long axis: 4.7 cm RA area: 10.3 cm2 RA vol: 19.1 ml RA : 10.3 ml/m2 IVC diam: 2.0 cm RVD1 (basal): 4.1 cm TAPSE_phl: 2.5 cm Doppler Measurements & Calculations Ao V2 max: 187.0 cm/sec LVOT Max Prasad: 123.0 cm/sec Ao V2 mean: 133.0 cm/sec LV V1 max P.1 mmHg Ao max P.0 mmHg LV V1 VTI: 27.6 cm Ao mean P.0 mmHg MACI(I,D): 2.2 cm2 Ao V2 VTI: 39.9 cm MACI(V,D): 2.1 cm2 sev ratio: 0.69 MACI indexed to BSA (cm^2/m^2): 1.2 MV E max prasad: 84.2 cm/sec TR max prasad: 205.0 cm/sec MV A max prasad: 101.0 cm/sec TR max P.9 mmHg MV E/A: 0.83 PA V2 max: 81.9 cm/sec Med Peak E' Prasad: 8.2 cm/sec PA V2 mean: 56.8 cm/sec E/E' med: 10.2 PA mean P.0 mmHg Lat Peak E' Prasad: 6.5 cm/sec E/E' lat: 13.0 E/e' average: 11.6 MV dec time: 0.20 sec MVA(VTI): 3.4 cm2 MV V2 mean: 53.8 cm/sec SV(LVOT): 86.7 ml MV mean P.0 mmHg MV V2 VTI: 25.7 cm AV VR_phl: 0.66 MACI(VTI)/BSA_phl: 1.2 Reading Physician:03:05 PM
--- NOTE | 2022-11-29 15:10 | PM.HP.1 ---
History of Present Illness History of Present Illness Date Patient Seen: 11/29/22 Time Patient Seen: 15:10 Chief complaint: sent by DR ahumada BP Narrative: Pt with persistent worsening weakness and anemia decreased appetite only 1.5 cups of food per day if is gilberto s/p transfusion in ED recently but still feeling weaker and weaker Seen by GI this morning with normal BP, splenomegaly noted on exam Later presented to PCP with acute hypotension BP 60/30 but awake and alert but tired looking referred to ED for emergent eval still borderline transfusable he got [address] which is mostly unremarkable 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 Patient History Medical History Gastroesophageal reflux disease Hyperlipidemia Hypertension Family & Social History Social History: household members spouse Prior Living Arrangements House Safety & Behavioral: Feels Safe in Current Yes Environment Been Physically Hurt or No Threatened By a Person Tobacco & Substance use: Tobacco type cigars Smoking Status Current every day smoker alcohol intake current alcohol intake frequency a few times a month Substance Use Type does not use Meds Home Medications and Allergies Home Medications Medication Instructions Recorded Confirmed Type omeprazole magnesium 20 mg 20 mg PO DAILY 04/26/19 11/29/22 History capsule,delayed release (Acid [employer] (omeprazole)) atorvastatin 20 mg tablet 20 mg PO DAILY 01/22/20 11/29/22 History losartan 100 1 tab PO DAILY 01/22/20 11/29/22 History mg-hydrochlorothiazide 25 mg tablet diphenhydramine 25 1 tab PO BEDTIME PRN Insomnia 11/29/22 11/29/22 History mg-acetaminophen 500 mg tablet (Tylenol PM Extra Strength) Allergies Allergy/AdvReac Type Severity Reaction Status Date / Time ibuprofen AdvReac Mild Verified 11/29/22 11:40 Review of Systems Review of Systems Narrative: all systems reviewed and negative except as otherwise documented in HPI Exam Vital Signs (past 8 hours): - 11/29/22 11:24 11/29/22 11:23 11/29/22 11:24 Temperature 97.8 F Pulse Rate 83 88 87 Respiratory Rate 15 Blood Pressure 91/52 L Pulse Oximetry 98 98 99 Oxygen Delivery Method Room Air 11/29/22 11:24 11/29/22 11:30 11/29/22 11:30 Temperature Pulse Rate 85 Respiratory Rate 21 Blood Pressure 91/52 L 78/49 L Pulse Oximetry 95 Oxygen Delivery Method 11/29/22 11:35 11/29/22 11:36 11/29/22 11:36 Temperature Pulse Rate 82 83 Respiratory Rate 25 H 22 Blood Pressure 77/47 L Pulse Oximetry 98 97 Oxygen Delivery Method 11/29/22 11:40 11/29/22 11:40 11/29/22 11:45 Temperature Pulse Rate 82 Respiratory Rate 22 Blood Pressure 83/52 L 87/53 L Pulse Oximetry 97 Oxygen Delivery Method Room Air 11/29/22 11:45 11/29/22 11:54 11/29/22 11:55 Temperature Pulse Rate 79 76 Respiratory Rate 19 Blood Pressure 89/52 L Pulse Oximetry 98 98 Oxygen Delivery Method Room Air 11/29/22 11:55 11/29/22 12:00 11/29/22 12:00 Temperature Pulse Rate 75 75 Respiratory Rate 17 19 Blood Pressure 88/51 L Pulse Oximetry 98 98 Oxygen Delivery Method Room Air 11/29/22 12:04 11/29/22 12:04 11/29/22 12:05 Temperature Pulse Rate 76 Respiratory Rate 24 Blood Pressure 89/51 L 94/52 L Pulse Oximetry 96 Oxygen Delivery Method 11/29/22 12:05 11/29/22 12:10 11/29/22 12:10 Temperature Pulse Rate 76 75 Respiratory Rate 25 H 24 Blood Pressure 93/55 L Pulse Oximetry 95 99 Oxygen Delivery Method Room Air 11/29/22 12:15 11/29/22 12:15 11/29/22 12:20 Temperature Pulse Rate 76 Respiratory Rate 24 Blood Pressure 93/50 L 94/52 L Pulse Oximetry 97 Oxygen Delivery Method Room Air 11/29/22 12:20 11/29/22 12:25 11/29/22 12:25 Temperature Pulse Rate 75 75 Respiratory Rate 23 25 H Blood Pressure 94/55 L Pulse Oximetry 97 99 Oxygen Delivery Method Room Air 11/29/22 12:30 11/29/22 12:30 11/29/22 12:35 Temperature Pulse Rate 75 Respiratory Rate 26 H Blood Pressure 91/51 L 88/49 L Pulse Oximetry 99 Oxygen Delivery Method 11/29/22 12:35 11/29/22 12:40 11/29/22 12:40 Temperature Pulse Rate 75 74 Respiratory Rate 26 H 25 H Blood Pressure 89/50 L Pulse Oximetry 99 100 Oxygen Delivery Method 11/29/22 12:45 11/29/22 12:45 11/29/22 12:50 Temperature Pulse Rate 74 Respiratory Rate 25 H Blood Pressure 88/53 L 89/52 L Pulse Oximetry 100 Oxygen Delivery Method 11/29/22 12:50 11/29/22 12:55 11/29/22 12:55 Temperature Pulse Rate 74 76 Respiratory Rate 26 H 24 Blood Pressure 94/53 L Pulse Oximetry 100 100 Oxygen Delivery Method Room Air 11/29/22 13:00 11/29/22 13:00 11/29/22 13:05 Temperature Pulse Rate 75 Respiratory Rate 25 H Blood Pressure 98/50 L 95/53 L Pulse Oximetry 98 Oxygen Delivery Method 11/29/22 13:05 11/29/22 13:10 11/29/22 13:15 Temperature Pulse Rate 75 76 75 Respiratory Rate 25 H 20 24 Blood Pressure Pulse Oximetry 98 97 98 Oxygen Delivery Method 11/29/22 13:18 11/29/22 13:18 11/29/22 13:20 Temperature Pulse Rate 74 Respiratory Rate 23 Blood Pressure 98/56 L 95/50 L Pulse Oximetry 98 Oxygen Delivery Method 11/29/22 13:20 11/29/22 13:25 11/29/22 13:25 Temperature Pulse Rate 75 74 Respiratory Rate 26 H 22 Blood Pressure 96/54 L Pulse Oximetry 98 99 Oxygen Delivery Method 11/29/22 13:30 11/29/22 13:30 11/29/22 13:35 Temperature Pulse Rate 74 Respiratory Rate 25 H Blood Pressure 98/53 L 95/52 L Pulse Oximetry 98 Oxygen Delivery Method 11/29/22 13:35 11/29/22 13:40 11/29/22 13:40 Temperature Pulse Rate 77 75 Respiratory Rate 21 16 Blood Pressure 90/53 L Pulse Oximetry 99 100 Oxygen Delivery Method 11/29/22 13:45 11/29/22 13:45 11/29/22 14:04 Temperature 98.5 F Pulse Rate 74 72 Respiratory Rate 22 20 Blood Pressure 94/51 L 91/53 L Pulse Oximetry 100 Oxygen Delivery Method Room Air 11/29/22 14:21 11/29/22 13:50 11/29/22 13:50 Temperature 98.1 F Pulse Rate 72 74 Respiratory Rate 14 24 Blood Pressure 91/53 L 95/50 L Pulse Oximetry 100 Oxygen Delivery Method 11/29/22 13:55 11/29/22 13:55 11/29/22 14:00 Temperature Pulse Rate 73 Respiratory Rate 22 Blood Pressure 97/52 L 93/52 L Pulse Oximetry 98 Oxygen Delivery Method Room Air 11/29/22 14:00 11/29/22 14:05 11/29/22 14:05 Temperature Pulse Rate 74 72 Respiratory Rate 24 23 Blood Pressure 91/53 L Pulse Oximetry 98 100 Oxygen Delivery Method 11/29/22 14:10 11/29/22 14:10 11/29/22 14:15 Temperature Pulse Rate 74 Respiratory Rate 22 Blood Pressure 91/51 L 94/53 L Pulse Oximetry 100 Oxygen Delivery Method 11/29/22 14:15 11/29/22 14:30 11/29/22 14:30 Temperature Pulse Rate 74 72 Respiratory Rate 18 24 Blood Pressure 93/50 L Pulse Oximetry 100 99 Oxygen Delivery Method Room Air 11/29/22 14:45 11/29/22 14:45 11/29/22 14:51 Temperature Pulse Rate 72 75 Respiratory Rate 22 23 Blood Pressure 91/54 L Pulse Oximetry 98 100 Oxygen Delivery Method Room Air 11/29/22 14:52 11/29/22 14:52 Temperature Pulse Rate 75 Respiratory Rate 24 Blood Pressure 100/58 L Pulse Oximetry 100 Oxygen Delivery Method Oxygen Delivery Method Room Air Narrative Exam Narrative: weak pale elder laying on gurney Const General: cooperative and well developed [facility] Head: atraumatic Eyes General: appearance normal, both eyes and all related structures Resp Other: clear to auscultation bilaterally Cardio Other: regular rate S1/S2 GI Other: active bowel sounds soft, splenomegaly Neuro General: patient alert, patient awake and patient oriented x3 Extrem General: full ROM and no pedal edema Psych Mental Status: mental status grossly normal Speech and Movement: speech and movement normal Objective Labs 11/29/22 11:25 11/29/22 11:25 Labs: Laboratory Results - last 24 hr 11/29/22 11/29/22 11/29/22 11:21 11:25 11:25 WBC 6.8 RBC 2.96 L Hgb 7.4 L Hct 22.4 L MCV 75.7 L MCH 24.9 L MCHC 32.9 RDW 20.6 H Plt Count 100 L Neut % (Auto) 52.9 Lymph % (Auto) 28.4 [place] % (Auto) 17.4 H Eos % (Auto) 0.6 L Baso % (Auto) 0.7 Neut # (Auto) 3600 Lymph # (Auto) 1900 [place] # (Auto) 1200 H Eos # (Auto) 0 Baso # (Auto) 100 PT 16.0 H INR 1.4 H APTT 32 Sodium Potassium Chloride Carbon Dioxide BUN Creatinine Estimated GFR BUN/Creatinine Ratio Glucose Lactate Calcium Total Bilirubin AST ALT Alkaline Phosphatase Total Creatine Kinase CK-MB (CK-2) CK-MB (CK-2) Rel Index Troponin I NT-Pro-B Natriuret Pep Total Protein Albumin Globulin Albumin/Globulin Ratio Procalcitonin SARS-CoV-2 (PCR) Negative Blood Type Antibody Screen Crossmatch 11/29/22 11/29/22 11/29/22 11:25 11:25 11:28 WBC RBC Hgb Hct MCV MCH MCHC RDW Plt Count Neut % (Auto) Lymph % (Auto) [place] % (Auto) Eos % (Auto) Baso % (Auto) Neut # (Auto) Lymph # (Auto) [place] # (Auto) Eos # (Auto) Baso # (Auto) PT INR APTT Sodium 128 L Potassium 4.4 Chloride 100 Carbon Dioxide 15 L BUN 54 H Creatinine 1.90 H Estimated GFR 34 L BUN/Creatinine Ratio 28.4 H Glucose 112 H Lactate 1.4 Calcium 7.4 L Total Bilirubin 1.3 AST 30 ALT 37 Alkaline Phosphatase 59 Total Creatine Kinase < 20 L CK-MB (CK-2) TNP CK-MB (CK-2) Rel Index TNP Troponin I < 0.012 NT-Pro-B Natriuret Pep 1910 H Total Protein 6.8 Albumin 2.4 L Globulin 4.4 H Albumin/Globulin Ratio 0.5 L Procalcitonin SARS-CoV-2 (PCR) Blood Type O Positive Antibody Screen Negative Crossmatch See Detail 11/29/22 11:28 WBC RBC Hgb Hct MCV MCH MCHC RDW Plt Count Neut % (Auto) Lymph % (Auto) [place] % (Auto) Eos % (Auto) Baso % (Auto) Neut # (Auto) Lymph # (Auto) [place] # (Auto) Eos # (Auto) Baso # (Auto) PT INR APTT Sodium Potassium Chloride Carbon Dioxide BUN Creatinine Estimated GFR BUN/Creatinine Ratio Glucose Lactate Calcium Total Bilirubin AST ALT Alkaline Phosphatase Total Creatine Kinase CK-MB (CK-2) CK-MB (CK-2) Rel Index Troponin I NT-Pro-B Natriuret Pep Total Protein Albumin Globulin Albumin/Globulin Ratio Procalcitonin 0.53 H SARS-CoV-2 (PCR) Blood Type Antibody Screen Crossmatch Assessment & Plan Assessment & Plan narrative: #acute hypotension continue to hold home antihypertensives, monitor, IVF, improving #acute microcytic anemia #thrombocytopenia #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 Receiving 2Us PRBCs today with lasix chaser see if that perks him up some. No evidence of source of blood loss I suspect this is underproduction issue more. #hyperglobulinemia #hypoalbuminemia Active concern for globulinopathy such as MM given elevated creatinine and low alb/glob ratio checking kappa lights, globulin quant, serum prot electrophoresis, etc may need BMBx #splenic infarct noted per CT, spleen is large and tender on exam, surgery consulted Dr. Jefferson #acute kidney injury Creatinine bumped 1.4 to 1.9 noted IVF and trend #elevated BNP BNP 1910 in Ed today, echocardiogram ordered, personnel monitor #coronary artery disease #hyperlipidemia CAD noted per CT continue statin dispo: Admit obs for monitoring code: full MDM [phone] diet: heart healthy dvt: lovenox Time Spent With Patient Critical Care time: I spent a total of [] minutes of critical care time on this patient's care today; this time is exclusive of procedural time.
[2022-11-29 16:28] LABS: Lactate Dehydrogenase 196 U/L (120-246)
[2022-11-29 16:32] LABS: C-Reactive Protein Quant 6.3 mg/dL (<1.0)
[2022-11-29 16:46] LABS: Vitamin D 25 Hydroxy (D3) 18.6 ng/mL (30.0-100.0)
[2022-11-29 16:48] LABS: Erythrocyte Sedimentation Rate 64 MM/HR (0-15)
--- NOTE | 2022-11-29 18:14 | TAR.TRANSNT ---
Pre transfusion vitals have been documented in the tar.
--- NOTE | 2022-11-29 19:45 | PM.CN ---
History of Present Illness Consult details Date Patient Seen: 11/29/22 Time Patient Seen: 19:53 Chief complaint: sent by DR brandyn SCOTT Reason for consult: Splenic infarction Narrative: Mr. Longoria is an 87-year-old man who is admitted to the hospital today for treatment of symptomatic anemia. Over the past several months he is had an extensive gastroenterology workup for anemia no source of GI bleed has been identified on upper and lower endoscopy. Today in his doctor's office systolic blood pressure was 80 initial hematocrit 24. He subsequently received 3 units of packed red blood cells. As part of his admission/evaluation CT abdomen pelvis was performed which demonstrated a 18 cm spleen with 2 areas of splenic infarction. No abdominal pain nausea vomiting. CT abdomen pelvis September 2022 demonstrated splenomegaly and 2 areas of splenic infarction. Meds Home Medications and Allergies Home Medications Medication Instructions Recorded Confirmed Type omeprazole magnesium 20 mg 20 mg PO DAILY 04/26/19 11/29/22 History capsule,delayed release (Acid Customer Services Supervisor (omeprazole)) atorvastatin 20 mg tablet 20 mg PO DAILY 01/22/20 11/29/22 History losartan 100 1 tab PO DAILY 01/22/20 11/29/22 History mg-hydrochlorothiazide 25 mg tablet diphenhydramine 25 1 tab PO BEDTIME PRN Insomnia 11/29/22 11/29/22 History mg-acetaminophen 500 mg tablet (Tylenol PM Extra Strength) Allergies Allergy/AdvReac Type Severity Reaction Status Date / Time ibuprofen AdvReac Mild Verified 11/29/22 11:40 Exam Vital Signs (past 8 hours): - 11/29/22 11:54 11/29/22 11:55 11/29/22 11:55 Temperature Pulse Rate 76 75 Respiratory Rate 17 Blood Pressure 89/52 L Pulse Oximetry 98 98 Oxygen Delivery Method Oxygen Flow Rate 11/29/22 12:00 11/29/22 12:00 11/29/22 12:04 Temperature Pulse Rate 75 Respiratory Rate 19 Blood Pressure 88/51 L 89/51 L Pulse Oximetry 98 Oxygen Delivery Method Room Air Oxygen Flow Rate 11/29/22 12:04 11/29/22 12:05 11/29/22 12:05 Temperature Pulse Rate 76 76 Respiratory Rate 24 25 H Blood Pressure 94/52 L Pulse Oximetry 96 95 Oxygen Delivery Method Oxygen Flow Rate 11/29/22 12:10 11/29/22 12:10 11/29/22 12:15 Temperature Pulse Rate 75 Respiratory Rate 24 Blood Pressure 93/55 L 93/50 L Pulse Oximetry 99 Oxygen Delivery Method Room Air Oxygen Flow Rate 11/29/22 12:15 11/29/22 12:20 11/29/22 12:20 Temperature Pulse Rate 76 75 Respiratory Rate 24 23 Blood Pressure 94/52 L Pulse Oximetry 97 97 Oxygen Delivery Method Room Air Oxygen Flow Rate 11/29/22 12:25 11/29/22 12:25 11/29/22 12:30 Temperature Pulse Rate 75 Respiratory Rate 25 H Blood Pressure 94/55 L 91/51 L Pulse Oximetry 99 Oxygen Delivery Method Room Air Oxygen Flow Rate 11/29/22 12:30 11/29/22 12:35 11/29/22 12:35 Temperature Pulse Rate 75 75 Respiratory Rate 26 H 26 H Blood Pressure 88/49 L Pulse Oximetry 99 99 Oxygen Delivery Method Oxygen Flow Rate 11/29/22 12:40 11/29/22 12:40 11/29/22 12:45 Temperature Pulse Rate 74 Respiratory Rate 25 H Blood Pressure 89/50 L 88/53 L Pulse Oximetry 100 Oxygen Delivery Method Oxygen Flow Rate 11/29/22 12:45 11/29/22 12:50 11/29/22 12:50 Temperature Pulse Rate 74 74 Respiratory Rate 25 H 26 H Blood Pressure 89/52 L Pulse Oximetry 100 100 Oxygen Delivery Method Room Air Oxygen Flow Rate 11/29/22 12:55 11/29/22 12:55 11/29/22 13:00 Temperature Pulse Rate 76 Respiratory Rate 24 Blood Pressure 94/53 L 98/50 L Pulse Oximetry 100 Oxygen Delivery Method Oxygen Flow Rate 11/29/22 13:00 11/29/22 13:05 11/29/22 13:05 Temperature Pulse Rate 75 75 Respiratory Rate 25 H 25 H Blood Pressure 95/53 L Pulse Oximetry 98 98 Oxygen Delivery Method Oxygen Flow Rate 11/29/22 13:10 11/29/22 13:15 11/29/22 13:18 Temperature Pulse Rate 76 75 Respiratory Rate 20 24 Blood Pressure 98/56 L Pulse Oximetry 97 98 Oxygen Delivery Method Oxygen Flow Rate 11/29/22 13:18 11/29/22 13:20 11/29/22 13:20 Temperature Pulse Rate 74 75 Respiratory Rate 23 26 H Blood Pressure 95/50 L Pulse Oximetry 98 98 Oxygen Delivery Method Oxygen Flow Rate 11/29/22 13:25 11/29/22 13:25 11/29/22 13:30 Temperature Pulse Rate 74 Respiratory Rate 22 Blood Pressure 96/54 L 98/53 L Pulse Oximetry 99 Oxygen Delivery Method Oxygen Flow Rate 11/29/22 13:30 11/29/22 13:35 11/29/22 13:35 Temperature Pulse Rate 74 77 Respiratory Rate 25 H 21 Blood Pressure 95/52 L Pulse Oximetry 98 99 Oxygen Delivery Method Oxygen Flow Rate 11/29/22 13:40 11/29/22 13:40 11/29/22 13:45 Temperature Pulse Rate 75 Respiratory Rate 16 Blood Pressure 90/53 L 94/51 L Pulse Oximetry 100 Oxygen Delivery Method Oxygen Flow Rate 11/29/22 13:45 11/29/22 14:04 11/29/22 14:21 Temperature 98.5 F 98.1 F Pulse Rate 74 72 72 Respiratory Rate 22 20 14 Blood Pressure 91/53 L 91/53 L Pulse Oximetry 100 Oxygen Delivery Method Room Air Oxygen Flow Rate 11/29/22 13:50 11/29/22 13:50 11/29/22 13:55 Temperature Pulse Rate 74 73 Respiratory Rate 24 22 Blood Pressure 95/50 L Pulse Oximetry 100 98 Oxygen Delivery Method Room Air Oxygen Flow Rate 11/29/22 13:55 11/29/22 14:00 11/29/22 14:00 Temperature Pulse Rate 74 Respiratory Rate 24 Blood Pressure 97/52 L 93/52 L Pulse Oximetry 98 Oxygen Delivery Method Oxygen Flow Rate 11/29/22 14:05 11/29/22 14:05 11/29/22 14:10 Temperature Pulse Rate 72 Respiratory Rate 23 Blood Pressure 91/53 L 91/51 L Pulse Oximetry 100 Oxygen Delivery Method Oxygen Flow Rate 11/29/22 14:10 11/29/22 14:15 11/29/22 14:15 Temperature Pulse Rate 74 74 Respiratory Rate 22 18 Blood Pressure 94/53 L Pulse Oximetry 100 100 Oxygen Delivery Method Room Air Oxygen Flow Rate 11/29/22 14:30 11/29/22 14:30 11/29/22 14:45 Temperature Pulse Rate 72 Respiratory Rate 24 Blood Pressure 93/50 L 91/54 L Pulse Oximetry 99 Oxygen Delivery Method Oxygen Flow Rate 11/29/22 14:45 11/29/22 14:51 02/09/23 14:52 Temperature Pulse Rate 72 75 Respiratory Rate 22 23 Blood Pressure 100/58 L Pulse Oximetry 98 100 Oxygen Delivery Method Room Air Oxygen Flow Rate 11/29/22 14:52 11/29/22 15:00 11/29/22 15:13 Temperature 98.0 F Pulse Rate 75 77 76 Respiratory Rate 24 17 Blood Pressure 101/55 L Pulse Oximetry 100 98 98 Oxygen Delivery Method Oxygen Flow Rate 0 11/29/22 15:15 11/29/22 15:30 11/29/22 15:45 Temperature Pulse Rate 76 74 74 Respiratory Rate Blood Pressure Pulse Oximetry 97 98 98 Oxygen Delivery Method Oxygen Flow Rate 11/29/22 16:00 11/29/22 16:15 11/29/22 16:15 Temperature Pulse Rate 71 80 Respiratory Rate 23 21 Blood Pressure 122/59 L Pulse Oximetry 98 94 Oxygen Delivery Method Oxygen Flow Rate 11/29/22 16:30 11/29/22 16:30 11/29/22 16:45 Temperature Pulse Rate 73 Respiratory Rate 25 H Blood Pressure 117/57 L 111/59 L Pulse Oximetry 97 Oxygen Delivery Method Oxygen Flow Rate 11/29/22 16:45 11/29/22 17:00 11/29/22 17:00 Temperature Pulse Rate 73 72 Respiratory Rate 23 24 Blood Pressure 114/55 L Pulse Oximetry 95 98 Oxygen Delivery Method Oxygen Flow Rate 11/29/22 17:15 11/29/22 17:15 11/29/22 17:30 Temperature Pulse Rate 76 Respiratory Rate 24 Blood Pressure 126/63 107/52 L Pulse Oximetry 96 Oxygen Delivery Method Oxygen Flow Rate 11/29/22 17:30 11/29/22 17:45 11/29/22 17:45 Temperature Pulse Rate 74 75 Respiratory Rate 18 20 Blood Pressure 108/59 L Pulse Oximetry 95 96 Oxygen Delivery Method Oxygen Flow Rate 11/29/22 17:54 11/29/22 18:00 11/29/22 18:01 Temperature Pulse Rate 75 81 Respiratory Rate 20 21 Blood Pressure 108/59 L 105/49 L Pulse Oximetry 98 Oxygen Delivery Method Oxygen Flow Rate 11/29/22 18:01 11/29/22 16:00 11/29/22 18:29 Temperature 98 F Pulse Rate 127 H Respiratory Rate 23 Blood Pressure Pulse Oximetry 98 Oxygen Delivery Method Room Air Oxygen Flow Rate 11/29/22 18:28 11/29/22 18:15 11/29/22 18:16 Temperature 98.0 F Pulse Rate 90 Respiratory Rate 23 Blood Pressure 108/71 Pulse Oximetry 97 Oxygen Delivery Method Oxygen Flow Rate 11/29/22 18:16 11/29/22 18:30 11/29/22 18:30 Temperature Pulse Rate 98 H 90 Respiratory Rate 24 25 H Blood Pressure 127/56 L Pulse Oximetry 98 97 Oxygen Delivery Method Oxygen Flow Rate 11/29/22 18:45 11/29/22 18:45 11/29/22 19:00 Temperature Pulse Rate 87 Respiratory Rate 24 Blood Pressure 123/58 L 122/60 Pulse Oximetry 98 Oxygen Delivery Method Oxygen Flow Rate 11/29/22 19:00 11/29/22 19:15 11/29/22 19:16 Temperature Pulse Rate 85 84 84 Respiratory Rate 27 H 27 H 27 H Blood Pressure Pulse Oximetry 97 95 94 Oxygen Delivery Method Oxygen Flow Rate 11/29/22 19:16 11/29/22 19:30 11/29/22 19:30 Temperature Pulse Rate 90 Respiratory Rate 32 H Blood Pressure 115/56 L 114/55 L Pulse Oximetry 99 Oxygen Delivery Method Oxygen Flow Rate Oxygen Delivery Method Room Air Oxygen Flow Rate 0 Narrative Exam Narrative: GENERAL: A well nourished, well developed gentleman appearing stated age, resting comfortably, in no acute distress. HEENT: Normocephalic, atraumatic. No scleral icterus NECK: Full range of motion. No evidence of cervical lymphadenopathy or JVD. CHEST: Rising symmetrically. No audible wheezes CARDIOVASCULAR: Warm and well perfused. Regular rate ABDOMEN: Soft, non-tender, non-distended EXTREMITIES: Normal tone and without edema. NEUROLOGIC: Moving all extremities spontaneously. No gross motor deficits. Objective Labs 11/29/22 11:25 11/29/22 11:25 Labs: Laboratory Results - last 24 hr 11/29/22 11/29/22 11/29/22 11:21 11:25 11:25 WBC 6.8 RBC 2.96 L Hgb 7.4 L Hct 22.4 L MCV 75.7 L MCH 24.9 L MCHC 32.9 RDW 20.6 H Plt Count 100 L Neut % (Auto) 52.9 Lymph % (Auto) 28.4 Maury % (Auto) 17.4 H Eos % (Auto) 0.6 L Baso % (Auto) 0.7 Neut # (Auto) 3600 Lymph # (Auto) 1900 Maury # (Auto) 1200 H Eos # (Auto) 0 Baso # (Auto) 100 ESR PT 16.0 H INR 1.4 H APTT 32 Sodium Potassium Chloride Carbon Dioxide BUN Creatinine Estimated GFR BUN/Creatinine Ratio Glucose Lactate Calcium Total Bilirubin AST ALT Alkaline Phosphatase Lactate Dehydrogenase Total Creatine Kinase CK-MB (CK-2) CK-MB (CK-2) Rel Index Troponin I C-Reactive Protein NT-Pro-B Natriuret Pep Total Protein Albumin Globulin Albumin/Globulin Ratio 25-OH Vitamin D Total Procalcitonin Nasal Screen MRSA (PCR) SARS-CoV-2 (PCR) Negative Blood Type Antibody Screen Crossmatch 11/29/22 11/29/22 11/29/22 11:25 11:25 11:25 WBC RBC Hgb Hct MCV MCH MCHC RDW Plt Count Neut % (Auto) Lymph % (Auto) Maury % (Auto) Eos % (Auto) Baso % (Auto) Neut # (Auto) Lymph # (Auto) Maury # (Auto) Eos # (Auto) Baso # (Auto) ESR PT INR APTT Sodium 128 L Potassium 4.4 Chloride 100 Carbon Dioxide 15 L BUN 54 H Creatinine 1.90 H Estimated GFR 34 L BUN/Creatinine Ratio 28.4 H Glucose 112 H Lactate Calcium 7.4 L Total Bilirubin 1.3 AST 30 ALT 37 Alkaline Phosphatase 59 Lactate Dehydrogenase 196 Total Creatine Kinase < 20 L CK-MB (CK-2) TNP CK-MB (CK-2) Rel Index TNP Troponin I < 0.012 C-Reactive Protein NT-Pro-B Natriuret Pep 1910 H Total Protein 6.8 Albumin 2.4 L Globulin 4.4 H Albumin/Globulin Ratio 0.5 L 25-OH Vitamin D Total Procalcitonin Nasal Screen MRSA (PCR) SARS-CoV-2 (PCR) Blood Type O Positive Antibody Screen Negative Crossmatch See Detail 11/29/22 11/29/22 11/29/22 11:25 11:25 11:25 WBC RBC Hgb Hct MCV MCH MCHC RDW Plt Count Neut % (Auto) Lymph % (Auto) Maury % (Auto) Eos % (Auto) Baso % (Auto) Neut # (Auto) Lymph # (Auto) Maury # (Auto) Eos # (Auto) Baso # (Auto) ESR 64 H PT INR APTT Sodium Potassium Chloride Carbon Dioxide BUN Creatinine Estimated GFR BUN/Creatinine Ratio Glucose Lactate Calcium Total Bilirubin AST ALT Alkaline Phosphatase Lactate Dehydrogenase Total Creatine Kinase CK-MB (CK-2) CK-MB (CK-2) Rel Index Troponin I C-Reactive Protein 6.3 H NT-Pro-B Natriuret Pep Total Protein Albumin Globulin Albumin/Globulin Ratio 25-OH Vitamin D Total 18.6 L Procalcitonin Nasal Screen MRSA (PCR) SARS-CoV-2 (PCR) Blood Type Antibody Screen Crossmatch 11/29/22 11/29/22 11/29/22 11:28 11:28 17:41 WBC RBC Hgb Hct MCV MCH MCHC RDW Plt Count Neut % (Auto) Lymph % (Auto) Maury % (Auto) Eos % (Auto) Baso % (Auto) Neut # (Auto) Lymph # (Auto) Maury # (Auto) Eos # (Auto) Baso # (Auto) ESR PT INR APTT Sodium Potassium Chloride Carbon Dioxide BUN Creatinine Estimated GFR BUN/Creatinine Ratio Glucose Lactate 1.4 Calcium Total Bilirubin AST ALT Alkaline Phosphatase Lactate Dehydrogenase Total Creatine Kinase CK-MB (CK-2) CK-MB (CK-2) Rel Index Troponin I C-Reactive Protein NT-Pro-B Natriuret Pep Total Protein Albumin Globulin Albumin/Globulin Ratio 25-OH Vitamin D Total Procalcitonin 0.53 H Nasal Screen MRSA (PCR) Negative for mrsa SARS-CoV-2 (PCR) Blood Type Antibody Screen Crossmatch [facility] Medical History Gastroesophageal reflux disease Hyperlipidemia Hypertension Social History household members: spouse Tobacco & Substance Use Smoking Status: Current every day smoker alcohol intake: current Assessment & Plan Assessment and plan (1) Splenic infarct: Status: Acute Assessment & Plan narrative: 87-year-old man admitted for management of anemia, consulted in regards to incidentally identified splenic infarct. CT abdomen pelvis reviewed from today which demonstrates splenomegaly with 2 areas of splenic infarction. Comparison to a prior study from September 2022 demonstrates unchanged splenomegaly and the 2 areas of splenic infarction. No abdominal pain no evidence of splenic abscess. No intervention is necessary in regards to the splenic infarction which is likely result of whatever hematologic process is causing his splenomegaly. Time Spent With Patient Critical Care time: I spent a total of [] minutes of critical care time on this patient's care today; this time is exclusive of procedural time.
[2022-11-29] MEDS: FUROSEMIDE 40 MG/4 ML VIAL 20 MG IV (20:56)
[2022-11-29] MEDS: SERTRALINE 50 MG TABLET PO (20:56)
[2022-11-29] MEDS: SODIUM CHLORIDE 0.9% FLUSH 10 ML IV (21:05)
[2022-11-29] MEDS: ACETAMINOPHEN 325 MG TABLET PO (21:47)
[2022-11-29] MEDS: diphenhydrAMINE 25 MG TABLET PO (21:47)
[2022-11-29 22:34] LABS: Hemoglobin 9.1 g/dL (13.5-17.5)
[2022-11-29 22:37] LABS: Hematocrit 27.1 % (41-53)
[2022-11-30] VITALS: BP 117/59; PULSE 75; RESP 26
[2022-11-30 01:00] VITALS: BP 103/59; PULSE 69; RESP 25
[2022-11-30 02:00] VITALS: BP 105/58; PULSE 73; RESP 20
[2022-11-30 04:00] VITALS: PULSE 69; RESP 16
[2022-11-30 05:13] LABS: Alanine Aminotransferase 36 IU/L (<50); Albumin 2.3 g/dL (3.5-5.0); Albumin Globulin Ratio 0.5 (1.0-2.8); Alkaline Phosphatase 48 U/L (38-126); Aspartate Aminotransferase 39 IU/L (17-59); BUN Creatinine Ratio 36.8 (6-22); Bilirubin Total 1.2 mg/dL (0.2-1.3); Blood Urea Nitrogen 57 mg/dL (9-20); Calcium 7.4 mg/dL (8.4-10.2); Carbon Dioxide 19 mmol/L (22-32); Chloride 102 mmol/L (98-107); Estimated Glomerular Filt Rate 44 mL/min (>60); Globulin 4.2 g/dL (1.7-4.1); Glucose 101 mg/dL (80-110); HEMOLYSIS 49 (0-50); Potassium 4.1 mmol/L (3.4-5.1); Sodium 129 mmol/L (137-145); Total Protein 6.5 g/dL (6.3-8.2)
[2022-11-30 05:26] LABS: Hemoglobin 8.9 g/dL (13.5-17.5); Mean Corpuscular HGB Conc 32.9 % (30-36); Mean Corpuscular Hemoglobin 25.7 PG (26-34); Mean Corpuscular Volume 78.1 fL (80-100); Platelet Count 85 X10^3/uL (150-400); Red Blood Cell Count 3.46 X10^6/uL (4.5-5.9); Red Cell Distribution Width 20.8 % (11.6-14.8); White Blood Cell Count 5.3 X10^3/uL (4.5-11.0)
[2022-11-30 05:28] LABS: Add Manual Diff / Slide Review YES
[2022-11-30] MEDS: PANTOPRAZOLE DR 20 MG TABLET PO (06:28)
[2022-11-30 07:00] LABS: Anisocytosis 1+; Neutrophils Absolute Manual 3233 /uL (3000-5900); Total Cells Counted 100
[2022-11-30 08:00] VITALS: BP 117/58; PULSE 75; RESP 14; TEMP 37.2; O2SAT 98
[2022-11-30] MEDS: ATORVASTATIN 20 MG TABLET PO (09:16)
[2022-11-30] MEDS: ENOXAPARIN 40 MG/0.4 ML SYRINGE SUBCUT (09:17)
[2022-11-30] MEDS: SODIUM CHLORIDE 0.9% FLUSH 10 ML IV (09:17)
--- NOTE | 2022-11-30 12:28 | PM.DS.1 ---
History of Present Illness History of Present Illness Date Patient Seen: 11/30/22 Time Patient Seen: 12:28 Chief complaint: sent by DR ahumada BP Narrative: Feeling tentatively better today able to get up to bathroom ok - lab numbers are improving he feels ready to go home. Source of this anemia is still unresolved, surgery said his splenic infarct is non-op conservative mgmt. Appetite and sleep ok no pain today. Discharge Providers Provider Date of admission: 11/29/22 13:15 Discharge Date: 11/30/22 Primary care physician: Waqas Inman MD Consults: 11/29/22 15:20 Consult to Dietitian, Adult Routine Comment: Reason For Exam: weight loss Consult to Occupational Therapy Evaluate & Treat Comment: Physician Instructions: Evaluate and treat Consult to Physical Therapy Evaluate & Treat Comment: Physician Instructions: Evaluate and Treat 11/29/22 15:55 Consult to General Surgery Routine Comment: Consulting Provider: Refugio Jefferson Reason for consultation: splenic infarct Discharge provider: Waqas Inman MD Summary Hospital Course Discharge Diagnosis: #acute hypotension #acute microcytic anemia #thrombocytopenia #monophilic predominance #hyperglobulinemia #hypoalbuminemia #splenic infarct #acute kidney injury #elevated BNP #coronary artery disease #hyperlipidemia #anxiety Status at Discharge Cognitive/behavioral status at discharge: oriented Functional status at discharge: independent ambulation Overall status at discharge: patient is progressing back to baseline Exam Vital Signs (past 8 hours): - 11/30/22 08:00 Temperature 99.0 F Pulse Rate 75 Respiratory Rate 14 Blood Pressure 117/58 L Pulse Oximetry 98 Oxygen Flow Rate 0 Oxygen Delivery Method Room Air Oxygen Flow Rate 0 Narrative Exam Narrative: slender elder sitting in chair Const General: comfortable and well developed HENVA Head: atraumatic Eyes General: appearance normal, both eyes and all related structures Resp Other: clear to auscultation bilaterally Cardio Other: regular rate S1/S2 GI Other: soft nontender nondistended Neuro General: patient alert, patient awake and patient oriented x3 Extrem General: full ROM, no pedal edema and no calf tenderness Psych Mental Status: mental status grossly normal Speech and Movement: speech and movement normal Objective Labs 11/30/22 04:07 11/30/22 04:07 Labs: Laboratory Results - last 24 hr 11/29/22 11/29/22 11/29/22 11:21 11:25 11:25 WBC RBC Hgb Hct MCV MCH MCHC RDW Plt Count Neut % (Auto) Lymph % (Auto) Custer % (Auto) Eos % (Auto) Baso % (Auto) Lymph # (Auto) [place] # (Auto) Baso # (Auto) Total Counted Seg Neutrophils % Band Neutrophils % Lymphocytes % (Manual) Atypical Lymphs % Monocytes % (Manual) Eosinophils % (Manual) Neutrophils # (Manual) RBC Morphology Anisocytosis ESR Sodium Potassium Chloride Carbon Dioxide BUN Creatinine Estimated GFR BUN/Creatinine Ratio Glucose Calcium Total Bilirubin AST ALT Alkaline Phosphatase Lactate Dehydrogenase 196 C-Reactive Protein Total Protein Albumin Globulin Albumin/Globulin Ratio 25-OH Vitamin D Total Procalcitonin Nasal Screen MRSA (PCR) SARS-CoV-2 (PCR) Negative Blood Type O Positive Antibody Screen Negative Crossmatch See Detail 11/29/22 11/29/22 11/29/22 11:25 11:25 11:25 WBC RBC Hgb Hct MCV MCH MCHC RDW Plt Count Neut % (Auto) Lymph % (Auto) [place] % (Auto) Eos % (Auto) Baso % (Auto) Lymph # (Auto) [place] # (Auto) Baso # (Auto) Total Counted Seg Neutrophils % Band Neutrophils % Lymphocytes % (Manual) Atypical Lymphs % Monocytes % (Manual) Eosinophils % (Manual) Neutrophils # (Manual) RBC Morphology Anisocytosis ESR 64 H Sodium Potassium Chloride Carbon Dioxide BUN Creatinine Estimated GFR BUN/Creatinine Ratio Glucose Calcium Total Bilirubin AST ALT Alkaline Phosphatase Lactate Dehydrogenase C-Reactive Protein 6.3 H Total Protein Albumin Globulin Albumin/Globulin Ratio 25-OH Vitamin D Total 18.6 L Procalcitonin Nasal Screen MRSA (PCR) SARS-CoV-2 (PCR) Blood Type Antibody Screen Crossmatch 11/29/22 11/29/22 11/29/22 11:28 17:41 22:17 WBC RBC Hgb 9.1 L Hct 27.1 L MCV MCH MCHC RDW Plt Count Neut % (Auto) Lymph % (Auto) [place] % (Auto) Eos % (Auto) Baso % (Auto) Lymph # (Auto) [place] # (Auto) Baso # (Auto) Total Counted Seg Neutrophils % Band Neutrophils % Lymphocytes % (Manual) Atypical Lymphs % Monocytes % (Manual) Eosinophils % (Manual) Neutrophils # (Manual) RBC Morphology Anisocytosis ESR Sodium Potassium Chloride Carbon Dioxide BUN Creatinine Estimated GFR BUN/Creatinine Ratio Glucose Calcium Total Bilirubin AST ALT Alkaline Phosphatase Lactate Dehydrogenase C-Reactive Protein Total Protein Albumin Globulin Albumin/Globulin Ratio 25-OH Vitamin D Total Procalcitonin 0.53 H Nasal Screen MRSA (PCR) Negative for mrsa SARS-CoV-2 (PCR) Blood Type Antibody Screen Crossmatch 11/30/22 11/30/22 04:07 04:07 WBC 5.3 RBC 3.46 L Hgb 8.9 L Hct 27.0 L MCV 78.1 L MCH 25.7 L MCHC 32.9 RDW 20.8 H Plt Count 85 L Neut % (Auto) Not Reportable Lymph % (Auto) Not Reportable Custer % (Auto) Not Reportable Eos % (Auto) Not Reportable Baso % (Auto) Not Reportable Lymph # (Auto) Not Reportable Custer # (Auto) Not Reportable Baso # (Auto) Not Reportable Total Counted 100 Seg Neutrophils % 59.0 Band Neutrophils % 2.0 L Lymphocytes % (Manual) 17.0 L Atypical Lymphs % 3.0 H Monocytes % (Manual) 14.0 H Eosinophils % (Manual) 5.0 H Neutrophils # (Manual) 3233 RBC Morphology Not Reportable Anisocytosis 1+ H ESR Sodium 129 L Potassium 4.1 Chloride 102 Carbon Dioxide 19 L BUN 57 H Creatinine 1.55 H Estimated GFR 44 L BUN/Creatinine Ratio 36.8 H Glucose 101 Calcium 7.4 L Total Bilirubin 1.2 AST 39 ALT 36 Alkaline Phosphatase 48 Lactate Dehydrogenase C-Reactive Protein Total Protein 6.5 Albumin 2.3 L Globulin 4.2 H Albumin/Globulin Ratio 0.5 L 25-OH Vitamin D Total Procalcitonin Nasal Screen MRSA (PCR) SARS-CoV-2 (PCR) Blood Type Antibody Screen Crossmatch [facility] Medical History Gastroesophageal reflux disease Hyperlipidemia Hypertension Social History household members: spouse Smoking Status: Current every day smoker alcohol intake: current Discharge Assessment & Plan Assessment and Plan Assessment: #acute hypotension improved s/p hydration, resuming only half of home antihypertenseves on discharge, f/u with PCP #acute microcytic anemia #thrombocytopenia #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 Now recieved 3Us PRBCs with temporary help. No evidence of source of blood loss I suspect this is underproduction issue more. Initial labs drawn, referring to hematology for outpatient workup. Did not get bone marrow biopsy - other labs still pending including protein electrophoresis, kappa light chains etc #hyperglobulinemia #hypoalbuminemia Active concern for globulinopathy such as MM given elevated creatinine and low alb/glob ratio checking kappa lights, globulin quant, serum prot electrophoresis, etc may need BMBx #splenic infarct noted per CT, appreciate surgery input continue to monitor #acute kidney injury Imporvied with IVF, encouraged assiduous hydration. IVF and trend. #elevated BNP BNP 1909 in Ed today, echocardiogram obtained, read still pending at this time no concerns on monitor technician, f/u at [facility] #coronary artery disease #hyperlipidemia CAD noted per CT continue statin consider increasing dose at outpt f/u #anxiety starting buspar on discharge dispo: home with code: full MDM [phone] diet: heart healthy dvt: lovenox time spent on discharge: 40 min Discharge Plan Discharge Plan Patient Disposition: Home Health Service Discharge orders & Medications Prescriptions: New losartan 100 mg tablet 100 mg PO DAILY Qty: 30 0RF buspirone 7.5 mg tablet 7.5 mg PO BID Qty: 60 0RF Continued omeprazole magnesium [Acid Python Django Developer (omeprazole)] 20 mg Capsule,Delayed Release(Dr/Ec) 20 mg PO DAILY atorvastatin 20 mg Tablet 20 mg PO DAILY diphenhydramine-acetaminophen [Tylenol PM Extra Strength] 25-500 mg tablet 1 tab PO BEDTIME PRN (Reason: Insomnia) Label Comments: once a day Discontinued losartan-hydrochlorothiazide 100-25 mg Tablet 1 tab PO DAILY Follow up/Referrals: Waqas Inman MD [Primary Care Provider] - (*Appt on Saturday with at 11:30am. [phone] ) Rubén Montana MD [Physician] - (worsening anemia and thrombocytopenia with anisocytosis suspect blood dyscrasia) Visit Report/Discharge Packet Stand Alone Forms: Patient Portal/API, Stroke Signs & Symptoms Discharge Data Primary Care Provider: Waqas Inman Attending Provider: Waqas Inman Quality VTE Deep Vein Thrombosis/Pulmonary Embolism Present on Admission: No
--- NOTE | 2022-11-30 14:17 | OT.IP.EVAL ---
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 Activities of Daily Living and IADL's Pt able to do his ADl's and now his is doing all the IADl needs and to take over doing the bills, medications, and driving. Social History Household Members spouse Living Arrangements House Number of Floors (Floors) One Floor Number of Stairs To Enter/Railing? 2 steps with right rail to enter. Home Environment Standard Height Toilet,Walk in Shower,Tub/Shower Home Equipment Straight Cane,Shower Seat with Backrest,Long Handled Shoe Horn,Grab Bars In Shower M2 OT-IP Current Condition Start: 11/30/22 16:22 Freq: Status: Active Protocol: Document 11/30/22 13:30 [facility] (Rec: 11/30/22 16:48 [facility] [id number]) Occupational Therapy Current Condition Current Condition Evaluation Date 11/30/22 Treatment Diagnosis Anemia and weakness Diagnosis Onset Date 11/29/22 M3 OT- IP Subjective and Pain Start: 11/30/22 16:22 Freq: Status: Active Protocol: Document 11/30/22 13:30 [facility] (Rec: 11/30/22 16:48 [facility] [id number]) OT- Subjective Occupational Therapy Visit Type Type Initial Evaluation Visit Start Time 13:30 Visit Stop Time 14:17 Total Visit Minutes 47 Occupational Therapy Visit Comments Patient Comments Pt agreed to do OT and pt's present at the end of the session. Patient/Caregiver Goals To go home. OT Pain Assessment Pain When Pain Assessed At Rest Pain Present Pain Present Denied Pain M4 OT- IP ADL's Start: 11/30/22 16:22 Freq: Status: Active Protocol: Document 11/30/22 13:30 [facility] (Rec: 11/30/22 16:48 [facility] [id number]) OT ADL-Grooming Comments OT Grooming Comments Pt states did prior. OT ADL-Dressing General Eval Upper Body Dressing Ability Independent Lower Body Dressing Ability Independent Comments OT Dressing Comments SBA for safety as a little unsteady on his feet. OT ADL-Toileting General Evaluation Toileting Ability Standby Assistance Comments OT Toileting Comments Pt able to walk into the bathroom with FWW and do his toileting needs, SBA for safety. OT ADL-Bathing Comments OT Bathing Comments Pt to shower at home, pt's agreed that pt to use the walk in shower with shower chair for showering and that she will be present. M5 OT- IP IADL's Start: 11/30/22 16:22 Freq: Status: Active Protocol: Document 11/30/22 13:30 [facility] (Rec: 11/30/22 16:48 [facility] [id number]) OT-Instrumental Activities of Daily Living Deficits IADL Deficits Identified Deficits Home Safety Awareness Awareness of Need for Assistance at Home Decreased Awareness Home Safety Comments Pt's to now take over doing bills,medications and already doing IADl needs. 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 M6 OT- IP Functional Cognition Start: 11/30/22 16:22 Freq: Status: Active Protocol: Document 11/30/22 13:30 [facility] (Rec: 11/30/22 16:48 [facility] [id number]) Cognitive Factors Limiting Selfcare Function Cognitive Ability Level of Alertness Alert Patient Orientation Name,Age,Birthday,Month,Date, Year,Day of Week,Place, Situation Attention Span Ability Capable of Focused Attention, Capable of Sustained Attention Ability to Follow Commands Able to Follow Multi-Step Commands Safety Awareness Underestimates Need for Assistance Cognitive Comments Cognitive Assessment Comments Pt scored 154 seconds on [place] Making Part B which implies severe impairments for task switching, speed of processing, mental flexibility , executive functioning, and visual attention. Pt agrees that pt will not be driving anymore. Pt also encourage to be more active at home and take to have a schedule increased his activity tolerance. Pt's states pt sleep 8 hours during the day. OT- Vision and Hearing OT- Hearing Assessment OT- Hearing Assessment Use of Hearing Aids OT- Vision Assessment Visual Acuity WFL Visual Attentiveness WFL Occular Pursuits WFL Visual Convergence WFL Visual Hassan WFL Vision Assessment Comments Pt has hearing aids but not in the hospital. Pt hears better out of his left ear versus right. M7 OT- IP Mobility and Balance Start: 11/30/22 16:22 Freq: Status: Active Protocol: Document 11/30/22 13:30 [facility] (Rec: 11/30/22 16:48 [facility] [id number]) OT- Bed Mobility Assessment Rolling Level of Assistance Independent Supine to Sit Supine to Sit Assist Independent Sit to Supine Sit to Supine Assist Independent Scooting Scooting to Edge of Bed Independent Scooting Up and Down in Bed Independent OT-Transfer Assessment Sit to and From Stand Sit to and from Stand Standby Assistance Transfers Transfer Ability Standby Assistance,Contact Guard Assistance Technique Transfer Destination Bed,Chair,Toilet Transfer Technique Stand Step Pivot Devices Transfer Assistive Devices None,Gait Belt,Front Wheeled Walker Comments Mobility Comments close SBA to CGA without FWW and with FWW SBA. Pt's planning on getting a FWW for the pt. Pt refusing to try the steps and insistent on going home. OT- Balance Assessment Sitting Balance and Reactions Static Sitting Balance Ability Normal Dynamic Sitting Balance Ability Normal Standing Balance and Reactions Static Standing Balance Ability Good Dynamic Standing Balance Ability Fair M8 OT- IP Objective Assessments Start: 11/30/22 16:22 Freq: Status: Active Protocol: Document 11/30/22 13:30 [facility] (Rec: 11/30/22 16:48 [facility] [id number]) OT- Coordination Assessment Comments Coordination Comments slight decreased accuracy for right hand finger to nose M9 OT- IP Assessment and Plan Start: 11/30/22 16:22 Freq: Status: Active Protocol: Document 11/30/22 13:30 [facility] (Rec: 11/30/22 16:48 [facility] [id number]) OT Summary Assessment and Plan Potential Rehabilitation Potential Good Analytic Complexity at Evaluation Low Summary OT Impairments Balance,Functional Mobility, Toileting,Bathing,Shower Transfers,Activity Tolerance Progress Towards Goals Progressing Toward Goals Assessment Summary Pt Low complexity and main barriers are decreased activity tolerance and a little unsteady on his feet and will benefit from a FWW for mobility. Able to train his to assist pt with a gait belt. Pt refusing to do the steps prior to going home. Pt to have 24/7 assist from his and home health. Goals Dressing Goal Independent Toileting Goal Independent Bathing Goal Independent Toilet Transfer Goal Independent Shower Transfer Goal Independent Days to Meet Goals 3 Frequency of Treatment Frequency Of Treatment Once a Day Treatment Plan OT Treatment Plan ADL Training,Functional Cognition Training,Functional Mobility,Patient/Family Education,Discharge Planning Discharge Recommendations OT Discharge Recommendations Home with 24/7 Assist Available,Home Health Home Equipment Needs fww Transportation Needs at Discharge Private Vehicle
--- NOTE | 2022-11-30 14:21 | CM.DPNOTE ---
DC Note Discharge home today w/spouse, senait services- RN/PT/OT Patient and spouse agreeable to plan, close outpatient f/u recommended JW
--- NOTE | 2022-11-30 15:12 | PT-IP ANOTE ---
Pt d/c before PT eval.
--- NOTE | 2022-11-30 16:21 | DIET.CONS ---
Dietary Consultation Note Admission Date: 11/29/2022 13:15 Assessment: 87 y/o M admitted for acute hypotension and microcytic anemia. RD consulted for MNA 9 (at risk for malnutrition).? Met pt at bedside to assess for malnutrition.?Reports reduced appetite since August of 2022, likely exacerbated by RSV dx in September. Notes he tested positive?for COVID in January 2020 and positive for RSV in September 2022 Diet recall: B: 2 eggs, tamazight muffin with amber, ODiego (eats all) S: (10 am) 1/4 of a hoagie sandwich L: 1/2 can chx noodle soup, sometimes with small salad S: (2 pm) 1/2 maple bar D: ~1 cup pasta, sometimes with small salad Fluids: 64-80 oz water, ONS 1x per day Endorses decreased appetite resulting in a 40 lb / 18.2 kg wt loss (21%- severe). According to chart review wt hx, pt has lost 10.7% wt in 3-4 months (severe). Pt reports having food aversions?(texture and fried foods) and worsening gag reflux. Wt hx: 11/29/2022: 76kg 10/30/2022: 74kg 07/2022: 85.07kg NFPE revealed mild orbital muscle wasting, temporal depression and boxed shoulders (moderate). Endorses noticeable weight loss in clothing and loss of strength in ADLs. Ht: 167.64 cm Wt: 76 kg BMI: 27.0 UBW: 86kg Last BM: 11/30/22 (11/30/22 09:15) MNA: 9 Jordy Score: 23 Nutrition Percent Meal Consumed 25% 11/30/22 09:15 Percent Meal Consumed 75% 11/29/22 18:00 Labs: RBC 3.46 X10^6/uL (4.5-5.9) L 11/30/22 04:07 Hgb 8.9 g/dL (13.5-17.5) L 11/30/22 04:07 Hct 27.0 % (41-53) L 11/30/22 04:07 Creatinine 1.55 mg/dL (0.66-1.25) H 11/30/22 04:07 Lactate 1.4 mmol/L (0.7-2.1) 11/29/22 11:28 NT-Pro-B Natriuret Pep 1910 pg/mL (<450) H 11/29/22 11:25 Nutrition Diagnosis: Moderate acute on chronic malnutrition r/t physiological changes resulting in diminished intake aeb 10.7% wt loss in 3-4 months, mild muscle loss per NFPE, lack of appetite, and reduced PO per report.? Interventions: Pt to be discharged today. We reviewed ways to increase kcal intake at home, including ONS BID and higher kcal foods. EER: 1900kcal (25kcal/kg per BMI) 114g (1.5g/kg per malnutrition) Monitoring/Evaluations: consult prn Electronically Signed by: Anabelle Ibrahim 11/30/22 16:21 Clinical Dietitian [address] [id number]
[2022-12-01 04:09] LABS: IGA 290 mg/dL (61-437); IGG 2727 mg/dL (603-1613); IGM 47 mg/dL (15-143)
[2022-12-03 14:08] LABS: Free Kappa Lt Chains, Serum 158.4 mg/L (3.3-19.4); Free Lambda Lt Chains,Serum 293.6 mg/L (5.7-26.3)
[2022-12-03 14:36] LABS: Albumin 1.8 g/dL (2.9-4.4); Alpha-1-Globulin 0.3 g/dL (0.0-0.4); Alpha-2-Globulin 0.7 g/dL (0.4-1.0); Gamma Globulin 2.5 g/dL (0.4-1.8); Globulin Total 4.2 g/dL (2.2-3.9)
[2022-12-04 15:08] LABS: Beta-2-Microglobulin 15.2 mg/L (0.6-2.4)
== END 2022-11-30 14:20 | disposition home health service (06) ==
LOC: ED 13:11 → AC 13:16 → ICU 14:28
PROVIDERS: Admitting Provider Family Medicine; Emergency Provider Emergency Medicine; Family Provider Student in an Organized Health Care Education/Training Program; PCP Family Medicine; Referring Provider Emergency Medicine; Visit Provider Family Medicine
DX: D73.5 Infarction of spleen (principal); D50.9 Iron deficiency anemia, unspecified; D69.6 Thrombocytopenia, unspecified; I95.9 Hypotension, unspecified; N17.9 Acute kidney failure, unspecified; I25.10 Atherosclerotic heart disease of native coronary artery without angina pectoris; E78.5 Hyperlipidemia, unspecified; F41.9 Anxiety disorder, unspecified; Z20.822 Contact with and (suspected) exposure to COVID-19
CPT/HCPCS: 36415; 36430; 71260; 74177; 80053; 82232; 82306; 82550; 82784; 83605; 83615; 83880; 83883; 84145; 84155; 84165; 84484; 85007; 85014; 85018; 85025; 85610; 85651; 85730; 86140; 86850; 86900; 86901; 87040; 87635; 87797; 93005; 93010; 93306; 96372; 96374; 97165; 97530; 99231; 99285; 99291; C9803; G0378; P9016; J1650; J1940; Q9967

== ENCOUNTER 2022-12-05 17:27 | Inpatient (IN) | payer OTHER, SELFPAY ==
[2022-11-29 15:07] VITALS: BMI 27.0
[2022-12-05] VITALS (78 sets, daily range): BP systolic 91–127; BP diastolic 50–61; PULSE 72–115; RESP 18–34; TEMP 35.8–37.2; O2SAT 88–100; BMI 25.7
--- NOTE | 2022-12-05 18:01 | DI.RAD.S_ITS ---
PROCEDURE: XR CHEST 1V INDICATIONS: Chest pain TECHNIQUE: One view of the chest was acquired. COMPARISON: [facility], CR, XR CHEST 1V, 11/26/2022, 8:05. FINDINGS: Patchy mixed interstitial and airspace opacities in both lungs which are more pronounced when compared with 11/26/2022 exam. No pleural effusion or pneumothorax. Heart size normal. IMPRESSION: Increased/new mixed interstitial and airspace opacities in both lungs when compared with 11/26/2022 exam. Findings may represent atypical infectious process or pulmonary edema. Dictated by: Ok Falcon M.D. on 12/05/2022 at 18:18 Approved by: Ok Falcon M.D. on 12/05/2022 at 18:19
[2022-12-05 18:28] LABS: INR 1.3 (0.9-1.3); Prothrombin Time 14.9 SECONDS (10.1-12.7)
[2022-12-05 18:30] LABS: Add Manual Diff / Slide Review NO; Basophils Absolute Auto 100 /uL (0-100); Eosinophils Absolute Auto 100 /uL (0-450); Eosinophils Percent Auto 1.3 % (2-4); Hematocrit 30.5 % (41-53); Hemoglobin 9.9 g/dL (13.5-17.5); Lymphocytes Absolute Auto 2700 /uL (1100-4500); Lymphocytes Percent Auto 31.6 % (25-40); Mean Corpuscular HGB Conc 32.4 % (30-36); Mean Corpuscular Hemoglobin 25.6 PG (26-34); Monocytes Absolute Auto 500 /uL (0-900); Monocytes Percent Auto 6.2 % (3-14); Neutrophils Absolute Auto 5100 /uL (1500-7000); Neutrophils Percent Auto 59.9 % (50-75); PTT Partial Thromboplastin Tim 30 SECONDS (26-36); Platelet Count 80 X10^3/uL (150-400); Red Blood Cell Count 3.86 X10^6/uL (4.5-5.9); Red Cell Distribution Width 21.1 % (11.6-14.8); White Blood Cell Count 8.6 X10^3/uL (4.5-11.0)
[2022-12-05] MEDS: SODIUM CHLORIDE 0.9% 1,000 ML 1000 ML IV (18:32)
[2022-12-05] MEDS: ONDANSETRON 4 MG ODT SL (18:32)
[2022-12-05 18:33] LABS: Alanine Aminotransferase 37 IU/L (<50); Albumin 2.6 g/dL (3.5-5.0); Albumin Globulin Ratio 0.6 (1.0-2.8); Alkaline Phosphatase 83 U/L (38-126); Aspartate Aminotransferase 64 IU/L (17-59); BUN Creatinine Ratio 36.6 (6-22); Bilirubin Total 1.2 mg/dL (0.2-1.3); Blood Urea Nitrogen 60 mg/dL (9-20); Calcium 7.6 mg/dL (8.4-10.2); Carbon Dioxide 16 mmol/L (22-32); Chloride 103 mmol/L (98-107); Creatine Kinase < 20 U/L (55-170); Estimated Glomerular Filt Rate 41 mL/min (>60); Globulin 4.4 g/dL (1.7-4.1); Glucose 144 mg/dL (80-110); HEMOLYSIS < 15 (0-50); Lipase 94 U/L (23-300); Magnesium 1.6 mg/dL (1.6-2.3); Potassium 4.8 mmol/L (3.4-5.1); Sodium 130 mmol/L (137-145)
[2022-12-05 18:34] LABS: Lactate (Lactic Acid) 3.7 mmol/L (0.7-2.1)
--- NOTE | 2022-12-05 18:34 | PC.NURSE ---
Patient spouse reports that she gave the patient 4 81mg aspirin at home while on the phone with 911 prior to EMS arrival. Aspirin ordered as part of NIO. Medication not given due to at home administration.
[2022-12-05 18:44] LABS: Troponin I < 0.012 ng/mL (0.01-0.034)
[2022-12-05 18:50] LABS: Procalcitonin 0.47 ng/mL (<0.5)
[2022-12-05 19:35] LABS: Anisocytosis 1+; Microcytosis 1+
[2022-12-05 19:42] LABS: Influenza A - CEPHEID Flu A NEGATIVE (NEGATIVE); Influenza B - CEPHEID Flu B NEGATIVE (NEGATIVE); Respiratory Syncytial Virus Negative (Negative)
[2022-12-05 19:44] LABS: Bacteria Urine Occasional (0-1); Culture Indicated Urine Cult Not Indicated; Other Crystals Urine 1+ Amorphous; RBC Urine 1-5/HPF (0-5/HPF); Squamous Epithelial Cell Urine 0-1 /HPF (0-5/HPF); WBC Urine 1-5/HPF (0-5/HPF)
[2022-12-05 19:46] LABS: COVID-19 CEPHEID 4-PLEX PCR Negative (Negative)
[2022-12-05 19:55] LABS: Hemoglobin 6.4 g/dL (13.5-17.5)
[2022-12-05 19:56] LABS: Hematocrit 19.8 % (41-53)
--- NOTE | 2022-12-05 19:59 | ED_ITS ---
HPI - Chest Pain General Chief Complaint: Chest Pain Stated Complaint: General Weakness Time Seen by Provider: 12/05/22 18:59 Source: patient and EMS Mode of arrival: EMS Limitations: no limitations History of Present Illness HPI narrative: 87-year-old male daily smoker with history of hypertension and hyperlipidemia returns for the 2nd time in a week for dizziness, weakness and lightheadedness. He had recently been seen and evaluated for symptomatic anemia and was admitted, transfused 3 units of packed red cells, stabilized and subsequently discharged home. He has an appointment to meet with hematology and oncology tomorrow. He denies any fever or chills. He denies runny nose, sore throat or cough. He is had no hematemesis, bloody urine or dark stools. He does not take any blood thinners. During his last hospitalization he had advanced imaging including chest, abdomen and pelvis CT which noted splenomegaly and an evolving splenic infarct which it sounds is largely unchanged from prior imaging in September with similar presentation.. Echocardiogram noted EF of 55-60%. He did have a brief episode mid chest pain that was sharp and stabbing in nature and without obvious provocation, palliation or radiation. Related Data Home Medications Medication Instructions Recorded Confirmed omeprazole magnesium 20 mg 20 mg PO DAILY 04/26/19 12/05/22 capsule,delayed release (Acid Refractory Specialist (omeprazole)) atorvastatin 20 mg tablet 20 mg PO DAILY 01/22/20 12/05/22 diphenhydramine 25 1 tab PO BEDTIME PRN Insomnia 11/29/22 12/05/22 mg-acetaminophen 500 mg tablet (Tylenol PM Extra Strength) Previous Rx's Medication Instructions Recorded buspirone 7.5 mg tablet 7.5 mg PO BID #60 tabs 11/30/22 losartan 100 mg tablet 100 mg PO DAILY #30 tabs 11/30/22 Allergies Allergy/AdvReac Type Severity Reaction Status Date / Time ibuprofen AdvReac Mild Verified 11/29/22 11:40 Review of Systems Review of Systems Narrative: GENERAL: See HPI HEENT: Denies sinus pain, ear pain, sore throat, difficulty swallowing, dizziness. RESPIRATORY: Denies dyspnea, cough, wheezing, hemoptysis, sputum. CARDIOVASCULAR: See HPI GASTROINTESTINAL: See HPI : Denies dysuria, frequency, incontinence, hematuria, urinary retention. MUSCULOSKELETAL: denies weakness, joint pain, or bony pain SKIN: Denies rash, skin lesions, or other NEUROLOGIC: Denies weakness, headache, numbness, change in speech, confusion, seizures, incoordination. PSYCHIATRIC: No concerning psychosocial issues. 12 point review of systems is negative except for those stated above Patient History Medical History Gastroesophageal reflux disease Hyperlipidemia Hypertension Social History household members: spouse Smoking Status: Current every day smoker alcohol intake: current Smoking Status: Current every day smoker tobacco type: cigars alcohol intake frequency: a few times a month Substance Use Type: does not use Exam Narrative Exam Narrative: GENERAL: [87] year old patient appears stated age. Well-developed patient, in mild distress. Pale HEAD: Atraumatic. Normocephalic. EYES: Pale conjunctivae Pupils equal round and reactive. Extraocular motions intact. No scleral icterus. No injection or drainage. ENT: Nose without bleeding, purulent drainage. Throat without erythema, to nsillar hypertrophy or exudate. Airway patent. NECK: Trachea midline. Non tender CARDIOVASCULAR: Regular rate and rhythm without murmurs, gallops, or rubs. RESPIRATORY: Clear to auscultation. Breath sounds equal bilaterally. No wheezes, rales, or rhonchi. GASTROINTESTINAL: Abdomen soft,tenderness in LUQ, no mass, nondistended. RECTAL: heme NEG EXTREMITIES: No edema or joint tenderness. BACK: Nontender without deformity or crepitance. No flank tenderness. NEURO: AOx3. SKIN: No rash or erythema of visible areas Initial Vital Signs Initial Vital Signs: Vital Signs Pulse Rate 111 H 12/05/22 17:35 Respiratory Rate 24 12/05/22 17:35 Blood Pressure 115/57 L 12/05/22 17:35 Pulse Oximetry 94 12/05/22 17:35 Oxygen Delivery Method 12/05/22 17:35 Course Orders Ordered: Acetaminophen (Acetaminophen 325 Mg Tablet) 325 mg PO BEDTIME PRN PRN Reason: Insomnia Acetaminophen (Acetaminophen 325 Mg Tablet) 650 mg PO Q6H PRN PRN Reason: Pain, Mild (1-3) Buspirone HCl (Buspirone 5 Mg Tablet) 7.5 mg PO BID SB Diphenhydramine HCl (Diphenhydramine 25 Mg Tablet) 25 mg PO BEDTIME PRN PRN Reason: Insomnia Magnesium Hydroxide (Magnesium Hydroxide 30 Ml Udc) 30 ml PO DAILY PRN PRN Reason: Constipation Naloxone HCl (Naloxone 0.4 Mg/Ml Vial) 0.2 mg IV Q2MIN PRN PRN Reason: Opiate Reversal Pantoprazole Sodium (Pantoprazole Dr 20 Mg Tablet) 20 mg PO 0600 [facility] Discontinued Medications Acetaminophen (Acetaminophen 325 Mg Tablet) 650 mg PO Q6H SB Last Admin: 12/06/22 01:06 Dose: Not Given Documented By: AGW Aspirin (Aspirin 81 Mg Chew Tab) 324 mg PO NOW ONE Stop: 12/05/22 18:02 Last Admin: 12/05/22 18:33 Dose: Not Given Documented By: RB Sodium Chloride (Normal Saline 0.9%) 1,000 mls @ 1,000 mls/hr IV BOLUS ONE Stop: 12/05/22 19:06 Last Infusion: 12/05/22 19:35 Dose: 0 mls/hr Documented By: Admin: 12/05/22 18:32 Dose: 1,000 mls/hr Documented By: RB Non-Formulary Medication (Buspirone) 7.5 mg PO BID [facility] Non-Formulary Medication (Diphenhydramine-Acetaminophen [Tylenol Pm Extra Strength]) 1 tab PO BEDTIME PRN PRN Reason: Insomnia Non-Formulary Medication (Omeprazole Magnesium [Acid Refractory Specialist (Omeprazole)]) 20 mg PO DAILY [facility] Ondansetron HCl (Ondansetron 4 Mg/2 Ml Inj) 4 mg IV NOW PRN PRN Reason: Nausea And Vomiting Ondansetron HCl (Ondansetron 4 Mg Odt) 4 mg SL NOW PRN PRN Reason: Nausea And Vomiting Last Admin: 12/05/22 18:32 Dose: 4 mg Documented By: RB Consultations Consultation #1: call to construction accountant Cardio Jeferson) initial EKG noting LBBB is likely rate related and improvement in tracing with improved rate is very reassuring. Increased troponin likely demand ischemia and recommends continued transfusion and stabilization as focus, unlikely primary cardiac event Consultation #2: Dr. Weaver happy to accept Vital Signs Vital signs: Vital Signs - 8 hr 12/05/22 17:46 12/05/22 17:35 12/05/22 18:15 Temperature 98.6 F Pulse Rate 111 H 111 H 111 H Respiratory Rate 23 24 28 H Blood Pressure 110/54 L 115/57 L 127/60 Pulse Oximetry 98 94 91 Oxygen Delivery Method Room Air Room Air Room Air 12/05/22 18:35 12/05/22 18:45 12/05/22 17:40 Temperature Pulse Rate 110 H 107 H 110 H Respiratory Rate 28 H 27 H 34 H Blood Pressure 121/60 114/55 L 112/56 L Pulse Oximetry 92 93 93 Oxygen Delivery Method Room Air Room Air 12/05/22 17:45 12/05/22 17:50 12/05/22 17:55 Temperature Pulse Rate 110 H 111 H 110 H Respiratory Rate 32 H 30 H 29 H Blood Pressure 110/54 L Pulse Oximetry 93 92 92 Oxygen Delivery Method Room Air 12/05/22 18:00 12/05/22 18:05 12/05/22 18:10 Temperature Pulse Rate 110 H 115 H 115 H Respiratory Rate 27 H 29 H 26 H Blood Pressure 110/53 L 110/56 L 94/51 L Pulse Oximetry 93 92 93 Oxygen Delivery Method 12/05/22 18:20 12/05/22 18:25 12/05/22 18:30 Temperature Pulse Rate 110 H 111 H 112 H Respiratory Rate 31 H 27 H 28 H Blood Pressure 112/59 L 108/61 118/60 Pulse Oximetry 94 90 L 93 Oxygen Delivery Method Room Air Room Air 12/05/22 18:40 12/05/22 18:50 12/05/22 18:55 Temperature Pulse Rate 109 H 113 H 113 H Respiratory Rate 30 H 26 H 27 H Blood Pressure 114/55 L 112/55 L 111/55 L Pulse Oximetry 94 95 94 Oxygen Delivery Method 12/05/22 19:00 12/05/22 19:05 12/05/22 19:10 Temperature Pulse Rate 112 H 115 H 109 H Respiratory Rate 26 H 27 H 27 H Blood Pressure 108/57 L 107/57 L 114/59 L Pulse Oximetry 94 95 94 Oxygen Delivery Method Room Air Room Air Room Air 12/05/22 19:15 12/05/22 19:20 12/05/22 19:25 Temperature Pulse Rate 108 H 108 H 108 H Respiratory Rate 32 H 27 H 26 H Blood Pressure 115/57 L 107/56 L 106/58 L Pulse Oximetry 95 95 94 Oxygen Delivery Method 12/05/22 19:30 12/05/22 19:35 12/05/22 19:40 Temperature Pulse Rate 108 H 105 H 105 H Respiratory Rate 29 H 30 H 30 H Blood Pressure 94/54 L 105/52 L 97/53 L Pulse Oximetry 91 95 95 Oxygen Delivery Method 12/05/22 19:45 Temperature Pulse Rate 107 H Respiratory Rate 26 H Blood Pressure 91/54 L Pulse Oximetry 96 Oxygen Delivery Method Room Air MDM - Chest Pain Lab Data 12/05/22 19:40 12/05/22 18:01 Labs: Lab Results 12/05/22 12/05/22 12/05/22 Range/Units 17:40 18:01 18:01 WBC 8.6 (4.5-11.0) X10^3/uL RBC 3.86 L (4.5-5.9) X10^6/uL Hgb 9.9 L (13.5-17.5) g/dL Hct 30.5 L (41-53) % MCV 79.0 L (80-100) fL MCH 25.6 L (26-34) PG MCHC 32.4 (30-36) % RDW 21.1 H (11.6-14.8) % Plt Count 80 L (150-400) X10^3/uL Neut % (Auto) 59.9 (50-75) % Lymph % (Auto) 31.6 (25-40) % [place] % (Auto) 6.2 (3-14) % Eos % (Auto) 1.3 L (2-4) % Baso % (Auto) 1.0 (0-2) % Neut # (Auto) 5100 (4377-4938) /uL Lymph # (Auto) 2700 (5989-9075) /uL [place] # (Auto) 500 (0-900) /uL Eos # (Auto) 100 (0-450) /uL Baso # (Auto) 100 (0-100) /uL RBC Morphology See below Anisocytosis 1+ H Microcytosis 1+ H PT 14.9 H (10.1-12.7) SECONDS INR 1.3 (0.9-1.3) APTT 30 (26-36) SECONDS Sodium (137-145) mmol/L Potassium (3.4-5.1) mmol/L Chloride (98-107) mmol/L Carbon Dioxide (22-32) mmol/L BUN (9-20) mg/dL Creatinine (0.66-1.25) mg/dL Estimated GFR (>60) mL/min BUN/Creatinine Ratio (6-22) Glucose (80-110) mg/dL Lactate (0.7-2.1) mmol/L Calcium (8.4-10.2) mg/dL Magnesium (1.6-2.3) mg/dL Total Bilirubin (0.2-1.3) mg/dL AST (17-59) IU/L ALT (<50) IU/L Alkaline Phosphatase (38-126) U/L Total Creatine Kinase (55-170) U/L CK-MB (CK-2) CK-MB (CK-2) Rel Index Troponin I (0.01-0.034) ng/mL Total Protein (6.3-8.2) g/dL Albumin (3.5-5.0) g/dL Globulin (1.7-4.1) g/dL Albumin/Globulin Ratio (1.0-2.8) Lipase (23-300) U/L Procalcitonin (<0.5) ng/mL Urine RBC (0-5/HPF) Urine WBC (0-5/HPF) Ur Squamous Epith Cells (0-5/HPF) Other Crystals Urine Bacteria (None) Ur Culture Indicated? SARS-CoV-2 (PCR) (Negative) Influenza A (RT-PCR) (NEGATIVE) Influenza B (RT-PCR) (NEGATIVE) RSV (PCR) (Negative) Blood Type O Positive Antibody Screen Negative Crossmatch See Detail 12/05/22 12/05/22 12/05/22 Range/Units 18:01 18:02 18:07 WBC (4.5-11.0) X10^3/uL RBC (4.5-5.9) X10^6/uL Hgb (13.5-17.5) g/dL Hct (41-53) % MCV (80-100) fL MCH (26-34) PG MCHC (30-36) % RDW (11.6-14.8) % Plt Count (150-400) X10^3/uL Neut % (Auto) (50-75) % Lymph % (Auto) (25-40) % [place] % (Auto) (3-14) % Eos % (Auto) (2-4) % Baso % (Auto) (0-2) % Neut # (Auto) (8585-6184) /uL Lymph # (Auto) (6126-2245) /uL [place] # (Auto) (0-900) /uL Eos # (Auto) (0-450) /uL Baso # (Auto) (0-100) /uL RBC Morphology Anisocytosis Microcytosis PT (10.1-12.7) SECONDS INR (0.9-1.3) APTT (26-36) SECONDS Sodium 130 L (137-145) mmol/L Potassium 4.8 (3.4-5.1) mmol/L Chloride 103 (98-107) mmol/L Carbon Dioxide 16 L (22-32) mmol/L BUN 60 H (9-20) mg/dL Creatinine 1.64 H (0.66-1.25) mg/dL Estimated GFR 41 L (>60) mL/min BUN/Creatinine Ratio 36.6 H (6-22) Glucose 144 H (80-110) mg/dL Lactate (0.7-2.1) mmol/L Calcium 7.6 L (8.4-10.2) mg/dL Magnesium 1.6 (1.6-2.3) mg/dL Total Bilirubin 1.2 (0.2-1.3) mg/dL AST 64 H (17-59) IU/L ALT 37 (<50) IU/L Alkaline Phosphatase 83 (38-126) U/L Total Creatine Kinase < 20 L (55-170) U/L CK-MB (CK-2) TNP CK-MB (CK-2) Rel Index TNP Troponin I < 0.012 (0.01-0.034) ng/mL Total Protein 7.0 (6.3-8.2) g/dL Albumin 2.6 L (3.5-5.0) g/dL Globulin 4.4 H (1.7-4.1) g/dL Albumin/Globulin Ratio 0.6 L (1.0-2.8) Lipase 94 D (23-300) U/L Procalcitonin 0.47 (<0.5) ng/mL Urine RBC (0-5/HPF) Urine WBC (0-5/HPF) Ur Squamous Epith Cells (0-5/HPF) Other Crystals Urine Bacteria (None) Ur Culture Indicated? SARS-CoV-2 (PCR) Negative (Negative) Influenza A (RT-PCR) Flu a negative (NEGATIVE) Influenza B (RT-PCR) Flu b negative (NEGATIVE) RSV (PCR) Negative (Negative) Blood Type Antibody Screen Crossmatch 12/05/22 12/05/22 12/05/22 Range/Units 18:07 19:10 19:40 WBC (4.5-11.0) X10^3/uL RBC (4.5-5.9) X10^6/uL Hgb 6.4 L* (13.5-17.5) g/dL Hct 19.8 L* (41-53) % MCV (80-100) fL MCH (26-34) PG MCHC (30-36) % RDW (11.6-14.8) % Plt Count (150-400) X10^3/uL Neut % (Auto) (50-75) % Lymph % (Auto) (25-40) % [place] % (Auto) (3-14) % Eos % (Auto) (2-4) % Baso % (Auto) (0-2) % Neut # (Auto) (3261-2827) /uL Lymph # (Auto) (2790-4358) /uL [place] # (Auto) (0-900) /uL Eos # (Auto) (0-450) /uL Baso # (Auto) (0-100) /uL RBC Morphology Anisocytosis Microcytosis PT (10.1-12.7) SECONDS INR (0.9-1.3) APTT (26-36) SECONDS Sodium (137-145) mmol/L Potassium (3.4-5.1) mmol/L Chloride (98-107) mmol/L Carbon Dioxide (22-32) mmol/L BUN (9-20) mg/dL Creatinine (0.66-1.25) mg/dL Estimated GFR (>60) mL/min BUN/Creatinine Ratio (6-22) Glucose (80-110) mg/dL Lactate 3.7 H (0.7-2.1) mmol/L Calcium (8.4-10.2) mg/dL Magnesium (1.6-2.3) mg/dL Total Bilirubin (0.2-1.3) mg/dL AST (17-59) IU/L ALT (<50) IU/L Alkaline Phosphatase (38-126) U/L Total Creatine Kinase (55-170) U/L CK-MB (CK-2) CK-MB (CK-2) Rel Index Troponin I (0.01-0.034) ng/mL Total Protein (6.3-8.2) g/dL Albumin (3.5-5.0) g/dL Globulin (1.7-4.1) g/dL Albumin/Globulin Ratio (1.0-2.8) Lipase (23-300) U/L Procalcitonin (<0.5) ng/mL Urine RBC 1-5/hpf (0-5/HPF) Urine WBC 1-5/hpf (0-5/HPF) Ur Squamous Epith Cells 0-1 /hpf (0-5/HPF) Other Crystals 1+ amorphous Urine Bacteria Occasional (0-1) (None) Ur Culture Indicated? Cult not indicated SARS-CoV-2 (PCR) (Negative) Influenza A (RT-PCR) (NEGATIVE) Influenza B (RT-PCR) (NEGATIVE) RSV (PCR) (Negative) Blood Type Antibody Screen Crossmatch 12/05/22 12/05/22 Range/Units 20:05 20:05 WBC (4.5-11.0) X10^3/uL RBC (4.5-5.9) X10^6/uL Hgb (13.5-17.5) g/dL Hct (41-53) % MCV (80-100) fL MCH (26-34) PG MCHC (30-36) % RDW (11.6-14.8) % Plt Count (150-400) X10^3/uL Neut % (Auto) (50-75) % Lymph % (Auto) (25-40) % [place] % (Auto) (3-14) % Eos % (Auto) (2-4) % Baso % (Auto) (0-2) % Neut # (Auto) (5636-0345) /uL Lymph # (Auto) (4522-0569) /uL [place] # (Auto) (0-900) /uL Eos # (Auto) (0-450) /uL Baso # (Auto) (0-100) /uL RBC Morphology Anisocytosis Microcytosis PT (10.1-12.7) SECONDS INR (0.9-1.3) APTT (26-36) SECONDS Sodium (137-145) mmol/L Potassium (3.4-5.1) mmol/L Chloride (98-107) mmol/L Carbon Dioxide (22-32) mmol/L BUN (9-20) mg/dL Creatinine (0.66-1.25) mg/dL Estimated GFR (>60) mL/min BUN/Creatinine Ratio (6-22) Glucose (80-110) mg/dL Lactate 1.9 (0.7-2.1) mmol/L Calcium (8.4-10.2) mg/dL Magnesium (1.6-2.3) mg/dL Total Bilirubin (0.2-1.3) mg/dL AST (17-59) IU/L ALT (<50) IU/L Alkaline Phosphatase (38-126) U/L Total Creatine Kinase (55-170) U/L CK-MB (CK-2) CK-MB (CK-2) Rel Index Troponin I 0.130 H* (0.01-0.034) ng/mL Total Protein (6.3-8.2) g/dL Albumin (3.5-5.0) g/dL Globulin (1.7-4.1) g/dL Albumin/Globulin Ratio (1.0-2.8) Lipase (23-300) U/L Procalcitonin (<0.5) ng/mL Urine RBC (0-5/HPF) Urine WBC (0-5/HPF) Ur Squamous Epith Cells (0-5/HPF) Other Crystals Urine Bacteria (None) Ur Culture Indicated? SARS-CoV-2 (PCR) (Negative) Influenza A (RT-PCR) (NEGATIVE) Influenza B (RT-PCR) (NEGATIVE) RSV (PCR) (Negative) Blood Type Antibody Screen Crossmatch Urine Dip Bedside Urine Glucose Negative Bedside Urine Bilirubin - Negative Bedside Urine Ketone - Negative Urine Specific [place] 1.015 Bedside Urine Occult Blood + Bedside Urine pH 6.0 Bedside Urine Protein - Negative Bedside Urine Urobilinogen 0.2 Bedside Urine Nitrite - Negative Bedside Urine Leukocytes - Negative Esterase MDM Narrative Medical decision making narrative: CC: 87-year-old male with recurrence of generalized weakness, fatigue and shortness of breath Complicating co-morbidities: Age, hypertension, hyperlipidemia, recent hospitalization, known splenomegaly with infarct Data collected from: Patient Medical records reviewed: Prior ED visits reviewed Differential considered, but not limited to: Anemia, splenic problem, cardiac ischemia versus other Exam documented above, pertinent findings include: Abdomen soft, some left upper quadrant tenderness, bowel sounds present, rectal heme negative. No respiratory distress, heart rate regular Lab Test results independently reviewed as above. Pertinent findings: Initial hemoglobin stable, repeat demonstrates significant drop, transfusion ordered. Initial troponin negative, increased noted, likely demand ischemia, will follow closely. Independently reviewed EKG as above Consultations: Cardiology (Dr. Quintero), Dr. Weaver Treatments: Transfusion Re-evaluations: Patient feeling better after transfusion no ongoing chest pain, improved shortness of breath Discussion: 87-year-old male with a few days of increasing fatigue and shortness of breath, reminiscent of prior admission for anemia. No evidence of bleeding, denies vomiting, dark stools, heme-negative rectal exam. Drop in hemoglobin over initial portion of visit resulting in transfusion order. Patient did have very brief episode of what he refers to as musculoskeletal chest pain and no ongoing episodes. Initial EKG does show left bundle branch block which appears to be new, this block resolves as heart rate improves. Ini tial troponin negative which then increases. This prompts call to Cardiology who suggest this is demand ischemia, recommends ongoing transfusion other resuscitative efforts, suggesting this is not likely primary cardiac event. Furthermore patient has no increased pain, swelling in abdomen, had recent abdominal CT, will not repeat. Patient requires hospitalization for ongoing stabilization and evaluation of his condition. He and family understand and agree with the diagnosis and plan Disposition: see below, along with detailed discharge instructions that have been reviewed with patient as well as indications for ED re-evaluation and additional outpatient follow up Discharge Plan Departure Patient Disposition: Admitted As Inpatient Clinical Impression: Anemia, Elevated troponin Admit Date/Time: 12/05/22 21:32 Admit Provider: Colt Weaver
[2022-12-05 20:19] LABS: Reflexed Lactate in 2 Hours Y
[2022-12-05 20:34] LABS: Lactate 2HR (Lactic Acid Rflx) 1.9 mmol/L (0.7-2.1)
[2022-12-06] VITALS (8 sets, daily range): BP systolic 103–139; BP diastolic 55–65; PULSE 69–83; RESP 17–18; TEMP 36.1–37; O2SAT 94–99
[2022-12-06] MEDS: PANTOPRAZOLE DR 20 MG TABLET PO (06:24)
[2022-12-06 06:43] LABS: Hemoglobin 9.9 g/dL (13.5-17.5); Mean Corpuscular HGB Conc 32.8 % (30-36); Mean Corpuscular Hemoglobin 26.2 PG (26-34); Mean Corpuscular Volume 79.9 fL (80-100); Red Blood Cell Count 3.76 X10^6/uL (4.5-5.9); Red Cell Distribution Width 20.5 % (11.6-14.8); White Blood Cell Count 6.4 X10^3/uL (4.5-11.0)
[2022-12-06 06:46] LABS: Add Manual Diff / Slide Review YES; Hematocrit 30.1 % (41-53)
[2022-12-06 06:48] LABS: Alanine Aminotransferase 30 IU/L (<50); Albumin 2.1 g/dL (3.5-5.0); Albumin Globulin Ratio 0.5 (1.0-2.8); Alkaline Phosphatase 57 U/L (38-126); Aspartate Aminotransferase 31 IU/L (17-59); BUN Creatinine Ratio 41.6 (6-22); Bilirubin Total 1.1 mg/dL (0.2-1.3); Blood Urea Nitrogen 57 mg/dL (9-20); Calcium 7.3 mg/dL (8.4-10.2); Carbon Dioxide 19 mmol/L (22-32); Chloride 104 mmol/L (98-107); Creatine Kinase < 20 U/L (55-170); Estimated Glomerular Filt Rate 51 mL/min (>60); Globulin 3.9 g/dL (1.7-4.1); Glucose 101 mg/dL (80-110); HEMOLYSIS 17 (0-50); Potassium 4.5 mmol/L (3.4-5.1); Sodium 131 mmol/L (137-145)
[2022-12-06 07:03] LABS: Troponin I 0.207 ng/mL (0.01-0.034)
[2022-12-06 07:41] LABS: Neutrophils Absolute Manual 4864 /uL (3000-5900); Total Cells Counted 50
[2022-12-06 07:43] LABS: Anisocytosis 1+; Hypochromasia 1+; Platelet Count 66 X10^3/uL (150-400)
[2022-12-06] MEDS: BUSPIRONE 5 MG TABLET 7.5 MG PO ×2 (08:10→21:06)
[2022-12-06 11:54] LABS: HEMOLYSIS < 15 (0-50); Iron 17 ug/dL (49-181)
[2022-12-06 12:05] LABS: Percent Iron Saturation 8 % (20-50); Total Iron Binding Capacity 221 ug/dL (261-462); Transferrin 131 mg/dL (206-381)
[2022-12-06 12:15] LABS: Creatine Kinase < 20 U/L (55-170)
[2022-12-06 12:30] LABS: Troponin I 0.173 ng/mL (0.01-0.034)
--- NOTE | 2022-12-06 13:09 | CM.DANOTE ---
Addendum entered by QIANA Okeefe 12/07/22 10:15: DC Note Patient discharging home w/supportive spouse this morning, eager to return home, indp in room. Close outpatient follow up scheduled. No needs identified from CM team ESEQUIEL Original Note: Initial DCP Assessment Note Pt is an 87 yo male, resident [facility], arrives back to the ER for dizziness, weakness and lightheadedness. Recent hx of weakness and unintentional weight loss Patient discharged 11.30.22 home w/spouse and senait HH services after an admission for severe anemia, etiology was undetermined. Patient had been scheduled for f/u w/Oncology and GI Attempted bedside assessment w/patient and spouse and Dr Montana, Oncologist, was at bedside (patient's outpatient appt had been scheduled for today) Recent chart notes indicate patient had been active and indp up until approx 3 mo ago when appetite and food preferences changed leading to significant weight loss. In addition, general weakness and pain limited patient's ability to function independently. According to MELISSA Henson, medical plan of care unknown, patient may be a candidate for palliative vs hospice services depending on consult by Dr Montana PCP: Waqas Inman Payer: [facility] CM team will plan to follow closely as medical plan of care unfolds. In addition, will complete bedside assessment soon to introduce role and service to patient and spouse QIANA Rankin Discharge Planning/Care Management CM Discharge Assessment Start: 12/06/22 13:04 Freq: Status: Active Protocol: Document 12/06/22 13:04 ESEQUIEL (Rec: 12/06/22 13:09 [email or web address] [id number]) Discharge Planning Assessment Assigned Wiring Inspector QIANA Saunders DPOA/Assigned Designee Name Mojgan Alfred spouse Contact Information [phone] Advance Directives? Yes: POLST Advance Directives on File Yes History Provided By Patient,Medical Record Has Patient been admitted in last 30 Yes days? Comment Here 2.9-2.10, discharged home w/spouse, HH and close outpatient f/u Prior Living Arrangements House Household Members spouse Type of transporation used prior to Relies on Others admit Independent with ADL's No Is patient alert and oriented? Yes Needs Assistance With Bathing,Meal Prep,Toileting, Managing Medications,Home Chores / Shopping Patient/Family Preference Home with Home Health Barriers to Discharge Yes Comment Weakness. Home w/ HH vs Hospice vs SNF stay vs Respite TBD, following closely as medical POC unfolds Transportation Arrangement Spouse Additional Comment Following closely as medical plan of care unfolds
--- NOTE | 2022-12-06 14:10 | P.CONONC_ITS ---
History of Present Illness - Data of Consult Patient: new to practice Consult date: 12/06/22 Requesting Physician: Dr. Nano Arroyo Primary Care Provider: Waqas Inman MD - Consult Narrative Reason for consult: Anemia and thrombocytopenia Narrative: Willem Alfred is a 87 year old male with medical comorbidities notable for hypertension, hyperlipidemia, GERD, CKD (IIIA), protate cancer, SCC scalp and depression. He also has history of COVID-19 pneumonia (01/2020) requiring hospitalization. Willem is a long-term blood donor. He donates blood about twice a year. But in 03/2022, donation of blood was denies because the patient was found to be anemic. Per records from [facility], Willem Alfred developed left sided abdominal pain in later 2021 and had 15 pound weight loss at that time. On 09/20/2022, he underwent abdominal ultrasound for abdominal pain and the us showed marked splenomegaly (18 cm) and 2 foci of splenic infarct. On 10/19/2022,, Dr. Bruno Villatoro, GI performed EGD/C-scope. Per note, multiple benign-appearing gastric polyps in the body stomach status post biopsy, mild non-erosive gastritis status post biopsy, mild sigmoid diverticulosis, 2 mm a scending colon polyp removed by cold biopsy forceps, small internal hemorrhoids on retroflexion. Biopsy pathology was negative for dysplasia or malignancy. Since 10/2022, he has had multiple ER visits, observation and hospital admission for progressive worsening hypochromic microcytic anemia requiring blood transfusions. He was also found to have developed moderate thrombocytopenia. He was admitted to hospital on 12/05/2022 for the same complaint. HGB MCV PLT 01/22/2020 14.1 85.8 265 10/30/2022 8.2 74.8 154 11/26/2022 7.5 76.3 106 11/29/2022 7.4 75.7 100 12/05/2022 6.4 79.0 80 12/06/2012 9.9 79.9 66 His WBC has been normal throughout. He received pRBC 1 units on 11/26/2022, 2 units on 11/29/2022, and 2 units 12/05/2022. During his ER visit on 11/29/2022, CT CAP w/contrast showed splenomegaly again (about 18 cm) with evolving splenic infarct. His presenting symptoms at ER visits also include shaking, and feeling cold, that usually occur 5-6 pm in the afternoon, but recently, it also occurred at 2 pm CC: Colt Weaver MD Patient reports pain?: Yes - Pain Details Pain Intensity: 0 Pain Scale Used: Numeric (0 - 10) Home Medications and Allergies Home Medications Medication Instructions Recorded Confirmed Type omeprazole magnesium 20 mg 20 mg PO DAILY 04/26/19 12/05/22 History capsule,delayed release (Acid Cosmetic Chemist (omeprazole)) atorvastatin 20 mg tablet 20 mg PO DAILY 01/22/20 12/05/22 History diphenhydramine 25 1 tab PO BEDTIME PRN Insomnia 11/29/22 12/05/22 History mg-acetaminophen 500 mg tablet (Tylenol PM Extra Strength) buspirone 7.5 mg tablet 7.5 mg PO BID #60 tabs 11/30/22 12/05/22 Rx losartan 100 mg tablet 100 mg PO DAILY #30 tabs 11/30/22 12/05/22 Rx Allergies Allergy/AdvReac Type Severity Reaction Status Date / Time ibuprofen AdvReac Mild Verified 11/29/22 11:40 Medical History - Medical, Surgical, Family History Medical History: Medical History (Last Updated 12/06/22 @ 23:39 by Rubén Montana MD) Gastroesophageal reflux disease Hyperlipidemia Hypertension Surgical History: Surgical History (Last Updated 12/06/22 @ 23:41 by Rubén Montana MD) H/O prostatectomy H/O vasectomy Hx of tonsillectomy Family History: Family History (Last Updated 12/06/22 @ 23:41 by Rubén Montana MD) Mother Heart attack Father Bone cancer - Social History Smoking Status: Current every day smoker Exam Vital signs: Vital Signs Temp Pulse Resp BP Pulse Ox O2 Del Method O2 Flow Rate 12/06/22 11:30 83 123/65 12/06/22 11:00 98.1 F 83 18 123/65 96 0 12/06/22 07:30 98.5 F 81 18 114/62 94 0 12/06/22 03:45 96.9 F L 73 17 111/55 L 94 0 12/06/22 02:15 96.9 F L 69 18 109/61 12/05/22 23:52 74 100 Nasal Cannula 2 12/05/22 21:34 Nasal Cannula 12/05/22 23:54 97.2 F L 75 18 103/57 L 12/06/22 00:10 96.9 F L 75 18 103/57 L 99 2 12/05/22 23:20 78 24 101/55 L 96 Nasal Cannula 2 12/05/22 23:15 79 24 93/52 L 95 12/05/22 23:10 79 20 97/55 L 95 12/05/22 23:30 96.5 F L 72 18 96/53 L 96 2 12/05/22 23:38 96.8 F L 72 20 96/53 L 12/05/22 23:18 97.9 F 79 23 94/53 L 12/05/22 23:05 79 24 94/50 L 97 Nasal Cannula 2 12/05/22 23:00 80 19 100/51 L 97 Room Air 12/05/22 22:55 81 25 H 98/52 L 96 Nasal Cannula 2 12/05/22 22:50 82 24 97/54 L 95 Nasal Cannula 2 12/05/22 23:04 97.6 F 79 24 100/56 L 12/05/22 22:35 85 27 H 100/55 L 91 Room Air 12/05/22 22:40 97.4 F L 83 20 98/55 L 12/05/22 22:25 86 25 H 101/57 L 92 12/05/22 22:20 87 28 H 101/58 L 91 12/05/22 22:15 87 29 H 101/56 L 92 12/05/22 22:10 87 28 H 94/51 L 92 12/05/22 22:05 89 27 H 100/55 L 92 12/05/22 22:00 87 26 H 92/51 L 92 12/05/22 21:55 90 28 H 91/50 L 92 Room Air 12/05/22 21:50 90 25 H 93/51 L 95 12/05/22 21:45 91 H 27 H 98/57 L 94 12/05/22 21:40 91 H 29 H 92/55 L 94 12/05/22 21:35 91 H 28 H 92/54 L 93 12/05/22 21:30 94 H 28 H 100/56 L 93 12/05/22 21:25 95 H 28 H 95/51 L 92 12/05/22 22:45 82 25 H 102/58 L 94 Nasal Cannula 2 12/05/22 22:40 84 26 H 98/55 L 88 L Room Air 12/05/22 20:30 85 28 H 99/52 L 93 12/05/22 21:20 95 H 25 H 94/51 L 93 12/05/22 22:16 97.7 F 85 19 101/56 L 12/05/22 22:00 98.7 F 87 26 H 92/51 L 12/05/22 21:43 98.9 F 90 25 H 92/55 L 12/05/22 21:15 96 H 19 95/53 L 92 12/05/22 21:10 96 H 20 94/51 L 93 12/05/22 21:05 96 H 30 H 96/57 L 93 12/05/22 21:00 96 H 26 H 101/53 L 93 12/05/22 20:55 94 H 20 98/56 L 94 12/05/22 20:50 96 H 25 H 96/51 L 94 12/05/22 20:45 95 H 26 H 94/55 L 95 12/05/22 20:40 98 H 27 H 94/51 L 93 12/05/22 20:35 99 H 29 H 103/57 L 92 12/05/22 20:30 100 H 30 H 100/57 L 93 12/05/22 20:25 99 H 26 H 102/52 L 95 12/05/22 20:20 100 H 23 98/55 L 97 12/05/22 20:15 99 H 25 H 98/56 L 94 12/05/22 20:10 99 H 23 100/56 L 95 12/05/22 20:05 100 H 32 H 94/59 L 92 12/05/22 20:00 101 H 29 H 97/54 L 94 12/05/22 19:55 104 H 27 H 94/51 L 96 12/05/22 19:50 105 H 26 H 103/54 L 93 12/05/22 19:45 107 H 26 H 91/54 L 96 Room Air 12/05/22 19:40 105 H 30 H 97/53 L 95 12/05/22 19:35 105 H 30 H 105/52 L 95 12/05/22 19:30 108 H 29 H 94/54 L 91 12/05/22 19:25 108 H 26 H 106/58 L 94 02/15/23 19:20 108 H 27 H 107/56 L 95 12/05/22 19:15 108 H 32 H 115/57 L 95 12/05/22 19:10 109 H 27 H 114/59 L 94 Room Air 12/05/22 19:05 115 H 27 H 107/57 L 95 Room Air 12/05/22 19:00 112 H 26 H 108/57 L 94 Room Air 12/05/22 18:55 113 H 27 H 111/55 L 94 12/05/22 18:50 113 H 26 H 112/55 L 95 12/05/22 18:40 109 H 30 H 114/55 L 94 12/05/22 18:30 112 H 28 H 118/60 93 12/05/22 18:25 111 H 27 H 108/61 90 L Room Air 12/05/22 18:20 110 H 31 H 112/59 L 94 Room Air 12/05/22 18:10 115 H 26 H 94/51 L 93 12/05/22 18:05 115 H 29 H 110/56 L 92 12/05/22 18:00 110 H 27 H 110/53 L 93 12/05/22 17:55 110 H 29 H 92 12/05/22 17:50 111 H 30 H 110/54 L 92 12/05/22 17:45 110 H 32 H 93 Room Air 12/05/22 17:40 110 H 34 H 112/56 L 93 12/05/22 18:45 107 H 27 H 114/55 L 93 Room Air 12/05/22 18:35 110 H 28 H 121/60 92 Room Air 12/05/22 18:15 111 H 28 H 127/60 91 Room Air 12/05/22 17:35 111 H 24 115/57 L 94 Room Air 12/05/22 17:46 98.6 F 111 H 23 110/54 L 98 Room Air FiO2 12/06/22 11:30 12/06/22 11:00 12/06/22 07:30 12/06/22 03:45 12/06/22 02:15 12/05/22 23:52 28 12/05/22 21:34 12/05/22 23:54 12/06/22 00:10 12/05/22 23:20 12/05/22 23:15 12/05/22 23:10 02/15/23 23:30 12/05/22 23:38 12/05/22 23:18 12/05/22 23:05 12/05/22 23:00 12/05/22 22:55 12/05/22 22:50 12/05/22 23:04 12/05/22 22:35 12/05/22 22:40 12/05/22 22:25 12/05/22 22:20 12/05/22 22:15 12/05/22 22:10 12/05/22 22:05 12/05/22 22:00 12/05/22 21:55 12/05/22 21:50 12/05/22 21:45 12/05/22 21:40 12/05/22 21:35 12/05/22 21:30 12/05/22 21:25 12/05/22 22:45 12/05/22 22:40 12/05/22 20:30 12/05/22 21:20 12/05/22 22:16 12/05/22 22:00 12/05/22 21:43 12/05/22 21:15 12/05/22 21:10 12/05/22 21:05 12/05/22 21:00 12/05/22 20:55 12/05/22 20:50 12/05/22 20:45 12/05/22 20:40 12/05/22 20:35 12/05/22 20:30 12/05/22 20:25 12/05/22 20:20 12/05/22 20:15 12/05/22 20:10 12/05/22 20:05 12/05/22 20:00 12/05/22 19:55 12/05/22 19:50 12/05/22 19:45 12/05/22 19:40 12/05/22 19:35 12/05/22 19:30 12/05/22 19:25 12/05/22 19:20 12/05/22 19:15 12/05/22 19:10 12/05/22 19:05 12/05/22 19:00 12/05/22 18:55 12/05/22 18:50 12/05/22 18:40 12/05/22 18:30 12/05/22 18:25 12/05/22 18:20 12/05/22 18:10 12/05/22 18:05 12/05/22 18:00 12/05/22 17:55 12/05/22 17:50 12/05/22 17:45 12/05/22 17:40 12/05/22 18:45 12/05/22 18:35 12/05/22 18:15 12/05/22 17:35 12/05/22 17:46 Intake and Output 12/05/22 12/06/22 12/06/22 23:59 07:59 15:59 Intake Total 1325 / 1325 375 / 615 240 / 615 Output Total 175 / 175 775 / 1125 350 / 1125 Balance 1150 / 1150 -400 / -510 -110 / -510 Intake: IV 1000 / 1000 Sodium Chloride 0.9% 1,000 ml @ 1000 / 1000 1000 mls/hr IV BOLUS ONE Rx#: [id number] Intake (Blood Product) Amt 325 / 325 325 / 325 Packed Cells Unit 0 / 0 325 / 325 [id number] Packed Cells Unit 325 / 325 [id number] Oral 240 / 240 Other 50 / 50 Packed Cells Unit 50 / 50 [id number] Output: Urine 175 / 175 775 / 1125 350 / 1125 Other: Percent Meal Consumed 100% Stool Size Large Weight 78.6 kg - Constitutional positive no acute distress, positive obese, positive cooperative - Routine HEENT Exam Head: Present: normocephalic, atraumatic Eye: Present: EOMI, PERRL, normal accommodation. Absent: conjunctival icterus - Routine Neck Exam Present: supple. Absent: lymphadenopathy, thyromegaly - Routine Chest/Breast/Axilla Exam Axillae: Absent: lymphadenopathy - Routine Respiratory Exam Present: Clear to auscultation bilaterally. Absent: wheezes, crackles - Routine Cardiovascular Exam Present: RRR, S1, S2. Absent: murmur, gallop, rubs - Routine Abdominal Exam Present: soft. Absent: distended Palpation/Percussion: Present: splenomegaly. Absent: hepatomegaly - Routine Extremities Exam Absent: edema - Routine Neurological Exam Present: alert, oriented X3, CN II-XII intact. Absent: sensory deficit, motor deficit - Routine Psychiatric Exam Present: normal affect Results - Labs Laboratory Last Values WBC 6.4 X10^3/uL (4.5-11.0) 12/06/22 06:10 RBC 3.76 X10^6/uL (4.5-5.9) L 12/06/22 06:10 Hgb 9.9 g/dL (13.5-17.5) L 12/06/22 06:10 Hct 30.1 % (41-53) L 12/06/22 06:10 MCV 79.9 fL (80-100) L 12/06/22 06:10 MCH 26.2 PG (26-34) 12/06/22 06:10 MCHC 32.8 % (30-36) 12/06/22 06:10 RDW 20.5 % (11.6-14.8) H 12/06/22 06:10 Plt Count 66 X10^3/uL (150-400) L 12/06/22 06:10 Neut % (Auto) Not Reportable 12/06/22 06:10 Lymph % (Auto) Not Reportable 12/06/22 06:10 Winston % (Auto) Not Reportable 12/06/22 06:10 Eos % (Auto) Not Reportable 12/06/22 06:10 Baso % (Auto) Not Reportable 12/06/22 06:10 Neut # (Auto) 5100 /uL (1778-7855) 12/05/22 18:01 Lymph # (Auto) Not Reportable 12/06/22 06:10 Winston # (Auto) Not Reportable 12/06/22 06:10 Eos # (Auto) 100 /uL (0-450) 12/05/22 18:01 Baso # (Auto) Not Reportable 12/06/22 06:10 Total Counted 50 12/06/22 06:10 Seg Neutrophils % 72.0 % (38-70) H 12/06/22 06:10 Band Neutrophils % 4.0 % (3-7) 12/06/22 06:10 Lymphocytes % (Manual) 20.0 % (25-45) L 12/06/22 06:10 Monocytes % (Manual) 2.0 % (2-11) 12/06/22 06:10 Eosinophils % (Manual) 2.0 % (2-4) 12/06/22 06:10 Neutrophils # (Manual) 4864 /uL (9908-6562) 12/06/22 06:10 RBC Morphology Not Reportable 12/06/22 06:10 Hypochromasia 1+ H 12/06/22 06:10 Anisocytosis 1+ H 12/06/22 06:10 Microcytosis 1+ H 12/05/22 18:01 PT 14.9 SECONDS (10.1-12.7) H 12/05/22 18:01 INR 1.3 (0.9-1.3) 12/05/22 18:01 APTT 30 SECONDS (26-36) 12/05/22 18:01 Sodium 131 mmol/L (137-145) L 12/06/22 06:10 Potassium 4.5 mmol/L (3.4-5.1) 12/06/22 06:10 Chloride 104 mmol/L (98-107) 12/06/22 06:10 Carbon Dioxide 19 mmol/L (22-32) L 12/06/22 06:10 BUN 57 mg/dL (9-20) H 12/06/22 06:10 Creatinine 1.37 mg/dL (0.66-1.25) H 12/06/22 06:10 Estimated GFR 51 mL/min (>60) L 12/06/22 06:10 BUN/Creatinine Ratio 41.6 (6-22) H 12/06/22 06:10 Glucose 101 mg/dL (80-110) 12/06/22 06:10 Lactate 1.9 mmol/L (0.7-2.1) 12/05/22 20:05 Calcium 7.3 mg/dL (8.4-10.2) L 12/06/22 06:10 Magnesium 1.6 mg/dL (1.6-2.3) 12/05/22 18:01 Iron 17 ug/dL (49-181) L 12/06/22 Unknown TIBC 221 ug/dL (261-462) L 12/06/22 Unknown % Saturation 8 % (20-50) L 12/06/22 Unknown Transferrin 131 mg/dL (206-381) L 12/06/22 Unknown Total Bilirubin 1.1 mg/dL (0.2-1.3) 12/06/22 06:10 AST 31 IU/L (17-59) 12/06/22 06:10 ALT 30 IU/L (<50) 12/06/22 06:10 Alkaline Phosphatase 57 U/L (38-126) 12/06/22 06:10 Total Creatine Kinase < 20 U/L (55-170) L 12/06/22 11:58 CK-MB (CK-2) TNP 12/06/22 11:58 CK-MB (CK-2) Rel Index TNP 12/06/22 11:58 Troponin I 0.173 ng/mL (0.01-0.034) H* 12/06/22 11:58 Total Protein 6.0 g/dL (6.3-8.2) L 12/06/22 06:10 Albumin 2.1 g/dL (3.5-5.0) L 12/06/22 06:10 Globulin 3.9 g/dL (1.7-4.1) 12/06/22 06:10 Albumin/Globulin Ratio 0.5 (1.0-2.8) L 12/06/22 06:10 Lipase 94 U/L (23-300) D 12/05/22 18:01 Procalcitonin 0.47 ng/mL (<0.5) 12/05/22 18:07 Urine RBC 1-5/hpf (0-5/HPF) 12/05/22 19:10 Urine WBC 1-5/hpf (0-5/HPF) 12/05/22 19:10 Ur Squamous Epith Cells 0-1 /hpf (0-5/HPF) 12/05/22 19:10 Other Crystals 1+ amorphous 12/05/22 19:10 Urine Bacteria Occasional (0-1) (None) 12/05/22 19:10 Ur Culture Indicated? Cult not indicated 12/05/22 19:10 SARS-CoV-2 (PCR) Negative (Negative) 12/05/22 18:02 Influenza A (RT-PCR) Flu a negative (NEGATIVE) 12/05/22 18:02 Influenza B (RT-PCR) Flu b negative (NEGATIVE) 12/05/22 18:02 RSV (PCR) Negative (Negative) 12/05/22 18:02 Blood Type O Positive 12/05/22 17:40 Antibody Screen Negative 12/05/22 17:40 Crossmatch See Detail 12/05/22 17:40 - Imaging Additional studies: Procedures Endoscopic destruction of other lesion or tissue of large intestine (01/08/13) Esophagogastroduodenoscopy [EGD] with closed biopsy (03/03/13) Injection or infusion of other therapeutic or prophylactic substance (02/14/14) Assessment and Plan (1) Iron deficiency anemia Mr Bangura was found out to be anemic in 03/2022 when he was denied blood donation. By end of 2021, he developed left sided abdominal pain and prompted EGD/C-scope on 10/19/[address] Bruno Villatoro. No malignancy was diagnosed. US work-up at the time noted marked splenomegaly with splenic infarct. Since 10/2022, he has been hospitalized multiple times due to severe microcytic hypochromic anemia consistent with iron deficiency. He required multiple pRBC transfusion. At the same period of time, thrombocytopenia was noted (see below). No evidence of hemolysis. Recommendation: I am recommending that if patient is stable and hemoglobin level stable, patient probably can be discharged from hospital. He can follow up with me within the next 1-2 weeks and I will repeat the iron panels and CBC/D. I will consider giving patient intravenous iron supplementation. Hopefully, that will help reduce the need for blood transfusion. As for the etiology of iron deficiency anemia, further GI work-up is indicated. (2) Thrombocytopenia The patient has moderate thrombocytopenia. In addition, patient also has significant splenomegaly. 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 Other differentials include hairy cell leukemia, MDS single lineage dysplasia, idiopathic cytopenia of unknow significance (ICUS) or clonal cytopenia of unclear significance (CCUS) etc. I talked with patient that I am going to see him as an outpatient and I will con political science faculty member bone marrow aspiration and biopsy to further evaluate.
--- NOTE | 2022-12-06 18:01 | PM.HP.1 ---
History of Present Illness History of Present Illness Date Patient Seen: 12/06/22 Time Patient Seen: 08:00 Chief complaint: General Weakness Narrative: This is a very pleasant 87-year-old male who has been in declining health over the last 3 months with recent hospitalization and discharge on November 30, 2022. He presented to the emergency room on the date of admission 12/05/2022 three with complaints of chest pain. Although it is documented as generalized weakness per the ER. This is what prompted him to come in. States that the pain spontaneously resolved. His other ongoing issue is feeling generalized weakness and fatigue and difficulty with even activities of daily living. This has been ongoing for the last 3 months but has been more pronounced over the last 2 days. He denies any shortness of breath. He states he is currently having no further chest pain. He denies any radiation of the chest pain or associated diaphoresis nausea or vomiting. And again since the ER he is not had any further chest pain. He was found to have significant anemia and a borderline elevated troponin. He was admitted for further treatment and monitoring. He received 2 units of packed red blood cells in the ER and then received 3 units of packed red blood cells during his last admission. He was admitted previously for similar symptoms of weakness and extreme fatigue. He was found to be anemic and received 3 units of blood and no etiology for his anemia was noted. Did have a splenic infarct that was evaluated by surgery but they did not feel that this was related. He had Hemoccult in May of 2022 that was negative. He had a colonoscopy during this time as well that showed no evidence of significant abnormality. He had an appointment with Oncology today. He is an appointment next week to have further imaging including a camera to look for evidence of GI blood loss. He denies any obvious or gross blood loss. He states his symptoms really have been going on over the last 3 months and have been progressing. His symptoms are of profound fatigue, malaise and weakness. He has no neurologic symptoms. He has severe feelings of being cold in the afternoon is unable to get warm. He previously was very active. Review of systems his appetite is decreased but he is still eating. He is having normal bowel movements. He is not having any black tarry stools or hematochezia or bright red blood per rectum. He is not having any nausea or vomiting. Not having any skin rashes. Not having any cough. It does not endorse chest pain previously or shortness of breath. Patient complains of intermittent mental fog over the last couple months Otherwise 12 point review of systems is negative Past medical history 1. Microcytic anemia of unclear etiology 2. Splenic infarct 3. Splenomegaly 4. Thrombocytopenia 5. Hypertension 6. Hyperlipidemia 7. Gastroesophageal reflux disease 8. Chronic kidney disease stage IIIA 9. History of prostate cancer 10. Squamous cell carcinoma of the scalp 11. Depression Past surgical history: Patient had a prostatectomy in June 2008 Patient had a tonsillectomy Vasectomy Sharita to behavior. Patient does not smoke. Does not drink alcohol. He is very active prior to onset of illness 3 months ago Family history: Father age 79 of bone cancer unclear etiology Mother from heart attack age 78 she also had hypertension His sister from dementia Social history: Patient is . His Carolin is present at bedside. They live in a home near [facility] alone. 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 They have 1 daughter Patient History Medical History Gastroesophageal reflux disease Hyperlipidemia Hypertension Family & Social History Social History: household members spouse Prior Living Arrangements House Safety & Behavioral: Feels Safe in Current Yes Environment Been Physically Hurt or No Threatened By a Person Tobacco & Substance use: Tobacco type cigars Smoking Status Current every day smoker alcohol intake current alcohol intake frequency a few times a month Substance Use Type does not use Meds Home Medications and Allergies Home Medications Medication Instructions Recorded Confirmed Type omeprazole magnesium 20 mg 20 mg PO DAILY 04/26/19 12/05/22 History capsule,delayed release ([employer] (omeprazole)) atorvastatin 20 mg tablet 20 mg PO DAILY 01/22/20 12/05/22 History diphenhydramine 25 1 tab PO BEDTIME PRN Insomnia 11/29/22 12/05/22 History mg-acetaminophen 500 mg tablet (Tylenol PM Extra Strength) buspirone 7.5 mg tablet 7.5 mg PO BID #60 tabs 11/30/22 12/05/22 Rx losartan 100 mg tablet 100 mg PO DAILY #30 tabs 11/30/22 12/05/22 Rx Allergies Allergy/AdvReac Type Severity Reaction Status Date / Time ibuprofen AdvReac Mild Verified 11/29/22 11:40 Review of Systems Review of Systems Narrative: Twelve point review of systems negative other than HPI Exam Vital Signs (past 8 hours): - 12/06/22 11:00 12/06/22 11:30 12/06/22 15:47 Temperature 98.1 F 98.6 F Pulse Rate 83 83 71 Respiratory Rate 18 18 Blood Pressure 123/65 123/65 117/59 L Pulse Oximetry 96 98 Oxygen Flow Rate 0 0 Fraction of Inspired Oxygen 28 SaO2/FiO2 Ratio 357 Oxygen Delivery Method Nasal Cannula Oxygen Flow Rate 0 Narrative Exam Narrative: Patient is afebrile and vital signs are stable. He is in no acute distress and appears stated age of 87. He appears chronically ill and has grayish color to his skin. Conjunctivae are pale Patient is alert and oriented x3 although he does fade off at times during conversation and complains of mental fog HEENT shows pupils equal round reactive to light, sclera show no icterus, extraocular movements intact. Mucous membranes slightly dry Neck: Supple without masses Chest: Clear to auscultation without wheezes rhonchi or crackles Cor: Regular rate and rhythm with distant S1-S2 Abdomen: Positive bowel sounds, soft, nontender, nondistended, splenomegaly 3 cm below the ribcage and nontender Extremities: No edema, pulse intact Neurologic exam is nonfocal, cranial nerves 2-12 grossly intact. Objective Labs 12/06/22 06:10 12/06/22 06:10 Labs: Laboratory Results - last 24 hr 12/05/22 12/05/22 12/05/22 17:40 18:01 18:01 WBC 8.6 RBC 3.86 L Hgb 9.9 L Hct 30.5 L MCV 79.0 L MCH 25.6 L MCHC 32.4 RDW 21.1 H Plt Count 80 L Neut % (Auto) 59.9 Lymph % (Auto) 31.6 [place] % (Auto) 6.2 Eos % (Auto) 1.3 L Baso % (Auto) 1.0 Neut # (Auto) 5100 Lymph # (Auto) 2700 [place] # (Auto) 500 Eos # (Auto) 100 Baso # (Auto) 100 Total Counted Seg Neutrophils % Band Neutrophils % Lymphocytes % (Manual) Monocytes % (Manual) Eosinophils % (Manual) Neutrophils # (Manual) RBC Morphology See below Hypochromasia Anisocytosis 1+ H Microcytosis 1+ H PT 14.9 H INR 1.3 APTT 30 Sodium Potassium Chloride Carbon Dioxide BUN Creatinine Estimated GFR BUN/Creatinine Ratio Glucose Lactate Calcium Magnesium Iron TIBC % Saturation Transferrin Total Bilirubin AST ALT Alkaline Phosphatase Total Creatine Kinase CK-MB (CK-2) CK-MB (CK-2) Rel Index Troponin I Total Protein Albumin Globulin Albumin/Globulin Ratio Lipase Procalcitonin Urine RBC Urine WBC Ur Squamous Epith Cells Other Crystals Urine Bacteria Ur Culture Indicated? SARS-CoV-2 (PCR) Influenza A (RT-PCR) Influenza B (RT-PCR) RSV (PCR) Blood Type O Positive Antibody Screen Negative Crossmatch See Detail 12/05/22 12/05/22 12/05/22 18:01 18:02 18:07 WBC RBC Hgb Hct MCV MCH MCHC RDW Plt Count Neut % (Auto) Lymph % (Auto) [place] % (Auto) Eos % (Auto) Baso % (Auto) Neut # (Auto) Lymph # (Auto) [place] # (Auto) Eos # (Auto) Baso # (Auto) Total Counted Seg Neutrophils % Band Neutrophils % Lymphocytes % (Manual) Monocytes % (Manual) Eosinophils % (Manual) Neutrophils # (Manual) RBC Morphology Hypochromasia Anisocytosis Microcytosis PT INR APTT Sodium 130 L Potassium 4.8 Chloride 103 Carbon Dioxide 16 L BUN 60 H Creatinine 1.64 H Estimated GFR 41 L BUN/Creatinine Ratio 36.6 H Glucose 144 H Lactate Calcium 7.6 L Magnesium 1.6 Iron TIBC % Saturation Transferrin Total Bilirubin 1.2 AST 64 H ALT 37 Alkaline Phosphatase 83 Total Creatine Kinase < 20 L CK-MB (CK-2) TNP CK-MB (CK-2) Rel Index TNP Troponin I < 0.012 Total Protein 7.0 Albumin 2.6 L Globulin 4.4 H Albumin/Globulin Ratio 0.6 L Lipase 94 D Procalcitonin 0.47 Urine RBC Urine WBC Ur Squamous Epith Cells Other Crystals Urine Bacteria Ur Culture Indicated? SARS-CoV-2 (PCR) Negative Influenza A (RT-PCR) Flu a negative Influenza B (RT-PCR) Flu b negative RSV (PCR) Negative Blood Type Antibody Screen Crossmatch 12/05/22 12/05/22 12/05/22 18:07 19:10 19:40 WBC RBC Hgb 6.4 L* Hct 19.8 L* MCV MCH MCHC RDW Plt Count Neut % (Auto) Lymph % (Auto) [place] % (Auto) Eos % (Auto) Baso % (Auto) Neut # (Auto) Lymph # (Auto) [place] # (Auto) Eos # (Auto) Baso # (Auto) Total Counted Seg Neutrophils % Band Neutrophils % Lymphocytes % (Manual) Monocytes % (Manual) Eosinophils % (Manual) Neutrophils # (Manual) RBC Morphology Hypochromasia Anisocytosis Microcytosis PT INR APTT Sodium Potassium Chloride Carbon Dioxide BUN Creatinine Estimated GFR BUN/Creatinine Ratio Glucose Lactate 3.7 H Calcium Magnesium Iron TIBC % Saturation Transferrin Total Bilirubin AST ALT Alkaline Phosphatase Total Creatine Kinase CK-MB (CK-2) CK-MB (CK-2) Rel Index Troponin I Total Protein Albumin Globulin Albumin/Globulin Ratio Lipase Procalcitonin Urine RBC 1-5/hpf Urine WBC 1-5/hpf Ur Squamous Epith Cells 0-1 /hpf Other Crystals 1+ amorphous Urine Bacteria Occasional (0-1) Ur Culture Indicated? Cult not indicated SARS-CoV-2 (PCR) Influenza A (RT-PCR) Influenza B (RT-PCR) RSV (PCR) Blood Type Antibody Screen Crossmatch 12/05/22 12/05/22 12/06/22 20:05 20:05 06:10 WBC 6.4 RBC 3.76 L Hgb 9.9 L Hct 30.1 L MCV 79.9 L MCH 26.2 MCHC 32.8 RDW 20.5 H Plt Count 66 L Neut % (Auto) Not Reportable Lymph % (Auto) Not Reportable [place] % (Auto) Not Reportable Eos % (Auto) Not Reportable Baso % (Auto) Not Reportable Neut # (Auto) Lymph # (Auto) Not Reportable [place] # (Auto) Not Reportable Eos # (Auto) Baso # (Auto) Not Reportable Total Counted 50 Seg Neutrophils % 72.0 H Band Neutrophils % 4.0 Lymphocytes % (Manual) 20.0 L Monocytes % (Manual) 2.0 Eosinophils % (Manual) 2.0 Neutrophils # (Manual) 4864 RBC Morphology Not Reportable Hypochromasia 1+ H Anisocytosis 1+ H Microcytosis PT INR APTT Sodium Potassium Chloride Carbon Dioxide BUN Creatinine Estimated GFR BUN/Creatinine Ratio Glucose Lactate 1.9 Calcium Magnesium Iron TIBC % Saturation Transferrin Total Bilirubin AST ALT Alkaline Phosphatase Total Creatine Kinase CK-MB (CK-2) CK-MB (CK-2) Rel Index Troponin I 0.130 H* Total Protein Albumin Globulin Albumin/Globulin Ratio Lipase Procalcitonin Urine RBC Urine WBC Ur Squamous Epith Cells Other Crystals Urine Bacteria Ur Culture Indicated? SARS-CoV-2 (PCR) Influenza A (RT-PCR) Influenza B (RT-PCR) RSV (PCR) Blood Type Antibody Screen Crossmatch 12/06/22 12/06/22 12/06/22 06:10 06:10 11:58 WBC RBC Hgb Hct MCV MCH MCHC RDW Plt Count Neut % (Auto) Lymph % (Auto) [place] % (Auto) Eos % (Auto) Baso % (Auto) Neut # (Auto) Lymph # (Auto) [place] # (Auto) Eos # (Auto) Baso # (Auto) Total Counted Seg Neutrophils % Band Neutrophils % Lymphocytes % (Manual) Monocytes % (Manual) Eosinophils % (Manual) Neutrophils # (Manual) RBC Morphology Hypochromasia Anisocytosis Microcytosis PT INR APTT Sodium 131 L Potassium 4.5 Chloride 104 Carbon Dioxide 19 L BUN 57 H Creatinine 1.37 H Estimated GFR 51 L BUN/Creatinine Ratio 41.6 H Glucose 101 Lactate Calcium 7.3 L Magnesium Iron TIBC % Saturation Transferrin Total Bilirubin 1.1 AST 31 ALT 30 Alkaline Phosphatase 57 Total Creatine Kinase < 20 L < 20 L CK-MB (CK-2) TNP TNP CK-MB (CK-2) Rel Index TNP TNP Troponin I 0.207 H* 0.173 H* Total Protein 6.0 L Albumin 2.1 L Globulin 3.9 Albumin/Globulin Ratio 0.5 L Lipase Procalcitonin Urine RBC Urine WBC Ur Squamous Epith Cells Other Crystals Urine Bacteria Ur Culture Indicated? SARS-CoV-2 (PCR) Influenza A (RT-PCR) Influenza B (RT-PCR) RSV (PCR) Blood Type Antibody Screen Crossmatch 12/06/22 Unknown WBC RBC Hgb Hct MCV MCH MCHC RDW Plt Count Neut % (Auto) Lymph % (Auto) [place] % (Auto) Eos % (Auto) Baso % (Auto) Neut # (Auto) Lymph # (Auto) [place] # (Auto) Eos # (Auto) Baso # (Auto) Total Counted Seg Neutrophils % Band Neutrophils % Lymphocytes % (Manual) Monocytes % (Manual) Eosinophils % (Manual) Neutrophils # (Manual) RBC Morphology Hypochromasia Anisocytosis Microcytosis PT INR APTT Sodium Potassium Chloride Carbon Dioxide BUN Creatinine Estimated GFR BUN/Creatinine Ratio Glucose Lactate Calcium Magnesium Iron 17 L TIBC 221 L % Saturation 8 L Transferrin 131 L Total Bilirubin AST ALT Alkaline Phosphatase Total Creatine Kinase CK-MB (CK-2) CK-MB (CK-2) Rel Index Troponin I Total Protein Albumin Globulin Albumin/Globulin Ratio Lipase Procalcitonin Urine RBC Urine WBC Ur Squamous Epith Cells Other Crystals Urine Bacteria Ur Culture Indicated? SARS-CoV-2 (PCR) Influenza A (RT-PCR) Influenza B (RT-PCR) RSV (PCR) Blood Type Antibody Screen Crossmatch Assessment & Plan Assessment & Plan narrative: 87-year-old male admitted for severe symptomatic microcytic anemia with associated chest pain and elevated troponin Assessment 1. Severe symptomatic microcytic anemia with no clear evidence of blood loss. Plan: Dr. 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 Appreciate Dr. [place] input. We will do a fit test. We will repeat CBC in a.m.. Iron studies were ordered today and they are low. If H&H is not stable in a.m. we will repeat CT of abdomen and pelvis to rule out worsening splenic infarct or possible evidence of bleeding. Patient will do outpatient camera to look for occult blood loss. He will follow-up with Dr. Sigala as outpatient and will possibly receive iron infusion. He will also receive a bone marrow. Assessment 2. Troponinemia with 1 episode of mild chest pain. Case was discussed with Cardiology while patient was in the ER. Patient has not had further pain. His troponins have peaked and are decreasing. He is hemodynamically stable. He had echo in November so at this point we will not repeat this unless he has further chest pain or bump in his troponins. We will continue his losartan as outpatient as well as his atorvastatin. We discussed more invasive interventions and at this point he would not want these nor do I think at this point given his other comorbidities that he would be a candidate for cardiac catheterization. We will continue to follow. Assessment 3. Acute renal insufficiency overall improved from yesterday Plan: Will continue to monitor will recheck in a.m.. Assessment 4. GERD Plan: Continue outpatient omeprazole Assessment 5. Hyperlipidemia Plan: Continue atorvastatin Assessment 6. Hypertension blood pressure is low Plan: Will start his losartan at 50 mg and not 100 and it was held today due to low blood pressure Assessment 7. DVT prophylaxis. Due to anemia of unclear etiology and concern for possible occult blood loss we will hold Lovenox for this time being Assessment 8. Depression stable Plan: Continue outpatient medications 70 minutes spent with patient discussing with physician and nursing and consulting with Dr. Sigala. Also lengthy discussion with him and his regarding code status and his wishes. We discussed at length the polst form and the meaning of the different choices and he clearly would not want to have any heroics done and wishes to be DNR/DNI. At the end of this discussion he even brought up the possibility of hospice. However at this point we will look further to see if we can find the etiology of his anemia prior to going this route. We did briefly discuss what this would entail. Disposition: Patient will most likely be discharged to home. Time Spent With Patient Critical Care time: I spent a total of [] minutes of critical care time on this patient's care today; this time is exclusive of procedural time. Quality VTE Deep Vein Thrombosis/Pulmonary Embolism Present on Admission: No
[2022-12-06] MEDS: ATORVASTATIN 20 MG TABLET PO (21:06)
[2022-12-06] MEDS: diphenhydrAMINE 25 MG TABLET PO (21:13)
[2022-12-07] MEDS: PANTOPRAZOLE DR 20 MG TABLET PO (05:05)
[2022-12-07 05:15] VITALS: BP 127/74; PULSE 69; RESP 19; TEMP 36.6; O2SAT 96
[2022-12-07 05:16] LABS: Hematocrit 28.3 % (41-53); Hemoglobin 9.4 g/dL (13.5-17.5); Mean Corpuscular HGB Conc 33.1 % (30-36); Mean Corpuscular Hemoglobin 26.4 PG (26-34); Mean Corpuscular Volume 79.8 fL (80-100); Platelet Count 61 X10^3/uL (150-400); Red Blood Cell Count 3.55 X10^6/uL (4.5-5.9); Red Cell Distribution Width 20.8 % (11.6-14.8); White Blood Cell Count 4.7 X10^3/uL (4.5-11.0)
[2022-12-07 05:19] LABS: Add Manual Diff / Slide Review YES
[2022-12-07 05:23] LABS: Creatine Kinase < 20 U/L (55-170)
[2022-12-07 05:25] LABS: Alanine Aminotransferase 33 IU/L (<50); Albumin Globulin Ratio 0.5 (1.0-2.8); Alkaline Phosphatase 58 U/L (38-126); Aspartate Aminotransferase 33 IU/L (17-59); BUN Creatinine Ratio 39.5 (6-22); Bilirubin Total 1.1 mg/dL (0.2-1.3); Blood Urea Nitrogen 47 mg/dL (9-20); Calcium 7.3 mg/dL (8.4-10.2); Carbon Dioxide 18 mmol/L (22-32); Chloride 105 mmol/L (98-107); Estimated Glomerular Filt Rate 60 mL/min (>60); Globulin 3.9 g/dL (1.7-4.1); Glucose 99 mg/dL (80-110); HEMOLYSIS < 15 (0-50); Potassium 4.4 mmol/L (3.4-5.1); Sodium 129 mmol/L (137-145); Total Protein 5.9 g/dL (6.3-8.2)
[2022-12-07 05:35] LABS: NT-proBNP (BNP-Adult 18+) 3430 pg/mL (<450); Troponin I 0.081 ng/mL (0.01-0.034)
[2022-12-07 06:04] LABS: Neutrophils Absolute Manual 3149 /uL (3000-5900); Total Cells Counted 100
[2022-12-07 06:05] LABS: Anisocytosis 1+; Platelet Estimate Decreased on smear
[2022-12-07 06:06] LABS: Hypochromasia 1+
[2022-12-07 08:35] VITALS: BP 142/66; PULSE 85; RESP 16; TEMP 36.9; O2SAT 97
--- NOTE | 2022-12-07 08:53 | PC.NURSE ---
Assess- Patient is alert and oriented x4. He denies chest pain, and his heart rate is wnl. He is independent in room and patient has been discharged home.
[2022-12-07] MEDS: LOSARTAN 50 MG TABLET PO (09:14)
[2022-12-07] MEDS: BUSPIRONE 5 MG TABLET 7.5 MG PO (09:14)
--- NOTE | 2022-12-07 18:33 | PM.DS.1 ---
History of Present Illness History of Present Illness Date Patient Seen: 12/07/22 Time Patient Seen: 08:00 Date of Onset of Symptoms: 12/05/22 Chief complaint: General Weakness Narrative: This is a very pleasant 87-year-old male who has been in declining health over the last 3 months with recent hospitalization and discharge on November 30, 2022.? He presented to the emergency room on the date of admission 12/05/2022 three with complaints of chest pain.? Although it is documented as generalized weakness per the ER.? This is what prompted him to come in.? States that the pain spontaneously resolved.? His other ongoing issue is feeling generalized weakness and fatigue and difficulty with even activities of daily living.? This has been ongoing for the last 3 months but has been more pronounced over the last 2 days.? He denies any shortness of breath.? He states he is currently having no further chest pain.? He denies any radiation of the chest pain or associated diaphoresis nausea or vomiting.? And again since the ER he is not had any further chest pain.? He was found to have significant anemia and a borderline elevated troponin.? He was admitted for further treatment and monitoring.? He received 2 units of packed red blood cells in the ER and then received 3 units of packed red blood cells during his last admission. He was admitted previously for similar symptoms of weakness and extreme fatigue.? He was found to be anemic and received 3 units of blood and no etiology for his anemia was noted.? 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 He had Hemoccult in May of 2022 that was negative.? He had a colonoscopy during this time as well that showed no evidence of significant abnormality.? He had an appointment with Oncology today.? He is an appointment next week to have further imaging including a camera to look for evidence of GI blood loss.? He denies any obvious or gross blood loss. He states his symptoms really have been going on over the last 3 months and have been progressing.? His symptoms are of profound fatigue, malaise and weakness.? He has no neurologic symptoms.? He has severe feelings of being cold in the afternoon is unable to get warm.? He previously was very active. Review of systems his appetite is decreased but he is still eating.? He is having normal bowel movements.? He is not having any black tarry stools or hematochezia or bright red blood per rectum.? He is not having any nausea or vomiting.? Not having any skin rashes.? Not having any cough.? It does not endorse chest pain previously or shortness of breath.? Patient complains of intermittent mental fog over the last couple months Otherwise 12 point review of systems is negative Discharge Providers Provider Date of admission: 12/05/22 21:32 Discharge Date: 12/07/22 Primary care physician: Waqas Inman MD Discharge provider: Colt Weaver MD Summary Hospital Course Discharge Diagnosis: Symptomatic microcytic anemia Elevated troponin probable demand ischemia Acute renal insufficiency Reflux esophageal Hyperlipidemia Hypertension Hospital Course: Symptomatic microcytic anemia. Patient was admitted and given 2 units of blood. Hematocrit was much better. Patient was feeling better. Dr. 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 Question of possible blood loss although guaiac negative on 1st exam. No evidence of GI loss. Patient was stable. Follow-up hematocrit was slightly decreased. Dr. Montana plans on seeing him next week and will give him iron infusions. Biggest concern is patient has lost blood pretty quickly over time or at least had destruction consistently which maybe from the spleen. Would not receiving treatment by Dr. Bowens until next week. Patient will be seen by Dr. Abbott next week and get hematocrit rechecked. Patient will call if worsening or change. Elevated troponin. Probable demand ischemia. Patient had an initial elevation in troponin but normal EKG. No CPK change. Cardiology was discussed and felt this was not significant cardiac injury. Troponin improved to normal range. He had no chest pain or other symptoms. At this point will be followed. Acute renal insufficiency. Patient was hydrated and given blood. Normalized his creatinine. Will be followed as outpatient. Probably prerenal. Risks esophageal reflux. Stable. Doubt significant. With guaiac-negative unlikely blood loss. Will continue PPI though. Hyperlipidemia. No change. Hypertension. Initially was hypotensive. Now normal. Will resume usual meds and follow as outpatient. Exam Vital Signs (past 8 hours): Fraction of Inspired Oxygen 28 SaO2/FiO2 Ratio 357 Oxygen Delivery Method Nasal Cannula Oxygen Flow Rate 0 Narrative Exam Narrative: Alert smiling well-developed well-nourished male in no acute distress slightly pale bulbar conjunctiva mucous membranes moist neck supple without adenopathy lungs are clear heart regular rate and rhythm extremities normal Objective Labs 12/07/22 04:45 12/07/22 04:45 Labs: Laboratory Results - last 24 hr 12/07/22 12/07/22 12/07/22 04:45 04:45 04:45 WBC 4.7 RBC 3.55 L Hgb 9.4 L Hct 28.3 L MCV 79.8 L MCH 26.4 MCHC 33.1 RDW 20.8 H Plt Count 61 L Neut % (Auto) Not Reportable Lymph % (Auto) Not Reportable [place] % (Auto) Not Reportable Eos % (Auto) Not Reportable Baso % (Auto) Not Reportable Lymph # (Auto) Not Reportable [place] # (Auto) Not Reportable Baso # (Auto) Not Reportable Total Counted 100 Seg Neutrophils % 64.0 Band Neutrophils % 3.0 Lymphocytes % (Manual) 26.0 Monocytes % (Manual) 6.0 Eosinophils % (Manual) 1.0 L Neutrophils # (Manual) 3149 Platelet Estimate Decreased on smear RBC Morphology See below Hypochromasia 1+ H Anisocytosis 1+ H Sodium 129 L Potassium 4.4 Chloride 105 Carbon Dioxide 18 L BUN 47 H Creatinine 1.19 Estimated GFR 60 BUN/Creatinine Ratio 39.5 H Glucose 99 Calcium 7.3 L Total Bilirubin 1.1 AST 33 ALT 33 Alkaline Phosphatase 58 Total Creatine Kinase < 20 L CK-MB (CK-2) TNP CK-MB (CK-2) Rel Index TNP Troponin I 0.081 H NT-Pro-B Natriuret Pep 3430 H Total Protein 5.9 L Albumin 2.0 L Globulin 3.9 Albumin/Globulin Ratio 0.5 L PFSH Medical History (Updated 12/07/22 @ 00:00 by Rubén Montana MD) Gastroesophageal reflux disease Hyperlipidemia Hypertension Surgical History (Updated 12/06/22 @ 23:41 by Rubén Montana MD) H/O prostatectomy H/O vasectomy Hx of tonsillectomy Family History (Updated 12/06/22 @ 23:41 by Rubén Montana MD) Mother Heart attack Father Bone cancer Social History household members: spouse Smoking Status: Current every day smoker alcohol intake: current Discharge Plan Discharge Plan Patient Disposition: Home Discharge orders & Medications Prescriptions: New losartan 50 mg Tablet 50 mg PO DAILY Qty: 30 0RF Continued omeprazole magnesium [[employer] (omeprazole)] 20 mg Capsule,Delayed Release(Dr/Ec) 20 mg PO DAILY atorvastatin 20 mg Tablet 20 mg PO DAILY diphenhydramine-acetaminophen [Tylenol PM Extra Strength] 25-500 mg tablet 1 tab PO BEDTIME PRN (Reason: Insomnia) Label Comments: once a day buspirone 7.5 mg tablet 7.5 mg PO BID Qty: 60 0RF Discontinued losartan 100 mg tablet 100 mg PO DAILY Qty: 30 0RF Follow up/Referrals: Waqas Inman MD [Primary Care Provider] - 12/12/22 11:30 am (*Appt on Saturday, with at 11:30am. [phone]) Rubén Montana MD [Physician] - 3-5 Days (next week sooner than later Office is closed on Fridays. Please call office on Saturday morning. [phone]) Discharge Health Status Multidrug resistant organism: No MDRO Diet/Activity/Treatments Diet: Diet as Tolerated Skin/Wound/Dressing Care Report to your healthcare provider any signs of infection, such as:: chills, fever and night sweats Visit Report/Discharge Packet Instructions: Cardiac Troponin, Anemia, DI for Anemia of Chronic Disease Stand Alone Forms: Patient Portal/API, Stroke Signs & Symptoms Discharge Data Primary Care Provider: Waqas Inman Quality VTE Deep Vein Thrombosis/Pulmonary Embolism Present on Admission: No
== END 2022-12-07 10:12 | disposition home or self-care (01) | DRG 813 ==
LOC: ED 20:34 → AC 21:33
PROVIDERS: Emergency Medicine; Family Medicine; Admitting Provider Family Medicine; Emergency Provider Emergency Medicine; Family Provider Student in an Organized Health Care Education/Training Program; PCP Family Medicine; Referring Provider Emergency Medicine; Visit Provider Family Medicine
DX: D69.3 Immune thrombocytopenic purpura (principal); I24.8 Other forms of acute ischemic heart disease; D50.9 Iron deficiency anemia, unspecified; F32.A Depression, unspecified; F17.290 Nicotine dependence, other tobacco product, uncomplicated; K21.9 Gastro-esophageal reflux disease without esophagitis; E78.5 Hyperlipidemia, unspecified; I10 Essential (primary) hypertension; N28.9 Disorder of kidney and ureter, unspecified; Z20.822 Contact with and (suspected) exposure to COVID-19
CPT/HCPCS: 0241U; 36415; 36430; 71045; 80053; 81003; 81015; 82550; 83540; 83550; 83605; 83690; 83735; 83880; 84145; 84484; 85007; 85014; 85018; 85025; 85610; 85730; 86850; 86900; 86901; 87040; 87086; 93005; 93010; 94760; 99285; P9016

== ENCOUNTER 2022-12-08 01:18 | Inpatient (IN) | payer OTHER, SELFPAY ==
[2022-12-05 23:17] VITALS: BMI 25.7
[2022-12-08] VITALS (38 sets, daily range): BP systolic 87–139; BP diastolic 50–62; PULSE 62–116; RESP 16–34; TEMP 36.4–38; O2SAT 89–100; BMI 25.0
[2022-12-08] MEDS: ONDANSETRON 4 MG/2 ML INJ IV (01:37)
--- NOTE | 2022-12-08 01:43 | PC.NURSE ---
shortly after arrival pt started vomiting, Dr Rubin informed and medication order obtained and given, after vomiting pt stated he felt better
--- NOTE | 2022-12-08 01:47 | DI.RAD.S_ITS ---
PROCEDURE: XR CHEST 1V INDICATIONS: vomiting, chest pain, chf? TECHNIQUE: One view of the chest was acquired. COMPARISON: [facility], CR, XR CHEST 1V, 12/05/2022, 18:00. FINDINGS: Surgical changes and devices: None. Lungs and pleura: There is pulmonary vascular congestion and mild pulmonary edema. Superimposed bilateral patchy infiltrates cannot be excluded. Overall bilateral lung aeration is not significantly changed from prior study. Mediastinum: Mediastinal contours appear normal. Heart size is enlarged. Bones and chest wall: No suspicious bony lesions. Overlying soft tissues appear unremarkable. IMPRESSION: Finding is suggestive of mild CHF. Overall lung aeration are not significantly changed from previous study. Superimposed bilateral patchy infiltrates cannot be excluded. No significant discrepancies. Dictated by: Zach Carney M.D. on 12/08/2022 at 8:03 Approved by: Zach Carney M.D. on 12/08/2022 at 8:04
--- NOTE | 2022-12-08 01:49 | DI.CT.S_ITS ---
PROCEDURE: CT ABDOMEN PELVIS [facility] INDICATIONS: vomting, splenic infarct on 11/29/22 TECHNIQUE: After the administration of intravenous contrast, axial sections acquired from the lung bases to the pubic symphysis. Coronal and sagittal reformats were performed. For radiation dose reduction, the following was used: automated exposure control, adjustment of mA and/or kV according to patient size. COMPARISON: [facility], CT, CT CHEST ABD PEL [facility], 11/29/2022, 11:47. [facility], CT, CT ABDOMEN PELVIS [facility], 09/20/2022, 13:06. FINDINGS: Image quality: Excellent. Lung bases: Small left greater than right bilateral pleural effusion with adjacent bibasilar dependent atelectasis/small infiltrates are seen. Mild pulmonary edema is also noted.. Heart: Heart size is enlarged, no significant pericardial effusion. Small fluid collection in inferior mediastinum adjacent to distal esophagus is again seen and grossly unchanged. ABDOMEN: Liver: Unremarkable. Gallbladder: Small calcified stones are seen in dependent portion of gallbladder lumen. No gallbladder wall thickening or pericholecystic fluid. Biliary ducts: Unremarkable. Pancreas: Unremarkable. Spleen: Marked splenomegaly is seen and show heterogeneous enhancement with concern for splenic infarct involving inferior spleen further decreased in size compared to previous study. Adrenal Glands: Unremarkable. Kidneys and Ureters: Nonobstructing stone measuring 3 mm in size is seen in lower pole right kidney. There is no hydronephrosis or hydroureter. Stomach and Bowel: Stomach, small bowel loops, and colon are unremarkable. Sigmoid diverticulosis is again seen without colonic wall thickening or mesenteric fat stranding. Peritoneum: No abnormal intraperitoneal fluid. No free air. Ventral Wall: No hernias. Abdominal Nodes: No retroperitoneal or mesenteric adenopathy by size criteria. Vessels: Aorta and inferior vena cava are normal in size. Moderate atherosclerotic calcifications are again seen throughout abdominal aorta. PELVIS: Pelvic Organs: Unremarkable. Bladder: Unremarkable. Pelvic Nodes: No enlarged lymph nodes. Miscellaneous: Left inguinal hernia is again seen containing fat only. Bones: No suspicious bony lesions. No acute vertebral body compression fracture. Degenerative disc disease throughout lower thoracic and lumbar spine is seen more notably at L4-5 level. IMPRESSION: 1. 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 2. Cholelithiasis without CT evidence of acute cholecystitis. No biliary ductal dilatation. 3. Colonic diverticulosis without CT evidence of acute diverticulitis. No bowel obstruction or abnormal bowel wall thickening. No free fluid or free air. 4. Nonobstructing stone in right kidney. No hydronephrosis or hydroureter. 5. Small bilateral pleural effusion with bibasilar dependent atelectasis/small infiltrates. Suggestion of mild pulmonary edema. Stable sized fluid collection medial to distal esophagus in inferior mediastinum. No significant discrepancies. Dictated by: Zach Carney M.D. on 12/08/2022 at 8:18 Approved by: Zach Carney M.D. on 12/08/2022 at 8:24
--- NOTE | 2022-12-08 01:51 | ED.FEVER ---
HPI - Fever General Chief Complaint: Fever Stated Complaint: CP Time Seen by Provider: 12/08/22 01:32 Source: patient Mode of arrival: EMS Limitations: no limitations History of Present Illness HPI Narrative: This is an 87-year-old male with microcytic anemia of unclear etiology, splenic infarct and splenomegaly, thrombocytopenia, hypertension, dyslipidemia, CKD stage 3, history of prostate cancer, GERD and complaint of shaking chills and generally feeling unwell. Patient was discharged to 1723 yesterday at 10:30 a.m. in the morning he states because he wanted to be discharged his physician told him he was not ready for him to be discharged. Patient states tonight he is had intermittent chills with fever. Patient denies chest pain but you max states that he describe chest pain earlier this evening, CTs has shortness of breath but not increasing. He was not nauseated earlier but had emesis shortly after arrival to the ED. States no diarrhea or constipation. No dysuria urgency or frequency. He denies abdominal back or flank pain. Patient denies new swelling in his extremities. He states he received 6 units of blood in the past 6 days and has seen Oncology and states that his spleen is destroying his blood cells. Patient has had prior prostatectomy, tonsillectomy and vasectomy. No tobacco, no alcohol. Patient is his is at bedside. Related Data Home Medications Medication Instructions Recorded Confirmed omeprazole magnesium 20 mg 20 mg PO DAILY 04/26/19 12/05/22 capsule,delayed release ([employer] (omeprazole)) atorvastatin 20 mg tablet 20 mg PO DAILY 01/22/20 12/05/22 diphenhydramine 25 1 tab PO BEDTIME PRN Insomnia 11/29/22 12/05/22 mg-acetaminophen 500 mg tablet (Tylenol PM Extra Strength) Previous Rx's Medication Instructions Recorded buspirone 7.5 mg tablet 7.5 mg PO BID #60 tabs 11/30/22 losartan 50 mg tablet 50 mg PO DAILY #30 tabs 12/07/22 Allergies Allergy/AdvReac Type Severity Reaction Status Date / Time ibuprofen AdvReac Mild Verified 11/29/22 11:40 Review of Systems Review of Systems ROS Unobtainable: All systems reviewed & are unremarkable except as noted in HPI and below Patient History Medical History Gastroesophageal reflux disease Hyperlipidemia Hypertension Surgical History H/O prostatectomy H/O vasectomy Hx of tonsillectomy Family History Mother Heart attack Father Bone cancer Social History household members: spouse Smoking Status: Current every day smoker alcohol intake: current Smoking Status: Current every day smoker tobacco type: cigars alcohol intake frequency: a few times a month Substance Use Type: does not use Exam Narrative Exam Narrative: GEN: Ill-appearing elderly male, alert and oriented x 3, patient appears to be in moderate distress. Patient appears pale. Patient is warm to the touch. HEENT: Atraumatic, pupils are equal round reactive to light, extraocular movements are intact, nares are clear, TMs are clear with no fluid, there is no conjunctival pallor. Throat is clear without any exudates, erythema, tonsillar enlargement or uvular deviation HEART: Tachycardic but Regular rate and rhythm without murmur, clicks, rubs. No swelling bilateral lower extremities. + JVD. LUNGS:Lungs clear to auscultation, no wheezes, rales, crackles, chest moves symmetrically, mild tachypnea. No accessory muscle use. ABD:bowel sounds normal, soft, non-tender, no guarding, rebound, rigidity, no masses noted, no hepatosplenomegaly :No CVA tenderness MSCL: Non-tender, no muscle atrophy, muscles strength 5/5 upper and lower extremities, full range of motion NEURO:CN 2-12 intact, sensation normal SKIN: No rash, petechiae or other skin changes noted. Initial Vital Signs Initial Vital Signs: Vital Signs Temperature 100.4 F H 12/08/22 01:24 Pulse Rate 112 H 12/08/22 01:24 Respiratory Rate 34 H 12/08/22 01:24 Blood Pressure 139/62 12/08/22 01:24 Pulse Oximetry 92 12/08/22 01:24 Oxygen Delivery Method 12/08/22 01:24 Course Orders Ordered: ED Orders 12/08/22 00:45 Complete Blood Count AUTO DIFF Stat Comprehensive Metabolic Panel Stat Lactate (Lactic Acid) Stat Lipase Stat NT-proBNP (BNP-Adult 18+) Stat Partial Thromboplastin Time Stat Procalcitonin Stat Prothrombin Time INR Stat Troponin & CK Cardiac Panel Stat 12/08/22 01:47 XR chest 1V Stat EKG-12 Lead Stat 12/08/22 01:49 CT abdomen pelvis w con Stat 12/08/22 02:20 Covid-19 + FLU A/B + RSV - PCR Stat 12/08/22 02:45 Blood Culture Stat Type and Screen Stat 12/08/22 03:00 UA Complete [Urinalysis and Microscopic] Stat Discontinued Medications Acetaminophen (Acetaminophen 325 Mg Tablet) 650 mg PO NOW ONE Stop: 12/08/22 01:51 Last Admin: 12/08/22 01:58 Dose: 650 mg Documented By: COLBY Sodium Chloride (Normal Saline 0.9%) 500 mls @ 1,000 mls/hr IV BOLUS ONE Stop: 12/08/22 02:19 Last Infusion: 12/08/22 02:05 Dose: 0 mls/hr Documented By: Admin: 12/08/22 01:59 Dose: 1,000 mls/hr Documented By: COLBY Sodium Chloride (Normal Saline 0.9%) 1,000 mls @ 1,000 mls/hr IV BOLUS ONE Stop: 12/08/22 03:07 Last Infusion: 12/08/22 04:22 Dose: 0 mls/hr Documented By: Admin: 12/08/22 02:10 Dose: 1,000 mls/hr Documented By: COLBY Piperacillin Sod/Tazobactam (Sod 4.5 gm/ Sodium Chloride) 100 mls @ 200 mls/hr IV NOW ONE Stop: 12/08/22 02:49 Last Infusion: 12/08/22 03:44 Dose: 0 mls/hr Documented By: Admin: 12/08/22 02:57 Dose: 200 mls/hr Documented By: COLBY Vancomycin HCl (Vancomycin) 1,250 mg in 250 mls @ 250 mls/hr IV NOW ONE Stop: 12/08/22 03:47 Last Admin: 12/08/22 03:40 Dose: 250 mls/hr Documented By: COLBY Ondansetron HCl (Ondansetron 4 Mg/2 Ml Inj) 4 mg IV NOW ONE Stop: 12/08/22 01:35 Last Admin: 02/18/23 01:37 Dose: 4 mg Documented By: COLBY Vital Signs Vital signs: Vital Signs - 8 hr 12/08/22 01:24 12/08/22 03:21 12/08/22 03:21 Temperature 100.4 F H 98.3 F 98.3 F Pulse Rate 112 H Respiratory Rate 34 H Blood Pressure 139/62 Pulse Oximetry 92 Oxygen Delivery Method Room Air MDM - Fever Lab Data 12/08/22 00:45 12/08/22 00:45 Labs: Lab Results 12/08/22 12/08/22 12/08/22 Range/Units 00:45 00:45 00:45 WBC (4.5-11.0) X10^3/uL RBC (4.5-5.9) X10^6/uL Hgb (13.5-17.5) g/dL Hct (41-53) % MCV (80-100) fL MCH (26-34) PG MCHC (30-36) % RDW (11.6-14.8) % Plt Count (150-400) X10^3/uL Neut % (Auto) (50-75) % Lymph % (Auto) (25-40) % Mccreary % (Auto) (3-14) % Eos % (Auto) (2-4) % Baso % (Auto) (0-2) % Neut # (Auto) (3282-4508) /uL Lymph # (Auto) (4060-7600) /uL Mccreary # (Auto) (0-900) /uL Eos # (Auto) (0-450) /uL Baso # (Auto) (0-100) /uL Platelet Estimate RBC Morphology Anisocytosis PT 15.6 H (10.1-12.7) SECONDS INR 1.4 H (0.9-1.3) APTT 32 (26-36) SECONDS Sodium (137-145) mmol/L Potassium (3.4-5.1) mmol/L Chloride (98-107) mmol/L Carbon Dioxide (22-32) mmol/L BUN (9-20) mg/dL Creatinine (0.66-1.25) mg/dL Estimated GFR (>60) mL/min BUN/Creatinine Ratio (6-22) Glucose (80-110) mg/dL Lactate 4.4 H* (0.7-2.1) mmol/L Calcium (8.4-10.2) mg/dL Total Bilirubin (0.2-1.3) mg/dL AST (17-59) IU/L ALT (<50) IU/L Alkaline Phosphatase (38-126) U/L Total Creatine Kinase (55-170) U/L CK-MB (CK-2) CK-MB (CK-2) Rel Index Troponin I (0.01-0.034) ng/mL NT-Pro-B Natriuret Pep (<450) pg/mL Total Protein (6.3-8.2) g/dL Albumin (3.5-5.0) g/dL Globulin (1.7-4.1) g/dL Albumin/Globulin Ratio (1.0-2.8) Lipase (23-300) U/L Procalcitonin 5.76 H (<0.5) ng/mL Urine Color Urine Appearance Urine pH (4.5-8.0) Ur Specific [place] (1.000-1.035) Urine Protein (Negative) Urine Glucose (UA) (Negative) g/dL Urine Ketones (NEGATIVE) Urine Occult Blood (Negative) Urine Nitrate (Negative) Urine Bilirubin (NEGATIVE) Urine Urobilinogen (0.2) E.U./dL Ur Leukocyte Esterase (NEGATIVE) Urine RBC (0-5/HPF) Urine WBC (0-5/HPF) Amorphous Sediment Urine Bacteria (None) Granular Casts (None) Ur Culture Indicated? SARS-CoV-2 (PCR) (Negative) Influenza A (RT-PCR) (NEGATIVE) Influenza B (RT-PCR) (NEGATIVE) RSV (PCR) (Negative) Blood Type Antibody Screen 12/08/22 12/08/22 12/08/22 Range/Units 00:45 00:45 02:20 WBC 6.4 (4.5-11.0) X10^3/uL RBC 4.23 L (4.5-5.9) X10^6/uL Hgb 11.0 L (13.5-17.5) g/dL Hct 34.1 L (41-53) % MCV 80.6 (80-100) fL MCH 26.0 (26-34) PG MCHC 32.3 (30-36) % RDW 20.6 H (11.6-14.8) % Plt Count 69 L (150-400) X10^3/uL Neut % (Auto) 58.9 (50-75) % Lymph % (Auto) 36.9 (25-40) % Mccreary % (Auto) 2.4 L (3-14) % Eos % (Auto) 1.2 L (2-4) % Baso % (Auto) 0.6 (0-2) % Neut # (Auto) 3800 (6546-5716) /uL Lymph # (Auto) 2400 (5277-9500) /uL Mccreary # (Auto) 200 (0-900) /uL Eos # (Auto) 100 (0-450) /uL Baso # (Auto) 0 (0-100) /uL Platelet Estimate Decreased on smear RBC Morphology See below Anisocytosis 3+ H D PT (10.1-12.7) SECONDS INR (0.9-1.3) APTT (26-36) SECONDS Sodium 130 L (137-145) mmol/L Potassium 5.6 H D (3.4-5.1) mmol/L Chloride 102 (98-107) mmol/L Carbon Dioxide 17 L (22-32) mmol/L BUN 45 H (9-20) mg/dL Creatinine 1.40 H (0.66-1.25) mg/dL Estimated GFR 49 L (>60) mL/min BUN/Creatinine Ratio 32.1 H (6-22) Glucose 110 (80-110) mg/dL Lactate (0.7-2.1) mmol/L Calcium 7.7 L (8.4-10.2) mg/dL Total Bilirubin 1.7 H (0.2-1.3) mg/dL AST 75 H (17-59) IU/L ALT 53 H (<50) IU/L Alkaline Phosphatase 65 (38-126) U/L Total Creatine Kinase < 20 L (55-170) U/L CK-MB (CK-2) TNP CK-MB (CK-2) Rel Index TNP Troponin I 0.036 H (0.01-0.034) ng/mL NT-Pro-B Natriuret Pep 4880 H (<450) pg/mL Total Protein 7.2 (6.3-8.2) g/dL Albumin 2.5 L (3.5-5.0) g/dL Globulin 4.7 H (1.7-4.1) g/dL Albumin/Globulin Ratio 0.5 L (1.0-2.8) Lipase 62 (23-300) U/L Procalcitonin (<0.5) ng/mL Urine Color Urine Appearance Urine pH (4.5-8.0) Ur Specific [place] (1.000-1.035) Urine Protein (Negative) Urine Glucose (UA) (Negative) g/dL Urine Ketones (NEGATIVE) Urine Occult Blood (Negative) Urine Nitrate (Negative) Urine Bilirubin (NEGATIVE) Urine Urobilinogen (0.2) E.U./dL Ur Leukocyte Esterase (NEGATIVE) Urine RBC (0-5/HPF) Urine WBC (0-5/HPF) Amorphous Sediment Urine Bacteria (None) Granular Casts (None) Ur Culture Indicated? SARS-CoV-2 (PCR) Negative (Negative) Influenza A (RT-PCR) Flu a negative (NEGATIVE) Influenza B (RT-PCR) Flu b negative (NEGATIVE) RSV (PCR) Negative (Negative) Blood Type Antibody Screen 12/08/22 12/08/22 Range/Units 02:45 03:00 WBC (4.5-11.0) X10^3/uL RBC (4.5-5.9) X10^6/uL Hgb (13.5-17.5) g/dL Hct (41-53) % MCV (80-100) fL MCH (26-34) PG MCHC (30-36) % RDW (11.6-14.8) % Plt Count (150-400) X10^3/uL Neut % (Auto) (50-75) % Lymph % (Auto) (25-40) % Mccreary % (Auto) (3-14) % Eos % (Auto) (2-4) % Baso % (Auto) (0-2) % Neut # (Auto) (9527-5955) /uL Lymph # (Auto) (3819-2640) /uL M[place]re[place] # (Auto) (0-900) /uL Eos # (Auto) (0-450) /uL Baso # (Auto) (0-100) /uL Platelet Estimate RBC Morphology Anisocytosis PT (10.1-12.7) SECONDS INR (0.9-1.3) APTT (26-36) SECONDS Sodium (137-145) mmol/L Potassium (3.4-5.1) mmol/L Chloride (98-107) mmol/L Carbon Dioxide (22-32) mmol/L BUN (9-20) mg/dL Creatinine (0.66-1.25) mg/dL Estimated GFR (>60) mL/min BUN/Creatinine Ratio (6-22) Glucose (80-110) mg/dL Lactate (0.7-2.1) mmol/L Calcium (8.4-10.2) mg/dL Total Bilirubin (0.2-1.3) mg/dL AST (17-59) IU/L ALT (<50) IU/L Alkaline Phosphatase (38-126) U/L Total Creatine Kinase (55-170) U/L CK-MB (CK-2) CK-MB (CK-2) Rel Index Troponin I (0.01-0.034) ng/mL NT-Pro-B Natriuret Pep (<450) pg/mL Total Protein (6.3-8.2) g/dL Albumin (3.5-5.0) g/dL Globulin (1.7-4.1) g/dL Albumin/Globulin Ratio (1.0-2.8) Lipase (23-300) U/L Procalcitonin (<0.5) ng/mL Urine Color Yellow Urine Appearance Clear Urine pH 5.0 (4.5-8.0) Ur Specific [place] 1.015 (1.000-1.035) Urine Protein Trace H (Negative) Urine Glucose (UA) Negative (Negative) g/dL Urine Ketones Negative (NEGATIVE) Urine Occult Blood Trace-intact (Negative) Urine Nitrate Negative (Negative) Urine Bilirubin Negative (NEGATIVE) Urine Urobilinogen 0.2 (0.2) E.U./dL Ur Leukocyte Esterase Negative (NEGATIVE) Urine RBC 0-1/hpf (0-5/HPF) Urine WBC 0-1/hpf (0-5/HPF) Amorphous Sediment 2+ Urine Bacteria None seen (None) Granular Casts 0-1/lpf (None) Ur Culture Indicated? Cult not indicated SARS-CoV-2 (PCR) (Negative) Influenza A (RT-PCR) (NEGATIVE) Influenza B (RT-PCR) (NEGATIVE) RSV (PCR) (Negative) Blood Type O Positive Antibody Screen Negative Imaging Data Chest x-ray: Radiologist's Impression: Cardiomediastinal silhouette unremarkable. Base opacities bilaterally improved compared to study performed 3 days ago, no new lung abnormality no pleural effusion suspected. CT scan - abdomen/pelvis: Radiologist's Impression: Small bilateral pleural effusions new compared to study performed 9 days ago interstitial septal prominence in lung bases suggestive pulmonary edema fluid overload. Small fluid collection posterior inferior mediastinum is unchanged. Small gallstones again noted. Splenic enlargement and extensive splenic infarct have appearance similar to recent CT scan. No new splenic abnormality or perisplenic fluid collection appreciated splenic artery and vein are both patent and unchanged in appearance. ECG Data Attestation: I personally reviewed and interpreted this ECG as follows: Prior ECG tracings: available for review Interpretation: Sinus tachycardia rate of 114, [place] 162 QRS of 140 QTC of 496. Left axis deviation. Left bundle-branch block. Patient has from 12/06/2022 shows normal sinus rhythm but on 12/05 he is left bundle-branch block/LAD. Both EKGs were verified for the same date of . Treatment and disposition Code Status and discussions:: Full code with limited intervention. Patient does not want prolonged treatment with intubation but is open to CPR, short term intubation and ventilation etcetera MDM Narrative Medical decision making narrative: This is an 87-year-old male with known microcytic anemia, patient hemoglobin stable white counts not elevated platelets are dropping is 69 today were 61 on last check on 80's prior to that. Patient's renal function is worse from yesterday 1.4 with a BUN of 45, sodium slightly improved at 1:30 a.m. with potassium of 5 6, GFR is 49, lactate of 4.4 reflecting likely acidosis, acute kidney injury dehydration and hyperkalemia with a totally bilirubin 1.7 AST is 75 ALT of 53 lipase is normal. Procalcitonin 5.6 with troponin that is indeterminate and trending down words from priors but BNP is elevating. Patient is febrile tachycardic tachypneic. Did not have any clear infection during his hospital stay. Will be covered with broad coverage. Patient clearly meet septic criteria received L bolus will likely receive additional fluids but is not going to receive a 30 cc/kilos bolus as he is also with CHF, he is does not have significant crackles on exam but is tachypneic and hypoxic at 87% chest x-ray and abdomen pelvis CT were obtained to evaluate for infection and also patient has known splenic infarct that was all involving on his last CT on 11/29/2022. Patient started prophylactically on Zosyn and vanco for recent hospital-acquired pneumonia possibly. Patient's imaging shows chest x-ray does not show worsening changes but CT abdomen pelvis does show new bilateral pleural effusions with changes also suggestive of pulmonary edema/fluid overload there is a fluid collection posterior inferior mediastinum which is unchanged and splenic infarct and enlargement and are unchanged with no new abnormality fluid and both splenic artery and vein are patent. Patient's echo from 11/29/2022 was also reviewed had a left ventricle normal size and wall thickness with an EF 55-60% could not exclude regional wall motion abnormalities from limited visualization. Right ventricle was normal size and function atria were normal no evidence of shunt mitral valve leaflets were borderline thickened but open well with trace mitral regurg and aortic valve was moderately calcific guide but no hemodynamically significant aortic valve stenosis with trace regurg. Spoke with Dr. Weaver, accepts for admission. Agrees with current plan. Will continue fluids but not a full 30 cc/kilos bolus as there was concern about fluid overloading the patient he does have a normal echo he does not have significant edema in his lower extremities but BNP is rising and he does have low O2. We discussed did not CT angio his chest but at this point suspect more infectious cause of his symptoms but is on the differential. Patient repeat lactate is 1.1, will continue fluids but at 150ml/hr with LR as patient appears be appropriately fluid resuscitated at this time. His heart rate is in the 80s, blood pressure has been consistently in the 120s to 130 systolic. Critical Care Time Critical Care Time Critical Care Time: Yes Total Critical Care Time: 43 Attestation: The high probability of a clinically significant, sudden or life threatening deterioration of the [cardiac, pulm] system(s) required my full and direct attention, intervention and personal management. The aggregate critical care time was [] minutes. This time is in addition to time spent performing reported procedures but includes the following: [x] Data Review and interpretation [x] Patient assessment and monitoring of vital signs [x] Documentation [x] Medication orders and management Discharge Plan Departure Patient Disposition: Admitted As Inpatient Clinical Impression: Sepsis, Thrombocytopenia, Microcytic anemia, Splenomegaly, Acute kidney injury, Hyperkalemia, Bilateral pleural effusion Admit Date/Time: 12/08/22 03:33 Admit Provider: Colt Weaver
[2022-12-08] MEDS: ACETAMINOPHEN 325 MG TABLET 650 MG PO ×2 (01:58→19:54)
[2022-12-08 01:59] LABS: INR 1.4 (0.9-1.3); Prothrombin Time 15.6 SECONDS (10.1-12.7)
[2022-12-08] MEDS: SODIUM CHLORIDE 0.9% 500 ML 1000 ML IV (01:59)
[2022-12-08 02:02] LABS: PTT Partial Thromboplastin Tim 32 SECONDS (26-36)
[2022-12-08 02:03] LABS: Alanine Aminotransferase 53 IU/L (<50); Albumin 2.5 g/dL (3.5-5.0); Albumin Globulin Ratio 0.5 (1.0-2.8); Alkaline Phosphatase 65 U/L (38-126); BUN Creatinine Ratio 32.1 (6-22); Bilirubin Total 1.7 mg/dL (0.2-1.3); Blood Urea Nitrogen 45 mg/dL (9-20); Calcium 7.7 mg/dL (8.4-10.2); Carbon Dioxide 17 mmol/L (22-32); Chloride 102 mmol/L (98-107); Creatine Kinase < 20 U/L (55-170); Estimated Glomerular Filt Rate 49 mL/min (>60); Globulin 4.7 g/dL (1.7-4.1); Glucose 110 mg/dL (80-110); Lipase 62 U/L (23-300); Sodium 130 mmol/L (137-145); Total Protein 7.2 g/dL (6.3-8.2)
[2022-12-08 02:04] LABS: Lactate (Lactic Acid) 4.4 mmol/L (0.7-2.1)
[2022-12-08 02:10] LABS: Basophils Absolute Auto 0 /uL (0-100); Basophils Percent Auto 0.6 % (0-2); Eosinophils Absolute Auto 100 /uL (0-450); Eosinophils Percent Auto 1.2 % (2-4); Hematocrit 34.1 % (41-53); Lymphocytes Absolute Auto 2400 /uL (1100-4500); Lymphocytes Percent Auto 36.9 % (25-40); Mean Corpuscular HGB Conc 32.3 % (30-36); Mean Corpuscular Volume 80.6 fL (80-100); Monocytes Absolute Auto 200 /uL (0-900); Monocytes Percent Auto 2.4 % (3-14); Neutrophils Absolute Auto 3800 /uL (1500-7000); Neutrophils Percent Auto 58.9 % (50-75); Platelet Count 69 X10^3/uL (150-400); Red Blood Cell Count 4.23 X10^6/uL (4.5-5.9); Red Cell Distribution Width 20.6 % (11.6-14.8); White Blood Cell Count 6.4 X10^3/uL (4.5-11.0)
[2022-12-08] MEDS: SODIUM CHLORIDE 0.9% 1,000 ML 1000 ML IV (02:10)
[2022-12-08 02:15] LABS: Add Manual Diff / Slide Review SLIDE REVIEW; NT-proBNP (BNP-Adult 18+) 4880 pg/mL (<450); Troponin I 0.036 ng/mL (0.01-0.034)
[2022-12-08 02:16] LABS: HEMOLYSIS 99 (0-50); Potassium 5.6 mmol/L (3.4-5.1)
[2022-12-08 02:17] LABS: Aspartate Aminotransferase 75 IU/L (17-59)
[2022-12-08 02:43] LABS: Procalcitonin 5.76 ng/mL (<0.5)
[2022-12-08] MEDS: PIPERACILLIN/TAZO 4.5 GM in SODIUM CHLORIDE 0.9% 100 ML IV (02:57)
[2022-12-08 03:09] LABS: Appearance Urine UA CLEAR; Bilirubin Urine UA NEGATIVE (NEGATIVE); Color Urine UA YELLOW; Glucose Urine UA NEGATIVE (Negative); Ketones Urine UA NEGATIVE (NEGATIVE); Leukocyte Esterase Urine UA NEGATIVE (NEGATIVE); Nitrite Urine UA NEGATIVE (Negative); Occult Blood Urine UA TRACE-INTACT (Negative); Protein Urine UA TRACE (Negative); Specific Gravity Urine UA 1.015 (1.000-1.035); Urobilinogen Urine UA 0.2 E.U./dL (0.2)
[2022-12-08 03:16] LABS: Influenza A - CEPHEID Flu A NEGATIVE (NEGATIVE); Influenza B - CEPHEID Flu B NEGATIVE (NEGATIVE); Respiratory Syncytial Virus Negative (Negative)
[2022-12-08 03:18] LABS: COVID-19 CEPHEID 4-PLEX PCR Negative (Negative)
[2022-12-08 03:27] LABS: Amorphous Sediment Urine 2+; Culture Indicated Urine Cult Not Indicated; Granular Casts Urine 0-1/LPF; RBC Urine 0-1/HPF (0-5/HPF); WBC Urine 0-1/HPF (0-5/HPF)
[2022-12-08 03:34] LABS: Anisocytosis 3+
[2022-12-08 03:35] LABS: Platelet Estimate Decreased on smear
[2022-12-08 03:36] LABS: Bacteria Urine None Seen
[2022-12-08] MEDS: VANCOMYCIN 1,250 MG/250 ML PIGGYBACK 250 MG IV (03:40)
[2022-12-08 03:53] LABS: Reflexed Lactate in 2 Hours Y
[2022-12-08 04:25] LABS: Lactate 2HR (Lactic Acid Rflx) 1.1 mmol/L (0.7-2.1)
[2022-12-08] MEDS: LACTATED RINGERS 1,000 ML 150 ML IV (05:02)
--- NOTE | 2022-12-08 07:40 | PC.NURSE ---
attempted ans. service for , no answer @[phone], trying again at [phone]
--- NOTE | 2022-12-08 11:09 | P.HP_ITS ---
History of Present Illness History of Present Illness Date Patient Seen: 12/08/22 Time Patient Seen: 11:09 Chief complaint: CP Narrative: Patient is an 87-year-old who was discharged yesterday with anemia who presents tonight with acute onset rigors and chills. Fevers. Patient was discharged yesterday for anemia after getting 3 units of blood. His anemia is a little unclear as to cause and Oncology Hematology have been consulted. Patient was felt to be possible ITP. Otherwise no significant new changes. Was sent home in stable condition with no evidence of fevers. Patient had increased fever and just was shaking and could not sought. Presented. He had no nausea or vomiting. No abdominal pain. No chest pain. No shortness of breath. No orthopnea or PND. He had no urinary complaints. No change in his bowel movements. No blood in his stools. Just has been very fatigued. Patient with no headache. Neck pain. Patient was admitted cultures were obtained procalcitonin was markedly positive had no other changes. Patient's blood pressure has been low but improved with fluids still in the lower side of no murmur. Patient History Medical History Gastroesophageal reflux disease Hyperlipidemia Hypertension Thrombocytopenia Surgical History H/O prostatectomy H/O vasectomy Hx of tonsillectomy Family & Social History Family History Mother Heart attack Father Bone cancer Social History: household members spouse Tobacco & Substance use: Tobacco type cigars Smoking Status Current every day smoker alcohol intake current alcohol intake frequency a few times a month Substance Use Type does not use Meds Home Medications and Allergies Home Medications Medication Instructions Recorded Confirmed Type omeprazole magnesium 20 mg 20 mg PO DAILY 04/26/19 12/08/22 History capsule,delayed release (Acid Swing Manager (omeprazole)) atorvastatin 20 mg tablet 20 mg PO DAILY 01/22/20 12/08/22 History diphenhydramine 25 1 tab PO BEDTIME PRN Insomnia 11/29/22 12/08/22 History mg-acetaminophen 500 mg tablet (Tylenol PM Extra Strength) buspirone 7.5 mg tablet 7.5 mg PO BID #60 tabs 11/30/22 12/08/22 Rx losartan 50 mg tablet 50 mg PO DAILY #30 tabs 12/07/22 12/08/22 Rx acetaminophen 325 mg capsule 650 mg PO Q6HR PRN Pain (Scale 12/08/22 12/08/22 History (Tylenol) Score 1-3) epinephrine 0.3 mg/0.3 mL 0.3 mg IM PRN PRN Allergic Reaction 12/08/22 12/08/22 History injection, auto-injector (EpiPen 2-Casey) Allergies Allergy/AdvReac Type Severity Reaction Status Date / Time ibuprofen AdvReac Mild Verified 11/29/22 11:40 Review of Systems Review of Systems Narrative: See above negative otherwise Exam Vital Signs (past 8 hours): - 12/08/22 03:21 12/08/22 03:21 12/08/22 03:30 Temperature 98.3 F 98.3 F Pulse Rate 101 H Respiratory Rate 30 H Blood Pressure Pulse Oximetry 96 Oxygen Delivery Method Oxygen Flow Rate 12/08/22 04:00 12/08/22 04:30 12/08/22 04:46 Temperature Pulse Rate 93 H 87 Respiratory Rate 28 H 27 H Blood Pressure 95/52 L Pulse Oximetry 92 94 Oxygen Delivery Method Oxygen Flow Rate 12/08/22 04:46 12/08/22 05:00 12/08/22 05:30 Temperature Pulse Rate 83 82 Respiratory Rate 26 H 31 H Blood Pressure 91/53 L Pulse Oximetry 96 96 Oxygen Delivery Method Oxygen Flow Rate 12/08/22 05:30 12/08/22 06:00 12/08/22 06:00 Temperature Pulse Rate 79 76 Respiratory Rate 25 H 25 H Blood Pressure 96/54 L Pulse Oximetry 94 94 Oxygen Delivery Method Oxygen Flow Rate 12/08/22 06:35 12/08/22 06:30 12/08/22 06:30 Temperature 97.7 F Pulse Rate 76 73 Respiratory Rate 24 Blood Pressure 95/53 L 87/53 L Pulse Oximetry 98 99 Oxygen Delivery Method Nasal Cannula Oxygen Flow Rate 2 12/08/22 06:33 12/08/22 06:33 12/08/22 06:50 Temperature Pulse Rate 74 Respiratory Rate 22 Blood Pressure 95/53 L 91/52 L Pulse Oximetry 98 Oxygen Delivery Method Oxygen Flow Rate 12/08/22 06:50 12/08/22 07:00 12/08/22 07:00 Temperature Pulse Rate 72 71 Respiratory Rate 22 21 Blood Pressure 94/55 L Pulse Oximetry 92 93 Oxygen Delivery Method Nasal Cannula Nasal Cannula Oxygen Flow Rate 2 2 12/08/22 07:15 12/08/22 07:15 12/08/22 07:39 Temperature 97.5 F L Pulse Rate 70 Respiratory Rate 22 Blood Pressure 94/53 L Pulse Oximetry 95 Oxygen Delivery Method Nasal Cannula Oxygen Flow Rate 2 12/08/22 07:30 12/08/22 07:30 12/08/22 07:45 Temperature Pulse Rate 72 65 Respiratory Rate 20 21 Blood Pressure 92/54 L Pulse Oximetry 92 98 Oxygen Delivery Method Nasal Cannula Nasal Cannula Oxygen Flow Rate 2 2 12/08/22 07:45 12/08/22 08:00 12/08/22 08:00 Temperature Pulse Rate 66 Respiratory Rate 21 Blood Pressure 94/52 L 91/50 L Pulse Oximetry 98 Oxygen Delivery Method Oxygen Flow Rate 12/08/22 08:15 12/08/22 08:15 12/08/22 08:30 Temperature Pulse Rate 67 Respiratory Rate 20 Blood Pressure 99/51 L 92/55 L Pulse Oximetry 100 Oxygen Delivery Method Oxygen Flow Rate 12/08/22 08:30 12/08/22 08:45 12/08/22 08:45 Temperature Pulse Rate 64 64 Respiratory Rate 22 22 Blood Pressure 95/52 L Pulse Oximetry 100 98 Oxygen Delivery Method Oxygen Flow Rate 12/08/22 09:00 12/08/22 09:00 12/08/22 09:20 Temperature Pulse Rate 62 Respiratory Rate 21 Blood Pressure 94/53 L 117/56 L Pulse Oximetry 98 Oxygen Delivery Method Nasal Cannula Oxygen Flow Rate 2 12/08/22 09:20 12/08/22 09:30 12/08/22 09:30 Temperature Pulse Rate 63 62 Respiratory Rate 25 H 21 Blood Pressure 96/51 L Pulse Oximetry 100 100 Oxygen Delivery Method Nasal Cannula Oxygen Flow Rate 2 12/08/22 09:45 12/08/22 09:45 12/08/22 10:00 Temperature Pulse Rate 64 Respiratory Rate 24 Blood Pressure 108/56 L 109/58 L Pulse Oximetry 100 Oxygen Delivery Method Oxygen Flow Rate 12/08/22 10:00 12/08/22 10:15 12/08/22 10:15 Temperature Pulse Rate 62 62 Respiratory Rate 18 17 Blood Pressure 98/57 L Pulse Oximetry 100 99 Oxygen Delivery Method Oxygen Flow Rate 12/08/22 10:30 12/08/22 10:30 12/08/22 10:45 Temperature Pulse Rate 64 63 Respiratory Rate 22 21 Blood Pressure 96/53 L Pulse Oximetry 97 98 Oxygen Delivery Method Nasal Cannula Nasal Cannula Oxygen Flow Rate 2 2 12/08/22 10:45 12/08/22 11:00 12/08/22 11:00 Temperature Pulse Rate 69 Respiratory Rate 22 Blood Pressure 101/55 L 102/58 L Pulse Oximetry 96 Oxygen Delivery Method Nasal Cannula Oxygen Flow Rate 2 Oxygen Delivery Method Nasal Cannula Oxygen Flow Rate 2 Narrative Exam Narrative: Alert fatigued-appearing male pale in appearance in no acute distress Mucous membranes mildly dry. Neck supple without adenopathy. Lungs with bibasilar crackles. Heart is regular rate and rhythm. Abdomen is soft positive bowel sounds nontender. Extremities without cyanosis clubbing edema. Neurologi c exam is unremarkable. Objective Labs 12/08/22 00:45 12/08/22 00:45 Labs: Laboratory Results - last 24 hr 12/08/22 12/08/22 12/08/22 00:45 00:45 00:45 WBC RBC Hgb Hct MCV MCH MCHC RDW Plt Count Neut % (Auto) Lymph % (Auto) [place] % (Auto) Eos % (Auto) Baso % (Auto) Neut # (Auto) Lymph # (Auto) [place] # (Auto) Eos # (Auto) Baso # (Auto) Platelet Estimate RBC Morphology Anisocytosis PT 15.6 H INR 1.4 H APTT 32 Sodium Potassium Chloride Carbon Dioxide BUN Creatinine Estimated GFR BUN/Creatinine Ratio Glucose Lactate 4.4 H* Calcium Total Bilirubin AST ALT Alkaline Phosphatase Total Creatine Kinase CK-MB (CK-2) CK-MB (CK-2) Rel Index Troponin I NT-Pro-B Natriuret Pep Total Protein Albumin Globulin Albumin/Globulin Ratio Lipase Procalcitonin 5.76 H Urine Color Urine Appearance Urine pH Ur Specific [place] Urine Protein Urine Glucose (UA) Urine Ketones Urine Occult Blood Urine Nitrate Urine Bilirubin Urine Urobilinogen Ur Leukocyte Esterase Urine RBC Urine WBC Amorphous Sediment Urine Bacteria Granular Casts Ur Culture Indicated? SARS-CoV-2 (PCR) Influenza A (RT-PCR) Influenza B (RT-PCR) RSV (PCR) Blood Type Antibody Screen 12/08/22 12/08/22 12/08/22 00:45 00:45 02:20 WBC 6.4 RBC 4.23 L Hgb 11.0 L Hct 34.1 L MCV 80.6 MCH 26.0 MCHC 32.3 RDW 20.6 H Plt Count 69 L Neut % (Auto) 58.9 Lymph % (Auto) 36.9 [place] % (Auto) 2.4 L Eos % (Auto) 1.2 L Baso % (Auto) 0.6 Neut # (Auto) 3800 Lymph # (Auto) 2400 [place] # (Auto) 200 Eos # (Auto) 100 Baso # (Auto) 0 Platelet Estimate Decreased on smear RBC Morphology See below Anisocytosis 3+ H D PT INR APTT Sodium 130 L Potassium 5.6 H D Chloride 102 Carbon Dioxide 17 L BUN 45 H Creatinine 1.40 H Estimated GFR 49 L BUN/Creatinine Ratio 32.1 H Glucose 110 Lactate Calcium 7.7 L Total Bilirubin 1.7 H AST 75 H ALT 53 H Alkaline Phosphatase 65 Total Creatine Kinase < 20 L CK-MB (CK-2) TNP CK-MB (CK-2) Rel Index TNP Troponin I 0.036 H NT-Pro-B Natriuret Pep 4880 H Total Protein 7.2 Albumin 2.5 L Globulin 4.7 H Albumin/Globulin Ratio 0.5 L Lipase 62 Procalcitonin Urine Color Urine Appearance Urine pH Ur Specific [place] Urine Protein Urine Glucose (UA) Urine Ketones Urine Occult Blood Urine Nitrate Urine Bilirubin Urine Urobilinogen Ur Leukocyte Esterase Urine RBC Urine WBC Amorphous Sediment Urine Bacteria Granular Casts Ur Culture Indicated? SARS-CoV-2 (PCR) Negative Influenza A (RT-PCR) Flu a negative Influenza B (RT-PCR) Flu b negative RSV (PCR) Negative Blood Type Antibody Screen 12/08/22 12/08/22 12/08/22 02:45 03:00 04:07 WBC RBC Hgb Hct MCV MCH MCHC RDW Plt Count Neut % (Auto) Lymph % (Auto) [place] % (Auto) Eos % (Auto) Baso % (Auto) Neut # (Auto) Lymph # (Auto) [place] # (Auto) Eos # (Auto) Baso # (Auto) Platelet Estimate RBC Morphology Anisocytosis PT INR APTT Sodium Potassium Chloride Carbon Dioxide BUN Creatinine Estimated GFR BUN/Creatinine Ratio Glucose Lactate 1.1 Calcium Total Bilirubin AST ALT Alkaline Phosphatase Total Creatine Kinase CK-MB (CK-2) CK-MB (CK-2) Rel Index Troponin I NT-Pro-B Natriuret Pep Total Protein Albumin Globulin Albumin/Globulin Ratio Lipase Procalcitonin Urine Color Yellow Urine Appearance Clear Urine pH 5.0 Ur Specific [place] 1.015 Urine Protein Trace H Urine Glucose (UA) Negative Urine Ketones Negative Urine Occult Blood Trace-intact Urine Nitrate Negative Urine Bilirubin Negative Urine Urobilinogen 0.2 Ur Leukocyte Esterase Negative Urine RBC 0-1/hpf Urine WBC 0-1/hpf Amorphous Sediment 2+ Urine Bacteria None seen Granular Casts 0-1/lpf Ur Culture Indicated? Cult not indicated SARS-CoV-2 (PCR) Influenza A (RT-PCR) Influenza B (RT-PCR) RSV (PCR) Blood Type O Positive Antibody Screen Negative Assessment & Plan Assessment & Plan narrative: Sepsis syndrome with hypotension elevated LFTs and positive procalcitonin. Etiology for site is unclear. Most likely pulmonary. But does have enlarged spleen. Seems unlikely to be abdominal source but not clear. Urine looks good. No evidence of central nervous system issue. At this point will cover broadly. Culture repeat labs and proceed from there. Usual fluid resuscitation will need to be slower due to this 87-year-old possible congestive heart failure. Blood pressure is lobe has been low I suspect it is lower than it had been but will need to watch closely. Congestive heart failure x-ray shows congestive heart failure. Will check BNP. Will hydrate slowly and proceed from there. Re-evaluate in a.m.. Echo. Acute renal failure. Patient probably pre renal. Had previously been in similar situation and will follow. Acute respiratory failure. Patient on O2. Has not previously been on O2. Question whether this is primarily pneumonia or congestive heart failure. Unclear at this time. Will obtain echo. Will treat for pneumonia. Will watch I&Os closely may need Lasix will see how things go. Anemia. Recheck labs. 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 No evidence of loss. Guaiac negative on previous admission. Will follow. Probably will be here on Saturday and will have to discuss with Oncology at that time. Elevated troponin previous admission. Going normal at this time. No other changes. Will continue to follow. Code status. DNR. DVT prophylaxis mechanical. Due to low platelets and history of anemia did not want to place on treatment. Disposition. Patient will be here for at least 2-3 days. Will see how things go. Have many things to clarify in this moderately ill patient Time Spent With Patient Critical Care time: I spent a total of [] minutes of critical care time on this patient's care t uzma; this time is exclusive of procedural time.
--- NOTE | 2022-12-08 11:57 | PC.NURSE ---
Day shift: Pt in room from ED at approx 1145. SBA to BR and voided. A&Ox4. Denies any pain or nausea. Does appear pale and fatigued. Agrees to not get OOB w/o help from staff. Oriented to room and call light. Pt has also been seen by Dr Weaver.
[2022-12-08 12:22] LABS: Add Manual Diff / Slide Review YES; Hematocrit 27.2 % (41-53); Mean Corpuscular HGB Conc 32.9 % (30-36); Mean Corpuscular Hemoglobin 26.5 PG (26-34); Mean Corpuscular Volume 80.5 fL (80-100); Platelet Count 58 X10^3/uL (150-400); Red Blood Cell Count 3.38 X10^6/uL (4.5-5.9); Red Cell Distribution Width 20.6 % (11.6-14.8); White Blood Cell Count 5.1 X10^3/uL (4.5-11.0)
[2022-12-08 12:29] LABS: Alanine Aminotransferase 42 IU/L (<50); Albumin Globulin Ratio 0.5 (1.0-2.8); Alkaline Phosphatase 55 U/L (38-126); Aspartate Aminotransferase 43 IU/L (17-59); BUN Creatinine Ratio 30.5 (6-22); Bilirubin Total 1.2 mg/dL (0.2-1.3); Blood Urea Nitrogen 43 mg/dL (9-20); Calcium 7.3 mg/dL (8.4-10.2); Carbon Dioxide 19 mmol/L (22-32); Chloride 105 mmol/L (98-107); Estimated Glomerular Filt Rate 49 mL/min (>60); Globulin 3.8 g/dL (1.7-4.1); Glucose 93 mg/dL (80-110); HEMOLYSIS < 15 (0-50); Potassium 4.8 mmol/L (3.4-5.1); Sodium 132 mmol/L (137-145); Total Protein 5.8 g/dL (6.3-8.2)
[2022-12-08] MEDS: PIPERACILLIN/TAZO 3.375 GM in SODIUM CHLORIDE 0.9% 100 ML IV ×2 (12:33→19:53)
[2022-12-08] MEDS: SODIUM CHLORIDE 0.45% 1,000 ML 125 ML IV (12:33)
[2022-12-08 12:44] LABS: Procalcitonin 11.6 ng/mL (<0.5)
[2022-12-08 13:17] LABS: Neutrophils Absolute Manual 2907 /uL (3000-5900); Total Cells Counted 100
[2022-12-08 13:18] LABS: Anisocytosis 2+; Hypochromasia 1+; Target Cells 1+
[2022-12-08] MEDS: diphenhydrAMINE 25 MG TABLET PO ×2 (14:46→19:54)
[2022-12-08 19:21] LABS: Clostridium Difficile Tox PCR Negative for C. diff (Negative)
[2022-12-09] VITALS (8 sets, daily range): BP systolic 105–128; BP diastolic 55–63; PULSE 75–86; RESP 16–24; TEMP 36.6–37.5; O2SAT 95–96
[2022-12-09] MEDS: ACETAMINOPHEN 325 MG TABLET 650 MG PO ×2 (03:35→14:44)
[2022-12-09] MEDS: PIPERACILLIN/TAZO 3.375 GM in SODIUM CHLORIDE 0.9% 100 ML IV ×3 (03:35→21:06)
[2022-12-09] MEDS: diphenhydrAMINE 25 MG TABLET PO ×2 (03:36→21:10)
[2022-12-09 08:03] LABS: Hematocrit 25.9 % (41-53); Hemoglobin 8.5 g/dL (13.5-17.5); Mean Corpuscular HGB Conc 32.9 % (30-36); Mean Corpuscular Hemoglobin 26.2 PG (26-34); Mean Corpuscular Volume 79.8 fL (80-100); Platelet Count 57 X10^3/uL (150-400); Red Blood Cell Count 3.24 X10^6/uL (4.5-5.9); Red Cell Distribution Width 20.4 % (11.6-14.8); White Blood Cell Count 4.9 X10^3/uL (4.5-11.0)
[2022-12-09 08:05] LABS: Add Manual Diff / Slide Review YES
[2022-12-09 08:14] LABS: Alanine Aminotransferase 36 IU/L (<50); Albumin 1.8 g/dL (3.5-5.0); Albumin Globulin Ratio 0.5 (1.0-2.8); Alkaline Phosphatase 54 U/L (38-126); Aspartate Aminotransferase 31 IU/L (17-59); BUN Creatinine Ratio 26.2 (6-22); Blood Urea Nitrogen 38 mg/dL (9-20); Carbon Dioxide 17 mmol/L (22-32); Chloride 106 mmol/L (98-107); Estimated Glomerular Filt Rate 47 mL/min (>60); Globulin 3.6 g/dL (1.7-4.1); Glucose 84 mg/dL (80-110); HEMOLYSIS < 15 (0-50); Potassium 4.1 mmol/L (3.4-5.1); Sodium 130 mmol/L (137-145); Total Protein 5.4 g/dL (6.3-8.2)
[2022-12-09 08:20] LABS: NT-proBNP (BNP-Adult 18+) 4730 pg/mL (<450)
[2022-12-09 08:21] LABS: Neutrophils Absolute Manual 3479 /uL (3000-5900); Total Cells Counted 100
[2022-12-09 08:22] LABS: Anisocytosis 2+; Platelet Estimate Decreased on smear
[2022-12-09] MEDS: PANTOPRAZOLE DR 20 MG TABLET PO (09:04)
[2022-12-09] MEDS: FUROSEMIDE 20 MG/2 ML VIAL IV (10:52)
[2022-12-09] MEDS: AZITHROMYCIN 500 MG in DEXTROSE 5% IN WATER 250 ML 250 MG IV (10:55)
--- NOTE | 2022-12-09 11:21 | PM.PN.1 ---
Subjective Subjective Date Patient Seen: 12/09/22 Time Patient Seen: 11:21 Interval history: Patient seen in follow-up of sepsis syndrome. Anemia. Patient otherwise feeling pretty well. No other changes. No pain. Still very fatigued. But otherwise feeling slightly better. No cough. Shortness of breath chest pain. Exam Vital Signs (past 8 hours): - 12/09/22 03:49 12/09/22 03:50 12/09/22 07:56 Temperature 98.6 F 99.5 F Pulse Rate 86 Respiratory Rate 24 Blood Pressure 128/58 L Pulse Oximetry 96 Oxygen Delivery Method Room Air Oxygen Flow Rate 0 12/09/22 08:05 Temperature 98.2 F Pulse Rate 77 Respiratory Rate 16 Blood Pressure 110/55 L Pulse Oximetry 95 Oxygen Delivery Method Oxygen Flow Rate 0 Oxygen Delivery Method Room Air Oxygen Flow Rate 0 Narrative Exam Narrative: Alert male no acute distress weight gain 4 lb. Mucous membranes moist. Neck supple without adenopathy lungs with bilateral basal crackles. Heart is regular rate and rhythm abdomen is benign mildly distended no tenderness extremities without edema Objective Labs 12/09/22 07:41 12/09/22 07:41 Labs: Laboratory Results - last 24 hr 12/08/22 12/08/22 12/08/22 12:05 12:05 12:05 WBC 5.1 RBC 3.38 L Hgb 9.0 L Hct 27.2 L MCV 80.5 MCH 26.5 MCHC 32.9 RDW 20.6 H Plt Count 58 L Neut % (Auto) Not Reportable Lymph % (Auto) Not Reportable [place] % (Auto) Not Reportable Eos % (Auto) Not Reportable Baso % (Auto) Not Reportable Lymph # (Auto) Not Reportable [place] # (Auto) Not Reportable Baso # (Auto) Not Reportable Total Counted 100 Seg Neutrophils % 51.0 Band Neutrophils % 6.0 Lymphocytes % (Manual) 32.0 Atypical Lymphs % 2.0 H Monocytes % (Manual) 7.0 Eosinophils % (Manual) 2.0 Basophils % (Manual) Neutrophils # (Manual) 2907 L Platelet Estimate RBC Morphology Not Reportable Hypochromasia 1+ H Anisocytosis 2+ H Target Cells 1+ H Sodium 132 L Potassium 4.8 Chloride 105 Carbon Dioxide 19 L BUN 43 H Creatinine 1.41 H Estimated GFR 49 L BUN/Creatinine Ratio 30.5 H Glucose 93 Lactate 1.0 Calcium 7.3 L Total Bilirubin 1.2 AST 43 ALT 42 Alkaline Phosphatase 55 NT-Pro-B Natriuret Pep Total Protein 5.8 L Albumin 2.0 L Globulin 3.8 Albumin/Globulin Ratio 0.5 L Procalcitonin 11.6 H C. difficile Tox (PCR) 12/08/22 12/09/22 12/09/22 18:25 07:41 07:41 WBC 4.9 RBC 3.24 L Hgb 8.5 L Hct 25.9 L MCV 79.8 L MCH 26.2 MCHC 32.9 RDW 20.4 H Plt Count 57 L Neut % (Auto) Not Reportable Lymph % (Auto) Not Reportable [place] % (Auto) Not Reportable Eos % (Auto) Not Reportable Baso % (Auto) Not Reportable Lymph # (Auto) Not Reportable [place] # (Auto) Not Reportable Baso # (Auto) Not Reportable Total Counted 100 Seg Neutrophils % 71.0 H Band Neutrophils % Lymphocytes % (Manual) 16.0 L Atypical Lymphs % 2.0 H Monocytes % (Manual) 7.0 Eosinophils % (Manual) 3.0 Basophils % (Manual) 1.0 Neutrophils # (Manual) 3479 Platelet Estimate Decreased on smear RBC Morphology See below Hypochromasia Anisocytosis 2+ H Target Cells Sodium 130 L Potassium 4.1 Chloride 106 Carbon Dioxide 17 L BUN 38 H Creatinine 1.45 H Estimated GFR 47 L BUN/Creatinine Ratio 26.2 H Glucose 84 Lactate Calcium 7.0 L Total Bilirubin 1.0 AST 31 ALT 36 Alkaline Phosphatase 54 NT-Pro-B Natriuret Pep Total Protein 5.4 L Albumin 1.8 L Globulin 3.6 Albumin/Globulin Ratio 0.5 L Procalcitonin 12.0 H C. difficile Tox (PCR) Negative for c. diff 12/09/22 07:41 WBC RBC Hgb Hct MCV MCH MCHC RDW Plt Count Neut % (Auto) Lymph % (Auto) [place] % (Auto) Eos % (Auto) Baso % (Auto) Lymph # (Auto) [place] # (Auto) Baso # (Auto) Total Counted Seg Neutrophils % Band Neutrophils % Lymphocytes % (Manual) Atypical Lymphs % Monocytes % (Manual) Eosinophils % (Manual) Basophils % (Manual) Neutrophils # (Manual) Platelet Estimate RBC Morphology Hypochromasia Anisocytosis Target Cells Sodium Potassium Chloride Carbon Dioxide BUN Creatinine Estimated GFR BUN/Creatinine Ratio Glucose Lactate Calcium Total Bilirubin AST ALT Alkaline Phosphatase NT-Pro-B Natriuret Pep 4730 H Total Protein Albumin Globulin Albumin/Globulin Ratio Procalcitonin C. difficile Tox (PCR) PFSH Medical History Gastroesophageal reflux disease Hyperlipidemia Hypertension Thrombocytopenia Surgical History H/O prostatectomy H/O vasectomy Hx of tonsillectomy Family History Mother Heart attack Father Bone cancer Social History household members: spouse Smoking Status: Former smoker alcohol intake: former Assessment & Plan Assessment & Plan narrative: Sepsis syndrome. Actually improved. Procalcitonin slightly down. LFTs resolved. Patient appears to have been a little bit fluid overloaded and overall otherwise is doing well. Certainly trending in the right direction. Did start Zithromax with the hope of better coverage for atypicals. Probably could consider switch of Zosyn maybe tomorrow to a less aggressive medication will see. Maybe able to go to orals tomorrow depending on how things go. Patient is significantly better will watch procalcitonin and recheck lactic acid. White count is not elevated which is interesting did review causes of increased prolactin really none of it fits other than infection. Will see how things go. Congestive heart failure. Waiting echo. BNP was elevated. Lasix today. DC saline and follow. Acute renal failure. Still present. Etiology is unclear will follow. Acute respiratory failure. Off O2. Doing better. Probably combination of pneumonia and congestive heart failure will see how he does with Lasix today. And follow. Anemia. Recheck labs. Seems to be doing well. Possible ITP. Certainly no need for transition today. Will need to call Oncology tomorrow with him being back in the hospital. Maybe can consider iron treatment while in the hospital. Elevated troponin. Certainly had normalized. Will follow. Will see what echo shows make sure no cardiac injury. Code status DNR. Disposition. Patient will probably be here 2-3 more days will see how things go. Follow 35 minutes spent with patient nursing dictation orders Time Spent With Patient Critical Care time: I spent a total of [] minutes of critical care time on this patient's care today; this time is exclusive of procedural time.
--- NOTE | 2022-12-09 13:45 | PC.NURSE ---
Day shift: Pt had a shower this afternoon. He said I feel like a new person now. Also switched Pt to new Radha bed and he seems to be more comfortable now. Bed alarm is on and call light in reach.
--- NOTE | 2022-12-09 13:50 | DI.ECHO.S_ITS ---
[facility]---------+ [facility] +---------+ : : [address] : : : [place] : : : : [id number] : : : : Phone: [phone] Echocardiogram Report + + :Name: ASHISH MORRISSEY Study Date: 12/10/2022 Height: 66 in : :[facility] ReadingLocation: Weight: 173 lb : : Gender: Male BSA: 1.9 m2 : :: 1935 Age: 87 yrs BP: 126/63 mmHg: :Reason For Study: SEPSIS/ POSSIBLE CHF/EJECTION FRACTION : :Ordering Physician: ADELE, : :ROSEMARIE Performed By: Izabella Hobbs : :Referring: ROSEMARIE ANGULO : + + Interpretation Summary Limited Echo: 1) Normal left ventricular thickness, size, and systolic function (EF 55-60%). 2) There are no obvious focal wall motion abnormalities noted but poor endocardial definition reduces the sensitivity for the detection of such. 3) Compared to the Echo done 11/29/2022, no significant change. Procedure: Images were not obtained from all of the standard acoustic windows due to the limited scope of the study. Comparison is made with the echocardiogram of 11/29/2022. The study quality was technically adequate. The patient was in sinus rhythm with heart rates between 82-86 bpm during the exam. Left Ventricle: Proximal septal thickening is noted. The left ventricle is normal in size and wall thickness. The ejection fraction is estimated to be 55-60%. There are no obvious focal wall motion abnormalities noted but poor endocardial definition reduces the sensitivity for the detection of such. Right Ventricle: The right ventricle grossly appears normal in size with probable normal systolic function. Great Vessels: The inferior vena cava was not visualized. Pericardium/ Pleura There is no pericardial effusion. MMode/2D Measurements & Calculations LVIDd: 4.8 cm LVIDs: 3.1 cm FS: 36.1 % EPSS: 1.3 cm IVSd: 0.72 cm LVPWd: 0.70 cm LV govea. diameter/BSA (cm/m^2): 2.5 LV sys. diameter/BSA (cm/m^2): 1.6 Reading Physician:01:20 PM
--- NOTE | 2022-12-09 13:54 | CM.DANOTE ---
DCP/Assessment: Reviewed chart. Patient is a 87yr old male admitted to I. with CHF. Patient recently discharged from I.. on 12-07-22. PCP is Dr. Inman. Primary payor is [facility]. Met briefly with patient and spouse at bedside explained CM team role. At this time patient hope to return home with HH resumed through [facility] . Patient ambulated from bed to bathroom during GAUGE CHECKER visit. Medically patient has new onset of CHF. Therefore, most likely will be here today for dieresis. P: Anticipate home when stable. [facility] to be notified prior to d/c. Patient's spouse reports that she called them to tell them he was here. YASMIN Discharge Planning/Care Management CM Discharge Assessment Start: 12/09/22 13:46 Freq: Status: Active Protocol: Document 12/09/22 13:47 KJS (Rec: 12/09/22 13:54 KJS [id number]) Discharge Planning Assessment Assigned Linux Vmware Administrator Annmarie Ceballos, [facility] [place] Contact Information Mojgan Alfred (spouse) # [phone] Advance Directives? Yes: POLST Advance Directives on File Yes History Provided By Patient,Family Member,Medical Record Has Patient been admitted in last 30 Yes days? Prior Living Arrangements House Household Members spouse Type of transporation used prior to Relies on Others admit Independent with ADL's Yes Is patient alert and oriented? Yes Caregiver for Another No Comment Prior to admit had Home health set up through [facility]. Unforutmorenita, they never saw him because he was hospitalized. DME Already Rented / Owned FWW / Walker,Cane Comment Patient reports that he uses both cane and walker minimally at home. Patient/Family Preference Home with Home Health Barriers to Discharge No Comment At this time d/c needs are unknown. Patient d/c'd a few days ago and came back with actue onset of rigors and chills. Patient received 3 units of blood prior to his previous discharge on 12-07-22. Patient is inpatient status . Patient currently with new onset of CHF. Discharge Plan Home Transportation Arrangement Spouse Referrals Initiated Home Health Additional Comment Pending progress patient requesting to go home when medically stable. Pateint would like home health resumed through [facility]. If patient plan is home with home health Yes: Done on previous visit. : Has signed face to face form been completed? Medicare Choice List Provided Yes SNF/HH Preference [facility] Contact Name/ Whiteboard Updated in Patient Room with Yes name and ext. # of Linux Vmware Administrator Review Status In Process Next Review Type Continued Stay Review
[2022-12-10] MEDS: PIPERACILLIN/TAZO 3.375 GM in SODIUM CHLORIDE 0.9% 100 ML IV ×2 (05:00→12:51)
[2022-12-10] MEDS: PANTOPRAZOLE DR 20 MG TABLET PO (05:18)
[2022-12-10 06:16] VITALS: BP 123/66; PULSE 90; RESP 22; TEMP 37.2; O2SAT 95
[2022-12-10 06:53] LABS: Lactate (Lactic Acid) 2.1 mmol/L (0.7-2.1)
[2022-12-10 06:58] LABS: Add Manual Diff / Slide Review YES; Hematocrit 25.7 % (41-53); Hemoglobin 8.5 g/dL (13.5-17.5); Mean Corpuscular HGB Conc 33.2 % (30-36); Mean Corpuscular Hemoglobin 26.4 PG (26-34); Mean Corpuscular Volume 79.3 fL (80-100); Platelet Count 67 X10^3/uL (150-400); Red Blood Cell Count 3.24 X10^6/uL (4.5-5.9); Red Cell Distribution Width 20.6 % (11.6-14.8); White Blood Cell Count 5.4 X10^3/uL (4.5-11.0)
[2022-12-10 07:00] LABS: C-Reactive Protein Quant 7.8 mg/dL (<1.0)
[2022-12-10 07:08] LABS: Procalcitonin 7.86 ng/mL (<0.5)
[2022-12-10 07:10] LABS: Anisocytosis 2+; Neutrophils Absolute Manual 2916 /uL (3000-5900); Poikilocytosis 1+; Total Cells Counted 100
[2022-12-10 08:38] LABS: Reflexed Lactate in 2 Hours Y
--- NOTE | 2022-12-10 08:56 | P.PN_ITS ---
Subjective Subjective Date Patient Seen: 12/10/22 Time Patient Seen: 08:40 Interval history: CC: short of breath Feeling a bit better today, still breathing ok on RA, able to nibble on breakfast and ambulate to bathroom gained ten pounds recently not much pedal edema but some crackles labs generally stable no worsening of anemia Pt notes since being on abx he had some frothy bowel movements and in last couple days his BMs have been much darker than usual. poor appetite which was the case at home also. Exam Vital Signs (past 8 hours): - 12/10/22 06:16 Temperature 98.9 F Pulse Rate 90 Respiratory Rate 22 Blood Pressure 123/66 Pulse Oximetry 95 Oxygen Flow Rate 0 Oxygen Delivery Method Room Air Oxygen Flow Rate 0 Narrative Exam Narrative: alert awake elder in bed conversing with Const General: comfortable and well developed HENMN Head: normocephalic and atraumatic Eyes General: appearance normal, both eyes and all related structures Resp Other: moving air well bilaterally, bibasilar mild crackles heard Cardio Other: regular rate GI Other: active bowel sounds nontender Neuro General: patient alert, patient awake, patient oriented x3, moves all extremities and CN's II-XI intact bilaterally Objective Labs 12/10/22 06:27 12/09/22 07:41 Labs: Laboratory Results - last 24 hr 12/10/22 12/10/22 12/10/22 06:27 06:27 06:27 WBC 5.4 RBC 3.24 L Hgb 8.5 L Hct 25.7 L MCV 79.3 L MCH 26.4 MCHC 33.2 RDW 20.6 H Plt Count 67 L Neut % (Auto) Not Reportable Lymph % (Auto) Not Reportable [place] % (Auto) Not Reportable Eos % (Auto) Not Reportable Baso % (Auto) Not Reportable Lymph # (Auto) Not Reportable [place] # (Auto) Not Reportable Baso # (Auto) Not Reportable Total Counted 100 Seg Neutrophils % 52.0 Band Neutrophils % 2.0 L Lymphocytes % (Manual) 35.0 Atypical Lymphs % 8.0 H Monocytes % (Manual) 1.0 L Eosinophils % (Manual) 2.0 Neutrophils # (Manual) 2916 L RBC Morphology crystal calibrator Poikilocytosis 1+ H Anisocytosis 2+ H Lactate 2.1 C-Reactive Protein Procalcitonin 7.86 H 12/10/22 06:27 WBC RBC Hgb Hct MCV MCH MCHC RDW Plt Count Neut % (Auto) Lymph % (Auto) [place] % (Auto) Eos % (Auto) Baso % (Auto) Lymph # (Auto) [place] # (Auto) Baso # (Auto) Total Counted Seg Neutrophils % Band Neutrophils % Lymphocytes % (Manual) Atypical Lymphs % Monocytes % (Manual) Eosinophils % (Manual) Neutrophils # (Manual) RBC Morphology Poikilocytosis Anisocytosis Lactate C-Reactive Protein 7.8 H Procalcitonin PFSH Medical History Gastroesophageal reflux disease Hyperlipidemia Hypertension Thrombocytopenia Surgical History H/O prostatectomy H/O vasectomy Hx of tonsillectomy Family History Mother Heart attack Father Bone cancer Social History household members: spouse Smoking Status: Former smoker alcohol intake: former Assessment & Plan Assessment & Plan narrative: #Sepsis syndrome Continued improvement noted on broad spectrum abx, Patient appears to have been a little bit fluid overloaded and overall otherwise is doing well.? Certainly trending in the right direction.? On zithromax and zosyn will switch to orals for possible dc tomorrow. Procalcitonin trending down, WBCs remain flat? #Congestive heart failure New echo pending to check for new damage from latest spate of issues;? BNP was elevated.?Repeating lasix today for mild crackles, no IVF #Acute renal failure Trend and monitor? #Acute respiratory failure with hypoxia Improving.? Stable off O2.? #microcytic anemia s/p transfusion #thrombocytopenia #Oddly nonreactive WBCs in setting of sepsis and splenic infarct? Monitor. Possible ITP?? No need for repeat transfusion so far. Has appt to establish with oncology next Saturday.?Normal recent colonoscopy i think dark stools are response to zosyn. #Elevated troponin Normalized.? Will follow.? Will see what echo shows make sure no cardiac injury.? #anxiety mild continue outpt buspar Code status DNR.? Disposition.?Possible dc home tomorrow to f/u with oncology. upcoming HIDA and c apsule scans. MDM: [phone] Code: DNR diet: regular PCP: Henny Time Spent With Patient Critical Care time: I spent a total of [] minutes of critical care time on this patient's care today; this time is exclusive of procedural time.
[2022-12-10] MEDS: SODIUM CHLORIDE 0.9% FLUSH 10 ML IV (09:30)
[2022-12-10] MEDS: FUROSEMIDE 40 MG/4 ML VIAL IV (09:34)
[2022-12-10] MEDS: AZITHROMYCIN 500 MG in DEXTROSE 5% IN WATER 250 ML 250 MG IV (09:35)
[2022-12-10 09:48] LABS: Lactate 2HR (Lactic Acid Rflx) 1.9 mmol/L (0.7-2.1)
[2022-12-10 10:14] VITALS: BP 120/58; PULSE 90; RESP 19; TEMP 36.1; O2SAT 94
[2022-12-10 18:00] VITALS: BP 108/64; PULSE 92; RESP 18; TEMP 36.2; O2SAT 95
[2022-12-10] MEDS: diphenhydrAMINE 25 MG TABLET PO (20:25)
[2022-12-10] MEDS: BUSPIRONE 5 MG TABLET 7.5 MG PO (20:25)
[2022-12-11 01:25] VITALS: BP 139/67; PULSE 89; RESP 16; TEMP 36.7; O2SAT 95
[2022-12-11] MEDS: diphenhydrAMINE 25 MG TABLET PO (02:09)
[2022-12-11 06:00] VITALS: BP 136/66; PULSE 86; RESP 16; TEMP 36.7; O2SAT 96
[2022-12-11] MEDS: levoFLOXacin 250 MG TABLET 750 MG PO (06:33)
[2022-12-11] MEDS: PANTOPRAZOLE DR 20 MG TABLET PO (06:34)
--- NOTE | 2022-12-11 08:29 | P.DS_ITS ---
History of Present Illness History of Present Illness Date Patient Seen: 12/11/22 Time Patient Seen: 08:30 Date of Onset of Symptoms: 12/11/22 Chief complaint: CP Narrative: Patient is an 87-year-old who was discharged yesterday with anemia who presents tonight with acute onset rigors and chills. Fevers. Patient was discharged yesterday for anemia after getting 3 units of blood. His anemia is a little unclear as to cause and Oncology Hematology have been consulted. Patient was felt to be possible ITP. Otherwise no significant new changes. Was sent home in stable condition with no evidence of fevers. Patient had increased fever and just was shaking and could not sought. Presented. He had no nausea or vomiting. No abdominal pain. No chest pain. No shortness of breath. No orthopnea or PND. He had no urinary complaints. No change in his bowel movements. No blood in his stools. Just has been very fatigued. Patient with no headache. Neck pain. Patient was admitted cultures were obtained procalcitonin was markedly positive had no other changes. Patient's blood pressure has been low but improved with fluids still in the lower side of no murmur. Discharge Providers Provider Date of admission: 12/08/22 03:33 Discharge Date: 12/11/22 Primary care physician: Waqas Inman MD Discharge provider: Colt Weaver MD Summary Hospital Course Discharge Diagnosis: Sepsis syndrome Congestive heart failure Acute renal failure Acute respiratory failure with hypoxia Microcytic anemia status post transfusion Thrombocytopenia Hospital Course: Sepsis syndrome. Patient was admitted and began on hydration. We did not aggressively hydrate secondary to the fact there was question of whether or not he was in mild congestive heart failure and had previous admission with elevation in troponin. He did not have that during this admission but was concerned. He was began on broad antibiotics. And procalcitonin was significantly elevated along with lactic acid. Patient had elevated LFTs on initial presentation and mild renal failure. All felt to be secondary to his sepsis syndrome all resolved. Lactic acid resolved procalcitonin slowly improved. Due to the fact it was slow Zithromax was added on 2nd day. And patient actually was feeling quite a bit better. On day of discharge he was back to his normal self. It was felt to be secondary to pneumonia. He had no evidence of other source of infection. Workup was completely negative cultures were negative and he will be discharged on Levaquin. Followed as an outpatient. Congestive heart failure. Patient initially presented with some chest x-ray findings of that. He had mild elevation in his BNP. He was given Lasix and felt remarkably better. Hydration was discontinued and he will be followed. Acute renal failure. [place] to be secondary to pre renal initially. And mild congestive heart failure. Trending normal. Will be followed as outpatient. Acute respiratory failure. Patient came in with hypoxia. [place] to be secondary to pneumonia and mild congestive heart failure. Resolved over the 1st 24 hours. Will be followed. Microcytic anemia. Status post transfusion 2 units. Actually will arrange stable throughout the course of his admission no major issue. Is planned to be followed by Oncology. Has appointment. Thrombocytopenia. Question ITP. Is in process of being worked up. Will be followed as an outpatient. Exam Vital Signs (past 8 hours): - 12/11/22 01:25 12/11/22 06:00 Temperature 98.1 F 98.0 F Pulse Rate 89 86 Respiratory Rate 16 16 Blood Pressure 139/67 136/66 Pulse Oximetry 95 96 Oxygen Flow Rate 0 0 Oxygen Delivery Method Room Air Oxygen Flow Rate 0 Narrative Exam Narrative: Alert male in no acute distress. Lungs are clear. Heart is regular rate and rhythm. Extremities are normal. Skin actually no pallor. Much less fatigued in appearance Objective Labs 12/10/22 06:27 12/09/22 07:41 Labs: Laboratory Results - last 24 hr 12/10/22 09:15 Lactate 1.9 PFSH Medical History Gastroesophageal reflux disease Hyperlipidemia Hypertension Thrombocytopenia Surgical History H/O prostatectomy H/O vasectomy Hx of tonsillectomy Family History Mother Heart attack Father Bone cancer Social History household members: spouse Smoking Status: Former smoker alcohol intake: former Discharge Assessment & Plan Assessment and Plan Assessment: Improved Plan of Treatment: Discharge home Discharge Plan Discharge Plan Patient Disposition: Home Discharge orders & Medications Prescriptions: New levofloxacin 250 mg Tablet 750 mg PO Q48H Qty: 10 0RF Continued omeprazole magnesium [Acid Coffee Roaster Helper (omeprazole)] 20 mg Capsule,Delayed Release(Dr/Ec) 20 mg PO DAILY epinephrine [EpiPen 2-Casey] 0.3 mg/0.3 mL auto-injector 0.3 mg IM PRN PRN (Reason: Allergic Reaction) Label Comments: as directed acetaminophen [Tylenol] 325 mg capsule 650 mg PO Q6HR PRN (Reason: Pain (Scale Score 1-3)) Label Comments: once a day 500mg atorvastatin 20 mg Tablet 20 mg PO DAILY diphenhydramine-acetaminophen [Tylenol PM Extra Strength] 25-500 mg tablet 1 tab PO BEDTIME PRN (Reason: Insomnia) Label Comments: once a day buspirone 7.5 mg tablet 7.5 mg PO BID Qty: 60 0RF Discontinued losartan 50 mg Tablet 50 mg PO DAILY Qty: 30 0RF Follow up/Referrals: Waqas Inman MD [Primary Care Provider] - 12/12/22 (Patient has appointment already scheduled) Rubén Montana MD [Physician] - 12/17/22 (Appointment already scheduled) Discharge Health Status Multidrug resistant organism: No MDRO Diet/Activity/Treatments Diet: Diet as Tolerated Activity: As tolerated Skin/Wound/Dressing Care Report to your healthcare provider any signs of infection, such as:: chills, fever and increased pain Visit Report/Discharge Packet Stand Alone Forms: Patient Portal/API, Stroke Signs & Symptoms Discharge Data Primary Care Provider: Waqas Inman
[2022-12-11] MEDS: BUSPIRONE 5 MG TABLET 7.5 MG PO (09:43)
[2022-12-11] MEDS: ATORVASTATIN 20 MG TABLET PO (09:43)
--- NOTE | 2022-12-11 10:50 | PC.NURSE ---
Pt is A&OX3, VSS, afebrile on RA. He denies any pain, nausea, dizziness or SOB. He is evaluated this a.m. by MD Weaver and cleared for discharge home with , resuming home health. and patient verbalize understanding of discharge recommendations, medications, as well as follow up appointment in a.m. 12/12 with PCP and appointment with MD Montana on 12/17 (previously scheduled). He is escorted by wheel chair with all of his belongings to private vehicle with this a.m. for discharge home at approximately 1030 a.m.
== END 2022-12-11 10:10 | disposition home health service (06) | DRG 871 ==
LOC: ED 03:33 → AC 03:34
PROVIDERS: Admitting Provider Family Medicine; Emergency Provider Emergency Medicine; Family Provider Student in an Organized Health Care Education/Training Program; PCP Family Medicine; Referring Provider Emergency Medicine; Visit Provider Family Medicine
DX: A41.9 Sepsis, unspecified organism (principal); J18.9 Pneumonia, unspecified organism; J96.01 Acute respiratory failure with hypoxia; F41.9 Anxiety disorder, unspecified; I50.9 Heart failure, unspecified; D50.9 Iron deficiency anemia, unspecified; D69.6 Thrombocytopenia, unspecified; K21.9 Gastro-esophageal reflux disease without esophagitis; E78.5 Hyperlipidemia, unspecified; Z87.891 Personal history of nicotine dependence; Z20.822 Contact with and (suspected) exposure to COVID-19; Z66 Do not resuscitate
CPT/HCPCS: 0241U; 36415; 71045; 74177; 80053; 81001; 82550; 83605; 83690; 83880; 84145; 84484; 85007; 85025; 85610; 85730; 86140; 86850; 86900; 86901; 87040; 87493; 93005; 93010; 93307; 96365; 96367; 96375; 99285; 99291; J1940; J2405; J2543; J7050; Q9967

== ENCOUNTER 2022-12-11 21:24 | Inpatient (IN) | payer OTHER, SELFPAY ==
[2022-12-08 12:07] VITALS: BMI 25.0
[2022-12-11 21:36] VITALS: BP 131/65; PULSE 110; O2SAT 93
[2022-12-11 21:52] VITALS: BP 131/68; PULSE 108; RESP 18; TEMP 37.6; O2SAT 93; BMI 25.8
[2022-12-11 22:02] VITALS: PULSE 106; RESP 28
--- NOTE | 2022-12-11 22:45 | DI.RAD.S_ITS ---
PROCEDURE: XR CHEST 1V INDICATIONS: eval for PNA TECHNIQUE: One view of the chest was acquired. COMPARISON: [facility], CR, XR CHEST 1V, 12/08/2022, 1:49. FINDINGS: Surgical changes and devices: None. Lungs and pleura: There are patchy asymmetric opacities within the left lung base. Pulmonary vascular prominence is also redemonstrated suggestive of pulmonary edema. There is mild blunting of the left costophrenic angle compatible with a small left pleural effusion. No pneumothorax. Mediastinum: Mediastinal contours appear unchanged. Heart size is normal. Bones and chest wall: No suspicious bony lesions. Overlying soft tissues appear unremarkable. IMPRESSION: 1. Patchy left basilar opacities suggestive of pneumonia given clinical suspicion. 2. Pulmonary vascular prominence suggestive of mild edema. 3. Small left pleural effusion. Dictated by: Guero Subramanian M.D. on 12/11/2022 at 23:48 Approved by: Guero Subramanian M.D. on 12/11/2022 at 23:50
[2022-12-11 22:57] LABS: Hematocrit 29.7 % (41-53); Hemoglobin 9.7 g/dL (13.5-17.5); Mean Corpuscular HGB Conc 32.7 % (30-36); Mean Corpuscular Volume 79.5 fL (80-100); Platelet Count 76 X10^3/uL (150-400); Red Blood Cell Count 3.74 X10^6/uL (4.5-5.9); Red Cell Distribution Width 20.9 % (11.6-14.8); White Blood Cell Count 6.4 X10^3/uL (4.5-11.0)
[2022-12-11 22:59] LABS: Alanine Aminotransferase 30 IU/L (<50); Albumin 2.3 g/dL (3.5-5.0); Albumin Globulin Ratio 0.6 (1.0-2.8); Alkaline Phosphatase 73 U/L (38-126); Aspartate Aminotransferase 36 IU/L (17-59); BUN Creatinine Ratio 21.8 (6-22); Bilirubin Total 1.3 mg/dL (0.2-1.3); Blood Urea Nitrogen 32 mg/dL (9-20); Calcium 7.2 mg/dL (8.4-10.2); Carbon Dioxide 19 mmol/L (22-32); Chloride 103 mmol/L (98-107); Creatine Kinase < 20 U/L (55-170); Estimated Glomerular Filt Rate 46 mL/min (>60); Globulin 4.1 g/dL (1.7-4.1); Glucose 115 mg/dL (80-110); HEMOLYSIS < 15 (0-50); Lipase 44 U/L (23-300); Magnesium 1.5 mg/dL (1.6-2.3); Sodium 131 mmol/L (137-145); Total Protein 6.4 g/dL (6.3-8.2)
[2022-12-11 23:00] LABS: Add Manual Diff / Slide Review YES; Lactate (Lactic Acid) 2.2 mmol/L (0.7-2.1)
--- NOTE | 2022-12-11 23:05 | ED_ITS ---
HPI - General Adult General Chief complaint: Fever Stated complaint: Fever Time Seen by Provider: 12/11/22 22:30 Source: patient, family and EMS Mode of arrival: EMS Limitations: no limitations History of Present Illness HPI narrative: Patient is an 87-year-old male who was discharged from the hospital this morning after spending several days with a diagnosis of anemia and also pneumonia. This was after he spent time in the hospital and then was discharged and returned to the same day for fatigue and problems breathing. He went home with a diagnosis of pneumonia and was on Levaquin. He states that this morning before he was discharged she actually felt well and he was agreeable after discussion with his primary doctor about going home. Since going home he has become more short of breath, more fatigued, no chest pain. Was having fevers. Nausea but no vomiting. He states that it just got to the point to where he did not feel safe at home and could not take care of himself at home. He is here with his . They contacted EMS to bring him back to the emergency department. Related Data Home Medications Medication Instructions Recorded Confirmed omeprazole magnesium 20 mg 20 mg PO DAILY 04/26/19 12/08/22 capsule,delayed release (Acid Functional Analyst (omeprazole)) atorvastatin 20 mg tablet 20 mg PO DAILY 01/22/20 12/08/22 diphenhydramine 25 1 tab PO BEDTIME PRN Insomnia 11/29/22 12/08/22 mg-acetaminophen 500 mg tablet (Tylenol PM Extra Strength) acetaminophen 325 mg capsule 650 mg PO Q6HR PRN Pain (Scale 12/08/22 12/08/22 (Tylenol) Score 1-3) epinephrine 0.3 mg/0.3 mL 0.3 mg IM PRN PRN Allergic Reaction 12/08/22 12/08/22 injection, auto-injector (EpiPen 2-Casey) Previous Rx's Medication Instructions Recorded buspirone 7.5 mg tablet 7.5 mg PO BID #60 tabs 11/30/22 levofloxacin 250 mg tablet 750 mg PO Q48H #10 tabs 12/11/22 Allergies Allergy/AdvReac Type Severity Reaction Status Date / Time ibuprofen AdvReac Mild Verified 11/29/22 11:40 Review of Systems Review of Systems ROS Unobtainable: All systems reviewed & are unremarkable except as noted in HPI and below Patient History Medical History Gastroesophageal reflux disease Hyperlipidemia Hypertension Thrombocytopenia Surgical History H/O prostatectomy H/O vasectomy Hx of tonsillectomy Family History Mother Heart attack Father Bone cancer Social History household members: spouse Smoking Status: Former smoker alcohol intake: former Smoking Status: Former smoker tobacco type: cigars alcohol intake frequency: a few times a month Substance Use Type: does not use Exam Initial Vital Signs Initial Vital Signs: Vital Signs Pulse Rate 110 H 12/11/22 21:36 Blood Pressure 131/65 12/11/22 21:36 Pulse Oximetry 93 12/11/22 21:36 Oxygen Delivery Method 12/11/22 21:36 Const General: cooperative and No ill appearing HENMT Head: normal to inspection and normocephalic Resp Effort & Inspection: tachypneic Auscultation: rhonchi Cardio Rate: tachycardic Rhythm: regular rhythm GI Inspection: normal to inspection Skin General: no rashes or lesions noted Neuro General: patient alert, patient awake, patient oriented x3 and moves all extremities Extrem General: edema Psych Appearance: grossly normal and well kempt Scores GCS Amaury coma scale eye opening: Spontaneous Amaury coma scale verbal response: Orientated [place] coma scale motor response: Obey commands Amaury coma scale total score: 15 Course Orders Ordered: ED Orders 12/11/22 21:30 Complete Blood Count AUTO DIFF Stat Comprehensive Metabolic Panel Stat Lactate (Lactic Acid) Stat Lipase Stat Magnesium Stat NT-proBNP (BNP-Adult 18+) Stat Procalcitonin Stat Troponin & CK Cardiac Panel Stat 12/11/22 22:45 XR chest 1V Stat EKG-12 Lead Stat 12/11/22 23:45 Blood Culture Stat 12/12/22 00:05 Respiratory Panel (Film Array) Stat 12/12/22 00:07 Consult to Physician Urgent Sodium Chloride (Normal Saline 0.9%) 1,000 mls @ 125 mls/hr IV CONT SB Last Admin: 12/11/22 23:03 Dose: Not Given Documented By: BS Ondansetron HCl (Ondansetron 4 Mg/2 Ml Inj) 4 mg IV Q4HR PRN PRN Reason: Nausea And Vomiting Vital Signs Vital signs: Vital Signs - 8 hr 12/11/22 21:36 12/11/22 21:52 12/11/22 22:02 Temperature 99.6 F Pulse Rate 110 H 108 H 106 H Respiratory Rate 18 28 H Blood Pressure 131/65 131/68 Pulse Oximetry 93 93 Oxygen Delivery Method Room Air Room Air Medical Decision Making Medical Records Medical records reviewed: Yes I reviewed the patient's medical records. Lab Data Lab results reviewed: Yes I reviewed the patient's lab results. 12/11/22 21:30 12/11/22 21:30 Labs: Lab Results 12/11/22 12/11/22 12/11/22 Range/Units 21:30 21:30 21:30 WBC 6.4 (4.5-11.0) X10^3/uL RBC 3.74 L (4.5-5.9) X10^6/uL Hgb 9.7 L (13.5-17.5) g/dL Hct 29.7 L (41-53) % MCV 79.5 L (80-100) fL MCH 26.0 (26-34) PG MCHC 32.7 (30-36) % RDW 20.9 H (11.6-14.8) % Plt Count 76 L (150-400) X10^3/uL Neut % (Auto) Not Reportable Lymph % (Auto) Not Reportable [place] % (Auto) Not Reportable Eos % (Auto) Not Reportable Baso % (Auto) Not Reportable Lymph # (Auto) Not Reportable [place] # (Auto) Not Reportable Baso # (Auto) Not Reportable Total Counted 100 Seg Neutrophils % 67.0 (38-70) % Band Neutrophils % 3.0 (3-7) % Lymphocytes % (Manual) 20.0 L (25-45) % Atypical Lymphs % 4.0 H ( - 0) % Monocytes % (Manual) 6.0 (2-11) % Neutrophils # (Manual) 4480 (6909-0735) /uL RBC Morphology See below Poikilocytosis 1+ H Anisocytosis 2+ H Sodium 131 L (137-145) mmol/L Potassium 5.0 (3.4-5.1) mmol/L Chloride 103 (98-107) mmol/L Carbon Dioxide 19 L (22-32) mmol/L BUN 32 H (9-20) mg/dL Creatinine 1.47 H (0.66-1.25) mg/dL Estimated GFR 46 L (>60) mL/min BUN/Creatinine Ratio 21.8 (6-22) Glucose 115 H (80-110) mg/dL Lactate 2.2 H (0.7-2.1) mmol/L Calcium 7.2 L (8.4-10.2) mg/dL Magnesium 1.5 L (1.6-2.3) mg/dL Total Bilirubin 1.3 (0.2-1.3) mg/dL AST 36 (17-59) IU/L ALT 30 (<50) IU/L Alkaline Phosphatase 73 (38-126) U/L Total Creatine Kinase < 20 L (55-170) U/L CK-MB (CK-2) TNP CK-MB (CK-2) Rel Index TNP Troponin I < 0.012 (0.01-0.034) ng/mL NT-Pro-B Natriuret Pep 4050 H (<450) pg/mL Total Protein 6.4 (6.3-8.2) g/dL Albumin 2.3 L (3.5-5.0) g/dL Globulin 4.1 (1.7-4.1) g/dL Albumin/Globulin Ratio 0.6 L (1.0-2.8) Lipase 44 (23-300) U/L Procalcitonin 2.67 H (<0.5) ng/mL Chlamy pneumoniae PCR (Not Detect) Adenovirus (PCR) (Not Detect) B. pertussis DNA (PCR) (Not Detecte) B.parapertussis DNA PCR (Not Detecte) Coronavirus OC43 (PCR) (Not Detect) Coronavirus HKU1 (PCR) (Not Detect) Coronavirus 229E (PCR) (Not Detect) SARS-CoV-2 (PCR) (Not Detecte) Coronavirus NL63 (PCR) (Not Detect) Human Metapneumovir PCR (Not Detect) Influenza Type A (PCR) (Not Detect) Influenza Type B (PCR) (Not Detect) M. pneumoniae (PCR) (Not Detect) Parainfluenza 1 (PCR) (Not Detect) Parainfluenza 2 (PCR) (Not Detect) Parainfluenza 3 (PCR) (Not Detect) Parainfluenza 4 (PCR) (Not Detect) RSV (PCR) (Not Detect) Entero/Rhino (PCR) (Not Detect) 12/12/22 Range/Units 00:05 WBC (4.5-11.0) X10^3/uL RBC (4.5-5.9) X10^6/uL Hgb (13.5-17.5) g/dL Hct (41-53) % MCV (80-100) fL MCH (26-34) PG MCHC (30-36) % RDW (11.6-14.8) % Plt Count (150-400) X10^3/uL Neut % (Auto) Lymph % (Auto) [place] % (Auto) Eos % (Auto) Baso % (Auto) Lymph # (Auto) [place] # (Auto) Baso # (Auto) Total Counted Seg Neutrophils % (38-70) % Band Neutrophils % (3-7) % Lymphocytes % (Manual) (25-45) % Atypical Lymphs % ( - 0) % Monocytes % (Manual) (2-11) % Neutrophils # (Manual) ([id number]) /uL RBC Morphology Poikilocytosis Anisocytosis Sodium (137-145) mmol/L Potassium (3.4-5.1) mmol/L Chloride (98-107) mmol/L Carbon Dioxide (22-32) mmol/L BUN (9-20) mg/dL Creatinine (0.66-1.25) mg/dL Estimated GFR (>60) mL/min BUN/Creatinine Ratio (6-22) Glucose (80-110) mg/dL Lactate (0.7-2.1) mmol/L Calcium (8.4-10.2) mg/dL Magnesium (1.6-2.3) mg/dL Total Bilirubin (0.2-1.3) mg/dL AST (17-59) IU/L ALT (<50) IU/L Alkaline Phosphatase (38-126) U/L Total Creatine Kinase (55-170) U/L CK-MB (CK-2) CK-MB (CK-2) Rel Index Troponin I (0.01-0.034) ng/mL NT-Pro-B Natriuret Pep (<450) pg/mL Total Protein (6.3-8.2) g/dL Albumin (3.5-5.0) g/dL Globulin (1.7-4.1) g/dL Albumin/Globulin Ratio (1.0-2.8) Lipase (23-300) U/L Procalcitonin (<0.5) ng/mL Chlamy pneumoniae PCR Not detected (Not Detect) Adenovirus (PCR) Not detected (Not Detect) B. pertussis DNA (PCR) Not detected (Not Detecte) B.parapertussis DNA PCR Not detected (Not Detecte) Coronavirus OC43 (PCR) Not detected (Not Detect) Coronavirus HKU1 (PCR) Not detected (Not Detect) Coronavirus 229E (PCR) Not detected (Not Detect) SARS-CoV-2 (PCR) Not detected (Not Detecte) Coronavirus NL63 (PCR) Not detected (Not Detect) Human Metapneumovir PCR Not detected (Not Detect) Influenza Type A (PCR) Not detected (Not Detect) Influenza Type B (PCR) Not detected (Not Detect) M. pneumoniae (PCR) Not detected (Not Detect) Parainfluenza 1 (PCR) Not detected (Not Detect) Parainfluenza 2 (PCR) Not detected (Not Detect) Parainfluenza 3 (PCR) Not detected (Not Detect) Parainfluenza 4 (PCR) Not detected (Not Detect) RSV (PCR) Not detected (Not Detect) Entero/Rhino (PCR) Not detected (Not Detect) Imaging Data Chest x-ray: Radiologist's Impression: Left-sided pneumonia ECG Data Attestation: I personally reviewed and interpreted this ECG as follows: Interpretation: Sinus rhythm Ventricular 101 Left axis deviation Left bundle-branch block QTC 513 milliseconds [facility] Narrative Medical decision making narrative: Patient was just discharged this morning after being admitted to the hospital for several days and was diagnosed with anemia and pneumonia. Patient has received several units of packed red blood cells over the past couple days as well. After being discharged home patient's condition is worsen has become more weak and having fevers. His chest x-ray does show pneumonia. Patient is somewhat anemic but not a level that would require packed red blood cells. I suspect that the patient has just been deconditioned given his hospital stays for the past several days. Patient has had antibiotics today so we will hold on administering any more here in the emergency department. I suspect that the patient will need to see physical therapy and may need to be discharged into a rehab rather than back home. I did discuss the case with Dr. Berger who is on- call for the patient's primary doctor. Holding orders were placed. I did discuss the need for admission with the patient and his at bedside. They expressed understanding and agreement. Discharge Plan Departure Patient Disposition: Admitted As Inpatient Clinical Impression: Pneumonia Admit Date/Time: 12/12/22 00:07 Admit Provider: Waqas Inman
[2022-12-11 23:11] LABS: NT-proBNP (BNP-Adult 18+) 4050 pg/mL (<450); Troponin I < 0.012 ng/mL (0.01-0.034)
[2022-12-11 23:15] LABS: Procalcitonin 2.67 ng/mL (<0.5)
[2022-12-11 23:32] LABS: Neutrophils Absolute Manual 4480 /uL (3000-5900); Total Cells Counted 100
[2022-12-11 23:33] LABS: Poikilocytosis 1+
[2022-12-11 23:34] LABS: Anisocytosis 2+
[2022-12-12] VITALS (7 sets, daily range): BP systolic 124–140; BP diastolic 65–92; PULSE 83–93; RESP 16–18; TEMP 36.7–37.1; O2SAT 93–98; BMI 25.8
[2022-12-12 00:50] LABS: Reflexed Lactate in 2 Hours Y
[2022-12-12 01:11] LABS: Adenovirus Not Detected (Not Detect); B. parapertussis Not Detected (Not Detecte); Bordetella pertussis Not Detected (Not Detecte); Chlamydophila pneumoniae Not Detected (Not Detect); Coronavirus 229E Not Detected (Not Detect); Coronavirus HKU1 Not Detected (Not Detect); Coronavirus NL 63 Not Detected (Not Detect); Coronavirus OC43 Not Detected (Not Detect); Human Metapneumovirus Not Detected (Not Detect); Human Rhinovirus/Enterovirus Not Detected (Not Detect); Influenza A Not Detected (Not Detect); Influenza B Not Detected (Not Detect); Mycoplasma pneumoniae Not Detected (Not Detect); Parainfluenza Virus 1 Not Detected (Not Detect); Parainfluenza Virus 2 Not Detected (Not Detect); Parainfluenza Virus 3 Not Detected (Not Detect); Parainfluenza Virus 4 Not Detected (Not Detect); Respiratory Syncytial Virus Not Detected (Not Detect); SARS- CoV-2 Not Detected (Not Detecte)
[2022-12-12 01:26] LABS: Lactate 2HR (Lactic Acid Rflx) 0.9 mmol/L (0.7-2.1)
--- NOTE | 2022-12-12 10:34 | PM.HP.1 ---
History of Present Illness History of Present Illness Date Patient Seen: 12/12/22 Time Patient Seen: 10:36 Chief complaint: Fever Narrative: Discharged yesterday after latest in series of inpatient stays for dwindling of unclear etiology; last visit was admitted evidently septic from evident pneumonia did require O2. Yesterday he went home initially feeling ok however later in the afternoon had shaking chills fever to 103 and became increasingly weak and had to summon EMS to take him to ED for evaluation. In ED he remained quite weak and was admitted for observation. Although he has required transfusion recently he did not this time in fact his Hgb was up somewhat. His WBCs remain flat in the setting of persistent thrombocytopenia. Has been trying to establish with Dr. [place] oncology in outpt setting but frustrated by frequent readmissions. Pt endorses significant depression symptoms with abnegative ideation but no suicidal plan. desires antidepressant. not much appetite. blood cultures from all visits remain NGTD. BMs frequent and dark since ABX. Patient History Medical History Gastroesophageal reflux disease Hyperlipidemia Hypertension Thrombocytopenia Surgical History H/O prostatectomy H/O vasectomy Hx of tonsillectomy Family & Social History Family History Mother Heart attack Father Bone cancer Social History: household members spouse Prior Living Arrangements House Safety & Behavioral: Feels Safe in Current Yes Environment Been Physically Hurt or No Threatened By a Person Tobacco & Substance use: Tobacco type cigars Smoking Status Former smoker alcohol intake former alcohol intake frequency holiday/special occasion Substance Use Type does not use Meds Home Medications and Allergies Home Medications Medication Instructions Recorded Confirmed Type omeprazole magnesium 20 mg 20 mg PO DAILY 04/26/19 12/12/22 History capsule,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 [employer] (omeprazole)) atorvastatin 20 mg tablet 20 mg PO DAILY 01/22/20 12/12/22 History diphenhydramine 25 1 tab PO BEDTIME PRN Insomnia 11/29/22 12/12/22 History mg-acetaminophen 500 mg tablet (Tylenol PM Extra Strength) buspirone 7.5 mg tablet 7.5 mg PO BID #60 tabs 11/30/22 12/12/22 Rx acetaminophen 325 mg capsule 650 mg PO Q6HR PRN Pain (Scale 12/08/22 12/12/22 History (Tylenol) Score 1-3) epinephrine 0.3 mg/0.3 mL 0.3 mg IM PRN PRN Allergic Reaction 12/08/22 12/12/22 History injection, auto-injector (EpiPen 2-Casey) losartan 100 mg tablet 100 mg PO DAILY 12/12/22 12/12/22 History sertraline 50 mg tablet 50 mg PO DAILY 12/12/22 12/12/22 History Allergies Allergy/AdvReac Type Severity Reaction Status Date / Time ibuprofen AdvReac Mild Verified 11/29/22 11:40 Review of Systems Review of Systems Narrative: all systems reviewed and negative except as otherwise documented in HPI Exam Vital Signs (past 8 hours): - 12/12/22 04:40 12/12/22 04:48 12/12/22 08:44 Temperature 98.0 F 98.3 F Pulse Rate 87 83 Respiratory Rate 16 18 Blood Pressure 130/72 134/92 H Pulse Oximetry 98 96 Oxygen Delivery Method Room Air Oxygen Flow Rate 0 Oxygen Delivery Method Room Air Oxygen Flow Rate 0 Narrative Exam Narrative: pale tired laying in bed with at bedside Const General: cooperative, well developed and ill appearing [facility] Head: normocephalic and atraumatic Eyes General: appearance normal, both eyes and all related structures Neck Lymphatic: No lymphadenopathy Resp Other: moving air well, prominent bibasilar crackles Cardio Other: regular rate S1/S2 GI Other: active bowel sounds no ttp Skin General: no rashes or lesions noted Psych Mental Status: other (depressed) Mood: other (depressed) Affect: sad Objective Labs 12/11/22 21:30 12/11/22 21:30 Labs: Laboratory Results - last 24 hr 12/11/22 12/11/22 12/11/22 21:30 21:30 21:30 WBC 6.4 RBC 3.74 L Hgb 9.7 L Hct 29.7 L MCV 79.5 L MCH 26.0 MCHC 32.7 RDW 20.9 H Plt Count 76 L Neut % (Auto) Not Reportable Lymph % (Auto) Not Reportable Luce % (Auto) Not Reportable Eos % (Auto) Not Reportable Baso % (Auto) Not Reportable Lymph # (Auto) Not Reportable Luce # (Auto) Not Reportable Baso # (Auto) Not Reportable Total Counted 100 Seg Neutrophils % 67.0 Band Neutrophils % 3.0 Lymphocytes % (Manual) 20.0 L Atypical Lymphs % 4.0 H Monocytes % (Manual) 6.0 Neutrophils # (Manual) 4480 RBC Morphology See below Poikilocytosis 1+ H Anisocytosis 2+ H Sodium 131 L Potassium 5.0 Chloride 103 Carbon Dioxide 19 L BUN 32 H Creatinine 1.47 H Estimated GFR 46 L BUN/Creatinine Ratio 21.8 Glucose 115 H Lactate 2.2 H Calcium 7.2 L Magnesium 1.5 L Total Bilirubin 1.3 AST 36 ALT 30 Alkaline Phosphatase 73 Total Creatine Kinase < 20 L CK-MB (CK-2) TNP CK-MB (CK-2) Rel Index TNP Troponin I < 0.012 NT-Pro-B Natriuret Pep 4050 H Total Protein 6.4 Albumin 2.3 L Globulin 4.1 Albumin/Globulin Ratio 0.6 L Lipase 44 Procalcitonin 2.67 H Chlamy pneumoniae PCR Adenovirus (PCR) B. pertussis DNA (PCR) B.parapertussis DNA PCR Coronavirus OC43 (PCR) Coronavirus HKU1 (PCR) Coronavirus 229E (PCR) SARS-CoV-2 (PCR) Coronavirus NL63 (PCR) Human Metapneumovir PCR Influenza Type A (PCR) Influenza Type B (PCR) M. pneumoniae (PCR) Parainfluenza 1 (PCR) Parainfluenza 2 (PCR) Parainfluenza 3 (PCR) Parainfluenza 4 (PCR) RSV (PCR) Entero/Rhino (PCR) 12/12/22 12/12/22 00:05 01:08 WBC RBC Hgb Hct MCV MCH MCHC RDW Plt Count Neut % (Auto) Lymph % (Auto) Luce % (Auto) Eos % (Auto) Baso % (Auto) Lymph # (Auto) Luce # (Auto) Baso # (Auto) Total Counted Seg Neutrophils % Band Neutrophils % Lymphocytes % (Manual) Atypical Lymphs % Monocytes % (Manual) Neutrophils # (Manual) RBC Morphology Poikilocytosis Anisocytosis Sodium Potassium Chloride Carbon Dioxide BUN Creatinine Estimated GFR BUN/Creatinine Ratio Glucose Lactate 0.9 Calcium Magnesium Total Bilirubin AST ALT Alkaline Phosphatase Total Creatine Kinase CK-MB (CK-2) CK-MB (CK-2) Rel Index Troponin I NT-Pro-B Natriuret Pep Total Protein Albumin Globulin Albumin/Globulin Ratio Lipase Procalcitonin Chlamy pneumoniae PCR Not detected Adenovirus (PCR) Not detected B. pertussis DNA (PCR) Not detected B.parapertussis DNA PCR Not detected Coronavirus OC43 (PCR) Not detected Coronavirus HKU1 (PCR) Not detected Coronavirus 229E (PCR) Not detected SARS-CoV-2 (PCR) Not detected Coronavirus NL63 (PCR) Not detected Human Metapneumovir PCR Not detected Influenza Type A (PCR) Not detected Influenza Type B (PCR) Not detected M. pneumoniae (PCR) Not detected Parainfluenza 1 (PCR) Not detected Parainfluenza 2 (PCR) Not detected Parainfluenza 3 (PCR) Not detected Parainfluenza 4 (PCR) Not detected RSV (PCR) Not detected Entero/Rhino (PCR) Not detected Assessment & Plan Assessment & Plan narrative: #pneumonia This was treated with antibiotics last visit aggressively zosyn and azithromycin without much improvement; he was discharged on levaquin. He does look sick but not as sick as when he came in last time - the presence of shaking chills does strongly suggest presence of some infectious process. Will continue levaquin here. Hold off on IVF d/t concern for overload. #Congestive heart failure, diastolic, acute on chronic repeat echo last visit showed preserved systolic function however presents to ED now with very high BNP and wet crackles in lungs. Lasix helped last visit will repeat that now. #Acute renal failure Persistent from prior admission, prerenal likely with some CHF factor, trend and replete as needed. #Microcytic anemia s/p multiple xfusions in prior visits but looking ok today will monitor.? Is planned to be followed by Oncology.? Has appointment.?smear shows anisocytosis s/p multiple xfusions. #Thrombocytopenia Stable values just above 50 - possible ITP?? Is in process of being worked up.? Will be followed as an outpatient. Does not meet clinical indications for emergent IVIG at this time. Hx of recent splenic infarct. May benefit from splenectomy? Trend and monitor. Disposition: likely d/c rehab, still needs onco f/u as outpt MDM: [phone] Code: DNR diet: regular PCP: [facility] Time Spent With Patient Critical Care time: I spent a total of [] minutes of critical care time on this patient's care today; this time is exclusive of procedural time. Quality VTE Deep Vein Thrombosis/Pulmonary Embolism Present on Admission: No
--- NOTE | 2022-12-12 11:16 | PC.NURSE ---
Assess- Patient is alert and oriented x4, he states that he doesnt feel good but is not in pain. He is up with one person stand by assist to use the bathroom. He did not eat much of his breakfast, ate half of an orange. at bedside. She states that they have been trying to figure out what is wrong with patient for the last 3 months. into see patients and is aware that patients med list has been completed.
--- NOTE | 2022-12-12 11:56 | CM.DANOTE ---
Initial DCP Assessment Note Pt is an 87 yo male, resident of [place], arrives back to the ER with fever, difficulty breathing, fatigue. This is patient's 4th admission since 11.29.22 Patient w/recent hx of severe anemia w/undetermined etiology, recent need for blood transfusion, Oncology hematology have been consulted Dr Inman left this COMPUTER AIDED DRAFTER a msg indicating patient may need SNF upon discharge PCP: Waqas Inman Payer: [place] [facility] Reviewed chart, met w/patient this morning to introduce self and role and to provide support. Patient very ill appearing, spouse not at bedside at this time. Patient admits it's a chore just to go to the bathroom Patient anticipates additional input from Dr Inman re medical plan of care and says he wonders if transfer to a higher level of care is being considered This COMPUTER AIDED DRAFTER explained CM team would continue to follow closely and that this COMPUTER AIDED DRAFTER could return when spouse at bedside to discuss planning further. Per this visit- patient wants to discuss medical care further w/ physician ie etiology of these severe and persistent symptoms before discussing DCP QIANA Rankin Discharge Planning/Care Management CM Discharge Assessment Start: 12/12/22 11:44 Freq: Status: Active Protocol: Document 12/12/22 11:45 ESEQUIEL (Rec: 12/12/22 11:56 ESEQUIEL [id number]) Discharge Planning Assessment Assigned Chief Green Officer QIANA Saunders DPOA/Assigned Designee Name Mojgan Alfred, spouse Contact Information [phone] Advance Directives? Yes: POLST Advance Directives on File Yes History Provided By Patient,Family Member,Medical Record Prior Living Arrangements House Household Members spouse Type of transporation used prior to Relies on Others admit Independent with ADL's No Is patient alert and oriented? Yes Patient/Family Preference Home with Home Health Barriers to Discharge Yes Comment 4th admission since 11.29.22, 3 ER visits since 08.11.22. Much weaker and ill appearing than this COMPUTER AIDED DRAFTER's first meeting with patient and spouse which was 11.30.22 Transportation Arrangement TBD Additional Comment Active referral with Counts include 234 beds at the [facility] services SNF/HH Preference Counts include 234 beds at the [facility] services Whiteboard Updated in Patient Room with Yes name and ext. # of Chief Green Officer
[2022-12-12] MEDS: ATORVASTATIN 20 MG TABLET PO (12:14)
[2022-12-12] MEDS: FUROSEMIDE 40 MG/4 ML VIAL IV (12:14)
[2022-12-12] MEDS: MAGNESIUM CHLORIDE 64 MG TABLET 128 MG PO (12:14)
[2022-12-12] MEDS: ENOXAPARIN 40 MG/0.4 ML SYRINGE SUBCUT (15:48)
[2022-12-12] MEDS: BUSPIRONE 5 MG TABLET 7.5 MG PO ×2 (15:48→20:56)
--- NOTE | 2022-12-12 17:00 | PT-IP ANOTE ---
Per RN, pt feeling very ill, hold eval until tomorrow
[2022-12-12] MEDS: ZOLPIDEM 5 MG TABLET 10 MG PO (20:57)
[2022-12-13 04:25] LABS: Hematocrit 23.7 % (41-53); Hemoglobin 7.7 g/dL (13.5-17.5); Mean Corpuscular HGB Conc 32.6 % (30-36); Mean Corpuscular Hemoglobin 25.9 PG (26-34); Mean Corpuscular Volume 79.5 fL (80-100); Platelet Count 65 X10^3/uL (150-400); Red Blood Cell Count 2.98 X10^6/uL (4.5-5.9); Red Cell Distribution Width 20.6 % (11.6-14.8); White Blood Cell Count 4.8 X10^3/uL (4.5-11.0)
[2022-12-13 04:26] LABS: Add Manual Diff / Slide Review YES
[2022-12-13 04:27] LABS: Alanine Aminotransferase 21 IU/L (<50); Albumin 1.9 g/dL (3.5-5.0); Albumin Globulin Ratio 0.5 (1.0-2.8); Alkaline Phosphatase 51 U/L (38-126); Aspartate Aminotransferase 24 IU/L (17-59); BUN Creatinine Ratio 22.3 (6-22); Bilirubin Total 1.3 mg/dL (0.2-1.3); Blood Urea Nitrogen 29 mg/dL (9-20); Calcium 6.9 mg/dL (8.4-10.2); Carbon Dioxide 18 mmol/L (22-32); Chloride 102 mmol/L (98-107); Estimated Glomerular Filt Rate 54 mL/min (>60); Globulin 3.7 g/dL (1.7-4.1); Glucose 91 mg/dL (80-110); HEMOLYSIS < 15 (0-50); Potassium 4.3 mmol/L (3.4-5.1); Sodium 127 mmol/L (137-145); Total Protein 5.6 g/dL (6.3-8.2)
[2022-12-13 04:56] LABS: Neutrophils Absolute Manual 3120 /uL (3000-5900); Total Cells Counted 100
[2022-12-13 04:57] LABS: Anisocytosis 2+
[2022-12-13 05:39] VITALS: BP 120/65; PULSE 78; RESP 16; TEMP 36.4; O2SAT 93
[2022-12-13] MEDS: PANTOPRAZOLE DR 20 MG TABLET PO (06:30)
[2022-12-13] MEDS: levoFLOXacin 250 MG TABLET 750 MG PO (06:30)
[2022-12-13 07:33] VITALS: BP 129/69; PULSE 91; RESP 18; TEMP 36.7; O2SAT 96
--- NOTE | 2022-12-13 09:14 | PM.PN.1 ---
Subjective Subjective Date Patient Seen: 12/13/22 Time Patient Seen: 09:14 Interval history: cc: fatigue/SOB still quite tired today but no more shaking chills able to get up to bathroom walk short distances depression continues continue diuresis will work with PT discharge planning proceeding - xfer to higher level vs rehab placement to come back for onco appt on saturday? put on prn benzo for anxiety that does seem to be helping pt does endorse some strange dreams and says he is muttering odd words in sleep but feels ok when awake. Exam Vital Signs (past 8 hours): - 12/13/22 05:39 12/13/22 07:33 Temperature 97.6 F 98.0 F Pulse Rate 78 91 H Respiratory Rate 16 18 Blood Pressure 120/65 129/69 Pulse Oximetry 93 96 Oxygen Flow Rate 0 0 Oxygen Delivery Method Room Air Oxygen Flow Rate 0 Narrative Exam Narrative: pale elder laying in bed Const General: cooperative, well developed and anxious HENTN Head: normocephalic and atraumatic Eyes General: appearance normal, both eyes and all related structures Resp Other: bibasilar crackles, moving air well Cardio Other: RRR S1/S2 GI Other: soft nontender nondistended normal bowel sounds Neuro General: patient alert, patient awake and patient oriented x3 Psych Other: depressed mood, looks tired Objective Labs 12/13/22 04:02 12/13/22 04:02 Labs: Laboratory Results - last 24 hr 12/13/22 12/13/22 04:02 04:02 WBC 4.8 RBC 2.98 L Hgb 7.7 L Hct 23.7 L MCV 79.5 L MCH 25.9 L MCHC 32.6 RDW 20.6 H Plt Count 65 L Neut % (Auto) Not Reportable Lymph % (Auto) Not Reportable [place] % (Auto) Not Reportable Eos % (Auto) Not Reportable Baso % (Auto) Not Reportable Lymph # (Auto) Not Reportable [place] # (Auto) Not Reportable Baso # (Auto) Not Reportable Total Counted 100 Seg Neutrophils % 63.0 Band Neutrophils % 2.0 L Lymphocytes % (Manual) 25.0 Atypical Lymphs % 3.0 H Monocytes % (Manual) 6.0 Eosinophils % (Manual) 1.0 L Neutrophils # (Manual) 3120 RBC Morphology See below Anisocytosis 2+ H Sodium 127 L Potassium 4.3 Chloride 102 Carbon Dioxide 18 L BUN 29 H Creatinine 1.30 H Estimated GFR 54 L BUN/Creatinine Ratio 22.3 H Glucose 91 Calcium 6.9 L Total Bilirubin 1.3 AST 24 ALT 21 Alkaline Phosphatase 51 Total Protein 5.6 L Albumin 1.9 L Globulin 3.7 Albumin/Globulin Ratio 0.5 L PFSH Medical History Gastroesophageal reflux disease Hyperlipidemia Hypertension Thrombocytopenia Surgical History H/O prostatectomy H/O vasectomy Hx of tonsillectomy Family History Mother Heart attack Father Bone cancer Social History household members: spouse Smoking Status: Former smoker alcohol intake: former Assessment & Plan Assessment & Plan narrative: #pneumonia This was treated with antibiotics last visit aggressively zosyn and azithromycin without much improvement; he was discharged on levaquin. He does look sick but not as sick as when he came in last time - the presence of shaking chills does strongly suggest presence of some infectious process. Will continue levaquin here. Hold off on IVF d/t concern for overload. #Congestive heart failure, diastolic, acute on chronic repeat echo last visit showed preserved systolic function however presents to ED now with very high BNP and wet crackles in lungs. Lasix was helpful last admission will diurese him aggressively here see if that improves status #Acute renal failure Persistent from prior admission, prerenal likely with some CHF factor, some improvement noted, trend and replete as needed. #Microcytic anemia s/p multiple xfusions in prior visits but looking ok today will monitor.? Is planned to be followed by Oncology.? Has appointment on Saturday.?smear shows anisocytosis s/p multiple xfusions. trend. #Thrombocytopenia Stable values just above 50 - possible ITP?? Is in process of being worked up.? Will be followed as an outpatient. Does not meet clinical indications for emergent IVIG at this time. Hx of recent splenic infarct. May benefit from splenectomy?? Trend and monitor.? Disposition: likely d/c rehab, still needs onco f/u as outpt MDM: [phone] Code: DNR diet: regular PCP: [facility] Time Spent With Patient Critical Care time: I spent a total of [] minutes of critical care time on this patient's care today; this time is exclusive of procedural time. Quality VTE Deep Vein Thrombosis/Pulmonary Embolism Present on Admission: No
[2022-12-13] MEDS: BUSPIRONE 5 MG TABLET 7.5 MG PO ×2 (09:40→20:43)
[2022-12-13 09:41] VITALS: BP 129/69; PULSE 91
[2022-12-13] MEDS: ATORVASTATIN 20 MG TABLET PO (09:41)
[2022-12-13] MEDS: BUMETANIDE 1 MG/4 ML VIAL IV (09:41)
[2022-12-13] MEDS: SERTRALINE 50 MG TABLET 100 MG PO (09:41)
[2022-12-13] MEDS: LOSARTAN 50 MG TABLET 100 MG PO (09:41)
[2022-12-13] MEDS: ENOXAPARIN 40 MG/0.4 ML SYRINGE SUBCUT (09:41)
--- NOTE | 2022-12-13 10:52 | PT.IIE ---
Surgical History (Last Reviewed 12/08/22 @ 11:12 by Colt Weaver MD) H/O prostatectomy H/O vasectomy Hx of tonsillectomy Medical History (Last Reviewed 12/12/22 @ 03:16 by Samm Luis DO) Gastroesophageal reflux disease Hyperlipidemia Hypertension Thrombocytopenia Physical Therapy Inpatient Evaluation/Re-Eval M1 PT/OT-IP Prior Functional Status Start: 12/13/22 10:25 Freq: NEEDED Status: Active Protocol: Document 12/13/22 10:41 SAK (Rec: 12/13/22 10:52 SAK [id number]) Medical Review Prior Functional Status Communication No difficulty Mobility and Gait Uses FWW mostly, has SPC Activities of Daily Living and IADL's independent Prior Functional Level (Other details) 5 total stairs with right railing Social History Household Members spouse Living Arrangements House Number of Floors (Floors) One Floor Number of Stairs To Enter/Railing? 5, right railing Home Environment Standard Height Toilet Home Equipment Front Wheel Walker,Straight Cane Employment Status Retired M2 PT-IP Current Condition Start: 12/13/22 10:25 Freq: NEEDED Status: Active Protocol: Document 12/13/22 10:41 SAK (Rec: 12/13/22 10:52 [facility] [id number]) Physical Therapy Current Condition Current Condition Evaluation Date 12/13/22 Treatment Diagnosis weakness Onset Date 12/12/22 M3 PT-IP Subjective Start: 12/13/22 10:25 Freq: NEEDED Status: Active Protocol: Document 12/13/22 10:41 SAK (Rec: 12/13/22 10:52 [facility] [id number]) Subjective Physical Therapy Visit Type Type Initial Evaluation Visit Start Time 10:30 Visit Stop Time 10:43 Total Visit Minutes 13 Physical Therapy Visit Comments Patient Comments Willing to work with PT. Patient reports Addy wants him to move down to their hospital in [place]. Not certain about discharge plans. Therapy Pain Assessment Pain When Pain Assessed denied cyril M4 PT-IP Mobility and Gait Start: 12/13/22 10:25 Freq: NEEDED Status: Active Protocol: Document 12/13/22 10:41 SAK (Rec: 12/13/22 10:52 SAK [id number]) PT-Bed Mobility Assessment Supine to Sit Supine to Sit Standby Assistance,Head of Bed Elevated Sit to Supine Sit to Supine Standby Assistance Scooting Scooting to Edge of Bed Standby Assistance PT-Transfer Assessment Sit to and From Stand Sit to and from Stand Contact Guard Assistance Equipment Transfer Assistive Device Bed Rail,Gait Belt,Front Wheeled Walker Transfers Transfer Destination Bed Transfer Ability Level of Assist Contact Guard Assistance Gait Assessment Gait Gait Assistance Required: Contact Guard Assist Distance (Feet) 40 Assistive Devices Assistive Device Front Wheeled Walker Orthotic/Prosthetic Devices or Brace: No Gait Deviations General Gait Pattern Decreased Stride Length, Decreased Feet Clearance Factors Limiting Gait Function Factors Limiting Gait Function Decreased Activity Tolerance Comments Gait Comments Patient fatigued, took 3 standing rest breaks during gait, mild SOB. Requested back to bed after gait in room , c/o fatigue. Stair Climbing Assessment Comments Stair Climbing Comments not done this am, patient too fatigued PT-Balance Assessment Sitting Balance and Reactions Static Sitting Balance Ability Good Dynamic Sitting Balance Ability Fair Standing Balance and Reactions Static Standing Balance Ability Fair Dynamic Standing Balance Ability Fair Device Used FWW M5 PT-IP Objective Assessments Start: 12/13/22 10:25 Freq: NEEDED Status: Active Protocol: Document 12/13/22 10:41 SAK (Rec: 12/13/22 10:52 [facility] [id number]) Orientation Orientation/Cognition Level of Alertness Alert Orientation Name,Age,Place,Situation Language Function Ability No Deficits Noted Safety Awareness Understands Safety Issues Memory Description No Deficits Noted Gross Range of Motion Upper Extremity ROM Assessment Within Functional Limits Lower Extremity ROM Assessment Within Functional Limits Strength Upper Extremity Strength Assessment Within Functional Limits Lower Extremity Strength Assessment Left Impaired Comments Strength Comments grossly 3+/5 hips, 4/5 knees, 4-/5 ankles Coordination Assessment Gross Coordination Gross Coordination WNL Sensation Assessment Sensation Gross Sensation WNL Muscle Tone Muscle Tone WNL Yes M6 PT-IP Treatment Start: 12/13/22 10:25 Freq: NEEDED Status: Active Protocol: Document 12/13/22 10:41 SAK (Rec: 12/13/22 10:52 SAK [id number]) Physical Therapy Treatment Other Treatments Other Treatment Performed shallow squats x 2, otherwise too fatigued for further exercise M7 PT-IP Assessment and Plan Start: 12/13/22 10:25 Freq: NEEDED Status: Active Protocol: Document 12/13/22 10:41 SAK (Rec: 12/13/22 10:52 SAK [id number]) PT Summary Assessment and Plan Potential Rehabilitation Potential Good Status of Condition at Evaluation Evolving Summary Impairments Strength,Bed Mobility, Transfers,Activity Tolerance Assessment Summary Patient admitted to hospital with worsening function, fatigue apparently due to infection. His functional mobility is limited by weakness, mild SOB, low activity tolerance. He denied pain or dizziness with sitting at EOB, standing, or walking. He is uncertain about destination at discharge , currently would have difficulty in the home due to weakness and fatigue, may benefit from SNF rehab. Goals Bed Mobility Goal Independent Transfer Goal Independent Gait Goal Independent Gait Distance 150 Days to Meet Goals 5 Frequency of Treatment Frequency Of Treatment Once a Day Treatment Plan Physical Therapy Treatment Plan Bed Mobility Training,Transfer Training,Gait Training, Therapeutic Exercise,Discharge Planning Recommendations To Nursing Amount of Assist Needed 1 Person Assist Discharge Recommendations PT Discharge Recommendations Home with 13/05 Assist Available,SNF Rehab,Home vs SNF Transportation Needs at Discharge Private Vehicle,Wheelchair/ Cabulance
--- NOTE | 2022-12-13 11:18 | OT.IPNOTE ---
Pt too tired from PT eval and just wanting to rest at this time. Unable to do Ot eval at this time.
[2022-12-13 12:43] VITALS: BP 124/66; PULSE 89; RESP 18; TEMP 36.4; O2SAT 95
--- NOTE | 2022-12-13 14:39 | CM.DPNOTE ---
Addendum entered by QIANA Okeefe 12/13/22 15:22: ADD: [facility], [facility]aval[facility], Tanisha Vargas declines According to JOY Moran at [place]; she received SNF auth request but does not feel, per their clinical review, patient is medically close enough to discharge to SNF so approval/denial pending PASRR completed in anticipation of SNF JW Original Note: DCP Note Dr Inman discussing plan with patient and spouse today; patient requesting transfer to higher level of care. Dr Inman will attempt on patient's behalf however unsure whether patient will be accepted or there will be bed availability Back up plan is either home w/spouse vs SNF, patient and spouse agreeable to attempt at SNF placement and SNF auth request to [place] SNF referrals faxed, March at [facility] has declined. [facility] is a maybe depending on [place] auth and patient's needs upon DC, Alina GUERRA has faxed therapy note and RN note to Renu at [facility] Meanwhile, this [facility] TE[facility] faxed the one PT note available (patient has declined numerous offers to work w/therapies r/t weakness and fatigue) to [place] for review. Not optimistic re SNF auth but will continue to follow closely in case [place] does approve this request Plan: Home w/family to assist with close outpatient f/u vs SNF if [place] approves and there is a SNF secured PASRR needed if SNF, if home, need to confirm date that HH will follow up. Patient may be a good candidate for H[facility] through [facility] JW
[2022-12-13] MEDS: LOPERAMIDE 2 MG CAPSULE PO (16:10)
[2022-12-13] MEDS: LORazepam 0.5 MG TABLET PO (16:11)
[2022-12-13 16:28] LABS: Hematocrit 24.2 % (41-53)
[2022-12-13 17:38] VITALS: BP 118/66; PULSE 86; RESP 18; TEMP 36.5; O2SAT 95
[2022-12-13] MEDS: TRAZODONE 50 MG TABLET PO (20:43)
[2022-12-13] MEDS: GABAPENTIN 400 MG CAPSULE PO (20:43)
[2022-12-13] MEDS: SODIUM CHLORIDE 0.9% FLUSH 10 ML IV (20:45)
[2022-12-13 22:27] LABS: NT-proBNP (BNP-Adult 18+) 5890 pg/mL (<450)
[2022-12-14] VITALS (11 sets, daily range): BP systolic 112–151; BP diastolic 60–75; PULSE 70–94; RESP 18–24; TEMP 36.3–37.3; O2SAT 94–96
[2022-12-14] MEDS: FUROSEMIDE 60 MG in SODIUM CHLORIDE 0.9% 50 ML 112 MG IV (06:00)
[2022-12-14] MEDS: PANTOPRAZOLE DR 20 MG TABLET PO (06:00)
[2022-12-14] MEDS: SODIUM CHLORIDE 0.9% FLUSH 10 ML IV ×4 (06:09→22:21)
[2022-12-14 06:43] LABS: Hematocrit 23.5 % (41-53); Hemoglobin 7.7 g/dL (13.5-17.5); Mean Corpuscular HGB Conc 32.8 % (30-36); Mean Corpuscular Volume 79.2 fL (80-100); Platelet Count 62 X10^3/uL (150-400); Red Blood Cell Count 2.97 X10^6/uL (4.5-5.9); Red Cell Distribution Width 20.9 % (11.6-14.8); White Blood Cell Count 4.6 X10^3/uL (4.5-11.0)
[2022-12-14 06:45] LABS: Add Manual Diff / Slide Review YES; Alanine Aminotransferase 20 IU/L (<50); Albumin 1.8 g/dL (3.5-5.0); Albumin Globulin Ratio 0.5 (1.0-2.8); Alkaline Phosphatase 47 U/L (38-126); Aspartate Aminotransferase 21 IU/L (17-59); BUN Creatinine Ratio 19.9 (6-22); Bilirubin Total 1.1 mg/dL (0.2-1.3); Blood Urea Nitrogen 32 mg/dL (9-20); Calcium 6.9 mg/dL (8.4-10.2); Carbon Dioxide 19 mmol/L (22-32); Chloride 103 mmol/L (98-107); Estimated Glomerular Filt Rate 42 mL/min (>60); Globulin 3.7 g/dL (1.7-4.1); Glucose 92 mg/dL (80-110); HEMOLYSIS < 15 (0-50); Potassium 4.3 mmol/L (3.4-5.1); Sodium 130 mmol/L (137-145); Total Protein 5.5 g/dL (6.3-8.2)
[2022-12-14 08:06] LABS: Neutrophils Absolute Manual 3680 /uL (3000-5900); Total Cells Counted 100
[2022-12-14 08:08] LABS: Anisocytosis 2+
[2022-12-14 08:09] LABS: Poikilocytosis 1+
[2022-12-14] MEDS: ENOXAPARIN 40 MG/0.4 ML SYRINGE SUBCUT (09:18)
[2022-12-14] MEDS: LOSARTAN 50 MG TABLET 100 MG PO (09:18)
[2022-12-14] MEDS: ATORVASTATIN 20 MG TABLET PO (09:19)
[2022-12-14] MEDS: BUSPIRONE 5 MG TABLET 7.5 MG PO ×2 (09:20→20:09)
--- NOTE | 2022-12-14 09:40 | PT-IP ANOTE ---
Attempted to see pt for PT - spouse in room. Pt declines due to fatigue and is encouraged by nursing and PT to work with PT. Pt states he is exhausted right now and has been getting up and walking to use the bathroom. Pt confirms 5 stairs with R railing to get into home. Pt willing to work with PT later in the day, and is advised depends on PT staffing availability today.
--- NOTE | 2022-12-14 10:47 | P.PN_ITS ---
Subjective Subjective Date Patient Seen: 12/14/22 Time Patient Seen: 10:00 Interval history: cc: weakness still no appetite. breathing ok able to walk short distances but no endurance at all. unable to find transfer options however we do have SNF options hopefully opening up over the weekend. Appetite still minimal. frequent BMs. feeling depressed. Exam Vital Signs (past 8 hours): - 12/14/22 06:00 12/14/22 09:18 12/14/22 08:21 Temperature 97.4 F L 97.7 F Pulse Rate 94 H 86 86 Respiratory Rate 19 18 Blood Pressure 134/68 143/62 H 143/62 H Pulse Oximetry 96 95 Oxygen Flow Rate 0 0 Oxygen Delivery Method Room Air Oxygen Flow Rate 0 Narrative Exam Narrative: pale elder laying in bed looking weak Const Other: pale weak Resp Other: less crackles today but still present moving air well Cardio Other: RRR S1/S2 GI Other: active bowel sounds nondistended Extrem General: full ROM, no pedal edema and No calf tenderness Objective Labs 12/14/22 06:16 12/14/22 06:16 Labs: Laboratory Results - last 24 hr 12/13/22 12/13/22 12/14/22 14:20 21:49 06:16 WBC 4.6 RBC 2.97 L Hgb 8.0 L 7.7 L Hct 24.2 L 23.5 L MCV 79.2 L MCH 26.0 MCHC 32.8 RDW 20.9 H Plt Count 62 L Neut % (Auto) Not Reportable Lymph % (Auto) Not Reportable [place] % (Auto) Not Reportable Eos % (Auto) Not Reportable Baso % (Auto) Not Reportable Lymph # (Auto) Not Reportable [place] # (Auto) Not Reportable Baso # (Auto) Not Reportable Total Counted 100 Seg Neutrophils % 77.0 H Band Neutrophils % 3.0 Lymphocytes % (Manual) 11.0 L Atypical Lymphs % 1.0 H Monocytes % (Manual) 5.0 Eosinophils % (Manual) 3.0 Neutrophils # (Manual) 3680 RBC Morphology See below Poikilocytosis 1+ H Anisocytosis 2+ H Sodium Potassium Chloride Carbon Dioxide BUN Creatinine Estimated GFR BUN/Creatinine Ratio Glucose Calcium Total Bilirubin AST ALT Alkaline Phosphatase NT-Pro-B Natriuret Pep 5890 H Total Protein Albumin Globulin Albumin/Globulin Ratio 12/14/22 06:16 WBC RBC Hgb Hct MCV MCH MCHC RDW Plt Count Neut % (Auto) Lymph % (Auto) [place] % (Auto) Eos % (Auto) Baso % (Auto) Lymph # (Auto) [place] # (Auto) Baso # (Auto) Total Counted Seg Neutrophils % Band Neutrophils % Lymphocytes % (Manual) Atypical Lymphs % Monocytes % (Manual) Eosinophils % (Manual) Neutrophils # (Manual) RBC Morphology Poikilocytosis Anisocytosis Sodium 130 L Potassium 4.3 Chloride 103 Carbon Dioxide 19 L BUN 32 H Creatinine 1.61 H Estimated GFR 42 L BUN/Creatinine Ratio 19.9 Glucose 92 Calcium 6.9 L Total Bilirubin 1.1 AST 21 ALT 20 Alkaline Phosphatase 47 NT-Pro-B Natriuret Pep Total Protein 5.5 L Albumin 1.8 L Globulin 3.7 Albumin/Globulin Ratio 0.5 L PFSH Medical History Gastroesophageal reflux disease Hyperlipidemia Hypertension Thrombocytopenia Surgical History H/O prostatectomy H/O vasectomy Hx of tonsillectomy Family History Mother Heart attack Father Bone cancer Social History household members: spouse Smoking Status: Former smoker alcohol intake: former Assessment & Plan Assessment & Plan narrative: #pneumonia This was treated with antibiotics last visit aggressively zosyn and azithromycin without much improvement; he was discharged on levaquin. He does look sick but not as sick as when he came in last time - the presence of shaking chills before coming backdoes strongly suggest presence of some infectious process. Will continue levaquin here for 7 day course. Hold off on IVF d/t concern for ove rload. blood cultures are and have been negative. #Congestive heart failure, diastolic, acute on chronic #pulmonary edema repeat echo last visit showed preserved systolic function however presents to ED now with very high BNP trending up and wet crackles in lungs. BNP remains high. Lasix was helpful last admission will diurese him aggressively here. If he discharges over weekend I do strongly recommend some oral lasix 20-40 mg per day. #Acute renal failure Persistent from prior admission, prerenal likely with some CHF factor, some improvement noted, trend and replete as needed. Balancing need for diuresis for pulmonary function against kidney function. creatinine bump with hgb drop today, monitor in a.m. #Microcytic anemia s/p multiple xfusions in prior visits.? Is planned to be followed by Oncology.? Has outpatient appointment on Saturday with Dr. Montana to establish care which is critical.?smear shows anisocytosis s/p multiple xfusions. He is still acutely weak with down trending hgb and albumin will transfuse again today with some albumin and lasix chaser. S/p recent colonoscopy i am not sure what the source of this anemia is. I note derangements to all three cell lines if we consider flat WBCs in the setting of systemic sepsis as was the case with prior admission, to be unusual. #Depression unable to tolerate zoloft, trying paroxetine instead, sleep aids prn, megace for appetite #Thrombocytopenia Stable values just above 50 - possible ITP?? Is in process of being worked up.? Will be followed as an outpatient. Does not meet clinical indications for emergent IVIG at this time. Hx of recent splenic infarct. Concern for possible occult malignant process. May benefit from splenectomy?? Trend and monitor.? #Diarrhea prn loperamide monitor i think this is antibiotics sequela from zosyn prior admission Disposition: SNf tomorrow, if not consider home with MDM: [phone] Code: DNR per pt request - needs form signed diet: regular PCP: [place] Time Spent With Patient Critical Care time: I spent a total of [] minutes of critical care time on this patient's care today; this time is exclusive of procedural time. Quality VTE Deep Vein Thrombosis/Pulmonary Embolism Present on Admission: No
--- NOTE | 2022-12-14 11:27 | OT.IPNOTE ---
Pt refused PT earlier due to being too fatigued, and just checked on the pt was sleeping.
--- NOTE | 2022-12-14 12:07 | OT.IP.TRT ---
Occupational Therapy Treatment Note M2 OT-IP Current Condition Start: 12/14/22 12:59 Freq: Status: Active Protocol: Document 12/14/22 11:53 [facility] (Rec: 12/14/22 13:15 [facility] [id number]) Occupational Therapy Current Condition Current Condition Evaluation Date 12/14/22 Treatment Diagnosis PNA Diagnosis Onset Date 12/12/22 M3 OT- IP Subjective and Pain Start: 12/14/22 12:59 Freq: Status: Active Protocol: Document 12/14/22 11:53 [facility] (Rec: 12/14/22 13:15 [facility] [id number]) OT- Subjective Occupational Therapy Visit Type Type Initial Evaluation Visit Start Time 11:53 Visit Stop Time 12:07 Total Visit Minutes 14 Occupational Therapy Visit Comments Patient Comments Pt agreed to get up for OT eval. Patient/Caregiver Goals Pt not sure what he wants at this time. OT Pain Assessment Pain When Pain Assessed At Rest Pain Present Pain Present Denied Pain M4 OT- IP ADL's Start: 12/14/22 12:59 Freq: Status: Active Protocol: Document 12/14/22 11:53 [facility] (Rec: 12/14/22 13:15 [facility] [id number]) OT [id number] General Evaluation Self-Feeding Ability Independent OT ADL-Grooming General Evaluation Grooming Ability Independent OT ADL-Oral Care General Eval Oral Care Ability Independent OT ADL-Dressing General Eval Upper Body Dressing Ability Independent Lower Body Dressing Ability Independent OT ADL-Toileting General Evaluation Toileting Ability Independent OT ADL-Bathing Comments OT Bathing Comments At this time would be best for pt to sit for showering needs due to pt fatigues quickly. M5 OT- IP IADL's Start: 12/14/22 12:59 Freq: Status: Active Protocol: Document 12/14/22 11:53 [facility] (Rec: 12/14/22 13:15 [facility] [id number]) OT-Instrumental Activities of Daily Living Deficits IADL Deficits Identified Deficits Home Safety Awareness Awareness of Need for Assistance at Home Good Awareness Ability to Problem Solve Emergency Able to Problem Solve Situations Medication Management Medication Management Comments Pt states his has been assisting him lately. Money Management Money Management Caregiver Provides Assistance Meal Preparation Meal Preparation Caregiver Provides Assist Linen Supply Load Builder Linen Supply Load Builder Caregiver Provides Assist M6 OT- IP Functional Cognition Start: 12/14/22 12:59 Freq: Status: Active Protocol: Document 12/14/22 11:53 [facility] (Rec: 12/14/22 13:15 [facility] [id number]) Cognitive Factors Limiting Selfcare Function Cognitive Ability Level of Alertness Alert Patient Orientation Name,Age,Birthday,Month,Date, Year,Day of Week,Place, Situation Attention Span Ability Capable of Focused Attention, Capable of Sustained Attention Ability to Follow Commands Able to Follow Multi-Step Commands Cognitive Comments Cognitive Assessment Comments Pt able to follow commands for ADl and mobility needs. OT- Vision and Hearing OT- Hearing Assessment OT- Hearing Assessment WFL OT- Vision Assessment Visual Acuity Glasses All The Time Visual Attentiveness WFL Occular Pursuits WFL M7 OT- IP Mobility and Balance Start: 12/14/22 12:59 Freq: Status: Active Protocol: Document 12/14/22 11:53 [facility] (Rec: 12/14/22 13:15 [facility] [id number]) OT- Bed Mobility Assessment Rolling Level of Assistance Independent Supine to Sit Supine to Sit Assist Independent Sit to Supine Sit to Supine Assist Independent OT-Transfer Assessment Sit to and From Stand Sit to and from Stand Contact Guard Assistance Transfers Transfer Ability Contact Guard Assistance Technique Transfer Destination Bed,Toilet Transfer Technique Stand Step Pivot Devices Transfer Assistive Devices None,Gait Belt Comments Mobility Comments Pt a little unsteady on his feet without a device and needing initial CGA for balance and then able to walk back to the bed with close SBA . Pt would be safer to use a FWW at home . OT- Balance Assessment Sitting Balance and Reactions Static Sitting Balance Ability Normal Dynamic Sitting Balance Ability Normal Standing Balance and Reactions Static Standing Balance Ability Good Dynamic Standing Balance Ability Fair M8 OT- IP Objective Assessments Start: 12/14/22 12:59 Freq: Status: Active Protocol: Document 12/14/22 11:53 [facility] (Rec: 12/14/22 13:15 [facility] [id number]) OT Gross Range of Motion Upper Extremity Range of Motion Assessment Right Impaired OT Strength Upper Extremity Strength Assessment Right Impaired Comments Strength Comments Pt has right rotator cuff issues that limits his ROM and strength for RUE. OT- Coordination Assessment Comments Coordination Comments Pt able to do finger to thumb opposition independently OT-Muscle Tone Assessment Muscle Tone WNL Yes M9 OT- IP Assessment and Plan Start: 12/14/22 12:59 Freq: Status: Active Protocol: Document 12/14/22 11:53 [facility] (Rec: 12/14/22 13:15 [facility] [id number]) OT Summary Assessment and Plan Potential Rehabilitation Potential Good Analytic Complexity at Evaluation Low Summary OT Impairments Balance,Functional Mobility, Bathing,Shower Transfers, Activity Tolerance Progress Towards Goals Slow Progress due to Medical Issues,Slow Progress due to Activity Tolerance Assessment Summary Pt low complexity and main barriers are decreased activity tolerance, dynamic balance, however able to most of his ADL's in the room on his own. Pt will still benefit from using a shower chair at home. Pt able to walk without a device but a little unsteady on his feet and suggested best to use the fww. Pt states has been going into and out of the bathroom on his own. Pt would benefit best to go home with assist and home health at this time. Pending medical needs and activity tolerance would possibly benefit from skilled rehab. Goals Bathing Goal Independent Shower Transfer Goal Independent Days to Meet Goals 3 Frequency of Treatment Frequency Of Treatment Once a Day Treatment Plan OT Treatment Plan ADL Training,Functional Mobility,Patient/Family Education,Discharge Planning Discharge Recommendations OT Discharge Recommendations Home with Assistance,Home Health,SNF Rehab Transportation Needs at Discharge Private Vehicle
--- NOTE | 2022-12-14 12:31 | CM.DPC ---
Addendum entered by QIANA Okeefe 12/15/22 09:19: Barriers to SNF placement : -Oncology follow up (SNF becomes responsible for the cost of this follow up per [facility] guidelines) -Need for ongoing blood transfusions -Patient continues to feel severely fatigued and ill, refusing therapy eval ESEQUIEL Addendum entered by Alina Ham, PAID SEARCH MARKETING STRATEGIST 12/15/22 09:16: ADD: No admission nurse at [facility] this weekend according to [place] Placed call to [facility], had to LM requesting CB. Dr Berger wants patient to discharge to a SNF not home ESEQUIEL Addendum entered by Margi Ceballos R.N. 12/14/22 15:44: CM spoke to Lisa at [facility] who stated they do not have a nurse to do an admission this afternoon but maybe the can accept tomorrow if they have an admission nurse. CM team will follow up with [facility] tomorrow to see if we can DC there tomorrow- [facility] auth approved so hopefully we can DC to [facility] tomorrow morning - if not back up plan is home with [facility] - just need to call them and let them know of DC and send DC summary for this patient tomorrow. Margi Ceballos RNmental health case manager Addendum entered by Margi Ceballos R.N. 12/14/22 14:08: CM spoke with Lisa at [facility] they might be able to admit this patient later this afternoon. Lisa is waiting for there nursing staff to start there shift to see if they have availability to accept tonight. CM team will follow up and will let provider know and will follow up with patient and his once DC plan is solidified. Margi Ceballos RNbanking management consulting manager Addendum entered by Margi Ceballos R.N. 12/14/22 13:52: CM heard back from [facility] and they approved [facility] Auth# [id number]. JULIEN called and left voice mail with Lisa at [facility] and talked with Dr. Inman who said he would check on the patient and if he looks good and is ready for DC he will get him ready for SNF today or home with HH tomorrow. CM will continue to follow to assist with any new DC planning needs as they arrive. Margi Ceballos RNforming acid dumper Original Note: DCP Continued: CM spoke with Lisa at [facility] who stated she would accept Case today or saturday pending [facility] SNF AUTH. CM called Isabella at [facility] and she is working on AUTH. she requested PT and OT notes, CM sent over PT notes and will send over OT notes when they are available.... JULIEN spoke with OT who stated that she doesn't think the patient needs SNF care and that she thinks they will be fine going home with [facility]. CM will work with patient, [facility], [facility] and [facility] to work on DC plan. Cm messaged Dr. Cheatham to check to see if the patient would be medically stable for DC today to SNF or if he feels he needs another night. Julien is waiting on response from Dr. Inman at this time. Margi Ceballos forming acid dumper
[2022-12-14] MEDS: ALBUMIN HUMAN 25 GM/100 ML VIAL IV (12:35)
[2022-12-14] MEDS: PARoxetine 20 MG TABLET PO (12:35)
[2022-12-14] MEDS: LOPERAMIDE 2 MG CAPSULE PO (12:40)
--- NOTE | 2022-12-14 14:24 | PT-IP ANOTE ---
Refused PT: Pt declined PT for the second time today stating that he did not have the energy to participate. Explained that per Discharge Planning Note we did have an authorization for SNF, and the discussion was SNF vs home health. Explained that PT would need to complete stair training prior to being discharged home. Pt states that he has less energy today than he did yesterday and he cannot possibly do the stairs right now. Discussed with pt and support person that if he does not have the energy to do stairs PT would recommend SNF at this time and they are in agreement.
[2022-12-14] MEDS: TRAZODONE 50 MG TABLET PO (20:06)
[2022-12-14] MEDS: GABAPENTIN 400 MG CAPSULE PO (20:06)
[2022-12-14] MEDS: FUROSEMIDE 40 MG/4 ML VIAL IV (22:21)
[2022-12-15] VITALS (7 sets, daily range): BP systolic 110–142; BP diastolic 57–74; PULSE 62–90; RESP 16–22; TEMP 36.2–37.9; O2SAT 92–96
[2022-12-15] MEDS: ACETAMINOPHEN 325 MG TABLET PO (00:06)
[2022-12-15] MEDS: diphenhydrAMINE 25 MG TABLET PO (00:07)
[2022-12-15] MEDS: PANTOPRAZOLE DR 20 MG TABLET PO (05:43)
[2022-12-15 06:43] LABS: Add Manual Diff / Slide Review NO; Basophils Absolute Auto 100 /uL (0-100); Basophils Percent Auto 2.5 % (0-2); Eosinophils Absolute Auto 100 /uL (0-450); Eosinophils Percent Auto 1.9 % (2-4); Hemoglobin 9.4 g/dL (13.5-17.5); Lymphocytes Absolute Auto 1400 /uL (1100-4500); Lymphocytes Percent Auto 27.4 % (25-40); Mean Corpuscular Hemoglobin 26.5 PG (26-34); Mean Corpuscular Volume 80.3 fL (80-100); Monocytes Absolute Auto 600 /uL (0-900); Neutrophils Absolute Auto 2900 /uL (1500-7000); Neutrophils Percent Auto 56.2 % (50-75); Platelet Count 55 X10^3/uL (150-400); Red Blood Cell Count 3.55 X10^6/uL (4.5-5.9); Red Cell Distribution Width 19.6 % (11.6-14.8); White Blood Cell Count 5.2 X10^3/uL (4.5-11.0)
[2022-12-15] MEDS: levoFLOXacin 250 MG TABLET 750 MG PO (06:52)
[2022-12-15 07:00] LABS: Hematocrit 28.6 % (41-53)
[2022-12-15 07:21] LABS: Alanine Aminotransferase 16 IU/L (<50); Albumin Globulin Ratio 0.5 (1.0-2.8); Alkaline Phosphatase 46 U/L (38-126); Aspartate Aminotransferase 22 IU/L (17-59); BUN Creatinine Ratio 21.1 (6-22); Bilirubin Total 1.7 mg/dL (0.2-1.3); Blood Urea Nitrogen 36 mg/dL (9-20); Calcium 7.1 mg/dL (8.4-10.2); Carbon Dioxide 21 mmol/L (22-32); Chloride 102 mmol/L (98-107); Estimated Glomerular Filt Rate 39 mL/min (>60); Globulin 3.8 g/dL (1.7-4.1); Glucose 89 mg/dL (80-110); HEMOLYSIS < 15 (0-50); Sodium 130 mmol/L (137-145); Total Protein 5.8 g/dL (6.3-8.2)
--- NOTE | 2022-12-15 09:16 | PM.PN.1 ---
Subjective Subjective Date Patient Seen: 12/15/22 Time Patient Seen: 09:16 Interval history: Patient seen at bedside patient said he slept 9 hours last night little groggy this morning tolerating diet had 2 units of packed red blood cells vital signs stable hemoglobin hematocrit stable. Eating well he would like to get up out of bed today. No recent concerns of chest pain shortness of breath. Exam Vital Signs (past 8 hours): - 12/15/22 01:27 12/15/22 06:00 Temperature 99.6 F 98.5 F Pulse Rate 62 Respiratory Rate 22 Blood Pressure 132/68 Pulse Oximetry 96 Oxygen Flow Rate 0 Oxygen Delivery Method Room Air Oxygen Flow Rate 0 Narrative Exam Narrative: Gen.: Alert good historian HEENT: Pupils equal round and reactive or mucosa is moist Cardio: S1-S2 regular rate and rhythm no murmurs appreciated. Respiratory: Lungs are clear to auscultation no wheezes or crackles normal respiratory effort. Abdomen: Soft nontender no rebound or guarding no liver spleen enlargement no appreciable hernias Extremities: Full range of motion no appreciable weakness no cyanosis or edema. Neurologic: Grossly intact. Objective Labs 12/15/22 06:28 12/15/22 06:28 Labs: Laboratory Results - last 24 hr 12/14/22 12/15/22 12/15/22 12:55 06:28 06:28 WBC 5.2 RBC 3.55 L Hgb 9.4 L Hct 28.6 L MCV 80.3 MCH 26.5 MCHC 33.0 RDW 19.6 H Plt Count 55 L Neut % (Auto) 56.2 Lymph % (Auto) 27.4 [place] % (Auto) 12.0 Eos % (Auto) 1.9 L Baso % (Auto) 2.5 H Neut # (Auto) 2900 Lymph # (Auto) 1400 [place] # (Auto) 600 Eos # (Auto) 100 Baso # (Auto) 100 Sodium 130 L Potassium 4.0 Chloride 102 Carbon Dioxide 21 L BUN 36 H Creatinine 1.71 H Estimated GFR 39 L BUN/Creatinine Ratio 21.1 Glucose 89 Calcium 7.1 L Total Bilirubin 1.7 H AST 22 ALT 16 Alkaline Phosphatase 46 Total Protein 5.8 L Albumin 2.0 L Globulin 3.8 Albumin/Globulin Ratio 0.5 L Blood Type O Positive Antibody Screen Negative Crossmatch See Detail [facility] Medical History Gastroesophageal reflux disease Hyperlipidemia Hypertension Thrombocytopenia Surgical History H/O prostatectomy H/O vasectomy Hx of tonsillectomy Family History Mother Heart attack Father Bone cancer Social History household members: spouse Smoking Status: Former smoker alcohol intake: former Assessment & Plan Assessment and plan (1) Pneumonia: Status: Acute (2) Microcytic anemia: Status: Acute Plan Pneumonia. Unknown pathological source patient had fevers chills on readmission to the emergency department blood cultures continue with IV Levaquin for 7 days DC when stopped. Congestive heart failure diastolic acute on chronic with pulmonary edema. Working with some IV diuresis with Lasix which he is tolerating well and respiratory status and oxygen status appears to be stable. Acute renal failure continue with monitoring and adjusting electrolytes and in's and out's. Anemia microcytic with thrombocytopenia multiple blood transfusions 2 units yesterday. Oncology evaluation 1 week ago and has an appointment on Saturday continuing to have low blood counts and significant weakness. Questionable blood cell tumor cancer. May need bone marrow biopsy for further delineation of diagnosis Depression. On paroxetine. Disposition and plan. Too weak to go home will need jail facility and a definitive diagnosis with Oncology evaluation. Time Spent With Patient Critical Care time: I spent a total of [] minutes of critical care time on this patient's care today; this time is exclusive of procedural time. Quality VTE Deep Vein Thrombosis/Pulmonary Embolism Present on Admission: No
[2022-12-15] MEDS: BUSPIRONE 5 MG TABLET 7.5 MG PO ×2 (09:34→20:45)
[2022-12-15] MEDS: ENOXAPARIN 40 MG/0.4 ML SYRINGE SUBCUT (09:34)
[2022-12-15] MEDS: LOSARTAN 50 MG TABLET 100 MG PO (09:35)
[2022-12-15] MEDS: ATORVASTATIN 20 MG TABLET PO (09:37)
[2022-12-15] MEDS: SODIUM CHLORIDE 0.9% FLUSH 10 ML IV ×2 (09:38→20:45)
--- NOTE | 2022-12-15 12:27 | PC.NURSE ---
Addendum entered by Dl Pickering R.N. 12/15/22 16:55: spoke with Dr. Berger about Pt feeling very hot inside. gave tylenol, resettled Pt to comfort. Pt slept. VS's noted. no new orders. Pt slept well for short time. Daughter attentive at bedside presently. Original Note: Alert and oriented, and daughter attentive at bedside. follows commands, appropriate requests, restful.
[2022-12-15] MEDS: ACETAMINOPHEN 325 MG TABLET 650 MG PO (14:06)
--- NOTE | 2022-12-15 15:45 | CM.DPNOTE ---
DCP Note No SNF yet secured on patient's behalf. Placed call to [facility] today, had to leave [facility]. [facility] will not be able to admit patient this weekend, requested to check back Saturday. [place] auth in place. Met w/patient, spouse and dtr to review DCP which segued into a goals of care conversation Patient very ill appearing, states I don't want to , but I don't want to live like this patient is convinced that he needs to return home w/hospice services in place and requests this WASTE MANAGEMENT SPECIALIST start the referral process today so that spouse can get addtl information Daughter is tearful and upset at bedside and encouraging patient to keep fighting Compromise made at the end of this meeting between patient and family- requested an additional meeting w/Dr Montana Oncologist Saturday at bedside rather than in the outpatient setting Patient and family would benefit from discussing the following question with an Oncologist, if possible, before Hospice services begin: Is there any known treatment/intervention for patient's suspected diagnosis that, once started, would offer patient enough physical improvement in sx and therefore a better quality of life or is it more realistic for patient to focus now on comfort and palliative/hospice intervention? Referral faxed to [facility] per patient and family request. w/schedulers asking for call back to discuss this case CM team will be following closely. This WASTE MANAGEMENT SPECIALIST anticipates patient will return home w/hospice services w/supportive family. Today, patient was adamant of this as the plan, however, he wanted to honor his spouse and dtr's wishes to have an addtl conversation w/Oncologist re next steps in medical plan of care JW
[2022-12-15] MEDS: TRAZODONE 50 MG TABLET PO (20:45)
[2022-12-15] MEDS: GABAPENTIN 400 MG CAPSULE PO (20:45)
[2022-12-16] VITALS: BP 123/65; PULSE 93; RESP 20; TEMP 37.5; O2SAT 93
[2022-12-16] MEDS: diphenhydrAMINE 25 MG TABLET PO (02:03)
[2022-12-16] MEDS: PANTOPRAZOLE DR 20 MG TABLET PO (05:23)
[2022-12-16 06:00] VITALS: BP 102/58; PULSE 87; RESP 19; TEMP 36.6; O2SAT 93
[2022-12-16 06:51] LABS: Hematocrit 28.3 % (41-53); Hemoglobin 9.4 g/dL (13.5-17.5); Mean Corpuscular HGB Conc 33.3 % (30-36); Mean Corpuscular Hemoglobin 26.7 PG (26-34); Mean Corpuscular Volume 80.1 fL (80-100); Platelet Count 54 X10^3/uL (150-400); Red Blood Cell Count 3.53 X10^6/uL (4.5-5.9); Red Cell Distribution Width 19.3 % (11.6-14.8); White Blood Cell Count 5.7 X10^3/uL (4.5-11.0)
[2022-12-16 06:54] LABS: Add Manual Diff / Slide Review YES
[2022-12-16 06:59] LABS: Alanine Aminotransferase 17 IU/L (<50); Albumin Globulin Ratio 0.5 (1.0-2.8); Alkaline Phosphatase 46 U/L (38-126); Aspartate Aminotransferase 26 IU/L (17-59); BUN Creatinine Ratio 22.1 (6-22); Bilirubin Total 1.5 mg/dL (0.2-1.3); Blood Urea Nitrogen 38 mg/dL (9-20); Calcium 6.8 mg/dL (8.4-10.2); Carbon Dioxide 18 mmol/L (22-32); Chloride 102 mmol/L (98-107); Estimated Glomerular Filt Rate 38 mL/min (>60); Globulin 3.8 g/dL (1.7-4.1); Glucose 93 mg/dL (80-110); HEMOLYSIS < 15 (0-50); Sodium 128 mmol/L (137-145); Total Protein 5.8 g/dL (6.3-8.2)
[2022-12-16 07:11] LABS: Neutrophils Absolute Manual 3762 /uL (3000-5900); Total Cells Counted 100
[2022-12-16 07:12] LABS: Anisocytosis 1+; Poikilocytosis 1+
--- NOTE | 2022-12-16 08:23 | PM.PN.1 ---
Subjective Subjective Date Patient Seen: 12/16/22 Time Patient Seen: 08:23 Interval history: Patient seen and evaluated this morning. He says he feels a little bit better than yesterday. Vital signs are stable overnight. No temperature no hypoxia. Hemoglobin is 9.4. Yesterday he said was a bad day just feeling weak. Only gets up to go to the bathroom with assistance with a walker. Medically things appear to be stable but quite deconditioned weak and overall just not feeling well. Continued on and off constitutional symptoms of weakness low-grade fevers loss of appetite weight loss. All concerning for underlying malignancy. Exam Vital Signs (past 8 hours): - 12/16/22 06:00 Temperature 98 F Pulse Rate 87 Respiratory Rate 19 Blood Pressure 102/58 L Pulse Oximetry 93 Oxygen Flow Rate 0 Oxygen Delivery Method Room Air Oxygen Flow Rate 0 Narrative Exam Narrative: Gen.: Alert good historian HEENT: Pupils equal round and reactive or mucosa is moist Cardio: S1-S2 regular rate and rhythm no murmurs appreciated. Respiratory: Lungs are clear to auscultation no wheezes or crackles normal respiratory effort. Abdomen: Soft nontender no fluid wave shift. Possible enlargement of spleen. Extremities: Some trace edema generalized weakness Neurologic: No focal neurologic deficits Objective Labs 12/16/22 06:15 12/16/22 06:15 Labs: Laboratory Results - last 24 hr 12/16/22 12/16/22 06:15 06:15 WBC 5.7 RBC 3.53 L Hgb 9.4 L Hct 28.3 L MCV 80.1 MCH 26.7 MCHC 33.3 RDW 19.3 H Plt Count 54 L Neut % (Auto) Not Reportable Lymph % (Auto) Not Reportable [place] % (Auto) Not Reportable Eos % (Auto) Not Reportable Baso % (Auto) Not Reportable Lymph # (Auto) Not Reportable [place] # (Auto) Not Reportable Baso # (Auto) Not Reportable Total Counted 100 Seg Neutrophils % 66.0 Lymphocytes % (Manual) 12.0 L Atypical Lymphs % 4.0 H Monocytes % (Manual) 16.0 H Eosinophils % (Manual) 2.0 Neutrophils # (Manual) 3762 RBC Morphology Not Reportable Poikilocytosis 1+ H Anisocytosis 1+ H Sodium 128 L Potassium 4.0 Chloride 102 Carbon Dioxide 18 L BUN 38 H Creatinine 1.72 H Estimated GFR 38 L BUN/Creatinine Ratio 22.1 H Glucose 93 Calcium 6.8 L Total Bilirubin 1.5 H AST 26 ALT 17 Alkaline Phosphatase 46 Total Protein 5.8 L Albumin 2.0 L Globulin 3.8 Albumin/Globulin Ratio 0.5 L PFSH Medical History Gastroesophageal reflux disease Hyperlipidemia Hypertension Thrombocytopenia Surgical History H/O prostatectomy H/O vasectomy Hx of tonsillectomy Family History Mother Heart attack Father Bone cancer Social History household members: spouse Smoking Status: Former smoker alcohol intake: former Assessment & Plan Assessment and plan (1) Pneumonia: Status: Acute Plan Pneumonia.? Continue with current antibiotic therapy. Stop after 7 days..? Congestive heart failure diastolic acute on chronic with pulmonary edema.? IV diuresis stopped. He is getting a little bit of IV fluids will stop these as well. Hyponatremia. Will stop his IV fluids. Monitor closely his electrolytes. Acute renal failure. Creatinine stable. Stop IV fluids. Monitor closely electrolytes. Anemia microcytic with thrombocytopenia multiple blood transfusions.? Concomitant iron deficiency anemia questionable underlying bone marrow malignancy. Oncology evaluation 1 week ago and has an appointment on Saturday continuing to have low blood counts and significant weakness.? Questionable blood cell tumor cancer.? May need bone marrow biopsy for further delineation of diagnosis Thrombocytopenia. Platelet count at 50 stable. Depression.? On paroxetine. And BuSpar stopped his sertraline which she was on yesterday. Disposition and plan.? Too weak to go home will need long-term facility and a definitive diagnosis with Oncology evaluation.? Oncology evaluation tomorrow. Time Spent With Patient Critical Care time: I spent a total of [] minutes of critical care time on this patient's care today; this time is exclusive of procedural time. Quality VTE Deep Vein Thrombosis/Pulmonary Embolism Present on Admission: No
[2022-12-16 08:51] VITALS: BP 105/53; PULSE 86; RESP 16
[2022-12-16] MEDS: ATORVASTATIN 20 MG TABLET PO (08:57)
[2022-12-16] MEDS: ENOXAPARIN 30 MG/0.3 ML SYRINGE SUBCUT (08:57)
[2022-12-16] MEDS: BUSPIRONE 5 MG TABLET 7.5 MG PO ×2 (08:57→21:11)
[2022-12-16] MEDS: SODIUM CHLORIDE 0.9% FLUSH 10 ML IV ×2 (08:58→21:12)
--- NOTE | 2022-12-16 11:22 | CM.DPC ---
DCP SNF vs Home with HH vs Hospice Per MD, pt continues to consider Hospice but pt still feels he needs to have discussion with current Oncologist Dr. Montana to confirm if further tx will help pt improve quality of life. CARL met with MD and discussed discharge and MD plans to call Dr. Montana in the AM to request he meet bedside with pt and family tomorrow 12/17/22 during pt's scheduled appointment time to have this discussion to make determination of SNF vs comfort pathway. CARL discussed with MD barriers to SNF being pt's ongoing oncology tx, infusions, and that pt had been improving in his ambulation with PT/OT and [place] auth only good through today 12/16/22 and [facility] may deny if updated clinicals sent. [facility] referral previously faxed yesterday at pt's request. Plan: CARL to follow closely in the AM with calling Susan at [facility] to update on MD request of Dr. Montana meeting with family bedside, [facility] to confirm if they could still accept pt tomorrow Sat and [facility] to determine if auth still good through Saturday. QIANA Ruth
[2022-12-16 12:11] VITALS: BP 112/60; PULSE 73; RESP 16; TEMP 37.5; O2SAT 96
[2022-12-16 13:56] VITALS: BP 110/60; PULSE 90; RESP 16; TEMP 36.8; O2SAT 94
[2022-12-16] MEDS: LOSARTAN 50 MG TABLET 25 MG PO (14:00)
[2022-12-16 19:25] VITALS: BP 120/71; PULSE 86; RESP 18; TEMP 36.8; O2SAT 94
[2022-12-16] MEDS: TRAZODONE 50 MG TABLET PO (21:10)
[2022-12-16] MEDS: GABAPENTIN 400 MG CAPSULE PO (21:11)
[2022-12-17 02:20] VITALS: BP 111/59; PULSE 85; RESP 19; TEMP 36.2; O2SAT 93
[2022-12-17] MEDS: PANTOPRAZOLE DR 20 MG TABLET PO (06:22)
[2022-12-17] MEDS: levoFLOXacin 250 MG TABLET 750 MG PO (06:22)
[2022-12-17 06:38] LABS: Hematocrit 26.2 % (41-53); Hemoglobin 8.8 g/dL (13.5-17.5); Mean Corpuscular HGB Conc 33.5 % (30-36); Mean Corpuscular Hemoglobin 26.8 PG (26-34); Mean Corpuscular Volume 80.1 fL (80-100); Platelet Count 54 X10^3/uL (150-400); Red Blood Cell Count 3.27 X10^6/uL (4.5-5.9); Red Cell Distribution Width 19.4 % (11.6-14.8); White Blood Cell Count 5.9 X10^3/uL (4.5-11.0)
[2022-12-17 06:40] LABS: Add Manual Diff / Slide Review YES
[2022-12-17 06:49] LABS: Alanine Aminotransferase 15 IU/L (<50); Albumin 1.8 g/dL (3.5-5.0); Albumin Globulin Ratio 0.5 (1.0-2.8); Alkaline Phosphatase 39 U/L (38-126); Aspartate Aminotransferase 27 IU/L (17-59); BUN Creatinine Ratio 28.3 (6-22); Bilirubin Total 1.5 mg/dL (0.2-1.3); Blood Urea Nitrogen 41 mg/dL (9-20); Calcium 6.7 mg/dL (8.4-10.2); Carbon Dioxide 19 mmol/L (22-32); Chloride 99 mmol/L (98-107); Estimated Glomerular Filt Rate 47 mL/min (>60); Globulin 3.8 g/dL (1.7-4.1); Glucose 87 mg/dL (80-110); HEMOLYSIS 32 (0-50); Potassium 3.8 mmol/L (3.4-5.1); Sodium 126 mmol/L (137-145); Total Protein 5.6 g/dL (6.3-8.2)
[2022-12-17 07:58] LABS: Anisocytosis 1+; Neutrophils Absolute Manual 4071 /uL (3000-5900); Total Cells Counted 100
[2022-12-17 07:59] LABS: Poikilocytosis 1+
[2022-12-17 08:00] VITALS: BP 113/58; PULSE 83; RESP 17; TEMP 36.6; O2SAT 94
[2022-12-17] MEDS: BUSPIRONE 5 MG TABLET 7.5 MG PO (08:15)
[2022-12-17] MEDS: ATORVASTATIN 20 MG TABLET PO (08:15)
[2022-12-17] MEDS: ENOXAPARIN 30 MG/0.3 ML SYRINGE SUBCUT (08:15)
[2022-12-17 08:18] VITALS: BP 113/58; PULSE 83
[2022-12-17] MEDS: SODIUM CHLORIDE 0.9% FLUSH 10 ML IV (08:18)
[2022-12-17] MEDS: MEGESTROL 20 MG TABLET 40 MG PO (09:43)
--- NOTE | 2022-12-17 11:05 | DI.ECHO.S_ITS ---
Interpretation Summary Limited study to assess aortic stenosis. Normal left ventricle size with ejection fraction 60-65%. Mild aortic stenosis. The peak aortic velocity is 2.5 m/sec. The aortic valve mean gradient is 15 mmHg. Procedure: A two-dimensional transthoracic echocardiogram with color flow and Doppler was performed in limited views only to assess aortic stenosis. The study quality was technically adequate. The patient was in sinus rhythm with heart rates between 78-84 bpm during the exam. Left Ventricle: The left ventricle is normal in size and wall thickness. The ejection fraction is estimated to be 60-65%. There are no focal wall motion abnormalities. Aortic Valve: The aortic valve is moderately calcified. There is mildly reduced leaflet mobility. There is mild aortic stenosis. The peak aortic velocity is 2.5 m/sec. The aortic valve mean gradient is 15 mmHg. There is trace aortic regurgitation. Pulmonic Valve: The pulmonic valve leaflets are thin and pliable; valve motion is normal. Great Vessels: The aortic root is normal size. Pericardium/ Pleura There is no pericardial effusion. There is no pleural effusion. MMode/2D Measurements & Calculations LVIDd: 5.1 cm LVOT diam: 2.0 cm LVIDs: 3.2 cm Ao root diam: 3.4 cm FS: 37.2 % IVSd: 0.88 cm LVPWd: 0.97 cm LV govea. diameter/BSA (cm/m^2): 2.8 LV sys. diameter/BSA (cm/m^2): 1.8 MACI (plan): 1.8 cm2 Doppler Measurements & Calculations Ao V2 max: 250.1 cm/sec LVOT Max Prasad: 104.4 cm/sec Ao V2 mean: 180.6 cm/sec LV V1 max P.4 mmHg Ao max P.0 mmHg LV V1 VTI: 22.3 cm Ao mean P.9 mmHg MACI(I,D): 1.3 cm2 Ao V2 VTI: 52.9 cm MACI(V,D): 1.3 cm2 sev ratio: 0.42 MACI indexed to BSA (cm^2/m^2): 0.72 PA V2 max: 111.0 cm/sec SV(LVOT): 69.5 ml PA V2 mean: 80.8 cm/sec PA mean P.9 mmHg Electronically signed by: Marbella Reed on Reading Physician:12/17/2022 01:24 PM
--- NOTE | 2022-12-17 11:13 | CM.DPC ---
Addendum entered by QIANA Ruth 12/17/22 14:21: ADD: Discharge summary faxed to [facility] to review for pt d/c home today. BF Addendum entered by QIANA Ruth 12/17/22 13:04: ADD: SW met bedside with pt and family again and they confirm they are agreeable with Hospice and aware of Hospice schedule and plan. SW discussed pt's d/c orders and pt confirms his preference is home today and does not want to remain in the hospital as pt's spouse initially was hoping. SW discussed no medical need to remain in the hospital either and pt very agreeable. SW discussed mode of transportation and pt feels he is strong enough to d/c home via family POV and can manage the 4 stairs to enter with spouse, Dtr, and neighbor assist if needed. Discussed having chair at the top of the stairs in case pt needs a rest. Pt does not feel he needs BLS and likely may not be covered by insurance and Dtr comfortable with helping pt manage getting into the home. SW updated MD and RN and MD kindly completing d/c to home today with [facility] to open pt to service by Wed and family will coordinate with Susan at [facility] regarding pt's scheduled appoint on this week and if they will cancel or still meet with Dr. Montana. QIANA Ruth Addendum entered by QIANA Ruth 12/17/22 12:15: ADD: SW met bedside with pt, Dtr, and spouse and they confirm they have concerns with pt's ongoing weakness and readmissions but agreeable with d/c to home. Pt again reiterates that he is tired, I just want to go home and be done with this and I'm ready for Hospice. SW helped get [facility] on the phone, confirm they have his referral from this weekend and willing to complete Info Visit now with pt and family. Return call from Cari at [facility] and family in agreement with hospice consents and [facility] scheduled for hospital bed and DME delivery tomorrow 12/18/22 and could open pt to services the next day 12/19/22 between [id number]. Pt mobile and not imminent and likely could still d/c home today with Hospice delivery tomorrow and opening the next day. SW to talk to family bedside about d/c plan today. BF Original Note: DCP Discharge Home Per MD, pt to have Echo today with plan of d/c to home later today with HH at this time and then to have his first establish care appointment with Dr. Montana at [facility] which was scheduled for today 12/17/22 around 1420. CARL called Susan at [facility] and discussed above and determining if Dr. Montana able to meet with pt bedside vs d/c to his outpt appointment and possible insurance issue with discharging from hospital same day as outpt appointment. Susan will confirm and then call pt/spouse with update and possible reschedule for two days out on 12/19/22 if needed. CARL called [facility] and they will need new referral and F2F and orders as pt has been readmitted a few times since initial referral. CARL faxed initial referral for review. PT/OT feels pt is ambulating and mobile, just fatigues and cannot mobilize long distances. Feel pt could d/c home with spouse assist and HH. [facility] confirms they could likely still accept pt if [place] would re-auth. CARL attempted to meet bedside with pt and spouse but currently getting his Echo bedside. Plan: CARL to follow for bedside discussion with pt and family to finalize d/c plan to home and confirm if they are still interested in Hospice Info Visit as well as [facility]. Katie Richmond, [employer]
[2022-12-17] MEDS: CYANOCOBALAMIN 1,000 MCG/ML VIAL 1000 MCG SUBCUT (12:54)
[2022-12-17] MEDS: CYANOCOBALAMIN (VITAMIN B-12) 100 MCG TABLET PO (13:07)
--- NOTE | 2022-12-17 13:23 | P.DS_ITS ---
History of Present Illness History of Present Illness Date Patient Seen: 12/17/22 Time Patient Seen: 09:00 Chief complaint: Fever Narrative: CC: weakness today Still generally low appetite low energy able to mobilize to bathroom but gets tired with short distances extensive conversation with CM today planning to go home with HH and establish with hospice recommend focus on nutrition and mobilization oncology outpt f/u now occurring I still do recommend exploring palliative options there at least if not diagnostic/curative Discharge Providers Provider Date of admission: 12/12/22 00:07 Discharge Date: 12/17/22 Primary care physician: Waqas Inman MD Consults: 12/12/22 00:07 Consult to Physician Urgent Comment: Consulting Provider: Waqas Inman Reason for consultation: Admission Has provider been notified: Yes 12/12/22 00:08 Consult to Physician Stat Comment: Consulting Provider: Ok Berger Reason for consultation: admission Has provider been notified: Yes 12/12/22 09:12 Consult to Occupational Therapy Evaluate & Treat Comment: Physician Instructions: Evaluate and treat Consult to Physical Therapy Evaluate & Treat Comment: Physician Instructions: Evaluate and Treat Discharge provider: Waqas Inman MD Summary Hospital Course Discharge Diagnosis: #pneumonia #Congestive heart failure, diastolic, acute on chronic #pulmonary edema #hyponatremia #Acute renal failure #Microcytic anemia #Depression #Thrombocytopenia #Diarrhea Hospital Course: Discharged for second time in series of inpatient stays for dwindling of unclear etiology just before being readmitted for third time on same day as discharge; 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 He went home initially feeling ok however later in the afternoon had shaking chills fever to 103 and became increasingly weak and had to summon EMS to take him to ED for evaluation where he did not appear septic but remained quite weak and was admitted for observation (start of current admission) and he did receive 2U PRBCs when his HGB dipped a couple days later. He was maintained on levaquin this admission without any more chills/fever and will complete a 7 days course. His WBCs remain flat in the setting of persistent thrombocytopenia and anemia. Has been trying to establish with Dr. Montana oncology in outpt setting but frustrated by frequent readmissions. Pt endorses significant depression symptoms with abnegative ideation but no suicidal plan. desires antidepressant unable to tolerate zoloft. not much appetite. blood cultures from all visits remain NGTD. On DOD reports he is going to the bathroom a lot but it's mostly gas appetite has remained poor all admission. He is ambulating short distances but very easily winded. New systolic murmur noted on DoD echo obtainedw ill f/u read on outpt. Status at Discharge Cognitive/behavioral status at discharge: at baseline, oriented Functional status at discharge: uses cane/walker Overall status at discharge: patient is not back to baseline Exam Vital Signs (past 8 hours): - 12/17/22 08:18 12/17/22 08:00 Temperature 97.8 F Pulse Rate 83 83 Respiratory Rate 17 Blood Pressure 113/58 L 113/58 L Pulse Oximetry 94 Oxygen Flow Rate 0 Oxygen Delivery Method Room Air Oxygen Flow Rate 0 Narrative Exam Narrative: weak pale elder laying in bed with at bedside HENMT Head: normocephalic Eyes General: appearance normal, both eyes and all related structures Resp Other: mild bibasilar crackles, moving air well speaking full sentences on RA Cardio Other: regular rate and rhythm, systolic ejection squeak 3+ GI Other: active bowel sounds, nontender to palpation Extrem General: full ROM and no pedal edema Psych Speech and Movement: speech and movement normal Objective Labs 12/17/22 06:13 12/17/22 06:13 Labs: Laboratory Results - last 24 hr 12/17/22 12/17/22 06:13 06:13 WBC 5.9 RBC 3.27 L Hgb 8.8 L Hct 26.2 L MCV 80.1 MCH 26.8 MCHC 33.5 RDW 19.4 H Plt Count 54 L Neut % (Auto) Not Reportable Lymph % (Auto) Not Reportable [place] % (Auto) Not Reportable Eos % (Auto) Not Reportable Baso % (Auto) Not Reportable Lymph # (Auto) Not Reportable [place] # (Auto) Not Reportable Baso # (Auto) Not Reportable Total Counted 100 Seg Neutrophils % 67.0 Band Neutrophils % 2.0 L Lymphocytes % (Manual) 15.0 L Atypical Lymphs % 1.0 H Monocytes % (Manual) 11.0 Eosinophils % (Manual) 4.0 Neutrophils # (Manual) 4071 RBC Morphology See below Poikilocytosis 1+ H Anisocytosis 1+ H Sodium 126 L Potassium 3.8 Chloride 99 Carbon Dioxide 19 L BUN 41 H Creatinine 1.45 H Estimated GFR 47 L BUN/Creatinine Ratio 28.3 H Glucose 87 Calcium 6.7 L Total Bilirubin 1.5 H AST 27 ALT 15 Alkaline Phosphatase 39 Total Protein 5.6 L Albumin 1.8 L Globulin 3.8 Albumin/Globulin Ratio 0.5 L PFSH Medical History Gastroesophageal reflux disease Hyperlipidemia Hypertension Thrombocytopenia Surgical History H/O prostatectomy H/O vasectomy Hx of tonsillectomy Family History Mother Heart attack Father Bone cancer Social History household members: spouse Smoking Status: Former smoker alcohol intake: former Discharge Assessment & Plan Assessment and Plan Assessment: #pneumonia This was treated with antibiotics last visit aggressively zosyn and azithromycin without much improvement; he was discharged on levaquin. He does look sick but not as sick as when he came in last time - the presence of shaking chills before coming backdoes strongly suggest presence of some infectious process. Will continue levaquin 2 more days to complete 7 day course. Hold off on IVF d/t concern for overload. cultures are and have been negative. #Congestive heart failure, diastolic, acute on chronic #pulmonary edema repeat echo last visit showed preserved systolic function however presented to ED with very high BNP trending up and wet crackles in lungs. BNP remains high. Lasix was helpful last admission he did get diuresed this admission also and se ems to be improving. crackles are receding and are improved on DOD compared with DOA. will continue outpatient po lasix, consider cardiology f/u. New systolic murmur noted today - focused echo obtained, read pending, will f/u as outpt. #hyponatremia resolving encourage PO intake #Acute renal failure Persistent from prior admission, prerenal likely with some CHF factor, this admission balanced need for diuresis for pulmonary function against kidney function. encouraged assiduous hydration. #Microcytic anemia Persistent issue requiring xfusion. Outpt appt with Hematology Dr. Montana planned for to establish. Smear shows anisocytosis s/p multiple xfusions. S/p recent colonoscopy i am not sure what the source of this anemia is.? I note derangements to all three cell lines if we consider flat WBCs in the setting of systemic sepsis as was the case with prior admission, to be unusual. I suspect a bone marrow biopsy may be necessary for this diagnosis. B12 shot given today. #Depression unable to tolerate zoloft, will d/c on paroxetine and buspar instead, sleep aids trazodone and gabapentin, megace for appetite #Thrombocytopenia Stable values just above 50 this admission, etiology unclear - possible ITP?? Will be followed as an outpatient. Does not meet clinical indications for emergent IVIG at this time. Hx of recent splenic infarct. Concern for possible occult malignant process. May benefit from splenectomy?? Trend and monitor.? #Diarrhea prn loperamide monitor i think this is antibiotics sequela from zosyn prior admission seems to be improving Disposition: Home with HH to establish with hospice and f/u with oncology and PCP as outpt MDM: [phone] Code: DNR per pt request diet: regular PCP: [facility] Time spent: 45 min Discharge Plan Discharge Plan Patient Disposition: Home Health Service Discharge orders & Medications Prescriptions: New trazodone 50 mg Tablet 50 mg PO BEDTIME Qty: 30 0RF levofloxacin 750 mg tablet 750 mg PO DAILY Qty: 2 0RF paroxetine HCl 20 mg tablet 20 mg PO DAILY Qty: 30 0RF gabapentin [Neurontin] 400 mg Capsule 400 mg PO BEDTIME Qty: 30 0RF losartan 50 mg Tablet 25 mg PO DAILY Qty: 30 0RF megestrol 20 mg Tablet 40 mg PO BID Qty: 60 0RF furosemide 40 mg tablet 40 mg PO DAILY Qty: 30 0RF Continued omeprazole magnesium [Acid Senior Application Programmer (omeprazole)] 20 mg Capsule,Delayed Release(Dr/Ec) 20 mg PO DAILY epinephrine [EpiPen 2-Casey] 0.3 mg/0.3 mL auto-injector 0.3 mg IM PRN PRN (Reason: Allergic Reaction) Label Comments: as directed acetaminophen [Tylenol] 325 mg capsule 650 mg PO Q6HR PRN (Reason: Pain (Scale Score 1-3)) Label Comments: once a day 500mg sertraline 50 mg tablet 50 mg PO DAILY Label Comments: TAKE 1 TABLET BY MOUTH EVERY DAY atorvastatin 20 mg Tablet 20 mg PO DAILY diphenhydramine-acetaminophen [Tylenol PM Extra Strength] 25-500 mg tablet 1 tab PO BEDTIME PRN (Reason: Insomnia) Label Comments: once a day buspirone 7.5 mg tablet 7.5 mg PO BID Qty: 60 0RF Discontinued losartan 100 mg tablet 100 mg PO DAILY Label Comments: TAKE 1 TABLET BY MOUTH DAILY Follow up/Referrals: Waqas Inman MD [Primary Care Provider] - Visit Report/Discharge Packet Stand Alone Forms: Patient Portal/API, Stroke Signs & Symptoms Discharge Data Primary Care Provider: Waqas Inman Quality VTE Deep Vein Thrombosis/Pulmonary Embolism Present on Admission: No
--- NOTE | 2022-12-17 13:49 | OT.IPNOTE ---
Pt to go home with Hospice today, pt not seen to conserve his energy to be able to go home later.
--- NOTE | 2022-12-17 13:51 | PT-IP ANOTE ---
Pt discharging today. In consult with case management team, PT will hold treatment today to allow pt to conserve energy for transfer.
== END 2022-12-17 15:25 | disposition hospice, home (50) | DRG 193 ==
LOC: ED 12-12 00:07 → AC 12-12 05:59
PROVIDERS: Admitting Provider Family Medicine; Emergency Provider Emergency Medicine; Family Provider Student in an Organized Health Care Education/Training Program; PCP Family Medicine; Visit Provider Family Medicine
DX: J18.9 Pneumonia, unspecified organism (principal); I50.33 Acute on chronic diastolic (congestive) heart failure; N17.9 Acute kidney failure, unspecified; E87.1 Hypo-osmolality and hyponatremia; I11.0 Hypertensive heart disease with heart failure; D69.6 Thrombocytopenia, unspecified; F32.A Depression, unspecified; R19.7 Diarrhea, unspecified; D50.9 Iron deficiency anemia, unspecified; K21.9 Gastro-esophageal reflux disease without esophagitis; E78.5 Hyperlipidemia, unspecified; Z20.822 Contact with and (suspected) exposure to COVID-19; Z87.891 Personal history of nicotine dependence
CPT/HCPCS: 36415; 36430; 71045; 80053; 82550; 83605; 83690; 83735; 83880; 84145; 84484; 85007; 85014; 85018; 85025; 86850; 86900; 86901; 87040; 87633; 93005; 93307; 97162; 97165; 99233; 99283; 99284; P9016; J1650; J1940; J3420; P9041